=== PATIENT | male | born 1970 | race Caucasian/White ===

== ENCOUNTER 2020-07-07 11:05 | Outpatient (REF) | payer MEDICARE, OTHER, SELFPAY ==
[2020-07-07 11:59] LABS: MANUAL DIFF FLAG NO
[2020-07-07 12:11] LABS: Basophils Absolute Auto 0.1 X10*3/uL (0.0-0.2); Basophils Percent Auto 0.5 % (0-2); Eosinophils Absolute Auto 0.3 X10*3/uL (0.0-0.4); Eosinophils Percent Auto 2.9 % (0-4); Hematocrit 48.7 % (42-52); Hemoglobin 16.4 g/dl (14.0-18.0); Imm Gran Abs Auto 0.05 X10*3/uL (0.00-0.03); Imm Gran Pct Auto 0.5 % (0.0-0.4); Lymphocytes Absolute Auto 2.4 X10*3/uL (1.2-4.9); Lymphocytes Percent Auto 24.2 % (20-40); Mean Corpuscular HGB Conc 33.7 g/dl (31.0-36.0); Mean Corpuscular Hemoglobin 29.4 pg (27.0-33.0); Mean Corpuscular Volume 87.3 fL (80-98); Mean Platelet Volume 10.1 fL (9.4-12.4); Monocytes Absolute Auto 0.8 X10*3/uL (0.1-1.2); Monocytes Percent Auto 7.4 % (2-11); Neutrophils Absolute Auto 6.5 X10*3/uL (2.0-8.3); Neutrophils Percent Auto 64.5 % (45-73); Platelet Count 601 X10*3/uL (160-400); Red Blood Count 5.58 X10*6/uL (4.60-5.80); Red Cell Distribution Width 13.2 % (11.0-16.0); White Blood Count 10.1 X10*3/uL (4.8-10.8)
[2020-07-07 12:36] LABS: Alanine Aminotransferase 19 U/L (0-40); Albumin Level 4.5 g/dL (3.5-5.0); Alkaline Phosphatase 96 U/L (39-117); Anion Gap 12 (12-20); Aspartate Amino Transferase 19 U/L (5-37); Bilirubin Total 1.1 mg/dL (0.0-1.0); Blood Urea Nitrogen 17 mg/dL (9-16); Calcium 9.3 mg/dL (8.4-10.2); Carbon Dioxide 28 mmol/L (22-29); Chloride 101 mmol/L (96-108); Cholesterol 177 mg/dL; Estimated Glomerular Filt Rate > 60; Glucose Random 93 mg/dL (60-115); HDL Cholesterol 47 mg/dL; LDL Cholesterol Calculated 118 mg/dl; Potassium 4.8 mmol/l (3.3-5.1); Sodium 136 mmol/L (135-145); Total Protein 7.2 g/dL (6.5-8.0); Triglycerides 61 mg/dL
[2020-07-07 13:01] LABS: Free T4 (Free Thyroxine) 0.97 ng/dL (0.71-1.85); Thyroid Stimulating Hormone 3.24 uIU/mL (0.32-4.0)
[2020-07-07 13:17] LABS: Folate 11.4 ng/mL (> or = 4.0); Vitamin B12 410 pg/mL (200-900)
[2020-07-07 13:18] LABS: Creatinine Urine 303.16 mg/dL; Microalbum/Creatinine Ratio Ur 8.5 ug/mg cr
== END 2020-07-07 11:06 | disposition home or self-care (01) ==
LOC: HO.LAB 11:05
PROVIDERS: PCP Internal Medicine; Visit Provider Internal Medicine
DX: E10.22 Type 1 diabetes mellitus with diabetic chronic kidney disease (principal); N18.2 Chronic kidney disease, stage 2 (mild); E03.9 Hypothyroidism, unspecified; E11.65 Type 2 diabetes mellitus with hyperglycemia; E78.00 Pure hypercholesterolemia, unspecified; I12.9 Hypertensive chronic kidney disease with stage 1 through stage 4 chronic kidney disease, or unspecified chronic kidney disease
CPT/HCPCS: 36415; 80053; 80061; 82043; 82607; 82746; 84439; 84443; 85025

== ENCOUNTER 2021-04-29 11:20 | Outpatient (REF) | payer MEDICARE, SELFPAY ==
--- NOTE | ~2021-04-29 | XR_ITS ---
EXAMINATION: XR KNEE, RIGHT CLINICAL INFORMATION: Pain. COMPARISON: None. TECHNIQUE: AP, lateral, and sunrise views of the right knee. FINDINGS: Mild medial compartment joint space narrowing. Trace joint effusion. No osseous erosion. No fracture or dislocation. No abnormal soft tissue calcification. XR/XR knee RT 3V IMPRESSION: Mild medial compartment arthrosis. Trace joint effusion.
[2021-04-29 12:35] LABS: Alanine Aminotransferase 22 U/L (0-40); Albumin Level 4.4 g/dL (3.5-5.0); Alkaline Phosphatase 86 U/L (39-117); Anion Gap 13 (12-20); Aspartate Amino Transferase 20 U/L (5-37); Blood Urea Nitrogen 11 mg/dL (9-16); Calcium 9.8 mg/dL (8.4-10.2); Carbon Dioxide 27 mmol/L (22-29); Chloride 103 mmol/L (96-108); Cholesterol 174 mg/dL; Estimated Glomerular Filt Rate > 60; Glucose Random 226 mg/dL (60-115); HDL Cholesterol 46 mg/dL; LDL Cholesterol Calculated 114 mg/dl; Potassium 4.6 mmol/L (3.3-5.1); Sodium 138 mmol/L (135-145); Total Protein 7.1 g/dL (6.5-8.0); Triglycerides 70 mg/dL
[2021-04-29 12:56] LABS: Free T4 (Free Thyroxine) 0.93 ng/dL (0.71-1.85); Prostate Specific Antigen Scr 0.63 ng/mL (<0.05-4.0); Thyroid Stimulating Hormone 4.26 uIU/mL (0.32-4.0)
[2021-04-29 13:08] LABS: Folate 10.5 ng/mL (> or = 4.0); Vitamin B12 386 pg/mL (200-900)
[2021-04-29 13:52] LABS: Microalbum/Creatinine Ratio Ur 6.6 ug/mg cr
[2021-04-29 14:04] LABS: Estimated Average Glucose 200 mg/dL; Hemoglobin A1c % 8.6 %
== END 2021-04-29 11:21 | disposition home or self-care (01) ==
LOC: HO.XRAY 11:20
PROVIDERS: PCP Internal Medicine; Visit Provider Nurse Practitioner Family
DX: M25.561 Pain in right knee (principal); E10.22 Type 1 diabetes mellitus with diabetic chronic kidney disease; N18.2 Chronic kidney disease, stage 2 (mild); E78.00 Pure hypercholesterolemia, unspecified; E10.65 Type 1 diabetes mellitus with hyperglycemia; Z12.5 Encounter for screening for malignant neoplasm of prostate
CPT/HCPCS: 36415; 73562; 80053; 80061; 82043; 82607; 82746; 83036; 84153; 84439; 84443; 85025

== ENCOUNTER 2021-08-24 10:11 | Outpatient (REF) | payer MEDICARE, SELFPAY ==
[2021-08-24 11:04] LABS: Creatinine Urine 184.68 mg/dL
[2021-08-24 11:41] LABS: Alanine Aminotransferase 21 U/L (0-40); Alkaline Phosphatase 82 U/L (39-117); Anion Gap 12 (12-20); Aspartate Amino Transferase 21 U/L (5-37); Bilirubin Total 0.9 mg/dL (0.0-1.0); Blood Urea Nitrogen 15 mg/dL (9-16); Calcium 9.5 mg/dL (8.4-10.2); Carbon Dioxide 27 mmol/L (22-29); Chloride 105 mmol/L (96-108); Cholesterol 139 mg/dL; Estimated Glomerular Filt Rate > 60; Glucose Random 151 mg/dL (60-115); HDL Cholesterol 36 mg/dL; LDL Cholesterol Calculated 90 mg/dl; Potassium 4.7 mmol/L (3.3-5.1); Sodium 139 mmol/L (135-145); Total Protein 6.6 g/dL (6.5-8.0); Triglycerides 65 mg/dL
[2021-08-24 12:08] LABS: Free T4 (Free Thyroxine) 0.96 ng/dL (0.71-1.85); Thyroid Stimulating Hormone 2.29 uIU/mL (0.32-4.0)
== END 2021-08-24 10:12 | disposition home or self-care (01) ==
LOC: HO.LAB 10:11
PROVIDERS: PCP Internal Medicine; Visit Provider Internal Medicine
DX: E11.65 Type 2 diabetes mellitus with hyperglycemia (principal); E78.00 Pure hypercholesterolemia, unspecified; E03.9 Hypothyroidism, unspecified
CPT/HCPCS: 36415; 80053; 80061; 84439; 84443

== ENCOUNTER 2022-09-13 08:33 | Outpatient (REF) | payer MEDICARE, SELFPAY ==
[2022-09-13 08:44] LABS: MANUAL DIFF FLAG NO
[2022-09-13 08:48] LABS: Basophils Absolute Auto 0.1 X10*3/uL (0.0-0.2); Eosinophils Absolute Auto 0.6 X10*3/uL (0.0-0.4); Eosinophils Percent Auto 4.8 % (0-4); Hemoglobin 19.7 g/dl (14.0-18.0); Imm Gran Abs Auto 0.12 X10*3/uL (0.00-0.03); Lymphocytes Absolute Auto 1.8 X10*3/uL (1.2-4.9); Lymphocytes Percent Auto 15.4 % (20-40); Mean Corpuscular HGB Conc 33.3 g/dl (31.0-36.0); Mean Corpuscular Hemoglobin 29.5 pg (27.0-33.0); Mean Corpuscular Volume 88.8 fL (80.0-98.0); Mean Platelet Volume 9.5 fL (9.4-12.4); Monocytes Absolute Auto 0.8 X10*3/uL (0.1-1.2); Monocytes Percent Auto 7.1 % (2-11); Neutrophils Absolute Auto 8.4 x10*3/uL (2.0-8.3); Neutrophils Percent Auto 70.7 % (45-73); Platelet Count 706 X10*3/uL (160-400); Red Blood Count 6.67 X10*6/uL (4.60-5.80); Red Cell Distribution Width 16.7 % (11.0-16.0); White Blood Count 11.9 X10*3/uL (4.8-10.8)
[2022-09-13 08:50] LABS: Hematocrit 59.2 % (42.0-52.0)
[2022-09-13 09:20] LABS: Estimated Average Glucose 203 mg/dL; Hemoglobin A1c % 8.7 %
[2022-09-13 09:26] LABS: Alanine Aminotransferase 24 U/L (0-40); Alkaline Phosphatase 124 U/L (39-117); Anion Gap 14 (12-20); Aspartate Amino Transferase 26 U/L (5-37); Bilirubin Total 1.3 mg/dL (0.0-1.0); Blood Urea Nitrogen 12 mg/dL (9-16); Calcium 9.5 mg/dL (8.4-10.2); Carbon Dioxide 28 mmol/L (22-29); Chloride 104 mmol/L (96-108); Cholesterol 145 mg/dL; Estimated Glomerular Filt Rate > 60; Glucose Random 118 mg/dL (60-115); HDL Cholesterol 44 mg/dL; LDL Cholesterol Calculated 89 mg/dl; Potassium 4.6 mmol/L (3.3-5.1); Sodium 141 mmol/L (135-145); Total Protein 6.6 g/dL (6.5-8.0); Triglycerides 60 mg/dL
[2022-09-13 09:56] LABS: Folate 6.9 ng/mL (> or = 4.0); Free T4 (Free Thyroxine) 1.21 ng/dL (0.71-1.85); Prostate Specific Antigen Scr 0.62 ng/mL (<0.05-4.0); Thyroid Stimulating Hormone 2.29 uIU/mL (0.32-4.0); Vitamin B12 522 pg/mL (200-900)
[2022-09-13 10:38] LABS: Creatinine Urine 152.68 mg/dL; Microalbum/Creatinine Ratio Ur 9.1 ug/mg cr
== END 2022-09-13 08:34 | disposition home or self-care (01) ==
LOC: HO.LAB 08:33
PROVIDERS: PCP Internal Medicine; Visit Provider Internal Medicine
DX: Z12.5 Encounter for screening for malignant neoplasm of prostate (principal); E11.65 Type 2 diabetes mellitus with hyperglycemia; E78.00 Pure hypercholesterolemia, unspecified
CPT/HCPCS: 36415; 80053; 80061; 82043; 82607; 82746; 83036; 84153; 84439; 84443; 85025

== ENCOUNTER 2022-09-19 10:40 | Outpatient (REF) | payer MEDICARE, SELFPAY ==
[2022-09-19 11:46] LABS: Baso%MD 0.9 %; Eos%MD 4.5 %; Hemoglobin 19.5 g/dl (14.0-18.0); IG%MD 1.3 %; Lymph%MD 14.4 %; Mean Corpuscular HGB Conc 33.5 g/dl (31.0-36.0); Mean Corpuscular Hemoglobin 28.9 pg (27.0-33.0); Mean Corpuscular Volume 86.4 fL (80.0-98.0); Mean Platelet Volume 9.6 fL (9.4-12.4); Mono%MD 5.9 %; Platelet Count 758 X10*3/uL (160-400); Red Blood Count 6.74 X10*6/uL (4.60-5.80); Red Cell Distribution Width 15.9 % (11.0-16.0)
[2022-09-19 11:47] LABS: Hematocrit 58.2 % (42.0-52.0)
[2022-09-19 12:38] LABS: Atypical Lymph Absolute Manual 0.1 x10*3/uL; Atypical Lymphs Percent Manual 1 % (0-6); Band Neutrophils Percent 2 % (3-5); Basophils Abs Manual 0.1 X10*3/uL (0.0-0.2); Basophils Percent Manual 1 % (0-2); Eosinophils Absolute Manual 0.5 X10*3/uL (0.0-0.4); Eosinophils Percent Manual 4 % (0-4); Lymphocytes Absolute Manual 1.8 X10*3/uL (1.2-4.9); Lymphocytes Percent Manual 14 % (20-40); Monocytes Absolute Manual 0.7 X10*3/uL (0.1-1.2); Monocytes Percent Manual 5 % (2-11); Neutrophils Absolute Manual 9.8 X10*3/uL (2.0-8.3); Neutrophils Percent Manual 73 % (45-73)
[2022-09-19 12:39] LABS: Creatinine Urine 146.47 mg/dL
[2022-09-19 12:41] LABS: Polychromasia 1+ (0-2) /OIF; RBC Morphology NOTED
[2022-09-19 12:42] LABS: Burr Cells 1+ (0-2) /OIF; Spherocytes 1+ (0-2) /OIF
[2022-09-19 12:43] LABS: Platelet Estimate INCREASED (NORMAL); Platelet Morphology Comment NORMAL; Toxic Vacuolation PRESENT
== END 2022-09-19 10:41 | disposition home or self-care (01) ==
LOC: HO.LAB 10:40
PROVIDERS: PCP Internal Medicine; Visit Provider Internal Medicine
DX: E11.65 Type 2 diabetes mellitus with hyperglycemia (principal); D75.1 Secondary polycythemia
CPT/HCPCS: 36415; 85007; 85027

== ENCOUNTER → 2022-09-22 15:30 | Outpatient (BNV) | payer MEDICARE, SELFPAY | PROVIDERS: PCP Internal Medicine; Visit Provider Internal Medicine | DX: D75.1 Secondary polycythemia (principal); D75.839 Thrombocytosis, unspecified | CPT/HCPCS: 99204; 99213; 99214; G2211 ==

== ENCOUNTER 2022-10-23 09:48 | Outpatient (REF) | payer MEDICARE, SELFPAY | END 2022-10-23 09:49 | disposition home or self-care (01) | LOC: HO.BBR 09:48 | PROVIDERS: Visit Provider Internal Medicine | DX: D75.1 Secondary polycythemia (principal) | CPT/HCPCS: 85018; 99195 ==

== ENCOUNTER 2022-11-20 08:35 | Outpatient (REF) | payer MEDICARE, SELFPAY | END 2022-11-20 08:36 | disposition home or self-care (01) | LOC: HO.BBR 08:35 | PROVIDERS: PCP Internal Medicine; Visit Provider Internal Medicine | DX: D75.1 Secondary polycythemia (principal) | CPT/HCPCS: 85014; 85018; 99195 ==

== ENCOUNTER 2022-12-26 07:59 | Outpatient (REF) | payer MEDICARE, SELFPAY | END 2022-12-26 08:00 | disposition home or self-care (01) | LOC: HO.BBR 07:59 | PROVIDERS: PCP Internal Medicine; Visit Provider Internal Medicine | DX: D75.1 Secondary polycythemia (principal) | CPT/HCPCS: 85014; 85018; 99195 ==

== ENCOUNTER 2023-01-24 07:59 | Outpatient (REF) | payer MEDICARE, SELFPAY | END 2023-01-24 08:00 | disposition home or self-care (01) | LOC: HO.BBR 07:59 | PROVIDERS: PCP Internal Medicine; Visit Provider Internal Medicine | DX: D75.1 Secondary polycythemia (principal) | CPT/HCPCS: 85018; 99195 ==

== ENCOUNTER 2023-02-28 08:38 | Outpatient (REF) | payer MEDICARE, SELFPAY ==
--- NOTE | ~2023-02-28 | US_ITS ---
EXAMINATION: US VENOUS WITH DOPPLER UPPER EXTREMITY, LEFT CLINICAL INFORMATION: Left upper extremity swelling, polycythemia. COMPARISON: None available. TECHNIQUE: Ultrasound of the upper extremity is performed using compression sonography and color and pulse Doppler flow with assessment of augmentation of flow. There is also imaging and Doppler assessment of the jugular and subclavian veins. Spectral analysis with color-flow imaging is performed. FINDINGS: Respiratory variation, normal compression, and augmented flow are noted throughout the upper extremity including the axillary, brachial, cubital, and radial and ulnar veins. There is normal flow in the internal jugular and subclavian veins. There is no visible deep or superficial thrombophlebitis. If the patient's symptoms progress, a followup ultrasound in 5 -7 days might be of value to exclude proximal propagation from a nonvisualized distal arm vein. US/US venous duplex UE LT IMPRESSION: No evidence of deep venous thrombosis in the visualized veins of the left upper extremity.
== END 2023-02-28 08:39 | disposition home or self-care (01) ==
LOC: HO.US 08:38
PROVIDERS: PCP Internal Medicine; Visit Provider Internal Medicine
DX: D75.839 Thrombocytosis, unspecified (principal); M79.89 Other specified soft tissue disorders
CPT/HCPCS: 93971

== ENCOUNTER 2023-02-28 09:48 | Outpatient (AMB) | payer MEDICARE, SELFPAY ==
--- NOTE | 2023-02-28 09:55 | A.OFFPC_ITS ---
Vital Signs 02/28/23 09:57 02/28/23 10:29 Height 5 ft 8 in Weight 214 lb BMI 32.5 BP 152/82 H 130/70 Blood Pressure Location Lt brachial Lt brachial Position Sitting Sitting Pulse 78 Pulse Source Pulse Oximeter Pulse Oximetry (%) 98 Oxygen Delivery Method Room Air Intake Visit Reasons: Heart Attack [facility] Allergies peanut [PEANUT] Allergy (Severe, Verified 02/28/23 09:58) ANAPHYLAXIS lamotrigine [Lamictal] Allergy (Unknown, Verified 02/28/23 09:58) cough lisinopril Allergy (Unknown, Verified 02/28/23 09:58) unknown Penicillins [PENICILLINS] Allergy (Unknown, Verified 02/28/23 09:58) SEVERE HIVES valsartan Allergy (Unknown, Verified 02/28/23 09:58) Unknown Tobacco use date assessed: 09/22/22 Dental Screening Dental Screen Date: 02/28/23 Did you have a dental visit in the last 12 months?: Yes Did you have a dental problem in the last 6 months where you did not have access to dental care?: No Was dental information given to patient?: Patient has dentist HPI Heart Attack - [facility] HPI Details 52-year-old obese male with diabetes mellitus type 1 hypertension hypothyroidism asthma hypercholesterolemia GERD polycythemia and migraine last seen in December 2022. Review of the notes had left upper extremity swelling in which an ultrasound done showing no evidence of DVT. Patient follows up with Hematology Oncology for the myeloproliferative disorder probable polycythemia vera positive for JAK2 mutation receiving therapeutic phlebotomy on hydroxyurea and baby aspirin. Patient was recently in the hospital 02/03/2002/15/2023 presented to the ER with chest pain diagnosis of non ST elevated myocardial infarction noted also rib fractures multiple right side. Cath was suppose to be done but was delayed and so the patient walked out COUNTS INCLUDE 234 BEDS AT THE [facility] Medical History (Updated 02/28/23 @ 10:14 by Tali Dyer MD) Anxiety and depression Asthma Cataract Chronic kidney disease GERD (gastroesophageal reflux disease) History of aspiration pneumonia Hypercholesterolemia Hypertension Hypothyroidism Left bundle branch block Obesity (BMI 30-39.9) Obstructive sleep apnea Peripheral neuropathy Pulmonary nodule Type 1 diabetes mellitus with diabetic chronic kidney disease Vitamin D deficiency Surgical History History of carpal tunnel release History of eye surgery History of lumbar surgery History of penile implant History of surgery History of trigger finger Family History Father Hypertension CVD (cardiovascular disease) Mother Hypertension CVD (cardiovascular disease) Family/Other Rectal cancer Brother Rectal cancer Social History Household Members: Family Housing: House Alcohol intake: never Patient Tobacco Use Status: Former Tobacco user Tobacco use type: Cigarette Years Smoked: teenager e-Cigarette/Vaping Use: Never Used Second Hand Smoke Exposure: Yes service: No Current occupational status: unemployed Cognitive needs: No Hearing needs: No Vision needs: Yes Questionnaire PHQ-9 Over the last 2 weeks, how often have you been bothered by any of the following problems? 1. Little interest or pleasure in doing things: not at all 2. Feeling down, depressed, or hopeless: several days 3. Trouble falling or staying asleep, or sleeping too much: several days 4. Feeling tired or having little energy: several days 5. Poor appetite or overeating: not at all 6. Feeling bad about yourself - or that you are a failure or have let yourself or your family down: several days 7. Trouble concentrating on things, such as reading the newspaper or watching television: not at all 8. Moving or speaking so slowly that other people could have noticed. Or the opposite - being so fidgety or restless that you have been moving around a lot more than usual: not at all 9. Thoughts that you would be better off or of hurting yourself in some way: not at all Total score: 4 Depression Screening Interpretation: Positive Source: Developed by Drs. Kendall Zapata, Navya Torres, Robert Costa and colleagues, with an educational glen from [employer]. Thrive Questionnaire Date Thrive assessed: 09/22/22 AUDIT C Alcohol Use Questionnaire (AUDIT-C) 1. How often do you have a drink containing alcohol?: 2-4 times a month 2. How many drinks containing alcohol do you have on a typical day when you are drinking?: 3 or 4 3. How often do you have six or more drinks on one occasion?: Less than monthly Total Score: 4 Score Reviewed/Action Taken: Yes YEN-7 AMB Questionnaire YEN-7 Date YEN - 7 assessed: 09/22/22 Source: Developed by DrsEnedina Zapata, Navya Torres, Robert Costa and colleagues, with an educational glen from [employer]. Physical exam (Primary Care) Vital Signs: Last Vital Signs Pulse 78 02/28/23 09:57 BP 152/82 H 02/28/23 09:57 Pulse Ox 98 02/28/23 09:57 Oxygen Delivery Method Room Air 02/28/23 09:57 BMI result Body Mass Index 32.5 Tobacco/Smoking Status: Tobacco use Status Tobacco use date assessed 09/22/22 02/28/23 10:02 Patient Tobacco Use Status Former Tobacco user 02/28/23 10:02 Tobacco use type Cigarette 02/28/23 10:02 e-Cigarette/Vaping Use Never Used 02/28/23 10:02 PHQ-9: PHQ-9 Score PHQ-9: Total score 4 02/28/23 10:02 Depression Screening Interpretation: Positive Thrive Assessment: Date of Thrive Assessment Date Thrive assessed 09/22/22 02/28/23 10:02 Const General: alert; No acute distress Eyes Conjunctivae: conjunctivae normal Resp Auscultation: clear to auscultation bilaterally Cardio Rate: regular rate Rhythm: regular rhythm GI Inspection: Yes normal to inspection Extrem General: Yes normal to inspection and No edema Assessment and Plan Assessment & Plan (1) NSTEMI (non-ST elevated myocardial infarction): Comment: January 2023 Code(s): I21.4 - Non-ST elevation (NSTEMI) myocardial infarction Plan: Control the cholesterol, weight, blood pressure, diabetes called cardiology for an urgent referral and they will get in touch with him. (2) Polycythemia: Code(s): D75.1 - Secondary polycythemia Plan: Patient follows up with hematology oncology on hydroxyurea and therapeutic phlebotomy (3) Hypertension: Comment: Cardiac catheterization June 2018 normal Code(s): I10 - Essential (primary) hypertension Qualifiers: Hypertension type: essential hypertension Qualified Code(s): I10 - Essential (primary) hypertension Plan: Continue with blood pressure medication. Decrease salt intake and exercise presently on amlodipine 10 mg once a day metoprolol 50 mg once a day blood pressure is controlled (4) Type 1 diabetes mellitus with diabetic chronic kidney disease: Comment: With retinopathy, neuropathy, nephropathy Code(s): E10.22 - Type 1 diabetes mellitus with diabetic chronic kidney disease Qualifiers: Chronic kidney disease stage: stage 2 (mild) Qualified Code(s): E10.22 - Type 1 diabetes mellitus with diabetic chronic kidney disease; N18.2 - Chronic kidney disease, stage 2 (mild) Plan: Decrease the amount of carbohydrate intake, pasta, bread, rice and potatoes are all sugar and that is aside from all the sweet stuff, remember that fruits are good but they are Sweet also. Patient on insulin pump and has cardiology to help with control of diabetes (5) Asthma: Code(s): J45.909 - Unspecified asthma, uncomplicated Qualifiers: Asthma severity: mild Asthma persistence: intermittent Asthma complication type: uncomplicated Qualified Code(s): J45.20 - Mild intermittent asthma, uncomplicated Plan: Stable (6) Hypothyroidism: Code(s): E03.9 - Hypothyroidism, unspecified Qualifiers: Hypothyroidism type: acquired Qualified Code(s): E03.9 - Hypothyroidism, unspecified Plan: Continue with the thyroid medication (7) Obesity (BMI 30-39.9): Code(s): E66.9 - Obesity, unspecified Plan: Diet and exercise (8) Hypercholesterolemia: Code(s): E78.00 - Pure hypercholesterolemia, unspecified Plan: Avoid fried foods, chicken skin, eggs, butter margarine, pastries and meat. Be it pork or beef they have a lot of cholesterol LDL goal of less than 70 and triglyceride of less than 150 patient is on atorvastatin 40 mg once a day. LDL blood work done in [facility] is 57. (9) GERD (gastroesophageal reflux disease): Code(s): K21.9 - Gastro-esophageal reflux disease without esophagitis Qualifiers: Esophagitis presence: without esophagitis Qualified Code(s): K21.9 - Gastro-esophageal reflux disease without esophagitis Plan: Avoid the foods that causes that usually spicy foods, tomato products, juices, coffee, soda and foods that your sensitive to. After eating do not lie down, allow 3-4 hours before in lie down. And keep the head of bed above 30 degrees to avoid the acid from going up. (10) Chronic kidney disease: Code(s): N18.9 - Chronic kidney disease, unspecified Qualifiers: Chronic kidney disease stage: stage 2 (mild) Qualified Code(s): N18.2 - Chronic kidney disease, stage 2 (mild) Plan: Avoid NSAIDs, keep well hydrated (11) Recurrent major depression: Comment: Patient follows up with counselling and therapy Code(s): F33.9 - Major depressive disorder, recurrent, unspecified Plan: Continue with present medication and counseling Orders: Referrals Cardiology Referral I21.4 - Non-ST elevation (NSTEMI) myocardial infarction Coding Level of Care Code Est Pt Level 4 (42925) Diagnoses NSTEMI (non-ST elevated myocardial infarction) I21.4 Polycythemia D75.1 Hypertension I10 Hypertension type: essential hypertension Type 1 diabetes mellitus with diabetic chronic kidney disease E10.22; N18.2 Chronic kidney disease stage: stage 2 (mild) Asthma J45.20 Asthma severity: mild Asthma persistence: intermittent Asthma complication type: uncomplicated Hypothyroidism E03.9 Hypothyroidism type: acquired Obesity (BMI 30-39.9) E66.9 Hypercholesterolemia E78.00 GERD (gastroesophageal reflux disease) K21.9 Esophagitis presence: without esophagitis Chronic kidney disease N18.2 Chronic kidney disease stage: stage 2 (mild) Recurrent major depression F33.9 Additional Codes PHQ-9 - 51939 - PHQ-9 Billing: Y ([id number])
[2023-02-28 09:57] VITALS: BP 152/82; PULSE 78; O2SAT 98; BMI 32.5
[2023-02-28 10:29] VITALS: BP 130/70
== END 2023-02-28 10:38 | disposition home or self-care (01) ==
PROVIDERS: PCP Internal Medicine; Visit Provider Internal Medicine
DX: I12.9 Hypertensive chronic kidney disease with stage 1 through stage 4 chronic kidney disease, or unspecified chronic kidney disease (principal); N18.2 Chronic kidney disease, stage 2 (mild); E10.22 Type 1 diabetes mellitus with diabetic chronic kidney disease; I21.4 Non-ST elevation (NSTEMI) myocardial infarction; D75.1 Secondary polycythemia; J45.20 Mild intermittent asthma, uncomplicated; E03.9 Hypothyroidism, unspecified; E66.9 Obesity, unspecified; E78.00 Pure hypercholesterolemia, unspecified; K21.9 Gastro-esophageal reflux disease without esophagitis; F33.9 Major depressive disorder, recurrent, unspecified
CPT/HCPCS: 99214

== ENCOUNTER 2023-03-06 09:51 | Outpatient (AMB) | payer MEDICARE, SELFPAY ==
--- NOTE | 2023-03-06 09:55 | MHC.OFFVIS ---
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: No Allergies peanut [PEANUT] Allergy (Severe, Verified 02/28/23 09:58) ANAPHYLAXIS lamotrigine [Lamictal] Allergy (Unknown, Verified 02/28/23 09:58) cough lisinopril Allergy (Unknown, Verified 02/28/23 09:58) unknown Penicillins [PENICILLINS] Allergy (Unknown, Verified 02/28/23 09:58) SEVERE HIVES valsartan Allergy (Unknown, Verified 02/28/23 09:58) Unknown Medication List - Last Reconciled 03/06/23 by Fito Washington MD amlodipine 10 mg PO DAILY aspirin (Adult Aspirin Regimen) 81 mg PO DAILY atorvastatin 40 mg PO DAILY blood sugar diagnostic (Contour Next Test Strips) As directed [id number] 50-325-40 mg 1 cap PO Q4-6H PRN duloxetine 20 mg PO DAILY erenumab-aooe (Aimovig Autoinjector) 140 mg subcut DAILY fluticasone propionate 50 mcg/actuation 2 sprays intranasal DAILY hydroxyurea (Hydrea) 500 mg PO BID insulin aspart U-100 (Novolog FlexPen U-100 Insulin aspart) 100 units subcut DAILY levothyroxine 125 mcg PO QAM metoprolol succinate ER 50 mg PO DAILY 90 days pantoprazole 40 mg PO DAILY 90 days sertraline 50 mg PO DAILY 90 days sumatriptan succinate 50 mg PO Q2-4H PRN HPI HPI Comments History of Present Illness Details Thank you for referring Russell in cardiology consultation today for management of recent NSTEMI. Patient was admitted to [facility] with left-sided chest pressure and subsequent workup had revealed elevated troponins. He was then admitted and started on IV heparin and was scheduled for cardiac catheterization. He had an echocardiogram while he was there which showed normal LV systolic function without any significant regional wall motion abnormality with mild LVH and without any significant valvular abnormality. However he got upset as his cardiac catheterization kept getting postponed and delayed day after day. He therefore signed out against medical advise as he was not getting proper answer any was concerned about getting his blood removed for his polycythemia. Since then he has been not performing a lot of exercise and he has been laying low. He has had no recurrent chest pressure anginal sounding chest discomfort. He is taking all his medications currently. [facility] Medical History Anxiety and depression Asthma Cataract Chronic kidney disease GERD (gastroesophageal reflux disease) History of aspiration pneumonia Hypercholesterolemia Hypertension Hypothyroidism Left bundle branch block Obesity (BMI 30-39.9) Obstructive sleep apnea Peripheral neuropathy Pulmonary nodule Type 1 diabetes mellitus with diabetic chronic kidney disease Vitamin D deficiency Surgical History History of carpal tunnel release History of eye surgery History of lumbar surgery History of penile implant History of surgery History of trigger finger Family History Father Hypertension CVD (cardiovascular disease) Mother Hypertension CVD (cardiovascular disease) Family/Other Rectal cancer Brother Rectal cancer Social History Household Members: Family Housing: House Alcohol intake: never Patient Tobacco Use Status: Former Tobacco user Tobacco use type: Cigarette Years Smoked: teenager e-Cigarette/Vaping Use: Never Used Second Hand Smoke Exposure: Yes service: No Current occupational status: unemployed Cognitive needs: No Hearing needs: No Vision needs: Yes Review of Systems Const Denies chills, Denies daytime sleepiness, Denies fatigue, Denies fever(s), Denies frequent falls, Denies poor appetite, Denies snoring, Denies stops breathing during sleep, Denies weakness, Denies weight gain and Denies weight loss Eyes Denies loss of vision ENT Denies dizziness and Denies hearing loss Card Denies chest pain, Denies claudication, Denies leg edema, Denies lightheadedness, Denies palpitations, Denies dyspnea, Denies dyspnea on exertion and Denies orthopnea Resp Denies cough, Denies excessive phlegm production, Denies dyspnea, Denies dyspnea on exertion, Denies snoring and Denies wheezing GI Denies abdominal pain, Denies hematochezia, Denies change in bowel habits, Denies nausea and Denies vomiting Denies dysuria and Denies urinary frequency Musc Denies arthralgias, Denies muscle weakness, Denies numbness and Denies other (frequent falls) Skin/Breast Denies nail changes and Denies rash Neuro Denies Abnormal speech present, Denies dizziness, Denies frequent falls, Denies loss of vision, Denies memory loss, Denies numbness and Denies weakness Psych Denies depression and Denies memory loss Endo Denies fatigue and Denies palpitations Viral/Lymph Reports easy bruising and Reports other (anemia) Aller/Immun Denies wheezing Physical Exam Vital Signs: Last Vital Signs Pulse 84 03/06/23 10:00 BP 130/72 03/06/23 10:00 BMI result Body Mass Index 32.5 Const General: cooperative, comfortable, no acute distress, alert, awake and Physically active Nutritional Appearance: obese Orientation/consciousness: patient oriented x3 Limitations: no limitations HEENT Head: Yes normocephalic and Yes atraumatic Neck Neck: Yes trachea midline, Yes supple and Yes no JVD Carotids: no bruits Resp Effort & Inspection: normal respiratory effort Auscultation: clear to auscultation bilaterally Cardio Jugular venous distension: no JVD Palpation: normal PMI Rate: regular rate Rhythm: regular rhythm Heart sounds: S1 normal heart sound present, S2 normal heart sound present, no click, no gallops, no murmurs and no rubs GI Auscultation: normal bowel sounds Skin General skin exam: no rashes or lesions noted Neuro General: patient oriented x3 and no focal motor deficits Speech: No Abnormal speech present Extrem General: Yes no clubbing, cyanosis or edema Psych Appearance: grossly normal Assessment & Plan Assessment & Plan (1) NSTEMI (non-ST elevated myocardial infarction): Comment: January 2023 Code(s): I21.4 - Non-ST elevation (NSTEMI) myocardial infarction Plan: Recent admission with symptoms and biomarker evidence suggestive of acute coronary syndrome. Higher detailed discussion with him regarding pathophysiology of acute coronary syndrome related to acute plaque erosion/rupture/disruption and reduction myocardial blood flow. He was advised appropriately cardiac catheterization although he had signed out against medical advise. Currently has had no recurrent symptoms is add reduced were capacity. I discussed with him that he requires further risk stratification form of management of his acute coronary syndrome that happened recently. Given that he has had no recurrent symptoms we can pursue noninvasive workup. Suggested him given his underlying left bundle-branch block that he would require vasodilating myocardial perfusion imaging and/or can consider coronary CTA. Will perform vasodilating myocardial perfusion imaging for further assessment. Further treatment based on the finding. If he does have ischemia based on this will require invasive cardiac catheterization with the goal for interventional revascularization. Continue aspirin. Continue high-intensity statin therapy. Advise lipid panel in 6 weeks time. Continue aggressive blood pressure control goal blood pressure less than 130/84. Continue aggressive diabetes control which is being pursue through office. If myocardial perfusion imaging is within normal limits, will proceed with cardiac rehab Will follow with him in 6 weeks time, sooner p.r.n.. Thank you for allowing me to partake in his care Orders: Orders CA lexiscan stress w jean-claude Today I21.4 - Non-ST elevation (NSTEMI) myocardial infarction Lipid Panel 6 Weeks I21.4 - Non-ST elevation (NSTEMI) myocardial infarction, I25.10 - Atherosclerotic heart disease of [place] coronary artery without angina pectoris Cardiac Rehab 3 Weeks I21.4 - Non-ST elevation (NSTEMI) myocardial infarction, Z95.2 - Presence of prosthetic heart valve Coding Level of Care Code New Pt Level 4 (51189) Diagnoses NSTEMI (non-ST elevated myocardial infarction) I21.4
[2023-03-06 10:00] VITALS: BP 130/72; PULSE 84; BMI 32.5
== END 2023-03-06 10:27 | disposition home or self-care (01) ==
PROVIDERS: PCP Internal Medicine; Referring Provider Internal Medicine; Visit Provider Internal Medicine Cardiovascular Disease
DX: I21.4 Non-ST elevation (NSTEMI) myocardial infarction (principal)
CPT/HCPCS: 99204

== ENCOUNTER → 2023-03-06 09:51 | Outpatient (BNVA) | payer MEDICARE, SELFPAY | PROVIDERS: PCP Internal Medicine; Referring Provider Internal Medicine; Visit Provider Internal Medicine Cardiovascular Disease | DX: I21.4 Non-ST elevation (NSTEMI) myocardial infarction (principal) | CPT/HCPCS: 99202 ==

== ENCOUNTER → 2023-03-22 08:38 | Outpatient (REF) | payer MEDICARE, SELFPAY ==
--- NOTE | ~2023-03-22 | NM_ITS ---
Myocardial perfusion study Indication: NSTEMI To evaluate for myocardial ischemia Technique: The patient was brought in for a Lexiscan perfusion study on 03/22/2023. Patient performed low-level exercise and was injected 0.4 mg of Lexiscan intravenously. Within a minute of injection, 30 mCi of sestamibi was given intravenously. Images were obtained using the SPECT gamma camera interlaced with the gating device. Images were obtained in supine position. Resting perfusion study was performed on 03/26/2023. Patient was administered 30 mCi of sestamibi intravenously at rest. Images were then obtained in supine position. Images obtained with and without CT attenuation. Total DLP 132 mGy-cm. Images were processed with the software and compared side to side in short axis, horizontal long axis and vertical long axis views. Findings: The stress perfusion study showed non attenuated images show very focal area of minimally reduced uptake in the mid anterior wall of the LV myocardium. Remainder of the LV myocardium is normally perfused. Attenuation corrected images show small area of mildly to moderately reduced uptake in the apex and inferoapical wall of the LV myocardium.. The gated study shows reduced LV systolic function with calculated LVEF of 44%. LV cavity is mildly dilated size. The gated study shows diffuse and mildly reduced wall thickening and contraction of segments. Resting study shows nontender images show normal uptake in the anterior wall of the LV myocardium. Minimal thinning of the inferior wall of the LV myocardium. Attenuation corrected images show poor quality images due to subdiaphragmatic uptake interfering with myocardial uptake. Gating at rest reveals normal systolic wall motion with ejection fraction at 52%. The findings are consistent with no clear significant reversible defect suggestive wall ischemia.. NM/NM jean-claude perf SPECT rest & str Impression: 1. Myocardial perfusion imaging study shows likely normal myocardial perfusion 2. Gated LVEF is 44% with stress and 52% with rest 3. Transient ischemic dilatation present EKG nondiagnostic for ischemia
--- NOTE | 2023-03-22 08:41 | CA_ITS ---
Acquisition Time: 2023-03-22 09:19:47 Total Exercise Time: 00:02:00 Test Indications: LBBB Medications: SEE H Protocol: LEXISCAN Max HR: 083 BPM 49% of Pred: 169 BPM Max BP: 150/080 mmHG Max Work Load: 1.0 METS Pharnacolgoical stress test with Lexiscan injection, while sitting, with= mild SOB, without chest discomfort, without arrhytmias, with normotensive response to injection, with nondiagnositic EKGs. Aminophylline 75mg IVP given to reverse Lexiscan. Nuclear images pending. Test reviewed with Dr. Wang. Referred By: Fito Washington Overread By: CLARK WANG
== END ==
LOC: HO.CARD 08:38
PROVIDERS: Visit Provider Internal Medicine Cardiovascular Disease
DX: I21.4 Non-ST elevation (NSTEMI) myocardial infarction (principal)
CPT/HCPCS: 78452; 93017; A9500; J0280; J2785

== ENCOUNTER → 2023-03-22 08:41 | Outpatient (BNV) | payer MEDICARE, SELFPAY | PROVIDERS: Visit Provider Internal Medicine | DX: I21.4 Non-ST elevation (NSTEMI) myocardial infarction (principal) | CPT/HCPCS: 78452; 93016; 93018 ==

== ENCOUNTER 2023-03-27 08:45 | Outpatient (REF) | payer MEDICARE, SELFPAY | END 2023-03-27 08:46 | disposition home or self-care (01) | LOC: HO.BBR 08:45 | PROVIDERS: PCP Internal Medicine; Visit Provider Internal Medicine | DX: D75.1 Secondary polycythemia (principal) | CPT/HCPCS: 85018; 99195 ==

== ENCOUNTER 2023-04-10 09:10 | Outpatient (AMB) | payer MEDICARE, SELFPAY ==
[2023-04-03 07:30] VITALS: BP 134/66; BP 140/58; BMI 32.5
[2023-04-10 09:22] VITALS: BP 130/72; PULSE 65; BMI 32.5
--- NOTE | 2023-04-10 09:22 | A.OFFVIS_ITS ---
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: No Allergies peanut [PEANUT] Allergy (Severe, Verified 04/10/23 09:28) ANAPHYLAXIS lamotrigine [Lamictal] Allergy (Unknown, Verified 04/10/23 09:28) cough lisinopril Allergy (Unknown, Verified 04/10/23 09:28) unknown Penicillins [PENICILLINS] Allergy (Unknown, Verified 04/10/23 09:28) SEVERE HIVES valsartan Allergy (Unknown, Verified 04/10/23 09:28) Unknown Medication List - Last Reconciled 04/10/[address] amlodipine 10 mg PO DAILY aspirin (Adult Aspirin Regimen) 81 mg PO DAILY atorvastatin 40 mg PO DAILY blood sugar diagnostic (Contour Next Test Strips) As directed wtjngageim-shttlaizmsvdh-dohu 50-325-40 mg 1 cap PO Q4-6H PRN duloxetine 20 mg PO DAILY erenumab-aooe (Aimovig Autoinjector) 140 mg subcut DAILY fluticasone propionate 50 mcg/actuation 2 sprays intranasal DAILY hydroxyurea (Hydrea) 500 mg PO BID insulin aspart U-100 (Novolog FlexPen U-100 Insulin aspart) 100 units subcut DAILY levothyroxine 125 mcg PO QAM metoprolol succinate ER 50 mg PO DAILY 90 days pantoprazole 40 mg PO DAILY 90 days sertraline 50 mg PO DAILY 90 days sumatriptan succinate 50 mg PO Q2-4H PRN HPI f/up mibi ns HPI Details Russell is a 53-year-old male with past medical history of hypertension, hyperlipidemia, diabetes, thrombocytopenia, polycythemia, mild obesity, left bundle branch block who was recently admitted to [facility] with chest discomfort and ruled in for NSTEMI. He was managed medically and cardiac catheterization was planned however he waited 3 days and then signed out AMA. He was seen in this office for follow-up visit and a nuclear stress test was ordered. Today he reports that he has been doing generally well since his last visit in February. He has had no recurrent left arm, chest or jaw discomfort. No shortness of breath, palpitations, dizziness, presyncope, syncope, PND, orthopnea or edema. He has been compliant with his medications. He attended 2 sessions of cardiac rehab. On the 3rd session he waited too long than left. He states he will not be going back. He follows with Dr. Fox for his blood issues. She recently increased his hydroxyurea. [facility] Medical History History of aspiration pneumonia Cataract Obstructive sleep apnea Left bundle branch block Chronic kidney disease Anxiety and depression GERD (gastroesophageal reflux disease) Hypercholesterolemia Obesity (BMI 30-39.9) Pulmonary nodule Vitamin D deficiency Peripheral neuropathy Hypothyroidism Asthma Hypertension Type 1 diabetes mellitus with diabetic chronic kidney disease Surgical History History of surgery History of trigger finger History of lumbar surgery History of eye surgery History of penile implant History of carpal tunnel release Family History Father Hypertension CVD (cardiovascular disease) Mother Hypertension CVD (cardiovascular disease) Family/Other Rectal cancer Brother Rectal cancer Social History Household Members: Family Housing: House Alcohol intake: never Patient Tobacco Use Status: Former Tobacco user Tobacco use type: Cigarette Years Smoked: teenager e-Cigarette/Vaping Use: Never Used Second Hand Smoke Exposure: Yes service: No Current occupational status: unemployed Cognitive needs: No Hearing needs: No Vision needs: Yes Review of Systems Const All systems reviewed & are unremarkable except as noted in HPI and below ENT Denies dizziness Card Denies chest pain, Denies chest pain at rest, Denies chest pain with activity, Denies rapid heart rate, Denies pedal edema, Denies edema, Denies leg edema, Denies lightheadedness, Denies palpitations, Denies dyspnea, Denies dyspnea on exertion and Denies orthopnea Resp Denies cough, Denies dyspnea and Denies dyspnea on exertion GI Denies hematochezia and Denies change in stool character Musc Denies abnormal gait, Denies limited range of motion, Denies muscle cramps, Denies muscle weakness, Denies numbness, Denies radiating pain into limb, Denies stiffness and Denies tingling Neuro Denies abnormal gait, Denies dizziness, Denies numbness and Denies tingling Endo Denies palpitations Physical Exam Vital Signs: Last Vital Signs Pulse 65 04/10/23 09:22 BP 130/72 04/10/23 09:22 BMI result Body Mass Index 32.5 Const General: cooperative, healthy appearing, comfortable and no acute distress Orientation/consciousness: patient oriented x3 Neck Neck: Yes normal visual inspection and Yes no JVD Carotids: normal carotid upstroke Chest Chest palpation & inspection: normal inspection of the chest Resp Effort & Inspection: normal respiratory effort Auscultation: clear to auscultation bilaterally, no crackles, no rales, no rhonchi and no wheezes Cardio Jugular venous distension: no JVD Rate: regular rate Rhythm: regular rhythm Heart sounds: S1 normal heart sound present, S2 normal heart sound present, no gallops, no murmurs and no rubs GI Inspection: Yes normal to inspection Neuro General: patient oriented x3 Extrem General: Yes normal to inspection, No no pedal edema and No calf tenderness Psych Appearance: grossly normal Mental Status: mental status grossly normal Speech and movement: Normal speech and movement present Assessment & Plan Assessment & Plan (1) NSTEMI (non-ST elevated myocardial infarction): Comment: January 2023 Code(s): I21.4 - Non-ST elevation (NSTEMI) myocardial infarction Plan: Recent [facility] admission for left arm, jaw then chest discomfort. He ruled in for NSTEMI. He was admitted with plan for cardiac catheterization however he said he waited 3 days and catheterization was not completed so he signed out AMA. An echocardiogram done there on 02/21/2023 showed EF 60-65%, no regional wall motion abnormalities, mild LVH. His EKG did show left bundle branch block. Unknown chronicity of left bundle branch block to me at this time. He was seen here in post hospital follow-up and nuclear stress test was ordered. Stress test done 03/22/2023 showed normal myocardial perfusion imaging, EF 44% at rest and 52% with stress. Again recent echo had shown normal EF. He did attend 2 sessions of cardiac rehab and tells me he will not be going back. He maintains good activity level at home. He denies any recurrent anginal symptoms. He reports compliance with his medications. Will have him continue aspirin indefinitely. Continue moderate dose atorvastatin. [place] LDL goal less than 70. Continue metoprolol XL 50 mg daily. Blood pressure well controlled. He will continue to follow with Dr. Fox for his polycythemia and thrombocytopenia. His platelets around the time of the NSTEMI were as high as 1061. This may have contributed to his NSTEMI event. Labs done on 03/07/2023 shows platelets down to 327. Reviewed. Cardiology follow-up in 3 months, sooner if needed. (2) Hypertension: Comment: Cardiac catheterization June 2018 normal Code(s): I10 - Essential (primary) hypertension Qualifiers: Hypertension type: essential hypertension Qualified Code(s): I10 - Essential (primary) hypertension Plan: Well controlled at present. No med changes made (3) Type 1 diabetes mellitus with diabetic chronic kidney disease: Comment: With retinopathy, neuropathy, nephropathy Code(s): E10.22 - Type 1 diabetes mellitus with diabetic chronic kidney disease Qualifiers: Chronic kidney disease stage: stage 2 (mild) Qualified Code(s): E10.22 - Type 1 diabetes mellitus with diabetic chronic kidney disease; N18.2 - Chronic kidney disease, stage 2 (mild) Plan: Hemoglobin A1c goal less than 7. Followed by PCP (4) Polycythemia: Code(s): D75.1 - Secondary polycythemia Coding Level of Care Code Est Pt Level 4 (20922) Diagnoses NSTEMI (non-ST elevated myocardial infarction) I21.4 Essential hypertension I10 Hypertension type: essential hypertension Type 1 diabetes mellitus with stage 2 chronic kidney disease E10.22; N18.2 Chronic kidney disease stage: stage 2 (mild) Polycythemia D75.1 Time Spent (min) 28
== END 2023-04-10 09:50 | disposition home or self-care (01) ==
PROVIDERS: PCP Internal Medicine; Visit Provider Nurse Practitioner Family
DX: I21.4 Non-ST elevation (NSTEMI) myocardial infarction (principal); I12.9 Hypertensive chronic kidney disease with stage 1 through stage 4 chronic kidney disease, or unspecified chronic kidney disease; E10.22 Type 1 diabetes mellitus with diabetic chronic kidney disease; N18.2 Chronic kidney disease, stage 2 (mild); D75.1 Secondary polycythemia
CPT/HCPCS: 99214

== ENCOUNTER → 2023-04-10 09:10 | Outpatient (BNVA) | payer MEDICARE, SELFPAY ==
[2023-04-03 07:30] VITALS: BP 134/66; BP 140/58; BMI 32.5
== END ==
PROVIDERS: PCP Internal Medicine; Visit Provider Nurse Practitioner Family
DX: I10 Essential (primary) hypertension (principal); E10.22 Type 1 diabetes mellitus with diabetic chronic kidney disease; N18.2 Chronic kidney disease, stage 2 (mild); D75.1 Secondary polycythemia; I25.2 Old myocardial infarction; Z79.82 Long term (current) use of aspirin; Z79.899 Other long term (current) drug therapy
CPT/HCPCS: 99212

== ENCOUNTER 2023-04-17 09:15 | Outpatient (AMB) | payer MEDICARE, SELFPAY ==
[2023-04-03 07:30] VITALS: BP 134/66; BP 140/58; BMI 32.5
[2023-04-17 09:20] VITALS: BP 136/68; PULSE 68; O2SAT 96; BMI 33.0
--- NOTE | 2023-04-17 09:20 | MHC.PC.OV ---
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 Accompanied by: Self / Same As Patient Allergies peanut [PEANUT] Allergy (Severe, Verified 04/17/23 09:21) ANAPHYLAXIS lamotrigine [Lamictal] Allergy (Unknown, Verified 04/17/23 09:21) cough lisinopril Allergy (Unknown, Verified 04/17/23 09:21) unknown Penicillins [PENICILLINS] Allergy (Unknown, Verified 04/17/23 09:21) SEVERE HIVES valsartan Allergy (Unknown, Verified 04/17/23 09:21) Unknown Tobacco use date assessed: 09/22/22 Dental Screening Dental Screen Date: 04/17/23 Did you have a dental visit in the last 12 months?: No Did you have a dental problem in the last 6 months where you did not have access to dental care?: No Was dental information given to patient?: Patient has dentist HPI 3 MONTH F/U HPI Details 53-year-old obese male with type 1 diabetes mellitus with chronic kidney disease hypertension hypothyroidism hypercholesterolemia coronary artery disease (N STEMI January 2023) GERD and recurrent major depression coming in for follow-up. Last seen in February 2023. Patient has followed up with Cardiology April 10 cardiac catheterization was never done as the patient signed AMA nuclear stress test requested echocardiogram January 2023 ejection fraction of 60-65% mild LVH no regional wall motion abnormality. Stress test done 03/22/2023 showed normal myocardial perfusion imaging ejection fraction 44% did attend 2 sessions of cardiac rehab but not going back continue with metoprolol and aspirin. Changed insulin pump from medtronic to omnipod and BS is better [facility] Medical History History of aspiration pneumonia Cataract Obstructive sleep apnea Left bundle branch block Chronic kidney disease Anxiety and depression GERD (gastroesophageal reflux disease) Hypercholesterolemia Obesity (BMI 30-39.9) Pulmonary nodule Vitamin D deficiency Peripheral neuropathy Hypothyroidism Asthma Hypertension Type 1 diabetes mellitus with diabetic chronic kidney disease Surgical History History of surgery History of trigger finger History of lumbar surgery History of eye surgery History of penile implant History of carpal tunnel release Family History Father Hypertension CVD (cardiovascular disease) Mother Hypertension CVD (cardiovascular disease) Family/Other Rectal cancer Brother Rectal cancer Social History Household Members: Family Housing: House Alcohol intake: never Patient Tobacco Use Status: Former Tobacco user Tobacco use type: Cigarette Years Smoked: teenager e-Cigarette/Vaping Use: Never Used Second Hand Smoke Exposure: Yes service: No Current occupational status: unemployed Cognitive needs: No Hearing needs: No Vision needs: Yes Questionnaire Thrive Questionnaire Date Thrive assessed: 09/22/22 YEN-7 AMB Questionnaire YEN-7 Date YEN - 7 assessed: 09/22/22 Source: Developed by Drs. Kendall Zapata, Navya Torres, Robert Costa and colleagues, with an educational glen from [employer]. Physical exam (Primary Care) Vital Signs: Last Vital Signs Pulse 68 04/17/23 09:20 BP 136/68 04/17/23 09:20 Pulse Ox 96 04/17/23 09:20 Oxygen Delivery Method Room Air 04/17/23 09:20 BMI result Body Mass Index 33.0 Tobacco/Smoking Status: Tobacco use Status Tobacco use date assessed 09/22/22 04/17/23 09:24 Patient Tobacco Use Status Former Tobacco user 04/17/23 09:24 Tobacco use type Cigarette 04/17/23 09:24 e-Cigarette/Vaping Use Never Used 04/17/23 09:24 Thrive Assessment: Date of Thrive Assessment Date Thrive assessed 09/22/22 04/17/23 09:24 Const General: alert; No acute distress Eyes Conjunctivae: conjunctivae normal Resp Auscultation: clear to auscultation bilaterally Cardio Rate: regular rate Rhythm: regular rhythm GI Inspection: Yes normal to inspection Extrem General: Yes normal to inspection and No edema Assessment and Plan Assessment & Plan (1) Type 1 diabetes mellitus not at goal: Comment: [place] [facility] Code(s): E10.9 - Type 1 diabetes mellitus without complications Plan: Decrease the amount of carbohydrate intake, pasta, bread, rice and potatoes are all sugar and that is aside from all the sweet stuff, remember that fruits are good but they are Sweet also. Hemoglobin A1c goal of less than 7.0. Patient is on insulin. on the omnipod is better. eye exam up to date (2) Coronary artery disease: Comment: 01/2023 Code(s): I25.10 - Atherosclerotic heart disease of [place] coronary artery without angina pectoris Plan: Control the cholesterol, weight, blood pressure, diabetes (3) Thrombocytosis: Code(s): D75.839 - Thrombocytosis, unspecified Plan: Patient follows up with hematology oncology taking hydroxyurea (4) Obesity (BMI 30-39.9): Code(s): E66.9 - Obesity, unspecified Plan: Diet and exercise (5) Hypercholesterolemia: Code(s): E78.00 - Pure hypercholesterolemia, unspecified Plan: Avoid fried foods, chicken skin, eggs, butter margarine, pastries and meat. Be it pork or beef they have a lot of cholesterol LDL goal of less than 70. The last cholesterol test was done March 2023 57 (6) Hypothyroidism: Code(s): E03.9 - Hypothyroidism, unspecified Qualifiers: Hypothyroidism type: acquired Qualified Code(s): E03.9 - Hypothyroidism, unspecified Plan: Continue with the thyroid medication (7) Hypertension: Comment: Cardiac catheterization June 2018 normal Code(s): I10 - Essential (primary) hypertension Qualifiers: Hypertension type: essential hypertension Qualified Code(s): I10 - Essential (primary) hypertension Plan: Continue with blood pressure medication. Decrease salt intake and exercise continue with metoprolol 50 mg once a day amlodipine 10 mg once a day (8) Asthma: Code(s): J45.909 - Unspecified asthma, uncomplicated Qualifiers: Asthma severity: mild Asthma persistence: intermittent Asthma complication type: uncomplicated Qualified Code(s): J45.20 - Mild intermittent asthma, uncomplicated Plan: Stable not on any inhalers (9) Recurrent major depression: Comment: Patient follows up with counselling and therapy (d/c 03/2023) Code(s): F33.9 - Major depressive disorder, recurrent, unspecified Plan: Continue with counseling therapy Coding Level of Care Code Est Pt Level 4 (40777) Diagnoses Type 1 diabetes mellitus not at goal E10.9 Coronary artery disease I25.10 Thrombocytosis D75.839 Obesity (BMI 30-39.9) E66.9 Hypercholesterolemia E78.00 Acquired hypothyroidism E03.9 Hypothyroidism type: acquired Essential hypertension I10 Hypertension type: essential hypertension Mild intermittent asthma without complication J45.20 Asthma severity: mild Asthma persistence: intermittent Asthma complication type: uncomplicated Recurrent major depression F33.9
== END 2023-04-17 09:40 | disposition home or self-care (01) ==
PROVIDERS: PCP Internal Medicine; Visit Provider Internal Medicine
DX: E10.9 Type 1 diabetes mellitus without complications (principal); E03.9 Hypothyroidism, unspecified; I10 Essential (primary) hypertension; F33.9 Major depressive disorder, recurrent, unspecified; Z68.33 Body mass index [BMI] 33.0-33.9, adult; J45.20 Mild intermittent asthma, uncomplicated; E66.9 Obesity, unspecified; I25.10 Atherosclerotic heart disease of native coronary artery without angina pectoris; D75.839 Thrombocytosis, unspecified; E78.00 Pure hypercholesterolemia, unspecified
CPT/HCPCS: 99214

== ENCOUNTER 2023-04-24 07:57 | Outpatient (REF) | payer MEDICARE, SELFPAY ==
[2023-04-20 15:31] VITALS: BP 134/66; BP 140/58; BMI 32.5
== END 2023-04-24 07:58 | disposition home or self-care (01) ==
LOC: HO.BBR 07:57
PROVIDERS: PCP Internal Medicine; Visit Provider Internal Medicine
DX: D75.1 Secondary polycythemia (principal)
CPT/HCPCS: 85018; 99195

== ENCOUNTER 2023-05-22 07:57 | Outpatient (REF) | payer MEDICARE, SELFPAY ==
[2023-04-20 15:31] VITALS: BP 134/66; BP 140/58; BMI 32.5
== END 2023-05-22 07:58 | disposition home or self-care (01) ==
LOC: HO.BBR 07:57
PROVIDERS: PCP Internal Medicine; Visit Provider Internal Medicine
DX: D75.1 Secondary polycythemia (principal)
CPT/HCPCS: 85014; 85018; 99195

== ENCOUNTER 2023-06-18 10:06 | Outpatient (AMB) | payer MEDICARE, SELFPAY ==
[2023-04-20 15:31] VITALS: BP 134/66; BP 140/58; BMI 32.5
[2023-06-18 10:08] VITALS: BP 124/70; PULSE 73; O2SAT 98; BMI 34.5
--- NOTE | 2023-06-18 10:08 | A.OFFVIS_ITS ---
Intake Vital Signs 06/18/23 10:08 Height 5 ft 8 in Weight 227 lb BMI 34.5 BP 124/70 Blood Pressure Location Rt brachial Position Sitting Pulse 73 Pulse Source Pulse Oximeter Pulse Oximetry (%) 98 Oxygen Delivery Method Room Air Intake Visit Reasons: AWV 06/12/22 International Affairs Vice President Required: No Allergies peanut [PEANUT] Allergy (Severe, Verified 06/18/23 10:08) ANAPHYLAXIS lamotrigine [Lamictal] Allergy (Unknown, Verified 06/18/23 10:08) cough lisinopril Allergy (Unknown, Verified 06/18/23 10:08) unknown Penicillins [PENICILLINS] Allergy (Unknown, Verified 06/18/23 10:08) SEVERE HIVES valsartan Allergy (Unknown, Verified 06/18/23 10:08) Unknown Medication List - Last Reconciled 06/18/23 by Tali Dyer MD amlodipine 10 mg PO DAILY aspirin (Adult Aspirin Regimen) 81 mg PO DAILY atorvastatin 40 mg PO DAILY blood sugar diagnostic (Contour Next Test Strips) As directed mgdvripfeb-koiaduimanqft-zqro 50-325-40 mg 1 cap PO Q4-6H PRN duloxetine 40 mg PO DAILY erenumab-aooe (Aimovig Autoinjector) 140 mg subcut .Q month fluticasone propionate 50 mcg/actuation 2 sprays intranasal DAILY hydroxyurea (Hydrea) 500 mg PO BID insulin aspart U-100 (Novolog FlexPen U-100 Insulin aspart) 100 units subcut DAILY levothyroxine 125 mcg PO QAM metoprolol succinate ER 50 mg PO DAILY 90 days pantoprazole 40 mg PO DAILY 90 days sertraline 50 mg PO DAILY 90 days sumatriptan succinate 50 mg PO Q2-4H PRN HPI AWV 06/12/22 HPI Details 53-year-old obese male with type 1 diabe joseline mellitus seen by endocrinology on the Omnipod coronary artery disease hypercholesterolemia hypothyroidism hypertension asthma and depression coming in for follow-up. Last seen in March 2023. Patient's last colonoscopy was in 2013. Review of the notes has seen Neurology for the diabetic neuropathy, migraines for the migraine done well on Aimovig. For the neuropathy tried duloxetine with no help. Patient also has thrombocytosis and the diagnosis of myeloproliferative disorder JAK2 positive probable polycythemia vera follows up with hematology oncology on phlebotomy. Patient is here for annual well visit. restless leg [facility] Medical History (Updated 06/18/23 @ 11:08 by Tali Dyer MD) Medicare annual wellness visit, subsequent Medicare annual wellness visit, initial (~06/07/21) History of aspiration pneumonia Cataract Obstructive sleep apnea Left bundle branch block Chronic kidney disease Anxiety and depression GERD (gastroesophageal reflux disease) Hypercholesterolemia Obesity (BMI 30-39.9) Pulmonary nodule Vitamin D deficiency Peripheral neuropathy Hypothyroidism Asthma Hypertension Type 1 diabetes mellitus with diabetic chronic kidney disease Surgical History History of surgery History of trigger finger History of lumbar surgery History of eye surgery History of penile implant History of carpal tunnel release Family History Father Hypertension CVD (cardiovascular disease) Mother Hypertension CVD (cardiovascular disease) Family/Other Rectal cancer Brother Rectal cancer Social History Household Members: Family Housing: House Alcohol intake: never Patient Tobacco Use Status: Former Tobacco user Tobacco use type: Cigarette Years Smoked: teenager e-Cigarette/Vaping Use: Never Used Second Hand Smoke Exposure: Yes service: No Current occupational status: unemployed Cognitive needs: No Hearing needs: No Vision needs: Yes Questionnaire Medicare Wellness Checkup What [age] your [age] 65-69 (52) What gender do you identify with?: male During the past 4 weeks, how much have you been bothered by emotional problems such as feeling anxious, depressed, irritable, sad or downhearted, and blue?: not at all During the past 4 weeks, has your physical & emotional health limited your social activities with family, friends, neighbors, or groups?: not at all During the past 4 weeks, how much bodily pain have you generally had?: moderate pain During the past 4 weeks, was someone available to help you if you needed & wanted help?: yes, as much as I wanted During the past 4 weeks, what was the hardest physical activity you could do for at least 2 minutes?: heavy Can you get to places out of walking distance without help? (For eg., can you travel alone on buses, taxis or drive your car?): Yes Can you go shopping for groceries or clothes without someone's help?: Yes Can you prepare your own meals?: Yes Can you do your housework without help?: Yes Because of any health problems, do you need the help of another person with your personal care needs such as eating, bathing, dressing or getting around the house?: No Can you handle your own money without help?: Yes During the past 4 weeks, how would you rate your health in general?: very good During the past 4 weeks how have things been going for you?: pretty well Are you having difficulties driving your car?: no Do you always fasten your seat belt when you are in a car?: yes, usually During past 4 weeks, have you been bothered by the following: never: Falling or dizzy when standing up, Sexual problems?, Trouble eating well?, Teeth or denture problems?, Problems using the telephone? and Tiredness or fatigue? Have you fallen 2 or more times in the past year?: No Are you afraid of falling?: No Are you a smoker?: no During the past 4 weeks, how many drinks of wine, beer, or other alcoholic beverages did you have?: no alcohol at all Do you exercise for about 20 minutes 3 or more times a week?: yes, most of the time Have you been given information to help with the following?: no: Hazards in your house that might hurt you? and no: Keeping track of your medications? How often do you have trouble taking medicines the way you have been told to take them?: I always take medicine as prescribed How confident are you that you can control & manage most of your health problems?: very confident What is your race?: White PHQ-9 Over the last 2 weeks, how often have you been bothered by any of the following problems? 1. Little interest or pleasure in doing things: not at all 2. Feeling down, depressed, or hopeless: not at all 3. Trouble falling or staying asleep, or sleeping too much: not at all 4. Feeling tired or having little energy: not at all 5. Poor appetite or overeating: not at all 6. Feeling bad about yourself - or that you are a failure or have let yourself or your family down: not at all 7. Trouble concentrating on things, such as reading the newspaper or watching television: not at all 8. Moving or speaking so slowly that other people could have noticed. Or the opposite - being so fidgety or restless that you have been moving around a lot more than usual: not at all 9. Thoughts that you would be better off or of hurting yourself in some way: not at all Total score: 0 Depression Screening Interpretation: Negative Depression Screening Done: Yes Source: Developed by Drs. Kendall Zapata, Navya Torres, Robert Costa and colleagues, with an educational glen from [employer]. Review of Systems Const Denies poor appetite and Denies weakness Eyes Denies no additional complaints ENT Reports Normal hearing present, Denies dizziness, Denies nasal congestion, Denies tinnitus and Denies sore throat Card Denies chest pain, Denies syncope, Denies rapid heart rate and Denies dyspnea Resp Denies cough and Denies dyspnea GI Denies change in stool character, Reports constipation, Denies diarrhea, Denies nausea and Denies vomiting Denies dysuria and Denies urinary frequency Neuro Reports Normal hearing present, Denies confusion, Denies dizziness, Denies syncope and Denies weakness Psych Denies confusion Physical Exam Vital Signs: Last Vital Signs Pulse 73 06/18/23 10:08 BP 124/70 06/18/23 10:08 Pulse Ox 98 06/18/23 10:08 Oxygen Delivery Method Room Air 06/18/23 10:08 BMI result Body Mass Index 34.5 Const General: No confusion Orientation/consciousness: No confusion Eyes Conjunctivae: conjunctivae normal Resp Auscultation: clear to auscultation bilaterally Cardio Rate: regular rate Rhythm: regular rhythm GI Other: guiac negative pin prick n, pedcal pulses ok, prostate N Inspection: Yes normal to inspection Male General Exam: Yes normal external exam Neuro General: No confusion Cranial nerves: Yes Normal hearing present Extrem General: Yes normal to inspection and No edema Results AMB Hemoglobin A1c AMB Hemoglobin A1c 7.1 % Last Edit by AISLINN Millard on 06/18/23 10:31 Results Reviewed Results Reviewed: Laboratory Last Values Hgb A1c (Clinic) 7.1 % (4.0-6.0) H 06/18/23 09:49 Assessment & Plan Assessment & Plan (1) Medicare annual wellness visit, subsequent: Code(s): Z00.00 - Encounter for general adult medical examination without abnormal findings Plan: Medicare annual well visit (2) Coronary artery disease: Comment: 01/2023 Code(s): I25.10 - Atherosclerotic heart disease of [place] coronary artery without angina pectoris Plan: Control the cholesterol, weight, blood pressure, diabetes continue with aspirin (3) Polycythemia: Code(s): D75.1 - Secondary polycythemia Plan: Patient follows up with hematology oncology and has therapeutic phlebotomy (4) Type 1 diabetes mellitus not at goal: Comment: [facility] Code(s): E10.9 - Type 1 diabetes mellitus without complications Plan: Decrease the amount of carbohydrate intake, pasta, bread, rice and potatoes are all sugar and that is aside from all the sweet stuff, remember that fruits are good but they are Sweet also. Patient follows up with endocrinology on the Omnipod hemoglobin A1c goal of less than 6.5 (5) Migraine: Code(s): G43.909 - Migraine, unspecified, not intractable, without status migrainosus Plan: Patient follows up with Neurology on Aimovig (6) Recurrent major depression: Comment: Patient follows up with counselling and therapy (d/c 03/2023) Code(s): F33.9 - Major depressive disorder, recurrent, unspecified Plan: Continue with counseling and therapy. decline any counselling and doing good (7) GERD (gastroesophageal reflux disease): Code(s): K21.9 - Gastro-esophageal reflux disease without esophagitis Qualifiers: Esophagitis presence: without esophagitis Qualified Code(s): K21.9 - Gastro-esophageal reflux disease without esophagitis Plan: Avoid the foods that causes that usually spicy foods, tomato products, juices, coffee, soda and foods that your sensitive to. After eating do not lie down, allow 3-4 hours before in lie down. And keep the head of bed above 30 degrees to avoid the acid from going up. (8) Hypercholesterolemia: Code(s): E78.00 - Pure hypercholesterolemia, unspecified Plan: Avoid fried foods, chicken skin, eggs, butter margarine, pastries and meat. Be it pork or beef they have a lot of cholesterol last blood work was August 2022 continue with atorvastatin 40 mg once a day (9) Obesity (BMI 30-39.9): Code(s): E66.9 - Obesity, unspecified Plan: Diet and exercise (10) Hypothyroidism: Code(s): E03.9 - Hypothyroidism, unspecified Qualifiers: Hypothyroidism type: acquired Qualified Code(s): E03.9 - Hypothyroidism, unspecified Plan: Continue with thyroid Medicaid (11) Hypertension: Comment: Cardiac catheterization June 2018 normal Code(s): I10 - Essential (primary) hypertension Qualifiers: Hypertension type: essential hypertension Qualified Code(s): I10 - Essential (primary) hypertension Plan: Continue with blood pressure medication. Decrease salt intake and exercise patient on metoprolol 50 mg once a day amlodipine 10 mg once a day (12) Asthma: Code(s): J45.909 - Unspecified asthma, uncomplicated Qualifiers: Asthma complication type: uncomplicated Asthma persistence: intermittent Asthma severity: mild Qualified Code(s): J45.20 - Mild intermittent asthma, uncomplicated Plan: Stable (13) Peripheral neuropathy: Code(s): G62.9 - Polyneuropathy, unspecified Qualifiers: Peripheral neuropathy type: idiopathic neuropathy, unspecified Qualified Code(s): G60.9 - Hereditary and idiopathic neuropathy, unspecified Plan: Patient continue to take duloxetine (14) Restless leg syndrome: Code(s): G25.81 - Restless legs syndrome Plan: Prescription sent prescription sent for ropinirole Orders: Orders Complete Blood Count Auto Diff 3 Months E10.9 - Type 1 diabetes mellitus without complications Creatinine Urine 3 Months E10.9 - Type 1 diabetes mellitus without complications, E11.65 - Type 2 diabetes mellitus with hyperglycemia Lipid Panel 3 Months E10.9 - Type 1 diabetes mellitus without complications, E78.00 - Pure hypercholesterolemia, unspecified Vitamin B12 and Folate 3 Months E10.9 - Type 1 diabetes mellitus without complications Hemoglobin A1c 3 Months E10.9 - Type 1 diabetes mellitus without complications Prostate Specific Antigen Scr 3 Months E10.9 - Type 1 diabetes mellitus without complications Ferritin Today G25.81 - Restless legs syndrome Magnesium Today G25.81 - Restless legs syndrome AMB Hemoglobin A1c Today E10.9 - Type 1 diabetes mellitus without complications Comprehensive Met. Panel 3 Months E10.9 - Type 1 diabetes mellitus without complications Microalbumin, Random (w Creat) 3 Months E10.9 - Type 1 diabetes mellitus without complications, E11.65 - Type 2 diabetes mellitus with hyperglycemia Thyroid Stimulating Hormone 3 Months E10.9 - Type 1 diabetes mellitus without complications Free T4 (Free Thyroxine) 3 Months E10.9 - Type 1 diabetes mellitus without com plications Medications: New ropinirole administer 1-3 hours before bedtime 0.25 mg PO BEDTIME 30 tabs 2RF G25.81 - Restless legs syndrome Quality Reporting (2019) Depression/Bipolar (159/160/161/177) PHQ-9: Total score: 0 Coding Level of Care Code Medicare Subsequent (G0439) Diagnoses Medicare annual wellness visit, subsequent Z00.00 Coronary artery disease I25.10 Polycythemia D75.1 Type 1 diabetes mellitus not at goal E10.9 Migraine G43.909 Recurrent major depression F33.9 Gastroesophageal reflux disease without esophagitis K21.9 Esophagitis presence: without esophagitis Hypercholesterolemia E78.00 Obesity (BMI 30-39.9) E66.9 Acquired hypothyroidism E03.9 Hypothyroidism type: acquired Essential hypertension I10 Hypertension type: essential hypertension Mild intermittent asthma without complication J45.20 Asthma complication type: uncomplicated Asthma persistence: intermittent Asthma severity: mild Idiopathic peripheral neuropathy G60.9 Peripheral neuropathy type: idiopathic neuropathy, unspecified Restless leg syndrome G25.81 Additional Codes PHQ-9 - 98693 - PHQ-9 Billing: ([id number])
== END 2023-06-18 11:13 | disposition home or self-care (01) ==
PROVIDERS: Visit Provider Internal Medicine
DX: E10.9 Type 1 diabetes mellitus without complications (principal)
CPT/HCPCS: 83036; G0439

== ENCOUNTER 2023-06-26 08:03 | Outpatient (REF) | payer MEDICARE, SELFPAY ==
[2023-04-20 15:31] VITALS: BP 134/66; BP 140/58; BMI 32.5
== END 2023-06-26 08:04 | disposition home or self-care (01) ==
LOC: HO.BBR 08:03
PROVIDERS: PCP Internal Medicine; Visit Provider Internal Medicine
DX: D75.1 Secondary polycythemia (principal)
CPT/HCPCS: 85018

== ENCOUNTER 2023-07-24 07:50 | Outpatient (REF) | payer MEDICARE, SELFPAY ==
[2023-04-20 15:31] VITALS: BP 134/66; BP 140/58; BMI 32.5
== END 2023-07-24 07:51 | disposition home or self-care (01) ==
LOC: HO.BBR 07:50
PROVIDERS: PCP Internal Medicine; Visit Provider Internal Medicine
DX: D75.1 Secondary polycythemia (principal)
CPT/HCPCS: 85018; 99195

== ENCOUNTER 2023-07-31 08:53 | Outpatient (AMB) | payer MEDICARE, SELFPAY ==
[2023-04-20 15:31] VITALS: BP 134/66; BP 140/58; BMI 32.5
[2023-07-31 09:10] VITALS: BP 150/64; PULSE 75; BMI 35.3
--- NOTE | 2023-07-31 09:10 | A.OFFVIS_ITS ---
Intake Vital Signs 07/31/23 09:10 Height 5 ft 8 in Weight 231 lb 14.821 oz BMI 35.3 BP 150/64 H Blood Pressure Location Rt brachial Position Sitting Pulse 75 Pulse Source Pulse Oximeter Intake Visit Reasons: R/S 3 month follow up/Confirmed Intake Note: 3 mnth pt its feeling fine [employer] Inspector Required: No Accompanied by: Self / Same As Patient Allergies peanut [PEANUT] Allergy (Severe, Verified 07/26/23 09:23) ANAPHYLAXIS lamotrigine [Lamictal] Allergy (Unknown, Verified 07/26/23 09:23) cough lisinopril Allergy (Unknown, Verified 07/26/23 09:23) unknown Penicillins [PENICILLINS] Allergy (Unknown, Verified 07/26/23 09:23) SEVERE HIVES valsartan Allergy (Unknown, Verified 07/26/23 09:23) Unknown Medication List - Last Reconciled 07/31/23 by Jackie Mars CREW DISPATCHER-C amlodipine 10 mg PO DAILY aspirin (Adult Aspirin Regimen) 81 mg PO DAILY atorvastatin 40 mg PO DAILY blood sugar diagnostic (Contour Next Test Strips) As directed nxjyrrszfo-ifcyjiuxifros-zrai 50-325-40 mg 1 cap PO Q4-6H PRN duloxetine 40 mg PO DAILY erenumab-aooe (Aimovig Autoinjector) 140 mg subcut .Q month fluticasone propionate 50 mcg/actuation 2 sprays intranasal DAILY hydroxyurea (Hydrea) 500 mg PO BID insulin aspart U-100 (Novolog FlexPen U-100 Insulin aspart) 100 units subcut DAILY levothyroxine 125 mcg PO QAM metoprolol succinate ER 50 mg PO DAILY 90 days pantoprazole 40 mg PO DAILY 90 days ropinirole 0.25 mg PO BEDTIME sertraline 50 mg PO DAILY 90 days sumatriptan succinate 50 mg PO Q2-4H PRN HPI R/S 3 month follow up/Confirmed HPI Details Russell is a 53-year-old male with past medical history of hypertension, hyperlipidemia, diabetes, thrombocytopenia, polycythemia, mild obesity, left bundle branch block who was admitted to [facility] last January with chest discomfort and ruled in for NSTEMI. He was managed medically and cardiac catheterization was planned however he waited 3 days and then signed out AMA. He was seen in this office for follow-up visit and a nuclear stress test was done and was normal. Today he reports he has been doing well since his last visit. He denies any anginal symptoms. No chest discomfort, shortness of breath, palpitations, presyncope, syncope, PND, orthopnea or edema. He admits to being sedentary. He is taking all meds as directed. He has no cardiac concerns today. He tells me he is due for lab work in the near future and has follow-up with his PCP. [facility] Medical History Medicare annual wellness visit, subsequent Medicare annual wellness visit, initial (~06/07/21) History of aspiration pneumonia Cataract Obstructive sleep apnea Left bundle branch block Chronic kidney disease Anxiety and depression GERD (gastroesophageal reflux disease) Hypercholesterolemia Obesity (BMI 30-39.9) Pulmonary nodule Vitamin D deficiency Peripheral neuropathy Hypothyroidism Asthma Hypertension Type 1 diabetes mellitus with diabetic chronic kidney disease Surgical History History of surgery History of trigger finger History of lumbar surgery History of eye surgery History of penile implant History of carpal tunnel release Family History Father Hypertension CVD (cardiovascular disease) Mother Hypertension CVD (cardiovascular disease) Family/Other Rectal cancer Brother Rectal cancer Social History Household Members: Family Housing: House Alcohol intake: never Patient Tobacco Use Status: Former Tobacco user Tobacco use type: Cigarette Years Smoked: teenager e-Cigarette/Vaping Use: Never Used Second Hand Smoke Exposure: Yes service: No Current occupational status: unemployed Cognitive needs: No Hearing needs: No Vision needs: Yes Review of Systems Const All systems reviewed & are unremarkable except as noted in HPI and below Denies chills, Denies fever(s), Denies frequent falls, Denies weakness, Denies weight gain and Denies weight loss ENT Denies dizziness Card Denies chest pain, Denies leg edema, Denies lightheadedness, Denies palpitations, Denies dyspnea and Denies dyspnea on exertion Resp Denies cough, Denies dyspnea and Denies dyspnea on exertion GI Denies hematochezia Musc Denies abnormal gait, Denies muscle weakness, Denies numbness, Denies radiating pain into limb and Denies tingling Neuro Denies abnormal gait, Denies dizziness, Denies frequent falls, Denies numbness, Denies tingling and Denies weakness Endo Denies palpitations Physical Exam Vital Signs: Last Vital Signs Pulse 75 07/31/23 09:10 BP 150/64 H 07/31/23 09:10 BMI result Body Mass Index 35.3 Const General: cooperative, comfortable and no acute distress Orientation/consciousness: patient oriented x3 Neck Neck: Yes normal visual inspection Resp Effort & Inspection: normal respiratory effort Auscultation: clear to auscultation bilaterally, no crackles, no rales, no rhonchi and no wheezes Cardio Jugular venous distension: no JVD Rate: regular rate Rhythm: regular rhythm Heart sounds: S1 normal heart sound present, S2 normal heart sound present, no murmurs and no rubs Skin General skin exam: no rashes or lesions noted Neuro General: patient oriented x3 Extrem General: Yes normal to inspection and No no pedal edema Psych Appearance: grossly normal Mental Status: mental status grossly normal Speech and movement: Normal speech and movement present Assessment & Plan Assessment & Plan (1) NSTEMI (non-ST elevated myocardial infarction): Comment: January 2023 Code(s): I21.4 - Non-ST elevation (NSTEMI) myocardial infarction Plan: [facility] admission for left arm, jaw then chest discomfort, January 2023. He ruled in for NSTEMI. He was admitted with plan for cardiac catheterization however he said he waited 3 days and catheterization was not completed so he signed out AMA. An echocardiogram done there on 02/21/2023 show ed EF 60-65%, no regional wall motion abnormalities, mild LVH. His EKG did show left bundle branch block. Unknown chronicity of left bundle branch block to me at this time. He was seen here in post hospital follow-up and nuclear stress test was ordered. Stress test done 03/22/2023 showed normal myocardial perfusion imaging, EF 44% at rest and 52% with stress. He did attend 2 sessions of cardiac rehab and tells me he will not be going back. He maintains good activity level at home. He denies any recurrent anginal symptoms. He reports compliance with his medications. Will have him continue aspirin indefinitely. Continue atorvastatin with [place] LDL goal less than 70. Labs done on 09/13/2022 showed LDL 89. He tells me he is due for upcoming labs and PCP follow-up. Continue metoprolol XL 50 mg daily. Blood pressure initially elevated however improved on recheck by me, 134/62. He will continue to follow with Dr. Fox for his polycythemia and thrombocytopenia. His platelets around the time of the NSTEMI were as high as 1061. This may have contributed to his NSTEMI event. Labs done on 07/26/2023 showed platelets 343. Cardiology follow-up in 6 months, sooner if needed. (2) Hypertension: Comment: Cardiac catheterization June 2018 normal Code(s): I10 - Essential (primary) hypertension Qualifiers: Hypertension type: essential hypertension Qualified Code(s): I10 - Essential (primary) hypertension Plan: Normal on recheck. Continue current metoprolol and amlodipine. Basilio/Arb are listed in his allergy list. If he has elevated blood pressure going forward then recommend Aldactone use. (3) Type 1 diabetes mellitus with diabetic chronic kidney disease: Comment: With retinopathy, neuropathy, nephropathy Code(s): E10.22 - Type 1 diabetes mellitus with diabetic chronic kidney disease Qualifiers: Chronic kidney disease stage: stage 2 (mild) Qualified Code(s): E10.22 - Type 1 diabetes mellitus with diabetic chronic kidney disease; N18.2 - Chronic kidney disease, stage 2 (mild) Plan: Hemoglobin A1c goal less than 7. Followed by PCP (4) Polycythemia: Code(s): D75.1 - Secondary polycythemia Plan: Follows with Dr. Fox Plan Time spent on chart review, documentation, interview and assessment Coding Level of Care Code Est Pt Level 3 (35783) Diagnoses NSTEMI (non-ST elevated myocardial infarction) I21.4 Essential hypertension I10 Hypertension type: essential hypertension Type 1 diabetes mellitus with stage 2 chronic kidney disease E10.22; N18.2 Chronic kidney disease stage: stage 2 (mild) Polycythemia D75.1 Time Spent (min) 24
== END 2023-07-31 09:42 | disposition home or self-care (01) ==
PROVIDERS: PCP Internal Medicine; Visit Provider Nurse Practitioner Family
DX: I21.4 Non-ST elevation (NSTEMI) myocardial infarction (principal); I12.9 Hypertensive chronic kidney disease with stage 1 through stage 4 chronic kidney disease, or unspecified chronic kidney disease; E10.22 Type 1 diabetes mellitus with diabetic chronic kidney disease; N18.2 Chronic kidney disease, stage 2 (mild); D75.1 Secondary polycythemia
CPT/HCPCS: 99213

== ENCOUNTER → 2023-07-31 08:53 | Outpatient (BNVA) | payer MEDICARE, SELFPAY ==
[2023-04-20 15:31] VITALS: BP 134/66; BP 140/58; BMI 32.5
== END ==
PROVIDERS: PCP Internal Medicine; Visit Provider Nurse Practitioner Family
DX: I12.9 Hypertensive chronic kidney disease with stage 1 through stage 4 chronic kidney disease, or unspecified chronic kidney disease (principal); E10.22 Type 1 diabetes mellitus with diabetic chronic kidney disease; N18.2 Chronic kidney disease, stage 2 (mild); D75.1 Secondary polycythemia; I25.2 Old myocardial infarction; Z79.899 Other long term (current) drug therapy
CPT/HCPCS: 99212

== ENCOUNTER 2023-08-22 07:56 | Outpatient (REF) | payer MEDICARE, SELFPAY ==
[2023-04-20 15:31] VITALS: BP 134/66; BP 140/58; BMI 32.5
== END 2023-08-22 07:57 | disposition home or self-care (01) ==
LOC: HO.BBR 07:56
PROVIDERS: PCP Internal Medicine; Visit Provider Internal Medicine
DX: D75.1 Secondary polycythemia (principal)
CPT/HCPCS: 85014; 85018; 99195

== ENCOUNTER 2023-09-18 07:57 | Outpatient (REF) | payer MEDICARE, SELFPAY ==
[2023-04-20 15:31] VITALS: BP 134/66; BP 140/58; BMI 32.5
[2023-09-18 08:10] LABS: MANUAL DIFF FLAG NO
[2023-09-18 08:37] LABS: Basophils Absolute Auto 0.1 X10*3/uL (0.0-0.2); Basophils Percent Auto 0.7 % (0-2); Eosinophils Absolute Auto 0.2 X10*3/uL (0.0-0.4); Eosinophils Percent Auto 2.2 % (0-4); Hemoglobin 13.8 g/dl (14.0-18.0); Imm Gran Abs Auto 0.07 X10*3/uL (0.00-0.03); Imm Gran Pct Auto 0.8 % (0.0-0.4); Lymphocytes Absolute Auto 1.6 X10*3/uL (1.2-4.9); Lymphocytes Percent Auto 18.4 % (20-40); Mean Corpuscular HGB Conc 33.7 g/dl (31.0-36.0); Mean Corpuscular Hemoglobin 34.9 pg (27.0-33.0); Mean Corpuscular Volume 103.8 fL (80.0-98.0); Mean Platelet Volume 9.3 fL (9.4-12.4); Monocytes Absolute Auto 0.7 X10*3/uL (0.1-1.2); Monocytes Percent Auto 8.1 % (2-11); Neutrophils Absolute Auto 5.9 x10*3/uL (2.0-8.3); Neutrophils Percent Auto 69.8 % (45-73); Platelet Count 455 X10*3/uL (160-400); Red Blood Count 3.95 X10*6/uL (4.60-5.80); Red Cell Distribution Width 14.3 % (11.0-16.0); White Blood Count 8.5 X10*3/uL (4.8-10.8)
[2023-09-18 08:45] LABS: Estimated Average Glucose 123 mg/dL; Hemoglobin A1c % 5.9 % (<6.0)
[2023-09-18 09:04] LABS: Alanine Aminotransferase 27 U/L (0-40); Alkaline Phosphatase 115 U/L (39-117); Anion Gap 12 (12-20); Aspartate Amino Transferase 24 U/L (5-37); Bilirubin Total 0.9 mg/dL (0.0-1.0); Blood Urea Nitrogen 15 mg/dL (9-16); Calcium 9.1 mg/dL (8.4-10.2); Carbon Dioxide 27 mmol/L (22-29); Chloride 107 mmol/L (96-108); Cholesterol 114 mg/dL (<200); Estimated Glomerular Filt Rate > 60; Glucose Random 87 mg/dL (60-115); HDL Cholesterol 36 mg/dL (>40); LDL Cholesterol Calculated 65 mg/dL (<100); Sodium 142 mmol/L (135-145); Total Protein 7.1 g/dL (6.5-8.0); Triglycerides 68 mg/dL (<150)
[2023-09-18 09:25] LABS: Thyroid Stimulating Hormone 0.67 uIU/mL (0.32-4.0)
[2023-09-18 09:31] LABS: Folate 6.8 ng/mL (> or = 4.0); Prostate Specific Antigen Scr 3.75 ng/mL (<0.05-4.0); Vitamin B12 589 pg/mL (200-900)
[2023-09-18 09:40] LABS: Creatinine Urine 121.76 mg/dL; Microalbum/Creatinine Ratio Ur 8.2 ug/mg cr (<30)
== END 2023-09-18 07:58 | disposition home or self-care (01) ==
LOC: HO.LAB 07:57
PROVIDERS: PCP Internal Medicine; Visit Provider Internal Medicine
DX: Z12.5 Encounter for screening for malignant neoplasm of prostate (principal); E78.00 Pure hypercholesterolemia, unspecified; E11.65 Type 2 diabetes mellitus with hyperglycemia
CPT/HCPCS: 36415; 80053; 80061; 82043; 82570; 82607; 82746; 83036; 84153; 84439; 84443; 85025

== ENCOUNTER 2023-09-20 07:53 | Outpatient (REF) | payer MEDICARE, SELFPAY ==
[2023-04-20 15:31] VITALS: BP 134/66; BP 140/58; BMI 32.5
== END 2023-09-20 07:54 | disposition home or self-care (01) ==
LOC: HO.BBR 07:53
PROVIDERS: PCP Internal Medicine; Visit Provider Internal Medicine
DX: D75.1 Secondary polycythemia (principal)
CPT/HCPCS: 85018; 99195

== ENCOUNTER 2023-09-21 08:34 | Outpatient (AMB) | payer MEDICARE, SELFPAY ==
[2023-04-20 15:31] VITALS: BP 134/66; BP 140/58; BMI 32.5
[2023-09-21 08:38] VITALS: BP 138/60; PULSE 75; O2SAT 96; BMI 35.3
--- NOTE | 2023-09-21 08:38 | A.OFFPC_ITS ---
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: No Allergies peanut [PEANUT] Allergy (Severe, Verified 09/21/23 08:39) ANAPHYLAXIS lamotrigine [Lamictal] Allergy (Unknown, Verified 09/21/23 08:39) cough lisinopril Allergy (Unknown, Verified 09/21/23 08:39) unknown Penicillins [PENICILLINS] Allergy (Unknown, Verified 09/21/23 08:39) SEVERE HIVES valsartan Allergy (Unknown, Verified 09/21/23 08:39) Unknown Tobacco use date assessed: 09/21/23 Dental Screening Dental Screen Date: 09/21/23 Did you have a dental visit in the last 12 months?: Yes Did you have a dental problem in the last 6 months where you did not have access to dental care?: No Was dental information given to patient?: Patient has dentist HPI DM HPI Details 53-year-old obese male with coronary art adrianne disease diabetes mellitus type 1 depression GERD hypercholesterolemia hypothyroidism hypertension asthma peripheral neuropathy polycythemia coming in for follow-up. Last seen in May for wellness exam. Patient's colonoscopy was last done in 2013. Review of the notes patient continues to have therapeutic phlebotomy. Patient has also followed up with Cardiology admitted in January for chest pain ruled in for N STEMI cardiac catheterization planned but signed AMA stress test nuclear negative echocardiogram done January 2023 60-65% EKG showed left bundle branch block stress test February 2023 normal EF 44% at rest had cardiac rehab continue aspirin continue atorvastatin ideal LDL of less than 70 continue metoprolol patient did have a cardiac catheterization June 2018 which was normal if the blood pressure would go up since Basilio and ARB are in his allergy list Aldactone can be used. Patient also follows up with Hematology-Oncology diagnosis of myeloproliferative disorder JAK2 mutation positive on hydroxyurea right now blood work is normal now and was reassured [facility] Medical History (Updated 09/21/23 @ 09:00 by Tali Dyer MD) Medicare annual wellness visit, subsequent Medicare annual wellness visit, initial (~06/07/21) History of aspiration pneumonia Cataract Obstructive sleep apnea Left bundle branch block Chronic kidney disease Anxiety and depression GERD (gastroesophageal reflux disease) Hypercholesterolemia Obesity (BMI 30-39.9) Pulmonary nodule Vitamin D deficiency Peripheral neuropathy Hypothyroidism Asthma Hypertension Type 1 diabetes mellitus with diabetic chronic kidney disease Surgical History History of surgery History of trigger finger History of lumbar surgery History of eye surgery History of penile implant History of carpal tunnel release Family History Father Hypertension CVD (cardiovascular disease) Mother Hypertension CVD (cardiovascular disease) Family/Other Rectal cancer Brother Rectal cancer Social History Household Members: Family Housing: House Alcohol intake: never Patient Tobacco Use Status: Former Tobacco user Tobacco use type: Cigarette Years Smoked: teenager e-Cigarette/Vaping Use: Never Used Second Hand Smoke Exposure: Yes service: No Current occupational status: unemployed Cognitive needs: No Hearing needs: No Vision needs: Yes Questionnaire Thrive Questionnaire Date Thrive assessed: 09/21/23 I am a: Patient What is your living situation today?: I have a steady place to live Within the past 12 months, did the food you bought not last and you didn't have the money to get more?: Never true Within the past 12 months, did you worry whether your food would run out before you got money to buy more?: Never true Do you have trouble paying for medicines?: No Do you have trouble getting transportation to medical appointments?: No Do you have trouble paying your heating and electricity bill?: No Do you have trouble taking care of your child, family member or friend?: No Do you have trouble with day-to-day activities such as bathing, preparing meals, shopping, managing finances, etc.?: No Are you currently unemployed and looking for a job?: No Are you interested in more education?: No Please select the resources that you would like help with: None THRIVE Score: 0 AUDIT C Alcohol Use Questionnaire (AUDIT-C) 1. How often do you have a drink containing alcohol?: 2-4 times a month 2. How many drinks containing alcohol do you have on a typical day when you are drinking?: 3 or 4 3. How often do you have six or more drinks on one occasion?: Less than monthly Total Score: 4 Score Reviewed/Action Taken: Yes YEN-7 AMB Questionnaire YEN-7 Date YEN - 7 assessed: 09/21/23 Source: Developed by Drs. Kendall Zapata, Navya Torres, Robert Costa and colleagues, with an educational glen from [employer]. Physical exam (Primary Care) Vital Signs: Last Vital Signs Pulse 75 09/21/23 08:38 BP 138/60 09/21/23 08:38 Pulse Ox 96 09/21/23 08:38 Oxygen Delivery Method Room Air 09/21/23 08:38 BMI result Body Mass Index 35.3 Tobacco/Smoking Status: Tobacco use Status Tobacco use date assessed 09/21/23 09/21/23 08:43 Patient Tobacco Use Status Former Tobacco user 09/21/23 08:43 Tobacco use type Cigarette 09/21/23 08:43 e-Cigarette/Vaping Use Never Used 09/21/23 08:43 Thrive Assessment: Date of Thrive Assessment Date Thrive assessed 09/21/23 09/21/23 08:43 Const General: alert; No acute distress Eyes Conjunctivae: conjunctivae normal Resp Auscultation: clear to auscultation bilaterally Cardio Rate: regular rate Rhythm: regular rhythm GI Inspection: Yes normal to inspection Extrem General: Yes normal to inspection and No edema Assessment and Plan Assessment & Plan (1) Coronary artery disease: Comment: 01/2023 Code(s): I25.10 - Atherosclerotic heart disease of [place] coronary artery without angina pectoris Plan: Control the cholesterol, weight, blood pressure, diabetes continue with aspirin 81 mg once a day (2) Thrombocytosis: Code(s): D75.839 - Thrombocytosis, unspecified Plan: Patient is being followed up by hematology oncology on hydroxyurea (3) Type 1 diabetes mellitus with diabetic chronic kidney disease: Comment: With retinopathy, neuropathy, nephropathy Code(s): E10.22 - Type 1 diabetes mellitus with diabetic chronic kidney disease Qualifiers: Chronic kidney disease stage: stage 2 (mild) Qualified Code(s): E10.22 - Type 1 diabetes mellitus with diabetic chronic kidney disease; N18.2 - Chronic kidney disease, stage 2 (mild) Plan: Decrease the amount of carbohydrate intake, pasta, bread, rice and potatoes are all sugar and that is aside from all the sweet stuff, remember that fruits are good but they are Sweet also. Continue with NovoLog insulin and pump (4) Hypertension: Comment: Cardiac catheterization June 2018 normal Code(s): I10 - Essential (primary) hypertension Qualifiers: Hypertension type: essential hypertension Qualified Code(s): I10 - Essential (primary) hypertension Plan: Continue with blood pressure medication. Decrease salt intake and exercise amlodipine 10 mg once a day metoprolol 50 mg once a day (5) Asthma: Code(s): J45.909 - Unspecified asthma, uncomplicated Qualifiers: Asthma severity: mild Asthma persistence: intermittent Asthma complication type: uncomplicated Qualified Code(s): J45.20 - Mild intermittent asthma, uncomplicated Plan: Stable (6) Hypothyroidism: Code(s): E03.9 - Hypothyroidism, unspecified Qualifiers: Hypothyroidism type: acquired Qualified Code(s): E03.9 - Hypothyroidism , unspecified Plan: Continue with thyroid medication (7) Obesity (BMI 30-39.9): Code(s): E66.9 - Obesity, unspecified Plan: Diet and exercise (8) GERD (gastroesophageal reflux disease): Code(s): K21.9 - Gastro-esophageal reflux disease without esophagitis Qualifiers: Esophagitis presence: without esophagitis Qualified Code(s): K21.9 - Gastro-esophageal reflux disease without esophagitis Plan: Avoid the foods that causes that usually spicy foods, tomato products, juices, coffee, soda and foods that your sensitive to. After eating do not lie down, allow 3-4 hours before in lie down. And keep the head of bed above 30 degrees to avoid the acid from going up. (9) Chronic kidney disease: Code(s): N18.9 - Chronic kidney disease, unspecified Qualifiers: Chronic kidney disease stage: stage 2 (mild) Qualified Code(s): N18.2 - Chronic kidney disease, stage 2 (mild) Plan: Stable avoid NSAIDs keep well hydrated. (10) Recurrent major depression: Comment: Patient follows up with counselling and therapy (d/c 03/2023) Code(s): F33.9 - Major depressive disorder, recurrent, unspecified Plan: Continue with present medication Coding Level of Care Code Est Pt Level 4 (94799) Diagnoses Coronary artery disease I25.10 Thrombocytosis D75.839 Type 1 diabetes mellitus with stage 2 chronic kidney disease E10.22; N18.2 Chronic kidney disease stage: stage 2 (mild) Essential hypertension I10 Hypertension type: essential hypertension Mild intermittent asthma without complication J45.20 Asthma severity: mild Asthma persistence: intermittent Asthma complication type: uncomplicated Acquired hypothyroidism E03.9 Hypothyroidism type: acquired Obesity (BMI 30-39.9) E66.9 Gastroesophageal reflux disease without esophagitis K21.9 Esophagitis presence: without esophagitis Stage 2 chronic kidney disease N18.2 Chronic kidney disease stage: stage 2 (mild) Recurrent major depression F33.9
== END 2023-09-21 09:11 | disposition home or self-care (01) ==
PROVIDERS: PCP Internal Medicine; Visit Provider Internal Medicine
DX: I12.9 Hypertensive chronic kidney disease with stage 1 through stage 4 chronic kidney disease, or unspecified chronic kidney disease (principal); E10.22 Type 1 diabetes mellitus with diabetic chronic kidney disease; F33.9 Major depressive disorder, recurrent, unspecified; N18.2 Chronic kidney disease, stage 2 (mild); E66.9 Obesity, unspecified; I25.10 Atherosclerotic heart disease of native coronary artery without angina pectoris; D75.839 Thrombocytosis, unspecified; J45.20 Mild intermittent asthma, uncomplicated; E03.9 Hypothyroidism, unspecified; K21.9 Gastro-esophageal reflux disease without esophagitis
CPT/HCPCS: 99214

== ENCOUNTER 2023-10-18 07:50 | Outpatient (REF) | payer MEDICARE, SELFPAY ==
[2023-04-20 15:31] VITALS: BP 134/66; BP 140/58; BMI 32.5
== END 2023-10-18 07:51 | disposition home or self-care (01) ==
LOC: HO.BBR 07:50
PROVIDERS: PCP Internal Medicine; Visit Provider Internal Medicine
DX: D75.1 Secondary polycythemia (principal)
CPT/HCPCS: 85014; 85018; 99195

== ENCOUNTER 2023-11-15 08:03 | Outpatient (REF) | payer MEDICARE, SELFPAY ==
[2023-04-20 15:31] VITALS: BP 134/66; BP 140/58; BMI 32.5
== END 2023-11-15 08:04 | disposition home or self-care (01) ==
LOC: HO.BBR 08:03
PROVIDERS: PCP Internal Medicine; Visit Provider Internal Medicine
DX: D75.1 Secondary polycythemia (principal)
CPT/HCPCS: 85014; 85018; 99195

== ENCOUNTER 2023-12-13 08:39 | Outpatient (REF) | payer MEDICARE, SELFPAY ==
[2023-04-20 15:31] VITALS: BP 134/66; BP 140/58; BMI 32.5
== END 2023-12-13 08:40 | disposition home or self-care (01) ==
LOC: HO.BBR 08:39
PROVIDERS: PCP Internal Medicine; Visit Provider Internal Medicine
DX: D75.1 Secondary polycythemia (principal)
CPT/HCPCS: 85014; 85018; 99195

== ENCOUNTER 2024-01-03 08:18 | Outpatient (AMB) | payer MEDICARE, SELFPAY ==
[2023-04-20 15:31] VITALS: BP 134/66; BP 140/58; BMI 32.5
[2024-01-03 08:40] VITALS: BP 140/76; PULSE 68; O2SAT 98; BMI 34.7
--- NOTE | 2024-01-03 08:40 | A.OFFPC_ITS ---
Vital Signs 01/03/24 08:40 Height 5 ft 8 in Weight 228 lb BMI 34.7 BP 140/76 H Blood Pressure Location Lt brachial Position Sitting Pulse 68 Pulse Source Pulse Oximeter Pulse Oximetry (%) 98 Oxygen Delivery Method Room Air Intake Visit Reasons: DM , CAD [employer] Finisher Required: No Complaints Coordinator: Not Required per policy Accompanied by: Self / Same As Patient Allergies peanut [PEANUT] Allergy (Severe, Verified 01/03/24 08:40) ANAPHYLAXIS lamotrigine [Lamictal] Allergy (Unknown, Verified 01/03/24 08:40) cough lisinopril Allergy (Unknown, Verified 01/03/24 08:40) unknown Penicillins [PENICILLINS] Allergy (Unknown, Verified 01/03/24 08:40) SEVERE HIVES valsartan Allergy (Unknown, Verified 01/03/24 08:40) Unknown Tobacco use date assessed: 09/21/23 Dental Screening Dental Screen Date: 09/21/23 HPI DM , CAD HPI Details 53-year-old obese male with diabetes alex litus on insulin CAD hypertension asthma hypothyroidism GERD chronic kidney disease and major depression last seen in 09/18/2023. Patient follows up with Hematology-Oncology diagnosis of myeloproliferative disorder positive for JAK2(polycythemia vera) on hydroxyurea. Patient has neuropathy and migraines and being followed up by Neurology placed on [facility] Medical History (Updated 01/03/24 @ 08:57 by Tali Dyer MD) Finger laceration involving tendon Depression Right knee pain Rheumatoid factor positive Moderate major depression Medicare annual wellness visit, subsequent Medicare annual wellness visit, initial (~06/07/21) History of aspiration pneumonia Cataract Obstructive sleep apnea Left bundle branch block Chronic kidney disease Anxiety and depression GERD (gastroesophageal reflux disease) Hypercholesterolemia Obesity (BMI 30-39.9) Pulmonary nodule Vitamin D deficiency Peripheral neuropathy Hypothyroidism Asthma Hypertension Type 1 diabetes mellitus with diabetic chronic kidney disease Surgical History History of surgery History of trigger finger History of lumbar surgery History of eye surgery History of penile implant History of carpal tunnel release Family History Father Hypertension CVD (cardiovascular disease) Mother Hypertension CVD (cardiovascular disease) Family/Other Rectal cancer Brother Rectal cancer Social History Household Members: Family Housing: House Alcohol intake: never Patient Tobacco Use Status: Former Tobacco user Tobacco use type: Cigarette Years Smoked: teenager e-Cigarette/Vaping Use: Never Used Second Hand Smoke Exposure: Yes service: No Current occupational status: unemployed Cognitive needs: No Hearing needs: No Vision needs: Yes Questionnaire Thrive Questionnaire Date Thrive assessed: 09/21/23 YEN-7 AMB Questionnaire YEN-7 Date YEN - 7 assessed: 09/21/23 Source: Developed by Drs. Kendall Zapata, Navya Torres, Robert Costa and colleagues, with an educational glen from [employer]. Physical exam (Primary Care) Vital Signs: Oxygen Delivery Method Room Air 01/03/24 08:40 Tobacco/Smoking Status: Tobacco use Status Tobacco use date assessed 09/21/23 09/21/23 08:43 Patient Tobacco Use Status Former Tobacco user 09/21/23 08:43 Tobacco use type Cigarette 09/21/23 08:43 e-Cigarette/Vaping Use Never Used 09/21/23 08:43 Thrive Assessment: Date of Thrive Assessment Date Thrive assessed 09/21/23 09/21/23 08:43 Const General: alert; No acute distress Eyes Conjunctivae: conjunctivae normal Resp Auscultation: clear to auscultation bilaterally Cardio Rate: regular rate Rhythm: regular rhythm GI Inspection: Yes normal to inspection Extrem General: Yes normal to inspection and No edema Results AMB Hemoglobin A1c AMB Hemoglobin A1c 6.4 % Last Edit by AISLINN Toledo on 01/03/24 08:53 Assessment and Plan Assessment & Plan (1) Type 1 diabetes mellitus with diabetic chronic kidney disease: Comment: With retinopathy, neuropathy, nephropathy, [facility] Dr. [place] Code(s): E10.22 - Type 1 diabetes mellitus with diabetic chronic kidney disease Qualifiers: Chronic kidney disease stage: stage 2 (mild) Qualified Code(s): E10.22 - Type 1 diabetes mellitus with diabetic chronic kidney disease; N18.2 - Chronic kidney disease, stage 2 (mild) Plan: Decrease the amount of carbohydrate intake, pasta, bread, rice and potatoes are all sugar and that is aside from all the sweet stuff, remember that fruits are good but they are Sweet also. Patient on insulin Omnipod (2) Coronary artery disease: Comment: 01/2023 Code(s): I25.10 - Atherosclerotic heart disease of [place] coronary artery without angina pectoris Plan: Control the cholesterol, weight, blood pressure, diabetes on aspirin 81 mg once a day (3) Polycythemia: Code(s): D75.1 - Secondary polycythemia Plan: Patient continues to follow-up with Hematology-Oncology placed on hydroxyurea continue to monitor (4) Migraine: Code(s): G43.909 - Migraine, unspecified, not intractable, without status migrainosus Plan: Patient has followed up with Neurology has been placed on Aimovig as well as sumatriptan p.r.n. (5) Recurrent major depression: Comment: Patient follows up with counselling and therapy (d/c 03/2023) Code(s): F33.9 - Major depressive disorder, recurrent, unspecified Plan: On duloxetine 40 mg once a day and sertraline 50 mg once a day (6) Colon cancer screening: Comment: 2013 Dr. Meade Code(s): Z12.11 - Encounter for screening for malignant neoplasm of colon Plan: Patient is reminded about colon testing (7) GERD (gastroesophageal reflux disease): Code(s): K21.9 - Gastro-esophageal reflux disease without esophagitis Qualifiers: Esophagitis presence: without esophagitis Qualified Code(s): K21.9 - Gastro-esophageal reflux disease without esophagitis Plan: Avoid the foods that causes that usually spicy foods, tomato products, juices, coffee, soda and foods that your sensitive to. After eating do not lie down, allow 3-4 hours before in lie down. And keep the head of bed above 30 degrees to avoid the acid from going up. (8) Hypercholesterolemia: Code(s): E78.00 - Pure hypercholesterolemia, unspecified Plan: Avoid fried foods, chicken skin, eggs, butter margarine, pastries and meat. Be it pork or beef they have a lot of cholesterol 09/18/2023 last blood work LDL goal of less than 70 and triglyceride of less than 150 (9) Obesity (BMI 30-39.9): Code(s): E66.9 - Obesity, unspecified Plan: Diet and exercise (10) Peripheral neuropathy: Code(s): G62.9 - Polyneuropathy, unspecified Qualifiers: Peripheral neuropathy type: idiopathic neuropathy, unspecified Qualified Code(s): G60.9 - Hereditary and idiopathic neuropathy, unspecified Plan: Patient follows up with Neurology advised to get blood sugars under control keep active keep well hydrated (11) Hypothyroidism: Code(s): E03.9 - Hypothyroidism, unspecified Qualifiers: Hypothyroidism type: acquired Qualified Code(s): E03.9 - Hypothyroidism, unspecified Plan: Continue with thyroid medication 09/18/2023 last test (12) Asthma: Code(s): J45.909 - Unspecified asthma, uncomplicated Qualifiers: Asthma complication type: uncomplicated Asthma persistence: intermittent Asthma severity: mild Qualified Code(s): J45.20 - Mild intermittent asthma, uncomplicated Plan: Stable (13) Hypertension: Comment: Cardiac catheterization June 2018 normal Code(s): I10 - Essential (primary) hypertension Qualifiers: Hypertension type: essential hypertension Qualified Code(s): I10 - Essential (primary) hypertension Plan: Continue with blood pressure medication. Decrease salt intake and exercise patient takes amlodipine 10 mg once a day and metoprolol 50 mg once a day Orders: Orders AMB Hemoglobin A1c Today E10.22 - Type 1 diabetes mellitus with diabetic chronic kidney disease, N18.2 - Chronic kidney disease, stage 2 (mild) Referrals Gastroenterology Referral Z12.11 - Encounter for screening for malignant neoplasm of colon Coding Level of Care Code Est Pt Level 4 (95088) Complex EM visit Add On G2211 Diagnoses Type 1 diabetes mellitus with stage 2 chronic kidney disease E10.22; N18.2 Chronic kidney disease stage: stage 2 (mild) Coronary artery disease I25.10 Polycythemia D75.1 Migraine G43.909 Recurrent major depression F33.9 Colon cancer screening Z12.11 Gastroesophageal reflux disease without esophagitis K21.9 Esophagitis presence: without esophagitis Hypercholesterolemia E78.00 Obesity (BMI 30-39.9) E66.9 Idiopathic peripheral neuropathy G60.9 Peripheral neuropathy type: idiopathic neuropathy, unspecified Acquired hypothyroidism E03.9 Hypothyroidism type: acquired Mild intermittent asthma without complication J45.20 Asthma complication type: uncomplicated Asthma persistence: intermittent Asthma severity: mild Essential hypertension I10 Hypertension type: essential hypertension
== END 2024-01-03 09:00 | disposition home or self-care (01) ==
PROVIDERS: PCP Internal Medicine; Visit Provider Internal Medicine
DX: E10.22 Type 1 diabetes mellitus with diabetic chronic kidney disease (principal); N18.2 Chronic kidney disease, stage 2 (mild); I25.10 Atherosclerotic heart disease of native coronary artery without angina pectoris; D75.1 Secondary polycythemia; G43.909 Migraine, unspecified, not intractable, without status migrainosus; F33.9 Major depressive disorder, recurrent, unspecified; Z12.11 Encounter for screening for malignant neoplasm of colon; K21.9 Gastro-esophageal reflux disease without esophagitis; E78.00 Pure hypercholesterolemia, unspecified; E66.9 Obesity, unspecified; G60.9 Hereditary and idiopathic neuropathy, unspecified; E03.9 Hypothyroidism, unspecified
CPT/HCPCS: 83036; 99214; G2211

== ENCOUNTER 2024-01-11 08:41 | Outpatient (REF) | payer MEDICARE, SELFPAY ==
[2023-04-20 15:31] VITALS: BP 134/66; BP 140/58; BMI 32.5
== END 2024-01-11 08:42 | disposition home or self-care (01) ==
LOC: HO.BBR 08:41
PROVIDERS: PCP Internal Medicine; Visit Provider Internal Medicine
DX: D75.1 Secondary polycythemia (principal)
CPT/HCPCS: 85018; 99195

== ENCOUNTER 2024-02-07 07:58 | Outpatient (REF) | payer MEDICARE, SELFPAY ==
[2023-04-20 15:31] VITALS: BP 134/66; BP 140/58; BMI 32.5
== END 2024-02-07 07:59 | disposition home or self-care (01) ==
LOC: HO.BBR 07:58
PROVIDERS: PCP Internal Medicine; Visit Provider Internal Medicine
DX: D75.1 Secondary polycythemia (principal)
CPT/HCPCS: 85018; 99195

== ENCOUNTER 2024-02-25 07:42 | Outpatient (AMB) | payer MEDICARE, SELFPAY ==
[2023-04-20 15:31] VITALS: BP 134/66; BP 140/58; BMI 32.5
--- NOTE | 2024-02-25 08:14 | A.OFFVIS_ITS ---
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 Required: No Allergies peanut [PEANUT] Allergy (Severe, Verified 02/25/24 08:18) ANAPHYLAXIS lamotrigine [Lamictal] Allergy (Unknown, Verified 02/25/24 08:18) cough lisinopril Allergy (Unknown, Verified 02/25/24 08:18) unknown Penicillins [PENICILLINS] Allergy (Unknown, Verified 02/25/24 08:18) SEVERE HIVES valsartan Allergy (Unknown, Verified 02/25/24 08:18) Unknown [facility] Medical History (Updated 01/03/24 @ 08:57 by Tali Dyer MD) Finger laceration involving tendon Depression Right knee pain Rheumatoid factor positive Moderate major depression Medicare annual wellness visit, subsequent Medicare annual wellness visit, initial (~06/07/21) History of aspiration pneumonia Cataract Obstructive sleep apnea Left bundle branch block Chronic kidney disease Anxiety and depression GERD (gastroesophageal reflux disease) Hypercholesterolemia Obesity (BMI 30-39.9) Pulmonary nodule Vitamin D deficiency Peripheral neuropathy Hypothyroidism Asthma Hypertension Type 1 diabetes mellitus with diabetic chronic kidney disease Surgical History History of surgery History of trigger finger History of lumbar surgery History of eye surgery History of penile implant History of carpal tunnel release Family History Father Hypertension CVD (cardiovascular disease) Mother Hypertension CVD (cardiovascular disease) Family/Other Rectal cancer Brother Rectal cancer Social History Household Members: Family Housing: House Alcohol intake: never Patient Tobacco Use Status: Former Tobacco user Tobacco use type: Cigarette Years Smoked: teenager e-Cigarette/Vaping Use: Never Used Second Hand Smoke Exposure: Yes service: No Current occupational status: unemployed Cognitive needs: No Hearing needs: No Vision needs: Yes Review of Systems ENT Reports dizziness Card Denies chest pain, Denies chest pain at rest, Denies chest pain with activity, Denies rapid heart rate, Denies pedal edema, Denies edema, Denies leg edema, Denies lightheadedness, Denies palpitations, Denies dyspnea, Denies dyspnea on exertion and Denies orthopnea Resp Denies cough, Denies dyspnea and Denies dyspnea on exertion GI Denies hematochezia and Denies change in stool character Musc Denies abnormal gait, Reports limited range of motion, Reports muscle cramps, Denies muscle weakness, Denies numbness, Denies radiating pain into limb, Denies stiffness and Denies tingling Neuro Denies abnormal gait, Reports dizziness, Denies numbness and Denies tingling Endo Denies palpitations Coding
[2024-02-25 08:16] VITALS: BP 124/62; PULSE 63; BMI 34.1
--- NOTE | 2024-02-25 08:19 | A.OFFVIS_ITS ---
Vital Signs 02/25/24 08:16 02/25/24 08:21 Height 5 ft 8 in Weight 224 lb 6.889 oz BMI 34.1 34.1 BP 124/62 Blood Pressure Location Rt brachial Position Sitting Pulse 63 Pulse Source Monitor Intake Visit Reasons: 6 mth f/up Allergies peanut [PEANUT] Allergy (Severe, Verified 02/25/24 08:18) ANAPHYLAXIS lamotrigine [Lamictal] Allergy (Unknown, Verified 02/25/24 08:18) cough lisinopril Allergy (Unknown, Verified 02/25/24 08:18) unknown Penicillins [PENICILLINS] Allergy (Unknown, Verified 02/25/24 08:18) SEVERE HIVES valsartan Allergy (Unknown, Verified 02/25/24 08:18) Unknown Medication List - Last Reconciled 02/25/[address] amlodipine 10 mg PO DAILY aspirin (Adult Aspirin Regimen) 81 mg PO DAILY atorvastatin 40 mg PO DAILY blood sugar diagnostic (Contour Next Test Strips) As directed rligjdxujs-rkgjntwymthrf-kgsi 50-325-40 mg 1 cap PO Q4-6H PRN duloxetine 40 mg PO DAILY erenumab-aooe (Aimovig Autoinjector) 140 mg subcut .Q month fluticasone propionate 50 mcg/actuation 2 sprays intranasal DAILY hydroxyurea (Hydrea) 500 mg PO BID insulin aspart U-100 (Novolog FlexPen U-100 Insulin aspart) 100 units subcut DAILY levothyroxine 125 mcg PO QAM metoprolol succinate ER 50 mg PO DAILY 90 days pantoprazole 40 mg PO DAILY 90 days ropinirole 0.25 mg PO BEDTIME sertraline 50 mg PO DAILY 90 days sumatriptan succinate 50 mg PO Q2-4H PRN HPI HPI 6 mth f/up: Details: Russell is a 53-year-old male with past medical history of hypertension, hyperlipidemia, diabetes, thrombocytopenia, polycythemia, mild obesity, left bundle branch block who was admitted to [facility] January 2023 with chest discomfort and ruled in for NSTEMI. He was managed medically and cardiac catheterization was planned however he waited 3 days and then signed out AMA. He was seen in this office for follow-up and a nuclear stress test was done which was normal. Today he reports he has been doing well since his last visit in July. He denies any anginal symptoms. No chest discomfort, shortness of breath, palpitations, presyncope, syncope, PND, orthopnea or edema. He has been walking more for exercise and watching his dietary intake. His weight is down 7 lb since he was last seen here. He is taking all meds as directed. He has no cardiac concerns today. [facility] Medical History Finger laceration involving tendon Depression Right knee pain Rheumatoid factor positive Moderate major depression Medicare annual wellness visit, subsequent Medicare annual wellness visit, initial (~06/07/21) History of aspiration pneumonia Cataract Obstructive sleep apnea Left bundle branch block Chronic kidney disease Anxiety and depression GERD (gastroesophageal reflux disease) Hypercholesterolemia Obesity (BMI 30-39.9) Pulmonary nodule Vitamin D deficiency Peripheral neuropathy Hypothyroidism Asthma Hypertension Type 1 diabetes mellitus with diabetic chronic kidney disease Surgical History History of surgery History of trigger finger History of lumbar surgery History of eye surgery History of penile implant History of carpal tunnel release Family History Father Hypertension CVD (cardiovascular disease) Mother Hypertension CVD (cardiovascular disease) Family/Other Rectal cancer Brother Rectal cancer Social History Household Members: Family Housing: House Alcohol intake: never Patient Tobacco Use Status: Former Tobacco user Tobacco use type: Cigarette Years Smoked: teenager e-Cigarette/Vaping Use: Never Used Second Hand Smoke Exposure: Yes service: No Current occupational status: unemployed Cognitive needs: No Hearing needs: No Vision needs: Yes Review of Systems Const All systems reviewed & are unremarkable except as noted in HPI and below Card Denies chest pain, Denies chest pain at rest, Denies chest pain with activity, Denies syncope, Denies rapid heart rate, Denies leg edema, Denies dyspnea, Denies dyspnea on exertion and Denies orthopnea Resp Denies dyspnea and Denies dyspnea on exertion Musc Denies no additional complaints Neuro Denies syncope Psych Denies abnormal sleep pattern and Denies anxiety Physical Exam Vital Signs: Last Vital Signs Pulse 63 02/25/24 08:16 BP 124/62 02/25/24 08:16 BMI result Body Mass Index 34.1 Const General: cooperative, comfortable and no acute distress Orientation/consciousness: patient oriented x3 Neck Neck: Yes normal visual inspection Resp Effort & Inspection: normal respiratory effort Auscultation: clear to auscultation bilaterally, no crackles, no rales, no rhonchi and no wheezes Cardio Jugular venous distension: no JVD Rate: regular rate Rhythm: regular rhythm Heart sounds: S1 normal heart sound present, S2 normal heart sound present, no murmurs and no rubs Skin General skin exam: no rashes or lesions noted Neuro General: patient oriented x3 Extrem General: Yes normal to inspection and No no pedal edema Psych Appearance: grossly normal Mental Status: mental status grossly normal Speech and movement: Normal speech and movement present Office Procedures EKG Details: , read by me, normal sinus rhythm, left bundle branch block, T-wave abnormality laterally, rate 63, QTC 454 milliseconds [id number], Complete Assessment & Plan Assessment & Plan (1) NSTEMI (non-ST elevated myocardial infarction): Comment: January 2023 Code(s): I21.4 - Non-ST elevation (NSTEMI) myocardial infarction Category: Medical Plan: [facility] admission for left arm, jaw then chest discomfort, January 2023. He ruled in for NSTEMI. He was admitted with plan for cardiac catheterization however he said he waited 3 days and catheterization was not completed so he signed out AMA. An echocardiogram done there on 02/21/2023 showed EF 60-65%, no regional wall motion abnormalities, mild LVH. His EKG did show left bundle branch block. Unknown chronicity of left bundle branch block to me at this time. He did have a nuclear Stress test done 03/22/2023 which showed normal myocardial perfusion imaging, EF 44% at rest and 52% with stress. EKG done today shows normal sinus rhythm, left bundle branch block, rate 63, unchanged from prior. Today he denies any anginal symptoms. He has been walking for exercise and is down 7 lb. Will have him continue aspirin indefinitely. Continue atorvastatin with Bracey LDL goal less than 70. Labs done on 09/18/23 showed LDL 65. Continue metoprolol XL 50 mg daily. Blood pressure 124/62, well controlled. He will continue to follow with Dr. Fox for his polycythemia and thrombocytopenia. His platelets around the time of the NSTEMI were as high as 1061. This may have contributed to his NSTEMI event. Labs done on 12/31/2023 showed platelets 284. Cardiology follow-up in 1 year, sooner if needed. (2) Hypertension: Comment: Cardiac catheterization June 2018 normal Code(s): I10 - Essential (primary) hypertension Category: Medical Qualifiers: Hypertension type: essential hypertension Qualified Code(s): I10 - Essential (primary) hypertension Plan: Well controlled today. Continue metoprolol and amlodipine. Basilio/Arb are listed in his allergy list. (3) Type 1 diabetes mellitus with diabetic chronic kidney disease: Comment: With retinopathy, neuropathy, nephropathy, [facility]. Dr. Moctezuma Code(s): E10.22 - Type 1 diabetes mellitus with diabetic chronic kidney disease Category: Medical Qualifiers: Chronic kidney disease stage: stage 2 (mild) Qualified Code(s): E10.22 - Type 1 diabetes mellitus with diabetic chronic kidney disease; N18.2 - Chronic kidney disease, stage 2 (mild) Plan: Hemoglobin A1c goal less than 7. Followed by PCP (4) Polycythemia: Code(s): D75.1 - Secondary polycythemia Category: Medical Plan: Follows with Dr. Fox Plan Time spent on chart review, documentation, interview and assessment Coding Level of Care Code Est Pt Level 4 (59891) Diagnoses NSTEMI (non-ST elevated myocardial infarction) I21.4 Essential hypertension I10 Hypertension type: essential hypertension Type 1 diabetes mellitus with stage 2 chronic kidney disease E10.22; N18.2 Chronic kidney disease stage: stage 2 (mild) Polycythemia D75.1 CPT Codes EKG - CPT: 48915-[id number], Complete ([id number]) Time Spent (min) 28
[2024-02-25 08:21] VITALS: BMI 34.1
== END 2024-02-25 08:36 | disposition home or self-care (01) ==
PROVIDERS: PCP Internal Medicine; Visit Provider Nurse Practitioner Family
DX: I21.4 Non-ST elevation (NSTEMI) myocardial infarction (principal); I12.9 Hypertensive chronic kidney disease with stage 1 through stage 4 chronic kidney disease, or unspecified chronic kidney disease; E10.22 Type 1 diabetes mellitus with diabetic chronic kidney disease; N18.2 Chronic kidney disease, stage 2 (mild); D75.1 Secondary polycythemia
CPT/HCPCS: 93010; 99214

== ENCOUNTER → 2024-02-25 07:42 | Outpatient (BNVA) | payer MEDICARE, SELFPAY ==
[2023-04-20 15:31] VITALS: BP 134/66; BP 140/58; BMI 32.5
== END ==
PROVIDERS: PCP Internal Medicine; Visit Provider Nurse Practitioner Family
DX: I25.2 Old myocardial infarction (principal); E10.22 Type 1 diabetes mellitus with diabetic chronic kidney disease; I12.9 Hypertensive chronic kidney disease with stage 1 through stage 4 chronic kidney disease, or unspecified chronic kidney disease; N18.2 Chronic kidney disease, stage 2 (mild); D75.1 Secondary polycythemia
CPT/HCPCS: 93005; 99212

== ENCOUNTER 2024-03-11 07:51 | Outpatient (REF) | payer MEDICARE, SELFPAY ==
[2023-04-20 15:31] VITALS: BP 134/66; BP 140/58; BMI 32.5
== END 2024-03-11 07:52 | disposition home or self-care (01) ==
LOC: HO.BBR 07:51
PROVIDERS: PCP Internal Medicine; Visit Provider Internal Medicine
DX: D75.1 Secondary polycythemia (principal)
CPT/HCPCS: 85018

== ENCOUNTER 2024-04-09 08:10 | Outpatient (REF) | payer MEDICARE, SELFPAY ==
[2023-04-20 15:31] VITALS: BP 134/66; BP 140/58; BMI 32.5
== END 2024-04-09 08:11 | disposition home or self-care (01) ==
LOC: HO.BBR 08:10
PROVIDERS: PCP Internal Medicine; Visit Provider Internal Medicine
DX: D75.1 Secondary polycythemia (principal)
CPT/HCPCS: 85014; 85018; 99195

== ENCOUNTER 2024-05-07 08:03 | Outpatient (REF) | payer MEDICARE, SELFPAY ==
[2023-04-20 15:31] VITALS: BP 134/66; BP 140/58; BMI 32.5
== END 2024-05-07 08:04 | disposition home or self-care (01) ==
LOC: HO.BBR 08:03
PROVIDERS: PCP Internal Medicine; Visit Provider Internal Medicine
DX: D75.1 Secondary polycythemia (principal); E10.9 Type 1 diabetes mellitus without complications; I25.10 Atherosclerotic heart disease of native coronary artery without angina pectoris; F33.9 Major depressive disorder, recurrent, unspecified
CPT/HCPCS: 83036; 99212

== ENCOUNTER 2024-05-07 08:49 | Outpatient (AMB) | payer MEDICARE, SELFPAY ==
[2023-04-20 15:31] VITALS: BP 134/66; BP 140/58; BMI 32.5
--- NOTE | 2024-05-07 09:21 | MHC.PC.OV ---
Vital Signs 05/07/24 09:23 Height 5 ft 8 in Weight 221 lb 6 oz BMI 33.7 BP 130/62 Blood Pressure Location Rt brachial Position Sitting Pulse 71 Pulse Source Pulse Oximeter Pulse Oximetry (%) 96 Oxygen Delivery Method Room Air Intake Visit Reasons: 3mth f/u Intake Note: Patient is here to follow up on DM, CAD, RLS, CKD, HTN. Pt decline flu shot today. Head Inspector And Center Marker Required: No Behavioral Health Care Coordinator: Not Required per policy Accompanied by: Self / Same As Patient Allergies peanut [PEANUT] Allergy (Severe, Verified 05/07/24 09:23) ANAPHYLAXIS Penicillins [PENICILLINS] Allergy (Severe, Verified 05/07/24 09:25) SEVERE HIVES lamotrigine [Lamictal] Allergy (Intermediate, Verified 05/07/24 09:25) cough lisinopril Allergy (Unknown, Verified 05/07/24 09:23) unknown valsartan Allergy (Unknown, Verified 05/07/24 09:23) Unknown Medication List - Last Reconciled 05/07/24 by Tali Dyer MD amlodipine 10 mg PO DAILY aspirin (Adult Aspirin Regimen) 81 mg PO DAILY atorvastatin 40 mg PO DAILY blood sugar diagnostic (Contour Next Test Strips) As directed dnsrwlztsv-lzpnatufusaxp-kmru 50-325-40 mg 1 cap PO Q4-6H PRN duloxetine 40 mg PO DAILY erenumab-aooe (Aimovig Autoinjector) 140 mg subcut .Q month fluticasone propionate 50 mcg/actuation 2 sprays intranasal DAILY hydroxyurea (Hydrea) 500 mg PO BID insulin aspart U-100 (Novolog FlexPen U-100 Insulin aspart) 100 units subcut DAILY levothyroxine 125 mcg PO QAM metoprolol succinate ER 50 mg PO DAILY 90 days pantoprazole 40 mg PO DAILY 90 days ropinirole 0.25 mg PO BEDTIME sertraline 50 mg PO DAILY 90 days sumatriptan succinate 50 mg PO Q2-4H PRN Tobacco use date assessed: 05/07/24 Dental Screening Dental Screen Date: 09/21/23 HPI 3mth f/u HPI Details 54-year-old obese male with type 1 diabetes mellitus with chronic kidney disease coronary artery disease polycythemia migraine recurrent major depression GERD hypercholesterolemia peripheral neuropathy hypothyroidism asthma hypertension and depression coming in for follow-up. Last seen in 01/03/2024. Patient had last colonoscopy in August 2013. Was reminded last time. Noted ER visit in February 25 due to vertigo headache fatigue and diarrhea diagnosis of gastroenteritis. Patient has also seen Cardiology had chest pains in 02/15/2023 ruled in for non ST elevation [place] managed medically. Signed AMA and did not have any cardiac catheterization. Nuclear stress test follow-up negative. Patient does have left bundle branch block stress test 03/18/2023 negative EF 44% aspirin indefinitely atorvastatin ideal LDL is 70 continue with metoprolol 50 mg once a day [facility] Medical History (Updated 05/07/24 @ 09:18 by Margarita Jalloh RN) NSTEMI (non-ST elevated myocardial infarction) Moderate major depression Rheumatoid factor positive Right knee pain Depression History of aspiration pneumonia Cataract Obstructive sleep apnea Left bundle branch block Chronic kidney disease Anxiety and depression GERD (gastroesophageal reflux disease) Hypercholesterolemia Obesity (BMI 30-39.9) Pulmonary nodule Vitamin D deficiency Peripheral neuropathy Hypothyroidism Asthma Hypertension Type 1 diabetes mellitus with diabetic chronic kidney disease Surgical History Hx of hand surgery S/P placement of nerve stimulator H/O colonoscopy History of trigger finger History of eye surgery History of penile implant History of carpal tunnel release Family History Father Hypertension CVD (cardiovascular disease) Mother Hypertension CVD (cardiovascular disease) Family/Other Rectal cancer Brother Rectal cancer Social History Household Members: Family Housing: House Alcohol intake: never Patient Tobacco Use Status: Former Tobacco user Tobacco use type: Cigarette Years Smoked: teenager e-Cigarette/Vaping Use: Never Used Second Hand Smoke Exposure: Yes service: No Current occupational status: unemployed Cognitive needs: No Hearing needs: No Vision needs: Yes Questionnaire PHQ-9 Over the last 2 weeks, how often have you been bothered by any of the following problems? 1. Little interest or pleasure in doing things: not at all 2. Feeling down, depressed, or hopeless: not at all 3. Trouble falling or staying asleep, or sleeping too much: not at all 4. Feeling tired or having little energy: not at all 5. Poor appetite or overeating: not at all 6. Feeling bad about yourself - or that you are a failure or have let yourself or your family down: not at all 7. Trouble concentrating on things, such as reading the newspaper or watching television: not at all 8. Moving or speaking so slowly that other people could have noticed. Or the opposite - being so fidgety or restless that you have been moving around a lot more than usual: not at all 9. Thoughts that you would be better off or of hurting yourself in some way: not at all Total score: 0 Depression Screening Interpretation: Negative Depression Screening Done: Yes Source: Developed by Drs. Kendall Zapata, Navya Torres, Robert Costa and colleagues, with an educational glen from [employer]. Thrive Questionnaire Date Thrive assessed: 09/21/23 Are you currently unemployed and looking for a job?: Yes YEN-7 AMB Questionnaire YEN-7 Date YEN - 7 assessed: 09/21/23 Source: Developed by Drs. Kendall Zapata, Navya Torres, Robert Costa and colleagues, with an educational glen from [employer]. Physical exam (Primary Care) Vital Signs: Last Vital Signs Pulse 71 05/07/24 09:23 BP 130/62 05/07/24 09:23 Pulse Ox 96 05/07/24 09:23 Oxygen Delivery Method Room Air 05/07/24 09:23 BMI result Body Mass Index 33.7 Tobacco/Smoking Status: Tobacco use Status Tobacco use date assessed 05/07/24 05/07/24 09:32 Patient Tobacco Use Status Former Tobacco user 05/07/24 09:21 Tobacco use type Cigarette 05/07/24 09:21 e-Cigarette/Vaping Use Never Used 05/07/24 09:21 PHQ-9: PHQ-9 Score PHQ-9: Total score 0 05/07/24 09:32 Depression Screening Interpretation: Negative Thrive Assessment: Date of Thrive Assessment Date Thrive assessed 09/21/23 05/07/24 09:21 Const General: alert; No acute distress Eyes Conjunctivae: conjunctivae normal Resp Auscultation: clear to auscultation bilaterally Cardio Rate: regular rate Rhythm: regular rhythm GI Inspection: Yes normal to inspection Extrem General: Yes normal to inspection and No edema Results AMB Hemoglobin A1c AMB Hemoglobin A1c 7.1 % Last Edit by AISLINN Mckeon on 05/07/24 09:34 Results Reviewed Results Reviewed: Laboratory Last Values Hgb A1c (Clinic) 7.1 % (4.0-6.0) H 05/07/24 09:21 Coding Level of Care Code Est Pt Level 4 (58402) Diagnoses Diabetes mellitus type 1 E10.9 Coronary artery disease I25.10 Polycythemia D75.1 Recurrent major depression F33.9 Colon cancer screening Z12.11 Gastroesophageal reflux disease without esophagitis K21.9 Esophagitis presence: without esophagitis Hypercholesterolemia E78.00 Obesity (BMI 30-39.9) E66.9 Acquired hypothyroidism E03.9 Hypothyroidism type: acquired Essential hypertension I10 Hypertension type: essential hypertension Assessment & Plan Assessment & Plan (1) Diabetes mellitus type 1: Code(s): E10.9 - Type 1 diabetes mellitus without complications Category: Medical Plan: Decrease the amount of carbohydrate intake, pasta, bread, rice and potatoes are all sugar and that is aside from all the sweet stuff, remember that fruits are good but they are Sweet also. Patient follows up with endocrinology on insulin pump (2) Coronary artery disease: Comment: 01/2023 Code(s): I25.10 - Atherosclerotic heart disease of [place] coronary artery without angina pectoris Category: Medical Plan: Control the cholesterol, weight, blood pressure, diabetes continue with aspirin 81 mg once a day (3) Polycythemia: Code(s): D75.1 - Secondary polycythemia Category: Medical Plan: Continue to follow-up with Hematology-Oncology with therapeutic phlebotomy (4) Recurrent major depression: Comment: Patient follows up with counselling and therapy (d/c 03/2023) Code(s): F33.9 - Major depressive disorder, recurrent, unspecified Category: Medical Plan: Continue with present medication and counseling (5) Colon cancer screening: Comment: 2013 Dr. Meade Code(s): Z12.11 - Encounter for screening for malignant neoplasm of colon Category: Medical Plan: Patient is reminded about colonoscopy (6) GERD (gastroesophageal reflux disease): Code(s): K21.9 - Gastro-esophageal reflux disease without esophagitis Category: Medical Qualifiers: Esophagitis presence: without esophagitis Qualified Code(s): K21.9 - Gastro-esophageal reflux disease without esophagitis Plan: Avoid the foods that causes that usually spicy foods, tomato products, juices, coffee, soda and foods that your sensitive to. After eating do not lie down, allow 3-4 hours before in lie down. And keep the head of bed above 30 degrees to avoid the acid from going up. (7) Hypercholesterolemia: Code(s): E78.00 - Pure hypercholesterolemia, unspecified Category: Medical Plan: Avoid fried foods, chicken skin, eggs, butter margarine, pastries and meat. Be it pork or beef they have a lot of cholesterol LDL goal of less than 70 and triglyceride of less than 150 on atorvastatin 40 mg once a day (8) Obesity (BMI 30-39.9): Code(s): E66.9 - Obesity, unspecified Category: Medical Plan: Diet and exercise (9) Hypothyroidism: Code(s): E03.9 - Hypothyroidism, unspecified Category: Medical Qualifiers: Hypothyroidism type: acquired Qualified Code(s): E03.9 - Hypothyroidism, unspecified Plan: Continue with thyroid medication (10) Hypertension: Comment: Cardiac catheterization June 2018 normal Code(s): I10 - Essential (primary) hypertension Category: Medical Qualifiers: Hypertension type: essential hypertension Qualified Code(s): I10 - Essential (primary) hypertension Plan: Continue with blood pressure medication. Decrease salt intake and exercise on amlodipine 10 mg once a day metoprolol 50 mg once a day Orders: Orders Ferritin Today E10.9 - Type 1 diabetes mellitus without complications Free T4 (Free Thyroxine) Today E10.9 - Type 1 diabetes mellitus without complications Creatinine Urine Today E10.9 - Type 1 diabetes mellitus without complications, E11.65 - Type 2 diabetes mellitus with hyperglycemia Lipid Panel Today E10.9 - Type 1 diabetes mellitus without complications, E78.00 - Pure hypercholesterolemia, unspecified Thyroid Stimulating Hormone Today E10.9 - Type 1 diabetes mellitus without complications Vitamin B12 and Folate Today E10.9 - Type 1 diabetes mellitus without complications Vitamin D 25-OH Total Today E10.9 - Type 1 diabetes mellitus without complications Prostate Specific Antigen Scr Today E10.9 - Type 1 diabetes mellitus without complications Hemoglobin A1c Today E10.9 - Type 1 diabetes mellitus without complications UA w Microscopic Today E10.9 - Type 1 diabetes mellitus without complications IRON PROFILE Today E10.9 - Type 1 diabetes mellitus without complications AMB Hemoglobin A1c Today E10.9 - Type 1 diabetes mellitus without complications Complete Blood Count Auto Diff Today E10.9 - Type 1 diabetes mellitus without complications Comprehensive Met. Panel Today E10.9 - Type 1 diabetes mellitus without complications Microalbumin, Random (w Creat) Today E10.9 - Type 1 diabetes mellitus without complications, E11.65 - Type 2 diabetes mellitus with hyperglycemia Reticulocyte Count Today E10.9 - Type 1 diabetes mellitus without complications Referrals Podiatry Referral E10.22 - Type 1 diabetes mellitus with diabetic chronic kidney disease, N18.2 - Chronic kidney disease, stage 2 (mild) Medications: Refilled pantoprazole 40 mg PO DAILY 90 days 90 tabs 2RF
[2024-05-07 09:23] VITALS: BP 130/62; PULSE 71; O2SAT 96; BMI 33.7
== END 2024-05-07 10:09 | disposition home or self-care (01) ==
PROVIDERS: PCP Internal Medicine; Visit Provider Internal Medicine
DX: E10.9 Type 1 diabetes mellitus without complications (principal); F33.9 Major depressive disorder, recurrent, unspecified; E66.811 Obesity, class 1; Z68.33 Body mass index [BMI] 33.0-33.9, adult; I25.10 Atherosclerotic heart disease of native coronary artery without angina pectoris; D75.1 Secondary polycythemia; Z12.11 Encounter for screening for malignant neoplasm of colon; K21.9 Gastro-esophageal reflux disease without esophagitis; E78.00 Pure hypercholesterolemia, unspecified; E03.9 Hypothyroidism, unspecified; I10 Essential (primary) hypertension

== ENCOUNTER 2024-05-09 09:51 | Day surgery (SDC) | payer MEDICARE, SELFPAY ==
[2023-04-20 15:31] VITALS: BP 134/66; BP 140/58; BMI 32.5
[2024-05-07 09:11] VITALS: BMI 33.8
--- NOTE | ~2024-05-09 | CT_ITS ---
EXAMINATION: CT COLONOGRAPHY (CT ABDOMEN AND PELVIS WITHOUT CONTRAST) CLINICAL INFORMATION: incomplete colonoscopy COMPARISON: No recent pertinent prior films are available for comparison. TECHNIQUE: Bowel preparation: Significant retained colonic fluid limits evaluation. Stool tagging with Gastrografin and barium: Not utilized. Colonic distention: The colon is incompletely distended with segments that are not fully distended for complete evaluation. Acquisition: Low dose imaging targeted to colonic was performed in the supine and prone positions. Procedure: The procedure was well tolerated. Review: The acquired images were reviewed in axial, coronal and sagittal planes. Additional 3-D fly through images were reviewed at an independent workstation. Total exam dose-length product 566 mGy-cm FINDINGS: Colonic findings: Cecum and ascending colon: Not well distended with significant intraluminal fluid. No visible polyp/masses. Transverse colon: Moderately well distended on the supine acquisition and poorly distended on the prone acquisition. No fixed narrowing, polyps or masses identified. Descending colon: Moderately well distended without intraluminal polyps, masses or narrowing. Sigmoid colon: The proximal and mid sigmoid colon are moderately distended on the supine acquisition and poorly distended on the prone acquisition. The distal sigmoid colon is poorly distended on the prone imaging. No intraluminal polyps or masses are seen. Rectum: Nondistended on the supine and partially distended on the prone acquisition. No polyps or masses are seen. Appendix: Normal. Non-colonic findings: Limited evaluation due to noncontrast low dose technique. No abnormality is seen in the liver, gallbladder, spleen, adrenal glands or kidneys. The pancreas is atrophic without abnormality identified. No para-aortic adenopathy. No evidence of abdominal aortic aneurysm. A penile prosthesis with right lower quadrant reservoir identified. Lower thoracic kyphosis with decreased thoracic vertebral body height and multiple Schmorl's nodes consistent with Scheuermann's disease. Additional disc space narrowing and Schmorl's nodes are seen in the lumbar spine with associated spondylosis. CT/CT colonography IMPRESSION: 1. Limited CT colonography (C-Rads C0, inadequate insufflation with one or more colonic segments collapsed. In particular, there is limited evaluation of the cecum/ascending colon. Repeat CT colonography could be attempted versus alternative screening. Correlate with the results of colonoscopy. 2. No polyps or masses are seen on this exam. Electronically signed by: Brody Schaeffer MD 05/09/2024 04:30 PM EDT RP
[2024-05-09 10:40] VITALS: BMI 33.8
[2024-05-09] MEDS: Lactated Ringers 1,000 ML 100 ML IVCONT (11:00)
--- NOTE | 2024-05-09 11:23 | MHC.SHP ---
Pre-Procedural Eval Section A - 24 Hr Update-Section A only Date of Service: 05/09/24 The patient is an INPATIENT: No Changes since office visit: No Cold of Flu in the past 2 weeks, No New Medical Problems, No Changes in Medication and No Patient answered all questions The patient has been examined within 24 hours of the surgical procedure. The History & Physical has been completed within 30 days and I have reviewed it.: Yes Section B - Complete if H&P > 30 days Chief Complaint: Encounter for screening for malignant neoplasm of Allergies: Allergies Allergy/AdvReac Type Severity Reaction Status Date / Time peanut [PEANUT] Allergy Severe ANAPHYLAXIS Verified 05/07/24 09:23 Penicillins [PENICILLINS] Allergy Severe SEVERE Verified 05/07/24 09:25 HIVES lamotrigine [Lamictal] Allergy Intermediate cough Verified 05/07/24 09:25 lisinopril Allergy Unknown unknown Verified 05/07/24 09:23 soy Allergy Unknown Unknown Verified 05/09/24 10:38 valsartan Allergy Unknown Unknown Verified 05/07/24 09:23 Plan I have reviewed the history and physical and performed a pertinent physical examination on my patient. No changes have occurred unless specified. Time Spent With Patient Time: Total time managing care of this patient today ____ minutes.
[2024-05-09 13:20] VITALS: BP 127/72; PULSE 84; RESP 16; TEMP 36.1; O2SAT 99
--- NOTE | 2024-05-09 13:42 | PC.NURSE ---
Patient to CT for ct abd
[2024-05-09 14:03] VITALS: BP 133/77; PULSE 80; RESP 16; TEMP 36.1; O2SAT 100
--- NOTE | 2024-05-09 14:22 | OP_ITS ---
DATE OF SERVICE: 05/09/2024 SURGEON: Gabino Meade MD INDICATIONS: Colon cancer screening. PREOPERATIVE DIAGNOSIS: POSTOPERATIVE DIAGNOSIS: PROCEDURE PERFORMED: Colonoscopy to the right colon. ESTIMATED BLOOD LOSS: COMPLICATIONS: ANESTHESIA: Monitored anesthesia care. ASSISTANTS: SPECIMENS: DESCRIPTION OF PROCEDURE: A history and physical was performed. The risks and benefits of the procedure were explained to the patient and informed consent was obtained. The patient was placed in the left lateral decubitus position. A digital rectal exam was performed and was found to be normal. The Olympus pediatric video colonoscope was introduced into the rectum and advanced to the right colon. The scope could be advanced no further due to looping in the sigmoid. Abdominal wall pressure was applied, but the patient developed significant bradycardia and further attempts to advance the scope were abandoned. Examination was performed and the scope was removed. He tolerated the procedure well and was returned to recovery area in stable condition. FINDINGS: The visualized colonic mucosa was within normal limits without evidence of masses or ulcers. No polyps were identified. Retroflexed examination was normal. Prep was very good. IMPRESSION: 1. Normal colonoscopy to the right colon. 2. Incomplete examination (90%). RECOMMENDATION: Imaging with CT colonography will be obtained. MD TOYA Trammell/MIKAL / [id number] MTDD
--- NOTE | 2024-05-09 14:36 | P.CONAN_ITS ---
Documented by User: Margie Duke NP 05/21/24 13:35 HPI - Anesthesia Eval Consult details Narrative: 54yo M for Colonoscopy Follows [facility] Cardiology. CAD with NSTEMI 01/2023. Stable at 01/2024 office visit for routine yearly f/u [facility] Active Problems Active Problems: All Active Problems Diabetes mellitus type 1 (Acute) Restless leg syndrome (Acute) Coronary artery disease (Acute) NSTEMI (non-ST elevated myocardial infarction) (Acute) Thrombocytosis (Chronic) Polycythemia (Acute) Facial lesion (Acute) Migraine (Acute) Sacral back pain (Acute) Type 1 diabetes mellitus not at goal (Acute) Recurrent major depression (Acute) Colon cancer screening (Acute) Annual physical exam (Acute) Chronic kidney disease (Acute) GERD (gastroesophageal reflux disease) (Acute) Hypercholesterolemia (Acute) Obesity (BMI 30-39.9) (Acute) Peripheral neuropathy (Acute) Hypothyroidism (Acute) Asthma (Acute) Hypertension (Acute) Type 1 diabetes mellitus with diabetic chronic kidney disease (Acute) Past Medical History Medical History (Updated 05/19/24 @ 09:09 by Marita Fox MD) Eye globe prosthesis NSTEMI (non-ST elevated myocardial infarction) Moderate major depression Rheumatoid factor positive Right knee pain Depression History of aspiration pneumonia Cataract Obstructive sleep apnea Left bundle branch block Chronic kidney disease Anxiety and depression GERD (gastroesophageal reflux disease) Hypercholesterolemia Obesity (BMI 30-39.9) Pulmonary nodule Vitamin D deficiency Peripheral neuropathy Hypothyroidism Asthma Hypertension Type 1 diabetes mellitus with diabetic chronic kidney disease Family History Family History Father Hypertension CVD (cardiovascular disease) Mother Hypertension CVD (cardiovascular disease) Family/Other Rectal cancer Brother Rectal cancer Surgical History Surgical History (Updated 05/19/24 @ 09:09 by Marita Fox MD) Hx of hand surgery S/P placement of nerve stimulator H/O colonoscopy History of trigger finger History of eye surgery History of penile implant History of carpal tunnel release Social History Social History Household Members: Family Housing: House Alcohol intake: never Patient Tobacco Use Status: Former Tobacco user Tobacco use type: Cigarette Years Smoked: teenager e-Cigarette/Vaping Use: Never Used Second Hand Smoke Exposure: Yes Use of substances other than those prescribed or required for medical reasons: No Have you been hit, kicked, punched, or otherwise hurt by someone within the past year? If so, by whom?: No Do you feel safe in your current relationship?: Yes Do you have thoughts of harming others: None Do you have a plan to hurt others: No Plan Do you have the means to hurt others: No Recently lost weight without trying: No service: No Current occupational status: unemployed Cognitive needs: No Hearing needs: No Vision needs: Yes Meds Allergies Allergy/AdvReac Type Severity Reaction Status Date / Time peanut [PEANUT] Allergy Severe ANAPHYLAXIS Verified 05/07/24 09:23 Penicillins [PENICILLINS] Allergy Severe SEVERE Verified 05/07/24 09:25 HIVES lamotrigine [Lamictal] Allergy Intermediate cough Verified 05/07/24 09:25 lisinopril Allergy Unknown unknown Verified 05/07/24 09:23 soy Allergy Unknown Unknown Verified 05/09/24 10:38 valsartan Allergy Unknown Unknown Verified 05/07/24 09:23 Home Medications ?Medication ?Instructions ?Recorded ?Confirmed ?Last Taken ?Type insulin aspart U-100 100 unit/mL 100 unit subcut DAILY 05/31/20 05/07/24 Unknown History (3 mL) subcutaneous pen (Novolog FlexPen U-100 Insulin aspart) blood sugar diagnostic (Contour #10 ea 04/29/21 05/07/24 Unknown History Next Test Strips) pnvrlkspdd-rosvgtkyucxzc-jfjqqhyy 1 cap PO Q4-6H PRN Respiratory 09/22/22 05/07/24 Unknown History 50 mg-325 mg-40 mg capsule Distress sumatriptan succinate 50 mg tablet 50 mg PO Q2-4H PRN Abdominal 09/22/22 05/07/24 Unknown History Discomfort aspirin 81 mg tablet,delayed 81 mg PO DAILY 03/06/23 05/07/24 Unknown History release (Adult Aspirin Regimen) duloxetine 20 mg capsule,delayed 40 mg PO DAILY 06/18/23 05/07/24 Unknown History release erenumab-aooe 140 mg/mL 140 mg subcut .Q month 06/18/23 05/07/24 Unknown History subcutaneous auto-injector (Aimovig Autoinjector) Exam Height,Weight and Vital Signs: Height 5 ft 8 in Weight 100.698 kg Pertinent Lab Results Pertinent Lab Results: Laboratory Tests 12/31/23 09:24 WBC 5.3 Hgb 13.2 L Hct 38.1 L Plt Count 284 Sodium 139 Potassium 4.3 Chloride 108 Carbon Dioxide 24 BUN 17 H Creatinine 1.00 Narrative Narrative: EKG 01/2024 normal sinus rhythm, left bundle branch block, T-wave abnormality laterally, rate 63, QTC 454 milliseconds NM jean-claude perf SPECT rest & str 02/2023 Impression: 1. Myocardial perfusion imaging study shows likely normal myocardial perfusion 2. Gated LVEF is 44% with stress and 52% with rest 3. Transient ischemic dilatation present EKG nondiagnostic for ischemia ECHO 01/2023 Summary The left ventricular size is normal. The left ventricular wall thickness is mildly increased. The LV systolic function is normal . The left ventricular ejection fraction is 60-65 %. There are no definite regional wall motion abnormalities. The right ventricular size and function appears grossly normal. Comparison Comparison is made to the study of June 07, 2012. The prior study's images were not available for direct comparison. Assessment and Plan Assessment Anesthesia Assessment: Chart Reviewed Documented by User: Azul Paris DO 05/22/24 09:24 [facility] Past Medical History Medical History (Updated 05/19/24 @ 09:09 by Marita Fox MD) Eye globe prosthesis NSTEMI (non-ST elevated myocardial infarction) Moderate major depression Rheumatoid factor positive Right knee pain Depression History of aspiration pneumonia Cataract Obstructive sleep apnea Left bundle branch block Chronic kidney disease Anxiety and depression GERD (gastroesophageal reflux disease) Hypercholesterolemia Obesity (BMI 30-39.9) Pulmonary nodule Vitamin D deficiency Peripheral neuropathy Hypothyroidism Asthma Hypertension Type 1 diabetes mellitus with diabetic chronic kidney disease Family History Family History Father Hypertension CVD (cardiovascular disease) Mother Hypertension CVD (cardiovascular disease) Family/Other Rectal cancer Brother Rectal cancer Family history of problems with anesthesia: No Surgical History Surgical History (Updated 05/19/24 @ 09:09 by Marita Fox MD) Hx of hand surgery S/P placement of nerve stimulator H/O colonoscopy History of trigger finger History of eye surgery History of penile implant History of carpal tunnel release History of Problems with Anesthesia: No Social History Social History Household Members: Family Housing: House Alcohol intake: never Patient Tobacco Use Status: Former Tobacco user Tobacco use type: Cigarette Years Smoked: teenager e-Cigarette/Vaping Use: Never Used Second Hand Smoke Exposure: Yes Use of substances other than those prescribed or required for medical reasons: No Have you been hit, kicked, punched, or otherwise hurt by someone within the past year? If so, by whom?: No Do you feel safe in your current relationship?: Yes Do you have thoughts of harming others: None Do you have a plan to hurt others: No Plan Do you have the means to hurt others: No Recently lost weight without trying: No service: No Current occupational status: unemployed Cognitive needs: No Hearing needs: No Vision needs: Yes Meds Allergies Allergy/AdvReac Type Severity Reaction Status Date / Time peanut [PEANUT] Allergy Severe ANAPHYLAXIS Verified 05/07/24 09:23 Penicillins [PENICILLINS] Allergy Severe SEVERE Verified 05/07/24 09:25 HIVES lamotrigine [Lamictal] Allergy Intermediate cough Verified 05/07/24 09:25 lisinopril Allergy Unknown unknown Verified 05/07/24 09:23 soy Allergy Unknown Unknown Verified 05/09/24 10:38 valsartan Allergy Unknown Unknown Verified 05/07/24 09:23 Home Medications ?Medication ?Instructions ?Recorded ?Confirmed ?Last Taken ?Type insulin aspart U-100 100 unit/mL 100 unit subcut DAILY 05/31/20 05/07/24 Unknown History (3 mL) subcutaneous pen (Novolog FlexPen U-100 Insulin aspart) blood sugar diagnostic (Contour #10 ea 04/29/21 05/07/24 Unknown History Next Test Strips) [id number]-jgbadentzcehu-hnlvrmog 1 cap PO Q4-6H PRN Respiratory 09/22/22 05/07/24 Unknown History 50 mg-325 mg-40 mg capsule Distress sumatriptan succinate 50 mg tablet 50 mg PO Q2-4H PRN Abdominal 09/22/22 05/07/24 Unknown History Discomfort aspirin 81 mg tablet,delayed 81 mg PO DAILY 03/06/23 05/07/24 Unknown History release (Adult Aspirin Regimen) duloxetine 20 mg capsule,delayed 40 mg PO DAILY 06/18/23 05/07/24 Unknown History release erenumab-aooe 140 mg/mL 140 mg subcut .Q month 06/18/23 05/07/24 Unknown History subcutaneous auto-injector (Aimovig Autoinjector) Exam Exam Date and Time: 05/09/24 Height,Weight and Vital Signs: Height 5 ft 8 in Weight 100.698 kg Vital Signs Temperature 97 F 05/09/24 13:20 Pulse Rate 84 05/09/24 13:20 Respiratory Rate 16 05/09/24 13:20 Blood Pressure 127/72 05/09/24 13:20 Pulse Oximetry 99 05/09/24 13:20 Oxygen Delivery Method Room Air 05/09/24 13:20 Temperature 97 F 05/09/24 14:03 Pulse Rate 80 05/09/24 14:03 Respiratory Rate 16 05/09/24 14:03 Blood Pressure 133/77 05/09/24 14:03 Pulse Oximetry 100 05/09/24 14:03 Oxygen Delivery Method Room Air 05/09/24 14:03 Airway Mallampati Class: II TM Dist: >3cm Neck ROM: Full Heart: S1S2 Lungs: CTAB Assessment and Plan Assessment Anesthesia Assessment: Anesthesia Plan Discussed and Chart Reviewed Final Anesthetic Review Family History of Problems with Anesthesia: No History of Problems with Anesthesia: No NPO: Yes ASA Class: III Final Preanesthetic Review: No Changes in Pt Med Stat, Consent Obtained/Reviewed and Anes Risks/Benef Reviewed Patient Risk: Intermediate Procedure Risk: Low Anesthetic Plan Anesthetic Plan: MAC: and Agree w/ Assess. and Plan Disposition: Standard PACU
== END 2024-05-09 14:27 | disposition home or self-care (01) ==
PROVIDERS: PCP Internal Medicine; Visit Provider Internal Medicine Gastroenterology
PROC: 0DJD8ZZ Inspection of Lower Intestinal Tract, Via Natural or Artificial Opening Endoscopic (ICD-10-PCS; CPT 45378; principal; 2024-05-09 11:50)
DX: Z12.11 Encounter for screening for malignant neoplasm of colon (principal); K56.2 Volvulus; R00.1 Bradycardia, unspecified; Z80.0 Family history of malignant neoplasm of digestive organs; E10.9 Type 1 diabetes mellitus without complications; I10 Essential (primary) hypertension; E78.00 Pure hypercholesterolemia, unspecified; G47.33 Obstructive sleep apnea (adult) (pediatric); J45.909 Unspecified asthma, uncomplicated; E03.9 Hypothyroidism, unspecified; Z79.4 Long term (current) use of insulin; Z79.899 Other long term (current) drug therapy; Z79.82 Long term (current) use of aspirin; Z79.02 Long term (current) use of antithrombotics/antiplatelets
CPT/HCPCS: G0105; 74261; J0461; J2003; J2704

== ENCOUNTER 2024-06-09 08:04 | Outpatient (REF) | payer MEDICARE, SELFPAY ==
[2023-04-20 15:31] VITALS: BP 134/66; BP 140/58; BMI 32.5
== END 2024-06-09 08:05 | disposition home or self-care (01) ==
LOC: HO.BBR 08:04
PROVIDERS: PCP Internal Medicine; Visit Provider Internal Medicine
DX: D75.1 Secondary polycythemia (principal)
CPT/HCPCS: 85014; 85018; 99195

== ENCOUNTER 2024-07-07 08:10 | Outpatient (REF) | payer MEDICARE, SELFPAY ==
[2023-04-20 15:31] VITALS: BP 134/66; BP 140/58; BMI 32.5
--- OUTSIDE RECORDS SUMMARY | 2024-07-09 12:51 | XMS_ITS ---
Author Organization [facility] Address [address] [place] [address] Care Team Providers Care Director Diversity Name Role Phone Tali Dyer Primary Care Provider Loyda Pickens Unavailable [phone] Allergies Allergen (clinical drug ingredient) Drug/Non Drug Allergy documented on EMR Reaction Allergy Type Onset Date Status Penicillin Unknown Drug Allergy Active REASON FOR VISIT Skin Problem, At Risk Footcare Medications Medication SIG (Take, Route, Frequency, Duration) Notes Start Date End Date Status Metoprolol Succinate 50 MG 1 capsule Ora lly Once a day Active Levothyroxine Sodium 125 MCG 1 tablet in the morning on an empty stomach Orally Once a day Active amLODIPine Besylate 10 MG 1 tablet Orall y Once a day Active Ciclopirox Olamine 0.77 % 1 application Externally Twice a day to skin of feet including between the toes for 30 days Active Atorvastatin Calcium 40 MG 1 tablet Oral ly Once a day Active Pantoprazole Sodium 40 MG 1 packet 1/2 t o 1 hour before morning meal mixed with apple juice or applesauce Orally Once a day Active Hydroxyurea 500 MG 1 capsule Orally Onc e a day Active DULoxetine HCl 30 MG 1 capsule Orally On ce a day Active Aspirin 81 81 MG 1 tablet Orally Once a day Active Butalbital-Acetaminophen 50-325 MG 1 tablet as needed Orally every 4 hrs PRN Active Fluticasone Propionate (Inhal) PRN Active rOPINIRole HCl 0.25 MG 1 tablet 1 to 3 h ours before bedtime Orally Once a day Active Social History Tobacco Use: Social History Observation Description Date Details (start date - stop date) Former Smoker NA - NA Tobacco use other than smoking: Question Answer Notes Are you an other tobacco user? No Tobacco Control (Standard) Question Answer Notes Tobacco use: Former smoker Additional Findings: Tobacco non-user Ex-cigaret te smoker AUDIT-C (Standard) Question Answer Notes Did you have a drink containing alcohol in the p ast year? No Points 0 Interpretation Negative Problems Problem Type SNOMED Code ICD Code Onset Dates Problem Status W/U Status Risk Notes Problem Polyneuropathy due to type 2 diabetes mellitus (030385847) Type 2 diabetes mellitus with diabetic polyneuropathy (E11.42) Active confirmed Problem Polyneuropathy due to diabetes mellitus type I (999119763) Type 1 diabetes mellitus with diabetic polyneuropathy (E10.42) Active confirmed Vital Signs Height 5ft 8 inch in 07/03/2024 Weight 220 lbs 07/03/2024 BMI 33.45 kg/m2 07/03/2024 Procedures Procedure Date Ordered Date Performed Result Body Sit e 50928-BMDPQDF NAIL, 6 OR MORE 07/03/2024 N/A 07113-XGIK SKIN LESIONS, 2 TO 4 07/03/2024 N/A Encounters Encounter Location Date Provider Diagnosis [facility] [address] [address] 07/03/2024 Loyda Putnam Tinea pedis of both feet B35.3 ; Type 2 diabetes mellitus with diabetic polyneuropathy E11.42 and Tinea unguium B35.1 Assessments Encounter Date Diagnosis (ICD Code) Assessment Notes Treatment Notes Treatment Clinical Notes Section Notes 07/03/2024 Tinea pedis of both feet (ICD-10 - B35.3) 07/03/2024 Type 2 diabetes mellitus with diabetic polyneuropathy (ICD-10 - E11.42) 07/03/2024 Tinea unguium (ICD-10 - B35.1) Plan Of Treatment Medication Medication Name Sig Start Date Stop Date Notes Ciclopirox Olamine 0.77 % 1 application Externally Twice a day to skin of feet including between the toes for 30 days Pending Test Test Name Order Date 24079-AEWSWGN NAIL, 6 OR MORE 07/03/2024 06966-FEHC SKIN LESIONS, 2 TO 4 07/03/20 24 Next Appt Details Follow Up: 3 Months, Reason: Provider Name:Loyda mackay, 11/12/2024 01:45:00 PM, [address] [place], [address], Procedure Notes * Category Sub-Category Detail Notes Debride Nail 6-10 Nail debridement Due to the cl inical pathology outlined in the exam findings, performance of this nail treatment by a nonprofessional would put this patients foot and overall health at risk. Therefore, debridement to affected nail(s), as described in exam, was performed extensively to reduce/remove overall nail length, girth, thickness, subungual debris, and necrotic tissue, by manual and/or electrical means through the use of a nail nipper and/or dremel-type profile grinder technician, to a more viable healthy nail plate or bed tissue 6-10 nails in total. Silver nitrate was used for any petechial bleeding as necessary. Definitive antifungal treatment options, both pharmaceutical and surgical, have been reviewed and discussed with the patient. The patient solely prefers the use of intermittent/as needed professional debridement services for their nail condition and understands the need for additional periodic treatments to maintain effectiveness in symptomatic relief - 52356 Keratoma Treatment Parring or Cutting o f Benign Hyperkeratotic Lesion(s) (-56) 2-4 Lesions - The Benign hyperkeratotic lesions, ( 4 ) in total, locations as stated and described in exam, were pared, and/or cut utilizing a sterile 15 blade, tissue nippers, and/or power dremel instrumentation - 71451 Progress Notes * Russell BARBER SDOB: [birth year] (54 yo M)Acc No.[id number]:07/03/2024 Progress Notes Patient:?Russell BARBER S Provider:?Loyda Putnam DPM :1970???Age:54 Y???Sex:Male Willie e:07/03/2024 Address:[address] [place] [address] [address], [place], [place] Pcp:Tali Dyer Subjective: * Chief Complaints: * ???Skin ProblemAt Risk Footc are * HPI: ???Skin problems:?Nature:?scaling , redness.?Location:?B/L .?Duration:?several days.?Course:?worse.?At Risk footcare:?Pt States Last PCP Visit:?Date?05/12/2024 * ROS:?General/Constitutional:?Nausea?denies.?Vomiting?denies.?Hunger Thirst?denies.?Loss appetite?denies.?Chills?denies.?Fatigue?denies.?Fever?denies.?Night Sweats?denies.?Unexplained weight loss?denies.?Unexplained weight gain?denies.?HEENTM:?Dentures?denies.?Dizziness?admits.?Glasses/contacts?admits.?Retinopathy?ad mits.?Blurred/double vision?denies.?TMJ?denies.?Discharge/drainage?denies.?Implants?denies.?Sore throat?denies.?Dental implants?denies.?Hard of hearing ?denies.?Difficulty chewing/swallowing/speaking?denies.?Nose bleeds?denies.?Sore mouth?denies.?Respiratory:?On Oxygen?denies.?Pneumonia/pleurisy?denies.?Bronchitis?denies.?Emphysema?denies.?C oughing?denies.?Cough blood?denies.?Shortness of breath?denies.?Wheezing?denies.?Cardiovascular:?Pacemaker?denies.?MVP?denies.?WPW?denies.?CHF?denies.?Heart attack?admits.?Septal defect?denies.?Rapid beat?denies.?Chest pain ?denies.?Atrial Fib.?denies.?Murmur/Palpitations?denies.?Gastrointestinal:?Hemorrhoids?denies.?Stomach/Abdominal pain?denies.?Dark blood stool?denies.?Irritable bowel ?denies.?Constipation?denies.?Diarrhea?denies.?Hematology:?Swelling?denies.?Clots?denies.?Varicose Veins?denies.?Bruising?denies.?Bleeding problem?denies.?Genitourinary:?Blood urine?denies.?Frequent/Painfu/urination/bladder control?denies.?Kidney stones?denies.?Infection (UTI)?denies.?Nephropathy?admits.?sex trans dis (STD)?denies.?Prostate?denies.?Musculoskeletal:?Hammertoes?denies.?Bunions?denies.?Back Pain?denies.?Muscle Cramps/ Resting?denies.?Muscle cramps / walking?denies.?Generalized aches and pains?denies.?Weakness?denies.?Integ.:?Adair?denies.?Scars?denies.?Corns/calluses?denies.?Ingrown nails?denies.?Painful nails?denies.?Open Sores?denies.?Rashes?denies.?Neurologic:?Difficulty sleeping?denies.?Brain disorder?denies.?Numbness?denies.?Balance trouble?denies.?Confusion?denies.?Fainting/blackouts?denies.?Tingling?denies.?Tr emors?denies.? * Medical History:? * Surgical History:?Denies Pas t Surgical History * Hospitalization/Major Diagno stic Procedure:?Denies Past Hospitalization * Family History:?Mother: rodney santacruz, Kidney/Liver disease, foot problems, diagnosed with Unspecified essential hypertension, Unspecified heart disease.?Father: .?Siblings: diagnosed with Other malignant neoplasm of unspecified site, Unspecified essential hypertension.? * Social History:?Tobacco Use:?Tobacco use other than smoking?Are you an other tobacco user??No ?Tobacco Control (Standard)?Tobacco use:?Former smoker ?Additional Findings: Tobacco non-user?Ex-cigarette smoker ???Drugs/Alcohol:?Drugs?Have you used drugs other than those for medical reasons in the past 12 months??No ???Miscellaneous:?Caffeine: yes, frequency:. ?Children: no. ?Exercise: no. ?Marital status: . ?Occupation: Disabled. ???Drug/Alcohol:?AUDIT-C (Standard)?Did you have a drink containing alcohol in the past year??No ?Points?0 ?Interpretation?Negative * Medications:?TakingrOPINIRol e HCl 0.25 MG Tablet 1 tablet 1 to 3 hours before bedtime Orally Once a day Fluticasone Propionate (Inhal) , Notes to Pharmacist: PRNButalbital-Acetaminophen 50-325 MG Tablet 1 tablet as needed Orally every 4 hrs , Notes to Pharmacist: PRNAspirin 81 81 MG Tablet Delayed Release 1 tablet Orally Once a day DULoxetine HCl 30 MG Capsule Delayed Release Particles 1 capsule Orally Once a day Hydroxyurea 500 MG Capsule 1 capsule Orally Once a day Pantoprazole Sodium 40 MG Packet 1 packet 1/2 to 1 hour before morning meal mixed with apple juice or applesauce Orally Once a day Atorvastatin Calcium 40 MG Tablet 1 tablet Orally Once a day amLODIPine Besylate 10 MG Tablet 1 tablet Orally Once a day Levothyroxine Sodium 125 MCG Tablet 1 tablet in the morning on an empty stomach Orally Once a day Metoprolol Succinate 50 MG Capsule ER 24 Hour Sprinkle 1 capsule Orally Once a day Medication List reviewed and reconciled with the patientTaking rOPINIRole HCl 0.25 MG Tablet 1 tablet 1 to 3 hours before bedtime Orally Once a day Taking Fluticasone Propionate (Inhal) , Notes to Pharmacist: PRNTaking Butalbital-Acetaminophen 50- 325 MG Tablet 1 tablet as needed Orally every 4 hrs , Notes to Pharmacist: PRNTaking Aspirin 81 81 MG Tablet Delayed Release 1 tablet Orally Once a day Taking DULoxetine HCl 30 MG Capsule Delayed Release Particles 1 capsule Orally Once a day Taking Hydroxyurea 500 MG Capsule 1 capsule Orally Once a day Taking Pantoprazole Sodium 40 MG Packet 1 packet 1/2 to 1 hour before morning meal mixed with apple juice or applesauce Orally Once a day Taking Atorvastatin Calcium 40 MG Tablet 1 tablet Orally Once a day Taking amLODIPine Besylate 10 MG Tablet 1 tablet Orally Once a day Taking Levothyroxine Sodium 125 MCG Tablet 1 tablet in the morning on an empty stomach Orally Once a day Taking Metoprolol Succinate 50 MG Capsule ER 24 Hour Sprinkle 1 capsule Orally Once a day Medication List reviewed and reconciled with the patient * Allergies:?Penicillin: Marianna arroyo[Allergies Verified] Objective: * Vitals:?Ht: 5ft 8 inch, Wt:2 20, BMI:33.45, Shoe size: 10.5W, BS: 94, Ht-cm: 172.72 cm, Wt-k.79 kg. * Examination: ???General Examination: ?GENERAL APPEARANCE:?Reveals a pleasant, alert, well nourished, well- developed, well hydrated individual, who demonstrates proper attention to hygiene/body habitus, and is in no acute distress, Pt serves as own historian for office visit today.?ORIENTED:?person, place, and time?.?Dermatologic: ?SKIN FINDINGS:?Skin shows sign(s) of, erythema, scaling, in a moccasin fashion, no fissure(s) present, B/L , Skin exam reveals Keratotic lesion(s) located at?medial aspect of first metatarsal head, B/L, Plantar heels B/L.?Neurological: ?SENSORY:?Neurological exam demonstrates, reduced light touch sensation, reduced sharp/dull pin prick discrimination , B/L, 5.07 monofilament test performed at plantar aspects of 5 varied sites per foot shows sensation, reduced , B/L?.?DEEP TENDON REFLEXES:?Achilles, 2/4, B/L.?Nails: ?NAILS are:?Elongated, overgrown, dystrophic, lytic, greater than 3mm thick, discolored and friable with crumbly malodorous subungual debris, with dull to no pain on palpation due to neuropathy, 1-5 B/L.?Vascular: ?DP PULSES(B):?3/4, B/L.?PT PULSES(B):?3/4, B/L.?CAPILLARY FILL TIME:?immediate, all digits, B/L.?TROPHIC CONDITION-TEXTURE/ELASTICITY/TURGOR/HAIR GROWTH(B):?normal, B/L.?TEMPERTURE GRADIENT(C):?warm to cool, proximal to distal, B/L.?PIGMENTATION:?normal, B/L.?EDEMA(C):?absent, B/L.?Orthopedic: ?MUSCLE STRENGTH:?5/5 all groups in a symmetrical fashion, B/L.?Ophthalmology Referral: ?DIABETES EYE EXAM?CQM Exceptions:: ?Hemoglobin A1c not performed? Assessment: * Assessment: 1.?Tinea pedis of both feet - B35.3???Specify :Acute problem, Uncomplicated (3),Rx drug management (4)???2.?Type 2 diabetes mellitus with diabetic polyneuropathy - E11.42 (Primary)???3.?Tinea unguium - B35.1??? Plan: * Treatment: 2.?Tinea pedis of both feet? Start Ciclopirox Olamine Cream, 0.77 %, 1 application, Externally, Twice a day to skin of feet including between the toes, 30 days, 60, Refills 2.?? * Procedures:?Debride Nail 6-10:?Nail debridement?Due to the clinical pathology outlined in the exam findings, performance of this nail treatment by a nonprofessional would put this patients foot and overall health at risk. Therefore, debridement to affected nail(s), as described in exam, was performed extensively to reduce/remove overall nail length, girth, thickness, subungual debris, and necrotic tissue, by manual and/or electrical means through the use of a nail nipper and/or dremel-type profile grinder technician, to a more viable healthy nail plate or bed tissue 6-10 nails in total. Silver nitrate was used for any petechial bleeding as necessary. Definitive antifungal treatment options, both pharmaceutical and surgical, have been reviewed and discussed with the patient. The patient solely prefers the use of intermittent/as needed professional debridement services for their nail condition and understands the need for additional periodic treatments to maintain effectiveness in symptomatic relief - 39742.?Keratoma Treatment:?Parring or Cutting of Benign Hyperkeratotic Lesion(s)?(-56) 2-4 Lesions - The Benign hyperkeratotic lesions, ( 4 ) in total, locations as stated and described in exam, were pared, and/or cut utilizing a sterile 15 blade, tissue nippers, and/or power dremel instrumentation - 89570.? * Procedure Codes:?59814 DEBRI DE NAIL, 6 OR MORE, Modifiers: XS 19524 TRIM SKIN LESIONS, 2 TO 4, Modifiers: XS * Preventive Medicine:? ??Counseling:?Discussion:?-03: Office or other outpatient visit for the evaluation and management of a new patient, which required a medically appropriate history and/or examination and LOW level of DECISION MAKING for: 1 STABLE ACUTE UNCOMPLICATED PROBLEM, 2 OR MORE MINOR PROBLEMS, OR 1 STABLE CHRONIC PROBLEM, THAT POSE(S) A LOW RISK FOR MORBIDITY/MORTALITY. The visit on the day of the encounter encompassed interpreting the data and educating the patient as to the nature of their condition, treatment options available according to their individual PMH, meds, allergies, and overall health/living conditions, as well as any potential risks or complications that may occur from a failure to adhere to, and participate in, the recommended course of therapy. The discussion included a complete verbal, and/or written explanation of the examination results, any x-rays taken, the proposed diagnosis, and outline of the treatment plan. A schedule for future care needs was also explained. The patient verbalized an understanding of the instructions at this time and agreed to be an active participant in their treatment. If the patient should think of any questions or concerns after the visit, I have encouraged the patient to call the office.?Tinea Pedis:?The patient was counseled on the diagnosis, potential etiologies, and treatment options for their skin condition. We discussed the risks and benefits of each option from performing no treatment, to utilizing OTC topical skin creams, prescription topical creams, customized compounded topical medications, and, if necessary, to utilize oral antifungal therapy. We discussed the advantages and disadvantages of each possible treatment and importance for adherence to all the recommended therapies for optimum success and avoid potential complications such as open sore/infection/possible hospitalization. We discussed the potential effectiveness of each topical preparation as well as each ones possible side effects and/or patient medication interactions if oral therapy is selected. Patient questions re: the advantages and disadvantages of each treatment choice, medication use/dosage, successful outcomes, and application consistency were reviewed and the patient verbalized that all answers were clearly understood. The patient was told they can help alleviate symptoms by utilizing moisture absorbant innersoles with activated charcoal and baking soda, applying antifungal sprays daily, aerating toe web spaces at night by putting cotton or lambs wool between the toes, alternating shoe gear daily if possible so they can dry out, changing socks at least once during the day, wearing well-ventilated shoes or sandals. The patient has decided to apply antifungal skin creams to their feet as directed. Rx was sent to their pharmacy at the time of visit.? * Follow Up:?3 Months * Images: * Sign off status: Completed true * Provider:?Loyda Putnam DPM Date:?1 09/03/2023 Generated for Rah hood/Chano/Demetrioitting on:?07/09/2024 12:51 PM EST History and Physical Notes * HPI (History of Present Illness) Category Sub-Category Detail Notes Category Not es Skin problems Nature: scaling , redness Location: B/L Duration: several days Course: worse At Risk footcare Pt States Last PCP Visit: Date: Examination Category Sub-Category Detail Notes Category Not es Neurological SENSORY: Neurological exa m demonstrates, reduced light touch sensation, reduced sharp/dull pin prick discrimination , B/L, 5.07 monofilament test performed at plantar aspects of 5 varied sites per foot shows sensation, reduced , B/L DEEP TENDON REFLEXES: Achilles, 2/4, B/L Dermatologic SKIN FINDINGS: Skin shows sign( s) of, erythema, scaling, in a moccasin fashion, no fissure(s) present, B/L , Skin exam reveals Keratotic lesion(s) located at medial aspect of first metatarsal head, B/L, Plantar heels B/L Orthopedic MUSCLE STRENGTH: 5/5 all groups in a symm etrical fashion, B/L General Examination GENERAL APPEARANCE: Reveals a pleasant, alert, well nourished, well-developed, well hydrated individual, who demonstrates proper attention to hygiene/body habitus, and is in no acute distress, Pt serves as own historian for office visit today ORIENTED: person, place, and t tree Ophthalmology Referral DIABETES EYE EXAM Procedure Perform ed:: No Findings of Diabetic Eye Exam:: no retin opathy Vascular DP PULSES(B): 3/4, B/L PT PULSES(B): 3/4, B/L CAPILLARY FILL TIME: immediate, all digi ts, B/L TEMPERTURE GRADIENT(C): warm to cool, pr oximal to distal, B/L TROPHIC CONDITION-TEXTURE/ELASTICITY/TURGOR/HAIR GROWTH(B): normal, B/L EDEMA(C): absent, B/L PIGMENTATION: normal, B/L Nails NAILS are: Elongated, overg rown, dystrophic, lytic, greater than 3mm thick, discolored and friable with crumbly malodorous subungual debris, with dull to no pain on palpation due to neuropathy, 1-5 B/L CQM Exceptions: Hemoglobin A1c not performed Reason:: No r farhan specified
--- OUTSIDE RECORDS SUMMARY | 2024-07-09 12:52 | XMS_ITS | Patient Health Record ---
Author Organization [facility] Address [address] [place] [address] Care Team Providers Care Javascript Programmer Name Role Phone Tali Dyer Primary Care Provider Loyda Pickens Unavailable [phone] Allergies Allergen (clinical drug ingredient) Drug/Non Drug Allergy documented on EMR Reaction Allergy Type Onset Date Status Penicillin Unknown Drug Allergy Active Reason For Referral No Information Medications Medication SIG (Take, Route, Frequency, Duration) [...] Status Risk Notes Problem Polyneuropathy due to diabetes mellitus type I (456873289) Type 1 diabetes mellitus with diabetic polyneuropathy (E10.42) Active confirmed Problem Polyneuropathy due to type 2 diabetes mellitus (205945091) Type 2 diabetes mellitus with diabetic polyneuropathy (E11.42) Active confirmed Vital Signs Height 5ft 8 inch in 07/03/2024 Weight 220 lbs 07/03/2024 BMI 33.45 kg/m2 07/03/2024 Procedures Procedure Date Ordered Date Performed Result Body Sit e 91126-LVPBSEF NAIL, 6 OR MORE 07/03/2024 N/A 50444-TDKG SKIN LESIONS, 2 TO 4 07/03/2024 N/A Encounters Encounter Location Date Provider Diagnosis [facility] [address] [place] [address] 07/03/2024 Loyda Putnam Tinea pedis of both [...] unguium (ICD-10 - B35.1) Plan Of Treatment Pending Test Test Name Order Date 64502-FFZKWIF NAIL, 6 OR MORE 07/03/2024 05576-ZIAZ SKIN LESIONS, 2 TO 4 07/03/20 24 Next Appt Details Provider Name:Loyda mackay, 11/12/2024 01:45:00 PM, [address] [place] [address], [phone], Insurance Providers Payer Name Payer Address Payer Phone Subscriber Number Group Number Insured Name Patient Relationship to Insured Coverage Start Date Coverage End Date [employer] [address] [place] [address] [id number] Elisabeth Russell Self - patient is the insured [facility] [address] [place] [address] [id number] Russell Barber Self - patient is the insured Medical (General) History Medical History History ICD Code asthma Back,Hip,and Knee pain Cataracts Depression Diabetic Headaches/Migraines High Blood Pressure thyroid Neuropathy Heart attack Carpal tunnel Trigger finger
--- OUTSIDE RECORDS SUMMARY | 2024-07-09 12:52 | XMS_ITS | Patient Health Record ---
Author Organization [facility] Address [address] [place] [address] Care Team Providers Care Head Men'S Tennis Coach Name Role Phone Tali Dyer MD Primary Care Provider Gabino Vera Jr Unavailable ALLERGIES Allergen (clinical drug ingredient) Drug/Non Drug Allergy documented on EMR Reaction Allergy Type Onset Date Status Penicillin Unknown Drug Allergy Active lisinopril Lisinopril Unknown Drug Allergy Activ e lamotrigine Lamotrigine Unknown Drug Allergy Act jalil peanut butter and nu ts (uncoded) Unknown Allergy Active RESULTS Component Value Reference Range Notes CT colonography Reviewed date:05/16/2024 07:39:47 AM Interpretation: Performing Lab: Notes/Report: [address] [address] [address] Scan Report Signed Patient: Vannessa Barber S MR#: [id number] 39 : 1970 Acct:[id number] Age/Sex: 54 / M ADM Date: 05/09/24 Loc: [facility] Attending Dr: Gabino Meade MD Ordering Physician: Gabino Meade MD Date of Service: 05/09/24 Procedure(s): CT colonography Accession Number(s): [id number] cc: Gabino Meade MD; Tali Dyer MD EXAMINATION: CT COLONOGRAPHY (CT ABDOMEN AND PELVIS WITHOUT CONTRAST) CLINICAL INFORMATION: incomplete colonoscopy COMPARISON: No recent pertinent prior films are available for comparison. TECHNIQUE: Bowel preparation: Significant retained colonic fluid limits evaluation. Stool tagging with Gastrografin and barium: Not utilized. Colonic distention: The colon is incompletely distended with segments that are not fully distended for complete evaluation. Acquisition: Low dose imaging targeted to colonic was performed in the supine and prone positions. Procedure: The procedure was well tolerated. Review: The acquired images were reviewed in axial, coronal and sagittal planes. Additional 3-D fly through images were reviewed at an independent workstation. Total exam dose-length product 566 mGy-cm FINDINGS: Colonic findings: Cecum and ascending colon: Not well distended with significant intraluminal fluid. No visible polyp/masses. Transverse colon: Moderately well distended on the supine acquisition and poorly distended on the prone acquisition. No fixed narrowing, polyps or masses identified. Descending colon: Moderately well distended without intraluminal polyps, masses or narrowing. Sigmoid colon: The proximal and mid sigmoid colon are moderately distended on the supine acquisition and poorly distended on the prone acquisition. The distal sigmoid colon is poorly distended on the prone imaging. No intraluminal polyps or masses are seen. Rectum: Nondistended on the supine and partially distended on the prone acquisition. No polyps or masses are seen. Appendix: Normal. Non-colonic findings: Limited evaluation due to noncontrast low dose technique. No abnormality is seen in the liver, gallbladder, spleen, adrenal glands or kidneys. The pancreas is atrophic without abnormality identified. No para-aortic adenopathy. No evidence of abdominal aortic aneurysm. A penile prosthesis with right lower quadrant reservoir identified. Lower thoracic kyphosis with decreased thoracic vertebral body height and multiple Schmorl's nodes consistent with Scheuermann's disease. Additional disc space narrowing and Schmorl's nodes are seen in the lumbar spine with associated spondylosis. CT/CT colonography IMPRESSION: 1. Limited CT colonography (C-Rads C0, inadequate insufflation with one or more colonic segments collapsed. In particular, there is limited evaluation of the cecum/ascending colon. Repeat CT colonography could be attempted versus alternative screening. Correlate with the results of colonoscopy. 2. No polyps or masses are seen on this exam. Electronically signed by: Brody Schaeffer MD 05/09/2024 04:30 PM EDT Dictated By: Brody Schaeffer MD Signed By: <Electronically signed by Brody Schaeffer MD in OV> 05/09/24 1630 DD/ 1342 TD/TT: 05/09/24 1401 Turpentine Farmer: DANIEL REASON FOR REFERRAL No Information MEDICATIONS Medication SIG (Take, Route, Frequency, Duration) Notes Start Date End Date Status Pantoprazole Sodium 40 MG 1 tablet Orall y Once a day for 30 day(s) Active DULoxetine HCl 30 MG 1 capsule Orally On ce a day for 30 day(s) Active HumaLOG 100 UNIT/ML as directed Subcutaneous Active SUMAtriptan 5 MG/ACT 1 spray at onset of headache in one nostril may repeat dose after 2 hours as needed Nasally Once a day for 1 day(s) Active Metoprolol Succinate 50 MG 1 capsule Ora lly Once a day for 30 day(s) Active rOPINIRole HCl 0.25 MG 1 tablet 1 to 3 h ours before bedtime Orally Once a day Active Atorvastatin Calcium 40 MG 1 tablet Oral ly Once a day for 30 day(s) Active Dqdurwjnej-PKMC-Fdiafppt 50-325-40 MG 1 capsule as needed Orally every 4 hrs Active Fluticasone Propionate (Inhal) 50 MCG/ACT 1 puff Inhalation Twice a day Active amLODIPine Besylate 10 MG 1 tablet Orall y Once a day Active Hydroxyurea 500 MG 1 capsule Orally Twi ce a day Active Aspir-81 81mg Active Levothyroxine Sodium 125mg 1 tablet on a n empty stomach in the morning Orally Once a day Active IMMUNIZATIONS Vaccine Route Administration Date Status Comme nts Influenza Unknown 04/23/2024 Refused SOCIAL HISTORY Sex Assigned At : Social History Observation Description Sex Assigned At Unknown PROBLEMS Problem Type ICD Code Onset Dates Problem Status W/U Status Risk SNOMED Code Notes Problem Colon cancer screening (Z12.11) Active confirmed 500876157 Problem Long-term use of aspirin therapy (Z79.82) Active confirmed 651293766 Problem Incontinence of feces, unspecified fecal incontinence type (R15.9) Active confirmed 85107525 VITAL SIGNS Temperature 97.5 degrees Fahrenheit 04/23/2024 Blood pressure diastolic 00 mm Hg 04/23/2024 Height 68 in 04/23/2024 Blood pressure systolic 000 mm Hg 04/23/2024 Weight 222 lb 6 oz lbs 04/23/2024 BMI 33.81 kg/m2 04/23/2024 Encounters Encounter Location Date Provider Diagnosis [facility] Out[facility] [address] [place] [id number] 05/09/2024 Gabino Meade Jr Colon cancer screening Z12.11 [facility] [address] [place] [address] 04/23/2024 Gabino Meade Jr Colon cancer screening Z12.11 ; Incontinence of feces, unspecified fecal incontinence type R15.9 and Long-term use of aspirin therapy Z79.82 [facility] [address] [place] [address] 05/16/2024 Gabino Meade Jr ASSESSMENTS Encounter Date Diagnosis Assessment Notes Treatment Notes Treatment Clinical Notes 05/09/2024 Colon cancer screening (ICD-10 - Z12.11) 04/23/2024 Colon cancer screening (ICD-10 - Z12.11) Colonoscopy material was printed 04/23/2024 Incontinence of feces, unspecified fecal incontinence type (ICD-10 - R15.9) 04/23/2024 Long-term use of aspirin therapy (ICD-10 - Z79.82) PLAN OF TREATMENT Future Test Test Name Order Date COLONOSCOPY 08/01/2013 COLONOSCOPY 04/23/2024 Insurance Providers Payer Name Payer Address Payer Phone Subscriber Number Group Number Insured Name Patient Relationship to Insured Coverage Start Date Coverage End Date MEDICARE OF [place] [address] [place] [address] [id number] VANNESSA BARBER Self - patient is the insured [employer] ATT[employer] CLAIMS [address] [place] [address] [id number] VANNESSA BARBER Self - patient is the insured MEDICAL (GENERAL) HISTORY Medical History History ICD Code diabetes mellitus hypertension retinopathy obstructive sleep apnea hypothyroidism headaches elevated cholesterol asthma erectile dysfunction Family history of colon cancer Gastroesophageal reflux disease Essential thrombocytosis Surgical History Surgery Date(Month/Year) finger surgery carpal tunnel release-left eye surgery penile implant
--- OUTSIDE RECORDS SUMMARY | 2024-07-09 12:52 | XMS_ITS ---
Author Organization [facility] Address [address] [place] [address] Care Team Providers Care Accounts Payable Manager Name Role Phone Tali Dyer MD Primary Care Provider Gabino Vera Jr REASON FOR VISIT CT colonography Encounters Encounter Location Date Provider Diagnosis [facility] [address] [place] [address] 05/16/2024 Gabino Meade Jr PLAN OF TREATMENT No Information
--- OUTSIDE RECORDS SUMMARY | 2024-07-09 12:52 | XMS_ITS ---
Author Organization [facility] Address [address] [place] [address] Care Team Providers Care Pr Intern Name Role Phone Tali Dyer MD Primary Care Provider Gabino Vera Jr [phone] REASON FOR VISIT screening Encounters Encounter Location Date Provider Diagnosis [facility] [address] [place] [id number] 05/09/2024 Gabino Meade Jr Colon cancer screening Z12.11 ASSESSMENTS Encounter Date Diagnosis Assessment Notes Treatment Notes Treatment Clinical Notes 05/09/2024 Colon cancer screening (ICD-10 - Z12.11) PLAN OF TREATMENT No Information
--- OUTSIDE RECORDS SUMMARY | 2024-07-09 12:52 | XMS_ITS ---
Author Organization [facility] Address [address] [place] [address] Care Team Providers Care Svp Business Development Name Role Phone Tali Dyer MD Primary Care Provider Gabino Vera Jr Unavailable [phone] ALLERGIES Allergen (clinical drug ingredient) Drug/Non Drug Allergy documented on EMR Reaction Allergy Type Onset Date Status Penicillin Unknown Drug Allergy Active lisinopril Lisinopril Unknown Drug Allergy Activ e lamotrigine Lamotrigine Unknown Drug Allergy Act jalil peanut butter and nu ts (uncoded) Unknown Allergy Active REASON FOR VISIT Patient presents today for a consultation MEDICATIONS Medication SIG (Take, Route, Frequency, Duration) Notes Start Date End Date Status amLODIPine Besylate 10 MG 1 tablet Orall y Once a day Active Aspir-81 81mg Active Levothyroxine Sodium 125mg 1 tablet on a n empty stomach in the morning Orally Once a day Active Pantoprazole Sodium 40 MG 1 tablet Orall y Once a day for 30 day(s) Active DULoxetine HCl 30 MG 1 capsule Orally On ce a day for 30 day(s) Active Metoprolol Succinate 50 MG 1 capsule Ora lly Once a day for 30 day(s) Active rOPINIRole HCl 0.25 MG 1 tablet 1 to 3 h ours before bedtime Orally Once a day Active Atorvastatin Calcium 40 MG 1 tablet Oral ly Once a day for 30 day(s) Active HumaLOG 100 UNIT/ML as directed Subcutaneous Active SUMAtriptan 5 MG/ACT 1 spray at onset of headache in one nostril may repeat dose after 2 hours as needed Nasally Once a day for 1 day(s) Active Phmfochrxo-OXEL-Ansnyyql 50-325-40 MG 1 capsule as needed Orally every 4 hrs Active Fluticasone Propionate (Inhal) 50 MCG/ACT 1 puff Inhalation Twice a day Active Hydroxyurea 500 MG 1 capsule Orally Twi ce a day Active IMMUNIZATIONS Vaccine Route Administration Date Status Comme nts Influenza Unknown 04/23/2024 Refused PROBLEMS Problem Type ICD Code Onset Dates Problem Status W/U Status Risk SNOMED Code Notes Problem Colon cancer screening (Z12.11) Active confirmed 540673214 Problem Incontinence of feces, unspecified fecal incontinence type (R15.9) Active confirmed 79392698 Problem Long-term use of aspirin therapy (Z79.82) Active confirmed 425676261 VITAL SIGNS BMI 33.81 kg/m2 04/23/2024 Blood pressure systolic 000 mm Hg 04/23/20 24 Blood pressure diastolic 00 mm Hg 024 Height 68 in 04/23/2024 Temperature 97.5 degrees Fahrenheit 04/23/20 24 Weight 222 lb 6 oz lbs 04/23/2024 Encounters Encounter Location Date Provider Diagnosis [facility] [address] [place] [address] 04/23/2024 Gabino Meade Jr Colon cancer screening Z12.11 ; Incontinence of feces, unspecified fecal incontinence type R15.9 and Long-term use of aspirin therapy Z79.82 ASSESSMENTS Encounter Date Diagnosis Assessment Notes Treatment Notes Treatment Clinical Notes 04/23/2024 Colon cancer screening (ICD-10 - Z12.11) Colonoscopy material was printed 04/23/2024 Incontinence of feces, unspecified fecal incontinence type (ICD-10 - R15.9) 04/23/2024 Long-term use of aspirin therapy (ICD-10 - Z79.82) PLAN OF TREATMENT Treatment Notes Assessment Notes Colon cancer screening Colonoscopy mater ial was printed Future Test Test Name Order Date COLONOSCOPY 04/23/2024 Next Appt Details Follow Up: 1 Year, Reason: Progress Notes * Examination Category Sub-Category Detail Notes General Examination GENERAL APPEARANCE: in no ac [place] distress HEAD: normocephalic EYES: sclera non-icteric NECK/THYROID: no lymphadenopathy HEART: S1, S2 normal, no mu rmurs CHEST: normal shape and exp ansion LUNGS: clear to auscultatio n bilaterally ABDOMEN: soft, nontender, non distended, bowel sounds present, no organomegaly SKIN: anicteric EXTREMITIES: no clubbing, cyanosi s, or edema PSYCH: cognitive function i ntact ORAL CAVITY: mucosa moist
== END 2024-07-07 08:11 | disposition home or self-care (01) ==
LOC: HO.BBR 08:10
PROVIDERS: PCP Internal Medicine; Visit Provider Internal Medicine
DX: D75.1 Secondary polycythemia (principal)
CPT/HCPCS: 85018; 99195

== ENCOUNTER 2024-08-05 07:58 | Outpatient (REF) | payer MEDICARE, SELFPAY ==
[2023-04-20 15:31] VITALS: BP 134/66; BP 140/58; BMI 32.5
--- OUTSIDE RECORDS SUMMARY | 2024-08-05 08:04 | XMS_ITS ---
Author Organization [facility] Address [address] [place] [address] Care Team Providers Care Knowledge Analyst Name Role Phone Tali Dyer MD Primary Care Provider Gabino Vera Jr REASON FOR VISIT screening Encounters Encounter Location Date Provider Diagnosis [facility] [place] [address] [place] [id number] 05/09/2024 Gabino Meade Jr Colon cancer screening Z12.11 ASSESSMENTS Encounter Date Diagnosis Assessment Notes Treatment Notes Treatment Clinical Notes 05/09/2024 Colon cancer screening (ICD-10 - Z12.11) PLAN OF TREATMENT No Information
--- OUTSIDE RECORDS SUMMARY | 2024-08-05 08:04 | XMS_ITS ---
Author Organization [facility] Address [address] [place] [address] Care Team Providers Care Foundry Equipment Mechanic Name Role Phone Tali Dyer MD Primary [...] Once a day for 1 day(s) Active Aeanoxsyhc-BEYQ-Doklzpua 50-325-40 MG 1 capsule as needed Orally [...] Problem Colon cancer screening (Z12.11) Active confirmed 636020895 Problem Incontinence of feces, unspecified fecal incontinence type (R15.9) Active confirmed 47613563 Problem Long-term use of aspirin therapy (Z79.82) Active confirmed 545970769 VITAL SIGNS BMI 33.81 kg/m2 04/23/2024 Blood pressure systolic 000 mm Hg 04/23/20 24 Blood pressure diastolic 00 mm Hg 024 Height 68 in 04/23/2024 Temperature 97.5 degrees Fahrenheit 04/23/20 24 Weight 222 lb 6 oz lbs 04/23/2024 Encounters Encounter Location Date Provider Diagnosis [facility] [address] [place] [phone] 04/23/2024 Gabino Meade Jr Colon cancer screening [...] General Examination GENERAL APPEARANCE: in no ac juan a distress HEAD: normocephalic EYES: sclera non-icteric NECK/THYROID: no lymphadenopathy HEART: S1, S2 normal, no mu rmurs CHEST: normal shape and exp ansion LUNGS: clear to auscultatio n bilaterally ABDOMEN: soft, nontender, non distended, bowel sounds present, no organomegaly SKIN: anicteric EXTREMITIES: no clubbing, cyanosi s, or edema PSYCH: cognitive function i ntact ORAL CAVITY: mucosa moist
--- OUTSIDE RECORDS SUMMARY | 2024-08-05 08:04 | XMS_ITS ---
Author Organization [facility] Address [address] [facility] [place] [address] Care Team Providers Care Ribbon Sweatband Operator Name Role Phone Tali Dyer Primary Care Provider Loyda Pickens Unavailable [phone] Allergies Allergen (clinical drug ingredient) Drug/Non Drug [...] Polyneuropathy due to type 2 diabetes mellitus (050609919) Type 2 diabetes mellitus with diabetic polyneuropathy (E11.42) Active confirmed Problem Polyneuropathy due to diabetes mellitus type I (007663839) Type 1 diabetes mellitus with diabetic polyneuropathy (E10.42) Active confirmed Vital Signs Height 5ft 8 inch in 07/03/2024 Weight 220 lbs 07/03/2024 BMI 33.45 kg/m2 07/03/2024 Procedures Procedure Date Ordered Date Performed Result Body Sit e 34969-IDTRTFA NAIL, 6 OR MORE 07/03/2024 N/A 74695-ZAUZ SKIN LESIONS, 2 TO 4 07/03/2024 N/A Encounters Encounter Location Date Provider Diagnosis [facility] [address] [address] 07/03/2024 Loyda Putnam Tinea pedis of both [...] days Pending Test Test Name Order Date 21865-CAJFCCD NAIL, 6 OR MORE 07/03/2024 90266-WVGE SKIN LESIONS, 2 TO 4 07/03/20 24 Next Appt Details Follow Up: 3 Months, Reason: Provider Name:Loyda mackay, 11/12/2024 01:45:00 PM, [address] [place], [address], Procedure Notes * Category Sub-Category Detail Notes [...] use of a nail nipper and/or dremel-type disc pad grinder, to a more viable healthy nail plate [...] to maintain effectiveness in symptomatic relief - 29750 Keratoma Treatment Parring or Cutting o f Benign Hyperkeratotic Lesion(s) (-56) 2-4 Lesions - The Benign hyperkeratotic lesions, ( 4 ) in total, locations as stated and described in exam, were pared, and/or cut utilizing a sterile 15 blade, tissue nippers, and/or power dremel instrumentation - 16272 Progress Notes * Russell BARBER SDOB: [birth year] (54 yo M)Acc No.[id number]:07/03/2024 Progress Notes Patient:?Russell BARBER S Provider:?Loyda Putnam DPM :1970???Age:54 Y???Sex:Male Willie e:07/03/2024 Address:[address] [place] [address] [address], [place], [place] Pcp:Tali Dyer Subjective: * Chief Complaints: * [...] use of a nail nipper and/or dremel-type disc pad grinder, to a more viable healthy nail plate [...] to maintain effectiveness in symptomatic relief - 47390.?Keratoma Treatment:?Parring or Cutting of Benign Hyperkeratotic Lesion(s)?(-56) 2-4 Lesions - The Benign hyperkeratotic lesions, ( 4 ) in total, locations as stated and described in exam, were pared, and/or cut utilizing a sterile 15 blade, tissue nippers, and/or power dremel instrumentation - 95121.? * Procedure Codes:?16064 DEBRI DE NAIL, 6 OR MORE, Modifiers: XS 13406 TRIM SKIN LESIONS, 2 TO 4, Modifiers: [...] DPM Date:?1 09/03/2023 Generated for Rah hood/Chano/Demetrioitting on:?08/05/2024 08:03 AM EST History and Physical Notes * HPI [...] Eye Exam:: no retin opathy Vascular DP PULSES (B): 3/4, B/L PT PULSES (B): 3/4, B/L CAPILLARY FILL TIME: immediate, all digi ts, B/L TEMPERTURE GRADIENT (C): warm to cool, p roximal to distal, B/L TROPHIC CONDITION-TEXTURE/ELASTICITY/TURGOR/HAIR GROWTH (B): normal, B/L EDEMA (C): absent, B/L PIGMENTATION: normal, B/L Nails NAILS are: Elongated, overg rown, dystrophic, lytic, greater than 3mm thick, discolored and friable with crumbly malodorous subungual debris, with dull to no pain on palpation due to neuropathy, 1-5 B/L CQM Exceptions: Hemoglobin A1c not performed Reason:: No r farhan specified
--- OUTSIDE RECORDS SUMMARY | 2024-08-05 08:04 | XMS_ITS | Patient Health Record ---
Author Organization [facility] Address [address] [place] [address] Care Team Providers Care Validation Specialist Name Role Phone Tali Dyer Primary Care Provider Loyda Pickens Unavailable [phone] Allergies Allergen (clinical drug ingredient) Drug/Non Drug [...] Polyneuropathy due to diabetes mellitus type I (003221677) Type 1 diabetes mellitus with diabetic polyneuropathy (E10.42) Active confirmed Problem Polyneuropathy due to type 2 diabetes mellitus (956256998) Type 2 diabetes mellitus with diabetic polyneuropathy (E11.42) Active confirmed Vital Signs Height 5ft 8 inch in 07/03/2024 Weight 220 lbs 07/03/2024 BMI 33.45 kg/m2 07/03/2024 Procedures Procedure Date Ordered Date Performed Result Body Sit e 42778-PSECHCD NAIL, 6 OR MORE 07/03/2024 N/A 88020-AJCD SKIN LESIONS, 2 TO 4 07/03/2024 N/A Encounters Encounter Location Date Provider Diagnosis [facility] [place] [address] [place] [address] 07/03/2024 Loyda Putnam Tinea pedis of both [...] Treatment Pending Test Test Name Order Date 24985-VOZQVVX NAIL, 6 OR MORE 07/03/2024 45162-TEBL SKIN LESIONS, 2 TO 4 07/03/20 24 Next Appt Details Provider Name:Loyda mackay, 11/12/2024 01:45:00 PM, [address] [place] [address], [address], Insurance Providers Payer Name Payer Address Payer Phone Subscriber Number Group Number Insured Name Patient Relationship to Insured Coverage Start Date Coverage End Date Medicare National [employer] [address] [place] [address] [id number] Elisabeth Russell Self - patient is the insured [facility] [address] [place] [address] [phone] [id number] Russell Barber Self - patient is the insured Medical (General) History Medical History History ICD Code asthma Back,Hip,and Knee pain Cataracts Depression Diabetic Headaches/Migraines High Blood Pressure thyroid Neuropathy Heart attack Carpal tunnel Trigger finger
--- OUTSIDE RECORDS SUMMARY | 2024-08-05 08:04 | XMS_ITS | Patient Health Record ---
Author Organization [facility] Address [address] [place] [address] Care Team Providers Care Research Associate Professor Name Role Phone Tali Dyer MD Primary Care Provider Gabino Vera Jr Unavailable [phone] ALLERGIES Allergen (clinical drug ingredient) Drug/Non Drug Allergy documented on EMR Reaction Allergy Type Onset Date Status Penicillin Unknown Drug Allergy Active lisinopril Lisinopril Unknown Drug Allergy Activ e lamotrigine Lamotrigine Unknown Drug Allergy Act jalil peanut butter and nu ts (uncoded) Unknown Allergy Active RESULTS Component Value Reference Range Notes CT colonography Reviewed date:05/16/2024 07:39:47 AM Interpretation: Performing Lab: Notes/Report: [address] [address] [address] Scan Report Signed Patient: Vannessa Barber S MR#: [id number] 39 : 1970 Acct:[id number] Age/Sex: 54 / M ADM Date: 05/09/24 Loc: [facility] Attending Dr: Gabino Meade MD Ordering Physician: Gabino Meade MD Date of Service: 05/09/24 Procedure(s): CT colonography Accession Number(s): [id number] cc: Gabino Meade MD; Tali Dyer MD [...] 05/09/24 1630 DD/ 1342 TD/TT: 05/09/24 1401 Rn Child: DANIEL REASON FOR REFERRAL No Information MEDICATIONS [...] Once a day for 30 day(s) Active Nnorkozvif-EXZY-Jhipoycs 50-325-40 MG 1 capsule as needed Orally [...] Problem Colon cancer screening (Z12.11) Active confirmed 194693271 Problem Long-term use of aspirin therapy (Z79.82) Active confirmed 647048926 Problem Incontinence of feces, unspecified fecal incontinence type (R15.9) Active confirmed 08507123 VITAL SIGNS Temperature 97.5 degrees Fahrenheit 04/23/2024 Blood pressure diastolic 00 mm Hg 04/23/2024 Height 68 in 04/23/2024 Blood pressure systolic 000 mm Hg 04/23/2024 Weight 222 lb 6 oz lbs 04/23/2024 BMI 33.81 kg/m2 04/23/2024 Encounters Encounter Location Date Provider Diagnosis [facility] [address] [place] [id number] 05/09/2024 Gabino Meade Jr Colon cancer screening Z12.11 [facility] [address] [place] [address] 04/23/2024 Gabino Maede Jr Colon cancer screening Z12.11 ; Incontinence of feces, unspecified fecal incontinence type R15.9 and Long-term use of aspirin therapy Z79.82 [facility] [address] [place] [address] 05/16/2024 Gabino Meade Jr ASSESSMENTS Encounter Date [...] Date MEDICARE OF [place] [address] [place] [address] [id number] VANNESSA BARBER Self - patient is the insured [employer] ATTN CLAIMS [address] [place] [address] [id number] VANNESSA BARBER Self - patient is the insured MEDICAL (GENERAL) HISTORY Medical History History ICD Code diabetes mellitus hypertension retinopathy obstructive sleep apnea hypothyroidism headaches elevated cholesterol asthma erectile dysfunction Family history of colon cancer Gastroesophageal reflux disease Essential thrombocytosis Surgical History Surgery Date(Month/Year) finger surgery carpal tunnel release-left eye surgery penile implant
--- OUTSIDE RECORDS SUMMARY | 2024-08-05 08:04 | XMS_ITS ---
Author Organization [facility] Address [address] [place] [id number] Care Team Providers Care Web Machine Tender Name Role Phone Tali Dyer MD Primary Care Provider Gabino Vera Jr REASON FOR VISIT CT colonography Encounters Encounter Location Date Provider Diagnosis [facility] [address] [place] [address] 05/16/2024 Gabino Meade Jr PLAN OF TREATMENT No Information
== END 2024-08-05 07:59 | disposition home or self-care (01) ==
LOC: HO.BBR 07:58
PROVIDERS: PCP Internal Medicine; Visit Provider Internal Medicine
DX: D75.1 Secondary polycythemia (principal)
CPT/HCPCS: 85018; 99195

== ENCOUNTER 2024-09-01 07:25 | Outpatient (REF) | payer MEDICARE, SELFPAY ==
[2023-04-20 15:31] VITALS: BP 134/66; BP 140/58; BMI 32.5
--- OUTSIDE RECORDS SUMMARY | 2024-09-01 07:27 | XMS_ITS | Clinical Summary ---
Author Organization [address] [facility] Address [address] [facility] [address] [place] [address] Phone Care Team Providers Care Restuarant Crew Worker Name Role Phone Physician, No Pcp Primary Care Provider Unavaila ble Allergies Active Allergy Reactions Criticality Noted Date Comments Penicillins 03/06/2022 Medications Medication Sig Dispensed Refills Start Date End Date Status amLODIPine (NORVASC) 10 mg tablet Take 10 mg by mouth daily. 08/28/2016 Active atorvastatin (LIPITOR) 20 mg tablet Take 20 mg by mouth daily. 07/24/2018 Active fluticasone propionate (FLONASE) 50 mcg/actuation nasal spray Administer 2 sprays into each nostril 1 (one) time each day. 02/13/2022 Active levothyroxine (SYNTHROID, LEVOTHROID) 125 mcg tablet Take 125 mcg by mouth 1 (one) time each day in the morning. 02/13/2022 Active metoprolol succinate (TOPROL-XL) 50 mg 24 hr tablet Take 50 mg by mouth 1 (one) time each day. 02/13/2022 Active pantoprazole (PROTONIX) 40 mg EC tablet Take 40 mg by mouth 1 (one) time each day. 02/13/2022 Active sertraline (ZOLOFT) 50 mg tablet Take 50 mg by mouth 1 (one) time each day. 02/13/2022 Active Aimovig Autoinjector 140 mg/mL injection INJECT 140mg SUBCUTANEOUSLY EVERY 28 DAYS DIRECTED 02/13/2022 Active Active Problems Problem Noted Date Diagnosed Date Laceration of flexor muscle, fascia and tendon of right little finger at wrist and hand level, initial encounter 02/08/2021 Decreased range of motion of right wrist 021 Decreased range of motion of finger of right naranjo d 02/08/2021 Decreased activities of daily living (ADL) 02/08 Open wound of finger of right hand 02/08/2021 Localized edema 02/08/2021 Surgical History Surgery Date Site/Laterality Comments EYE SURGERY CARPAL TUNNEL RELEASE PENILE PROSTHESIS IMPLANT Medical History Medical History Date Comments Hypertension Disease of thyroid gland Diabetes mellitus (CMS/HCC) Neuropathy Social History Tobacco Use Types Packs/Day Years Used Date Smoking Tobacco: Never Smokeless Tobacco: Never Alcohol Use Standard Drinks/Week Comments Not Asked 0 (1 standard drink = 0.6 oz pur e alcohol) socially Sex and Gender Information Value Date Recorded Sex Assigned at Not on file Gender Identity Not on file Sexual Orientation Not on file Job Start Date Occupation Industry Not on file Not on file Not on file Obstetrics History Last Filed Vital Signs Vital Sign Reading Time Taken Comments Blood Pressure 138/83 03/06/2022 2:47 PM EDT Pulse 72 03/06/2022 2:47 PM EDT Temperature 36.7 ??C (98 ??F) 03/06/2022 11:35 AM EDT Respiratory Rate 18 03/06/2022 2:47 PM EDT Oxygen Saturation 96% 03/06/2022 2:47 PM EDT Inhaled Oxygen Concentration - - Weight 97.5 kg (215 lb) 03/06/2022 11:35 AM EDT Height 172.7 cm (5' 8 ) 03/06/2022 11:35 AM EDT Body Mass Index 32.69 03/06/2022 11:35 AM EDT Plan of Treatment Health Maintenance Due Date Last Done Comments Diabetes: Annual Foot Exam 1981 Diabetes: Annual Retina Eye Exam 1981 Hepatitis B Vaccines (1 of 3 - 19+ 3-dose series) 1990 Cholesterol Screening (Lipid Panel) 01/28/2021 Colorectal Cancer Screening: Colonoscopy 01/28/2021 Depression Screening 01/28/2021 HIV Screening 01/28/2021 Hepatitis C Screening 01/28/2021 Medicare Annual Wellness Visit 01/28/2021 Social Influencers of Health Screening 01/28/2021 Diabetes: Annual Urine Albumin-Creatinine Ratio (uACR) 02/08/2021 Zoster Vaccines (1 of 2) 2021 Diabetes: Blood Sugar Control Test (HGBA1C) 07/11/2022 01/09/2022, 04/25/2021, 01/28/2021, Additional history exists Diabetes: Annual GFR (Glomerular Filtration Rate) 03/06/2023 03/06/2022, 01/28/2021 Hypertension/CHF/CAD Annual BMP Blood Test 03/06/2023 03/06/2022, 01/28/2021 COVID-19 Vaccine (1 - season) 2024 Influenza Vaccine (#1) 2024 DTaP,Tdap,and Td Vaccines (2 - Td or Tdap) 01/17/2027 01/17/2017 HIB Vaccines Aged Out No longer eligi ble based on patient's age to complete this topic HPV Vaccines Aged Out No longer eligi ble based on patient's age to complete this topic Hepatitis A Vaccines Aged Out No long er eligible based on patient's age to complete this topic IPV Vaccines Aged Out No longer eligi ble based on patient's age to complete this topic MMR Vaccines Aged Out No longer eligi ble based on patient's age to complete this topic Meningococcal ACWY Vaccine Aged Out N o longer eligible based on patient's age to complete this topic Pneumococcal Vaccine: Pediatrics (0 to 5 Years) and At-Risk Patients (6 to 64 Years) Aged Out No longer eligible based on patient's age to complete this topic RSV Immunization Patients Under 20 months Aged Out No longer eligible based on patient's age to complete this topic Varicella Vaccines Aged Out No longer eligible based on patient's age to complete this topic Procedures Procedure Name Priority Date/Time Associated Diagnosis Comments COMPREHENSIVE METABOLIC PANEL STAT 03/06/2022 11:54 AM EDT HEMOGLOBIN A1C Routine 01/28/2021 9:45 PM EDT from Last 3 Months or Most Recently Relevant to Health Maintenance Results * (ABNORMAL) Comprehensive metabolic panel (03/06/2022 11:54 AM EDT) Sodium 140 136 - 145 mmol/L LAB CHEMISTRY METHOD 03/06/2022 12:23 PM EDT [facility] Potassium 3.9 3.5 - 5.1 mmol/L LAB CHEMISTRY METHOD 03/06/2022 12:23 PM EDT [facility] Chloride 104 98 - 107 mmol/L LAB CHEMISTRY METHOD 03/06/2022 12:23 PM [facility] CO2 28 21 - 32 mmol/L LAB CHEMISTRY METHOD 03/06/2022 12:23 PM [facility] Anion Gap 8 3 - 11 LAB CHEMISTRY METHOD 03/06/2022 12:23 PM [facility] Glucose 124(H) 70 - 99 mg/dL LAB CHEMISTRY METHOD 03/06/2022 12:23 PM [facility] BUN 17 7 - 18 mg/dL LAB CHEMISTRY METHOD 03/06/2022 12:23 PM [facility] Creatinine 1.35(H) 0.70 - 1.30 mg/dL LAB CHEMISTRY METHOD 03/06/2022 12:23 PM [facility] eGFR 61 >=60 mL/min/1. 73m2 LAB CHEMISTRY METHOD 03/06/2022 12:23 PM [facility] Comment: The MDRD GFR formula is valid only for adults between ages 18 and 70. BUN/Creatinine Ratio 12.6 12.0 - 20.0 LAB CHEMISTRY METHOD 03/06/2022 12:23 PM [facility] Calcium 7.5(L) 8.5 - 10.1 mg/dL LAB CHEMISTRY METHOD 03/06/2022 12:23 PM [facility] AST (SGOT) 23 15 - 37 unit/L LAB CHEMISTRY METHOD 03/06/2022 12:23 PM [facility] ALT (SGPT) 27 16 - 61 unit/L LAB CHEMISTRY METHOD 03/06/2022 12:23 PM [facility] Alkaline Phosphatase 90 unit/L LAB CHEMISTRY METHOD 03/06/2022 12:23 PM [facility] Total Protein 7.1 6.4 - 8.2 g/dL LAB CHEMISTRY METHOD 03/06/2022 12:23 PM EDT [facility] Albumin 3.5 3.4 - 5.0 g/dL LAB CHEMISTRY METHOD 03/06/2022 12:23 PM EDT [facility] Total Bilirubin 0.6 0.2 - 1.2 mg/dL LAB CHEMISTRY METHOD 03/06/2022 12:23 PM EDT [facility] Blood Venous blood specimen / Unknown Venipuncture / Unknown 03/06/2022 11:54 AM EDT 03/06/2022 12:01 PM EDT Kerry GARCIA LAB BLOOD ORDERABLES [facility] [address] [place] [address] * (ABNORMAL) Hemoglobin A1c (01/28/2021 9:45 PM EDT) Hemoglobin A1C 8.8(H) <5.7 % LAB CHEMISTRY METHOD 01/29/2021 9:36 AM EDT [facility] Mean Bld Glu Estim. 206(H) <126 mg/dL LAB CHEMISTRY METHOD 01/29/2021 9:36 AM EDT [facility] Blood Topography not assigned / Unknown 01/28/2021 9:45 PM EDT 01/28/2021 9:45 PM EDT Narrative [facility] - 01/29/2021 9:36 AM EDT *Clinical Condition Normal ?<5.7% Prediabetes ? 5.7-6.5% Diabetes ?>/=6.5% NGSP: National Glycohemoglobin Standardization Program *2011 [place] [employer] Note: These results were obtained by [employer] Variant II HbA1c Assay. The assay is IFCC standardized and NGSP certified. Zeferino Richard MD LAB BLOOD ORDERABLES [facility] [address] [place], [place] [id number] from Last 3 Months or Most Recently Relevant to Health Maintenance Care Teams Restuarant Crew Worker Relationship Specialty Start Date End Date Physician, No Pcp PCP - General 01/28/21
--- OUTSIDE RECORDS SUMMARY | 2024-09-01 07:27 | XMS_ITS | Encounter Summary ---
Author Organization [facility] Address [address] [place] [address] Care Team Providers Care Sustainable Design Consultant Name Role Phone Physician, No Pcp Primary Care Provider Unavaila ble Encounter Details Date Type Department Care Team (Latest Contact Info) Description 01/28/2021 Lab Requisition [facility] [address] [place] [address] Zeferino Richard MD [address] [facility] [address] [place] [address] Laceration of flexor muscle, fascia and tendon of right little finger at wrist and hand level, initial encounter; Encounter for other preprocedural examination Social History Tobacco Use Types Packs/Day Years Used Date Smoking Tobacco: Never Assessed Sex and Gender Information Value Date Recorded Sex Assigned at Not on file Gender Identity Not on file Sexual Orientation Not on file Job Start Date Occupation Industry Not on file Not on file Not on file documented as of this encounter Plan of Treatment Not on file documented as of this encounter Procedures Procedure Name Priority Date/Time Associated Diagnosis Comments COMPLETE BLOOD COUNT Routine 01/28/2021 9:45 PM EDT HEMOGLOBIN A1C Routine 01/28/2021 9:45 PM EDT COMPREHENSIVE METABOLIC PANEL Routine 01/28/2021 9:45 PM EDT documented in this encounter Results * (ABNORMAL) Hemoglobin A1c (01/28/2021 9:45 PM EDT) Hemoglobin A1C 8.8(H) <5.7 % LAB CHEMISTRY METHOD 01/29/2021 9:36 AM EDT [facility] Mean Bld Glu Estim. 206(H) <126 mg/dL LAB CHEMISTRY METHOD 01/29/2021 9:36 AM EDT [facility] Blood Topography not assigned / Unknown 01/28/2021 9:45 PM EDT 01/28/2021 9:45 PM EDT Narrative [facility] - 01/29/2021 9:36 AM EDT *Clinical Condition Normal ?<5.7% Prediabetes ? 5.7-6.5% Diabetes ?>/=6.5% NGSP: National Glycohemoglobin Standardization Program *2011 [place] Diabetes Association Note: These results were obtained by [employer] Variant II HbA1c Assay. The assay is IFCC standardized and NGSP certified. Zeferino Richard MD LAB BLOOD ORDERABLES [facility] [address] [place] [address] * (ABNORMAL) Comprehensive metabolic panel (01/28/2021 9:45 PM EDT) Sodium 139 136 - 145 mmol/L LAB CHEMISTRY METHOD 01/28/2021 10:16 PM EDT [facility] Potassium 4.6 3.5 - 5.1 mmol/L LAB CHEMISTRY METHOD 01/28/2021 10:16 PM EDT [facility] Chloride 104 98 - 107 mmol/L LAB CHEMISTRY METHOD 01/28/2021 10:16 PM EDT [facility] CO2 29 21 - 32 mmol/L LAB CHEMISTRY METHOD 01/28/2021 10:16 PM EDT [facility] Anion Gap 6 3 - 11 LAB CHEMISTRY METHOD 01/28/2021 10:16 PM EDT [facility] Glucose 203(H) 70 - 99 mg/dL LAB CHEMISTRY METHOD 01/28/2021 10:16 PM [facility] BUN 13 7 - 18 mg/dL LAB CHEMISTRY METHOD 01/28/2021 10:16 PM [facility] Creatinine 0.88 0.70 - 1.30 mg/dL LAB CHEMISTRY METHOD 01/28/2021 10:16 PM [facility] eGFR 101 >=60 mL/min/1. 73m2 LAB CHEMISTRY METHOD 01/28/2021 10:16 PM [facility] Comment: Please note that this estimated GFR value is not recommended for use in individuals under the age of 18, individuals with unstable creatinine concentrations (including and acute renal failure), or individuals with extremes of body mass or diet (including amputees, paraplegics and obese individuals). BUN/Creatinine Ratio 14.77 LAB CHEMISTRY METHOD 01/28/2021 10:16 PM [facility] Calcium 9.2 8.5 - 10.1 mg/dL LAB CHEMISTRY METHOD 01/28/2021 10:16 PM [facility] AST (SGOT) 22 15 - 37 unit/L LAB CHEMISTRY METHOD 01/28/2021 10:16 PM [facility] ALT (SGPT) 36 16 - 61 unit/L LAB CHEMISTRY METHOD 01/28/2021 10:16 PM [facility] Alkaline Phosphatase 112 53 - 128 unit/L LAB CHEMISTRY METHOD 01/28/2021 10:16 PM [facility] Total Protein 7.5 6.4 - 8.2 g/dL LAB CHEMISTRY METHOD 01/28/2021 10:16 PM [facility] Albumin 3.9 3.4 - 5.0 g/dL LAB CHEMISTRY METHOD 01/28/2021 10:16 PM [facility] Total Bilirubin 0.4 0.2 - 1.0 mg/dL LAB CHEMISTRY METHOD 01/28/2021 10:16 PM [facility] Blood Topography not assigned / Unknown 01/28/2021 9:45 PM EDT 01/28/2021 9:45 PM EDT Zeferino Richard MD LAB BLOOD ORDERABLES [facility] [address] [place] [address] * (ABNORMAL) Complete blood count (01/28/2021 9:45 PM EDT) WBC 9.7 4.0 - 10.2 K/mcL LAB HEMETOLOGY METHOD 01/28/2021 10:02 PM EDT [facility] RBC 5.51 4.20 - 5.70 M/mcL LAB HEMETOLOGY METHOD 01/28/2021 10:02 PM EDT [facility] Hemoglobin 16.2 12.7 - 17.1 g/dL LAB HEMETOLOGY METHOD 01/28/2021 10:02 PM EDT [facility] Hematocrit 50.4(H) 35.0 - 50.2 % LAB HEMETOLOGY METHOD 01/28/2021 10:02 PM EDT [facility] MCV 91.5 81.0 - 97.0 FL LAB HEMETOLOGY METHOD 01/28/2021 10:02 PM EDT [facility] MCH 29.4 25.3 - 34.1 pcg LAB HEMETOLOGY METHOD 01/28/2021 10:02 PM EDT [facility] MCHC 32.1 30.2 - 35.3 g/dL LAB HEMETOLOGY METHOD 01/28/2021 10:02 PM EDT [facility] RDW 14.0 11.0 - 14.5 % LAB HEMETOLOGY METHOD 01/28/2021 10:02 PM EDT [facility] RDW-SD 46.7 36.8 - 48.3 FL LAB HEMETOLOGY METHOD 01/28/2021 10:02 PM EDT [facility] Platelets 616(H) 150 - 400 K/mcL LAB HEMETOLOGY METHOD 01/28/2021 10:02 PM EDT [facility] MPV 10.0 9.1 - 12.7 FL LAB HEMETOLOGY METHOD 01/28/2021 10:02 PM EDT [facility] NRBC 0.0 0.0 - 0.0 % LAB HEMETOLOGY METHOD 01/28/2021 10:02 PM EDT [facility] NRBC Absolute 0.00 0.00 - 0.00 K/mcL LAB HEMETOLOGY METHOD 01/28/2021 10:02 PM EDT [facility] Blood Topography not assigned / Unknown 01/28/2021 9:45 PM EDT 01/28/2021 9:45 PM EDT Zeferino Richard MD LAB BLOOD ORDERABLES [facility] [address] [place] [address] documented in this encounter Visit Diagnoses Diagnosis Laceration of flexor muscle, fascia and tendon of right little finger at wrist and hand level, initial encounter Encounter for other preprocedural examination documented in this encounter Care Teams Sustainable Design Consultant Relationship Specialty Start Date End Date Physician, No Pcp PCP - General 01/28/21 documented as of this encounter
--- OUTSIDE RECORDS SUMMARY | 2024-09-01 07:27 | XMS_ITS | Clinical Summary ---
Author Organization [facility] Address [address] [facility] 7 [place] [address] Care Team Providers Care Motor Pool Driver Name Role Phone Unavailable Primary Care Provider Unavailabl e Allergies Active Allergy Reactions Criticality Noted Date Comments Gabapentin 07/11/2022 Hydroxyzine Unknown 07/11/2022 Lamotrigine 10/26/2017 Lisinopril 10/26/2017 Other reaction(s): cough Peanut-Containing Drug Products 09/26/2018 Other reaction(s): throat swells, hives Other reaction(s): N/V, hives Penicillins 10/26/2017 Other reaction(s): ? hives Soy Allergy (Do Not Select) Swelling 07/11/20 22 Soybean-Containing Drug Products 08/08/2023 Other reaction(s): throat swelling [place] Oil 08/08/2023 Other reaction(s): N/V, hives Medications metoprolol succinate XL (Toprol-XL) 50 MG 24 hr tablet Take 50 mg by mouth in the morning. 2 Active rOPINIRole (Requip) 0.25 MG tablet TAKE 1 TABLET BY MOUTH EVERY DAY 1-3 HOURS BEFORE BEDTIME 3 Active levothyroxine (Synthroid, Levoxyl) 125 MCG tablet Take 125 mcg by mouth in the morning. 2 Active amLODIPine (Norvasc) 10 MG tablet Take 10 mg by mouth in the morning. 7 Active atorvastatin (Lipitor) 40 MG tablet Take 40 mg by mouth in the morning. 3 Active pantoprazole (ProtoNix) 40 MG EC tablet Take 40 mg by mouth in the morning. 2 Active hydroxyurea (Hydrea) 500 MG capsule Take 500 mg by mouth 2 times daily. 3 Active DULoxetine (Cymbalta) [address] capsule TAKE 1 CAPSULE BY MOUTH TWICE DAILY. DO NOT BREAK, CRUSH, DISSOLVE OR CHEW. 3 Active aspirin 81 MG EC tablet Active Insulin Lispro 100 UNIT/ML solution 100u per day via insulin pump DX: E10.9 3 Active SUMAtriptan (Imitrex) 50 MG tablet Take 50 mg by mouth if needed each day. 2 Active fluticasone (Flonase) 50 MCG/ACT nasal spray Administer 2 sprays into affected nostril(s) if needed each day. 2 Active butalbital-acet aminophen-caffe ine-codeine (Fioricet w/Codeine) 35-605-94-30 MG capsule Take by mouth daily. 3 Active Social History Tobacco Use Types Packs/Day Years Used Date Smoking Tobacco: Never Assessed Comments Unknown Sex and Gender Information Value Date Recorded Sex Assigned at Choose not to disclose 09/2023 9:20 AM EST Legal Sex Male 5:35 PM EDT Gender Identity Choose not to disclose 4 9:20 AM EST Sexual Orientation Choose not to disclose 2023 9:20 AM EST Plan of Treatment Health Maintenance Due Date Last Done Comments CT Colonography 1971 Colonoscopy 1971 Colorectal Cancer Screening 1971 Depression Screening 1971 FIT DNA/Cologuard 1971 FIT 1971 FOBT 1971 HIV Screening 1971 Lipid Panel 1971 SDOH Screening 1971 Sigmoidoscopy 1971 Alcohol/Substance Use Screening 1983 Tobacco Screening 1983 Hepatitis C Screening 1989 Hepatitis B Vaccines (1 of 3 - 19+ 3-dose series) 1990 Pneumococcal Vaccine: 50+ Years (1 of 1 - PCV) 2021 Zoster Vaccines (1 of 2) 2021 COVID-19 Vaccine ( - 2023-2 5 season) 2024 Influenza Vaccine (#1) 2024 Dental Oral Exam 05/02/2024 10/31/2023, 10/07/2018 Dental Prophylaxis 05/02/2024 10/31/2023 Dental X-Ray: Bitewings 10/31/2024 10/31/19 24, 10/07/2018 Dental X-Ray: Full Mouth 10/31/2026 024, 10/07/2018 DTaP/Tdap/Td Vaccines (2 - T d or Tdap) 01/17/2027 01/17/2017 RSV Patients and Patients Aged 60 years or older (1 - 1-dose 75+ series) 2046 HIB Vaccines Aged Out No longer eligi [...] patient's age to complete this topic Meningococcal Vaccine Aged Out No mell mike eligible based on patient's age to complete this topic Pneumococcal Vaccine: Pediatrics (0 to 5 Years) and At-Risk Patients (6 to 49) Years) Aged Out No longer eligible b ased on patient's age to complete this topic RSV under 20 months Aged Out No longe r eligible based on patient's age to complete this topic Rotavirus Vaccines Aged Out No longer eligible based on patient's age to complete this topic Procedures Procedure Name Priority Date/Time Associated Diagnosis Comments Full PROPHYLAXIS - ADULT Routine 024 9:20 AM EDT DIAGNOSTIC - DIAGNOSTIC IMAGING - INTRAORAL - COMPREHENSIVE SERIES OF RADIOGRAPHIC IMAGES Routine 10/31/2023 9:20 AM EDT PERIODIC ORAL EVALUATION - ESTABLISHED PATIENT Routine 10/31/2023 9:20 AM EDT from Last 3 Months or Most Recently Relevant to Health Maintenance Insurance [facility] MEDICAID STAND ADULT
--- OUTSIDE RECORDS SUMMARY | 2024-09-01 07:27 | XMS_ITS | Encounter Summary ---
Author Organization [employer] Address [address] [facility] 7 [place] [address] Care Team Providers Care Elementary Classroom Teacher Name Role Phone Unavailable Primary Care Provider Unavailabl e Encounter Details Date Type Department Care Team (Latest Contact Info) Description 10/07/2018 Abstract [facility] Dental, Provider, DDS Social History Tobacco Use Types Packs/Day Years Used Date Smoking Tobacco: Never Assessed Comments Unknown Sex and Gender Information Value Date Recorded Sex Assigned at Choose not to disclose 09/2023 9:20 AM EST Legal Sex Male 5:35 PM EDT Gender Identity Choose not to disclose 9:20 AM EST Sexual Orientation Choose not to disclose 2023 9:20 AM EST documented as of this encounter Plan of Treatment Not on file documented as of this encounter Visit Diagnoses Not on filedocumented in this encounter
[2024-09-01 08:08] LABS: Basophils Absolute Auto 0.1 X10*3/uL (0.0-0.2); Basophils Percent Auto 1.2 % (0-2); Eosinophils Absolute Auto 0.5 X10*3/uL (0.0-0.4); Eosinophils Percent Auto 4.4 % (0-4); Hematocrit 39.6 % (42.0-52.0); Hemoglobin 12.1 g/dl (14.0-18.0); Imm Gran Abs Auto 0.13 X10*3/uL (0.00-0.03); Imm Gran Pct Auto 1.1 % (0.0-0.4); Immature Retic Fraction 32.1 % (2.3-13.4); Lymphocytes Absolute Auto 1.8 X10*3/uL (1.2-4.9); Lymphocytes Percent Auto 15.9 % (20-40); MANUAL DIFF FLAG SCAN; Mean Corpuscular HGB Conc 30.6 g/dl (31.0-36.0); Mean Corpuscular Hemoglobin 24.4 pg (27.0-33.0); Mean Platelet Volume 9.8 fL (9.4-12.4); Monocytes Absolute Auto 0.6 X10*3/uL (0.1-1.2); Monocytes Percent Auto 5.5 % (2-11); Neutrophils Absolute Auto 8.3 x10*3/uL (2.0-8.3); Neutrophils Percent Auto 71.9 % (45-73); Platelet Count 555 X10*3/uL (160-400); Red Blood Count 4.95 X10*6/uL (4.60-5.80); Red Cell Distribution Width 16.4 % (11.0-16.0); Retic HGB Equivalent 23.1 pg (30.0-35.0); Reticulocyte Percent 1.5 % (0.5-1.8); Reticulocytes Absolute 0.075 X10*6/uL (0.026-0.095); SCAN SMEAR FLAG 1; White Blood Count 11.5 X10*3/uL (4.8-10.8)
[2024-09-01 08:14] LABS: Appearance Urine Clear; Color Urine Yellow; Glucose Urine UA Negative (Negative); Leukocyte Esterase Urine Negative (Negative); Nitrite Urine Negative (Negative); Urine Blood Negative (Negative); Urine Ketones Negative (Negative); Urine Protein Negative (Neg-Trace)
[2024-09-01 08:19] LABS: Bacteria Urine None Seen (None Seen); RBC Urine 0-2 /HPF (0-2); Squamous Epithelial Cell Urine 0-2 /HPF (0-2); WBC Urine 0-5 /HPF (0-5)
[2024-09-01 08:31] LABS: SLIDE REVIEW VERIFIED
[2024-09-01 08:49] LABS: Alanine Aminotransferase 34 U/L (0-40); Alkaline Phosphatase 109 U/L (39-117); Anion Gap 13 (12-20); Aspartate Amino Transferase 36 U/L (5-37); Bilirubin Total 0.5 mg/dL (0.0-1.0); Blood Urea Nitrogen 16 mg/dL (9-16); Calcium 8.9 mg/dL (8.4-10.2); Carbon Dioxide 22 mmol/L (22-29); Chloride 106 mmol/L (96-108); Cholesterol 119 mg/dL (<200); Estimated Glomerular Filt Rate > 60; Glucose Random 129 mg/dL (60-115); HDL Cholesterol 36 mg/dL (>40); Iron 19 mcg/dL (45-160); LDL Cholesterol Calculated 70 mg/dL (<100); Percent Iron Saturation 6 % (15-50); Potassium 3.7 mmol/L (3.3-5.1); Sodium 137 mmol/L (135-145); Total Iron Binding Capacity 311 mcg/dL (228-428); Total Protein 7.2 g/dL (6.5-8.0); Triglycerides 69 mg/dL (<150); Unsaturated Iron Binding 292 ug/dL
[2024-09-01 08:49] LABS: Creatinine Urine 178.65 mg/dL; Microalbum/Creatinine Ratio Ur 22.3 ug/mg cr (<30)
[2024-09-01 09:01] LABS: Estimated Average Glucose 174 mg/dL; Hemoglobin A1C 198.1158 umol/L; Hemoglobin A1c % 7.7 % (<6.0); Total Hemoglobin (HGBA1C) 3269.9013 umol/L
[2024-09-01 09:06] LABS: Ferritin 11 ng/mL (20-250); Free T4 (Free Thyroxine) 1.13 ng/dL (0.71-1.85); Vitamin D 25-OH Total 14.2 ng/mL (>30)
[2024-09-01 09:20] LABS: Folate 6.7 ng/mL (> or = 4.0); Prostate Specific Antigen Scr 1.27 ng/mL (<0.05-4.0)
[2024-09-01 11:03] LABS: Vitamin B12 583 pg/mL (200-900)
== END 2024-09-01 07:26 | disposition home or self-care (01) ==
LOC: HO.LAB 07:25
PROVIDERS: PCP Internal Medicine; Visit Provider Internal Medicine
DX: E78.00 Pure hypercholesterolemia, unspecified (principal); E11.65 Type 2 diabetes mellitus with hyperglycemia; Z12.5 Encounter for screening for malignant neoplasm of prostate
CPT/HCPCS: 36415; 80053; 80061; 81001; 82043; 82306; 82570; 82607; 82728; 82746; 83036; 83540; 84153; 84439; 84443; 85025; 85045

== ENCOUNTER → 2024-09-08 09:17 | Outpatient (BNVA) | payer MEDICARE, SELFPAY ==
[2023-04-20 15:31] VITALS: BP 134/66; BP 140/58; BMI 32.5
== END ==
PROVIDERS: PCP Internal Medicine; Visit Provider Internal Medicine
DX: E10.9 Type 1 diabetes mellitus without complications (principal); I25.10 Atherosclerotic heart disease of native coronary artery without angina pectoris; D75.1 Secondary polycythemia; F33.9 Major depressive disorder, recurrent, unspecified; K21.9 Gastro-esophageal reflux disease without esophagitis; E78.00 Pure hypercholesterolemia, unspecified; E66.9 Obesity, unspecified; E03.9 Hypothyroidism, unspecified; I10 Essential (primary) hypertension; J45.20 Mild intermittent asthma, uncomplicated
CPT/HCPCS: 90471; 99212

== ENCOUNTER 2024-12-11 08:34 | Outpatient (AMB) | payer MEDICARE, MEDICAID, SELFPAY ==
[2023-04-20 15:31] VITALS: BP 134/66; BP 140/58; BMI 32.5
--- NOTE | 2024-12-11 08:43 | MHC.PC.OV ---
Vital Signs 12/11/24 08:44 Height 5 ft 8 in Weight 219 lb BMI 33.3 BP 138/72 Blood Pressure Location Lt brachial Position Sitting Pulse 68 Pulse Source Pulse Oximeter Pulse Oximetry (%) 95 Oxygen Delivery Method Room Air Intake Visit Reasons: 3mth f/u Allergies peanut [PEANUT] Allergy (Severe, Verified 12/11/24 08:44) ANAPHYLAXIS Penicillins [PENICILLINS] Allergy (Severe, Verified 12/11/24 08:44) SEVERE HIVES lamotrigine [Lamictal] Allergy (Intermediate, Verified 12/11/24 08:44) cough lisinopril Allergy (Unknown, Verified 12/11/24 08:44) unknown soy Allergy (Unknown, Verified 12/11/24 08:44) Unknown valsartan Allergy (Unknown, Verified 12/11/24 08:44) Unknown Medication List - Last Reconciled 12/11/24 by Tali Dyer MD amlodipine 10 mg PO DAILY aspirin (Adult Aspirin Regimen) 81 mg PO DAILY atorvastatin 40 mg PO DAILY blood sugar diagnostic (Contour Next Test Strips) As directed aifkabupts-iikuzhizzruwi-gbfx 50-325-40 mg 1 cap PO Q4-6H PRN duloxetine 40 mg PO DAILY erenumab-aooe (Aimovig Autoinjector) 140 mg subcut .Q month fluticasone propionate 50 mcg/actuation 2 sprays intranasal DAILY hydroxyurea (Hydrea) 500 mg PO BID insulin aspart U-100 (Novolog FlexPen U-100 Insulin aspart) 100 units subcut DAILY levothyroxine 125 mcg PO QAM metoprolol succinate ER 50 mg PO DAILY 90 days pantoprazole 40 mg PO DAILY 90 days ropinirole 0.25 mg PO BEDTIME sertraline 50 mg PO DAILY 90 days sumatriptan succinate 50 mg PO Q2-4H PRN Tobacco use date assessed: 09/08/24 Dental Screening Dental Screen Date: 09/08/24 [facility] Medical History (Updated 12/11/24 @ 08:59 by Tali Dyer MD) Eye globe prosthesis NSTEMI (non-ST elevated myocardial infarction) Moderate major depression Rheumatoid factor positive Right knee pain Depression History of aspiration pneumonia Cataract Obstructive sleep apnea Left bundle branch block Chronic kidney disease Anxiety and depression GERD (gastroesophageal reflux disease) Hypercholesterolemia Obesity (BMI 30-39.9) Pulmonary nodule Vitamin D deficiency Peripheral neuropathy Hypothyroidism Asthma Hypertension Type 1 diabetes mellitus with diabetic chronic kidney disease Surgical History Hx of hand surgery S/P placement of nerve stimulator H/O colonoscopy History of trigger finger History of eye surgery History of penile implant History of carpal tunnel release Family History Father Hypertension CVD (cardiovascular disease) Mother Hypertension CVD (cardiovascular disease) Family/Other Rectal cancer Brother Rectal cancer Social History Household Members: Family Housing: House Alcohol intake: never Patient Tobacco Use Status: Former Tobacco user Tobacco use type: Cigarette Years Smoked: teenager e-Cigarette/Vaping Use: Never Used Second Hand Smoke Exposure: Yes service: No Current occupational status: unemployed Cognitive needs: No Hearing needs: No Vision needs: Yes Questionnaire PHQ-9 Over the last 2 weeks, how often have you been bothered by any of the following problems? 1. Little interest or pleasure in doing things: more than half the days 2. Feeling down, depressed, or hopeless: not at all 3. Trouble falling or staying asleep, or sleeping too much: nearly every day 4. Feeling tired or having little energy: several days 5. Poor appetite or overeating: not at all 6. Feeling bad about yourself - or that you are a failure or have let yourself or your family down: not at all 7. Trouble concentrating on things, such as reading the newspaper or watching television: several days 8. Moving or speaking so slowly that other people could have noticed. Or the opposite - being so fidgety or restless that you have been moving around a lot more than usual: not at all 9. Thoughts that you would be better off or of hurting yourself in some way: not at all Total score: 7 Depression Screening Interpretation: Positive Depression Screening Done: Yes Source: Developed by Drs. Kendall Zapata, Navya Torres, Robert Costa and colleagues, with an educational glen from [employer]. Thrive Questionnaire Date Thrive assessed: 09/08/24 I am a: Patient What is your living situation today?: I have a steady place to live Within the past 12 months, did the food you bought not last and you didn't have the money to get more?: Sometimes True Within the past 12 months, did you worry whether your food would run out before you got money to buy more?: Sometimes True Do you have trouble paying for medicines?: No Do you have trouble getting transportation to medical appointments?: No Do you have trouble paying your heating and electricity bill?: Yes Do you have trouble taking care of your child, family member or friend?: No Do you have trouble with day-to-day activities such as bathing, preparing meals, shopping, managing finances, etc.?: No Are you currently unemployed and looking for a job?: No Are you interested in more education?: No Please select the resources that you would like help with: Utilities Currently or been in a relationship where the following occur: No concerns reported THRIVE Score: 3 AUDIT C Alcohol Use Questionnaire (AUDIT-C) 1. How often do you have a drink containing alcohol?: Never Total Score: 0 YEN-7 AMB Questionnaire YEN-7 Date YEN - 7 assessed: 09/08/24 Feeling nervous, anxious, or on edge: 0 = Not at all Not being able to stop or control worryin = Not at all Worrying too much about different things: 0 = Not at all Trouble relaxin = Not at all Being so restless that it is hard to sit still: 0 = Not at all Becoming easily annoyed or irritable: 0 = Not at all Feeling afraid as if something awful might happen: 0 = Not at all Total YEN-7 score (0-4 normal; 5-9 mild; 10-14 moderate; 15-21 severe): 0 Source: Developed by Drs. Kendall Zapata, Navya Torres, Robert Costa and colleagues, with an educational glen from [employer]. Physical exam (Primary Care) Vital Signs: Last Vital Signs Pulse 68 12/11/24 08:44 BP 138/72 12/11/24 08:44 Pulse Ox 95 12/11/24 08:44 Oxygen Delivery Method Room Air 12/11/24 08:44 BMI result Body Mass Index 33.3 Tobacco/Smoking Status: Tobacco use Status Tobacco use date assessed 09/08/24 12/11/24 08:44 Patient Tobacco Use Status Former Tobacco user 12/11/24 08:44 Tobacco use type Cigarette 12/11/24 08:44 e-Cigarette/Vaping Use Never Used 12/11/24 08:44 PHQ-9: PHQ-9 Score PHQ-9: Total score 7 12/11/24 08:44 Depression Screening Interpretation: Positive Thrive Assessment: Date of Thrive Assessment Date Thrive assessed 09/08/24 12/11/24 08:44 Currently or been in a relationship where the following occur: No concerns reported Const General: alert; No acute distress Eyes Conjunctivae: conjunctivae normal Resp Auscultation: clear to auscultation bilaterally Cardio Rate: regular rate Rhythm: regular rhythm GI Inspection: Yes normal to inspection Extrem General: Yes normal to inspection and No edema Results AMB Hemoglobin A1c AMB Hemoglobin A1c 7.1 % Last Edit by Amanda Garcia CMA on 12/11/24 09:01 Coding Level of Care Code Est Pt Level 4 (96517) Complex EM visit Add On G2211 Diagnoses Type 1 diabetes mellitus not at goal E10.9 Coronary artery disease I25.10 Polycythemia D75.1 Gastroesophageal reflux disease without esophagitis K21.9 Esophagitis presence: without esophagitis Hypercholesterolemia E78.00 Acquired hypothyroidism E03.9 Hypothyroidism type: acquired Essential hypertension I10 Hypertension type: essential hypertension Mild intermittent asthma without complication J45.20 Asthma severity: mild Asthma persistence: intermittent Asthma complication type: uncomplicated LFT elevation R79.89 Recurrent major depression F33.9 Assessment & Plan Assessment & Plan (1) Type 1 diabetes mellitus not at goal: Comment: [facility] Code(s): E10.9 - Type 1 diabetes mellitus without complications Category: Medical Plan: Decrease the amount of carbohydrate intake, pasta, bread, rice and potatoes are all sugar and that is aside from all the sweet stuff, remember that fruits are good but they are Sweet also. Patient on insulin. (2) Coronary artery disease: Comment: 01/2023 Code(s): I25.10 - Atherosclerotic heart disease of [place] coronary artery without angina pectoris Category: Medical Plan: Control the cholesterol, weight, blood pressure, diabetes continue with aspirin (3) Polycythemia: Code(s): D75.1 - Secondary polycythemia Category: Medical Plan: Patient follows up with Pulmonary has had therapeutic phlebotomy before now on hydroxyurea but decrease due to anemia (4) GERD (gastroesophageal reflux disease): Code(s): K21.9 - Gastro-esophageal reflux disease without esophagitis Category: Medical Qualifiers: Esophagitis presence: without esophagitis Qualified Code(s): K21.9 - Gastro-esophageal reflux disease without esophagitis Plan: Avoid the foods that causes that usually spicy foods, tomato products, juices, coffee, soda and foods that your sensitive to. After eating do not lie down, allow 3-4 hours before in lie down. And keep the head of bed above 30 degrees to avoid the acid from going up. (5) Hypercholesterolemia: Code(s): E78.00 - Pure hypercholesterolemia, unspecified Category: Medical Plan: Avoid fried foods, chicken skin, eggs, butter margarine, pastries and meat. Be it pork or beef they have a lot of cholesterol LDL goal of less than 70 and triglyceride of less than 150 patient is on atorvastatin 40 mg once a day (6) Hypothyroidism: Code(s): E03.9 - Hypothyroidism, unspecified Category: Medical Qualifiers: Hypothyroidism type: acquired Qualified Code(s): E03.9 - Hypothyroidism, unspecified Plan: Continue with thyroid medication (7) Hypertension: Comment: Cardiac catheterization June 2018 normal Code(s): I10 - Essential (primary) hypertension Category: Medical Qualifiers: Hypertension type: essential hypertension Qualified Code(s): I10 - Essential (primary) hypertension Plan: Continue with blood pressure medication. Decrease salt intake and exercise takes amlodipine 10 mg once a day metoprolol 50 mg once a day (8) Asthma: Code(s): J45.909 - Unspecified asthma, uncomplicated Category: Medical Qualifiers: Asthma severity: mild Asthma persistence: intermittent Asthma complication type: uncomplicated Qualified Code(s): J45.20 - Mild intermittent asthma, uncomplicated Plan: Stable (9) LFT elevation: Code(s): R79.89 - Other specified abnormal findings of blood chemistry Category: Medical Plan: Discussed with the patient regarding doing on ultrasound of the liver and hepatitis profile (10) Recurrent major depression: Comment: Patient follows up with counselling and therapy (d/c 03/2023) Code(s): F33.9 - Major depressive disorder, recurrent, unspecified Category: Medical Plan: Continue with therapy. declined counselling Plan History of Present Illness The patient is a 54-year-old male presenting for a follow-up visit to manage multiple chronic conditions, including diabetes mellitus type 1, chronic kidney disease, and polycythemia vera. He reports a notable 10-pound weight loss and attributes increased activity levels due to part-time employment as a contributing factor. His myeloproliferative disorder, specifically polycythemia vera, is being treated with hydroxyurea and therapeutic phlebotomies while on baby aspirin. Recent laboratory assessments revealed anemia, prompting a reduction in hydroxyurea dosing. His renal function remains stable, and liver enzyme levels are occasionally elevated, warranting additional assessments. His hemoglobin A1c has shown improvement from 7.7% to 7.1%. He experiences episodes of neuropathy and vertigo yet opts to maintain current medication regimens. He denies needing additional medications or vaccines at this time. Health Maintenance - Follow-up on previous colonoscopy completed April 2024. - Consideration for shingles vaccination as advised. Social History - Recently returned to part-time work, contributing to weight loss. - Engagement in physical activity related to work. - Prior counseling was discontinued, but the patient reports doing well without it. Review of Systems - Constitutional: Reports weight loss of 11 pounds. - Neurological: Reports neuropathy and episodes of vertigo. - Endocrine: Denies any recent changes in diabetes management. - Cardiovascular: Reports stable hypertension. - Gastrointestinal: Denies any bowel movement issues, reports stable GERD symptoms. - Respiratory: Denies any recent asthma exacerbations. - Musculoskeletal: Denies any significant joint pain or stiffness. Physical Exam Results - Labs: Hemoglobin A1c improved to 7.1% from 7.7%; creatinine at 0.85. - Liver function tests: elevated at times (AST 47, ALT 43). - Blood work October 2024: anemia, thrombocytopenia noted. Plan The current plan underscores the continued treatment for polycythemia vera, ensuring appropriate dosing of hydroxyurea in alignment with blood count assessments. Despite anemia, patient remains on baby aspirin for cardiovascular risk management. Further tests for liver function elevation to exclude complications such as fatty liver necessitate follow-up. With diabetes control improving, ongoing monitoring will aid in preventing complications. Discussions on the benefits of vaccinations were conducted, particularly for shingles, if chosen. The patient continues on a stable regimen, with ongoing monitoring and adjustments planned in concert with specialty consultations. Patient was informed and verbally consented to the use of an ambient scribe for clinic note documentation during this visit. Discussion Notes During the visit, we discussed the patient's current treatment plan for managing polycythemia vera with hydroxyurea, considering his recent improvement in anemia symptoms and coordinating with hematology's input. I reviewed the plan to address elevated liver function tests via an ultrasound to rule out conditions like fatty liver, highlighting the importance of regular follow-ups. I also encouraged consideration of vaccination for shingles, emphasizing preventative health. Given the management strategies in place for his chronic conditions, including an improved hemoglobin A1c to 7.1%, it was agreed no immediate medication changes were required. I recommended maintaining activity levels and monitoring his neuropathy to manage symptoms effectively. We concluded with follow-up plans aligning with established monitoring schedules and explicitly discussed return precautions and ongoing follow-up goals. Patient Instructions - Continue current regimen of hydroxyurea as directed. - Monitor blood sugar levels and maintain diabetes management plans. - Undergo scheduled liver ultrasound and laboratory tests for follow-up on liver enzyme levels. - Remain active but monitor activity levels to manage neuropathy symptoms. - Consider getting shingles vaccination at the pharmacy. - Report any significant changes in health or worsening of symptoms. - Follow up with hematology as previously planned and attend scheduled appointments with specialists. Orders: Orders AMB Hemoglobin A1c Today Z13.9 - Encounter for screening, unspecified Hepatitis B,C Profile Today R79.89 - Other specified abnormal findings of blood chemistry Liver Panel Today R79.89 - Other specified abnormal findings of blood chemistry US abdomen complete Today R79.89 - Other specified abnormal findings of blood chemistry
[2024-12-11 08:44] VITALS: BP 138/72; PULSE 68; O2SAT 95; BMI 33.3
--- OUTSIDE RECORDS SUMMARY | 2024-12-11 08:55 | XMS_ITS | Patient Health Record ---
Author Organization [facility] Address [address] [place] [phone] Care Team Providers Care Dado Operator Name Role Phone Tali Dyer MD Primary Care Provider Gabino Vera Jr Unavailable Allergies Allergen (clinical drug ingredient) Drug/Non Drug Allergy documented on EMR Reaction Allergy Type Onset Date Status Penicillin Unknown Drug Allergy Active lisinopril Lisinopril Unknown Drug Allergy Activ e lamotrigine Lamotrigine Unknown Drug Allergy Act jalil peanut butter and nu ts (uncoded) Unknown Allergy Active Results Component Value Reference Range Notes CT colonography Reviewed date:05/16/2024 07:39:47 AM Interpretation: Performing Lab: Notes/Report: [address] [address] [address] Scan Report Signed Patient: Vannessa Barber S MR#: [id number] 39 : 1970 Acct:[id number] Age/Sex: 54 / M ADM Date: 05/09/24 Loc: [facility] Attending Dr: Gabino Meade MD Ordering Physician: Gabino Meade MD Date of Service: 05/09/24 Procedure(s): CT colonography Accession Number(s): [id number] cc: Gabino Meade MD; Tali Dyer MD [...] 05/09/24 1630 DD/ 1342 TD/TT: 05/09/24 1401 Second Worker: DANIEL [address] [address] [address] Scan Report Signed Patient: Cristina Barber MR#: [id number] [birth year] : 1970 Acct:[id number] Age/Sex: 54 / M ADM Date: 05/09/24 Loc: [facility] Attending Dr: Marcel Meade MD Ordering Physician: Gabino Meade MD Date of Service: 05/09/24 Procedure(s): CT colonography Accession Number(s): [id number] cc: Gabino Meade MD; Tali Dyer MD EXAMINATION: CT COLONOGRAPHY (CT ABDOMEN AND PELVIS WITHOUT CONTRAST) CLINICAL INFORMATION: incomplete colonoscopy COMPARISON: No recent pertinent prior films are available for comparison. TECHNIQUE: Bowel preparation: S ignificant retained colonic fluid limits evaluation. Stool tagging with G astrografin and barium: Not utilized. Colonic distention: The colon is incompletely distended with segments that are not fully d istended for complete evaluation. Acquisition: Low dos e imaging targeted to colonic was performed in the supine and prone positions. Procedure: The proce dure was well tolerated. Review: The acquired images were reviewed in axial, coronal and sagittal planes. Add itional 3-D fly through images were reviewed at an independent workstation. Total exam dose-kana th product 566 mGy-cm FINDINGS: Colonic findings: Cecum and ascending colon: Not well distended with significant intraluminal fluid. No visible polyp/masses. Transverse colon: Mo derately well distended on the supine acquisition and poorly distended on the prone acquisition. No fixed narrowing, polyps or masses identified. Descending colon: Mo derately well distended without intraluminal polyps, masses or narrowing. Sigmoid colon: The p roximal and mid sigmoid colon are moderately distended on the sup ine acquisition and poorly distended on the prone acquisition. The dis bonilla sigmoid colon is poorly distended on the prone imaging. No intralum inal polyps or masses are seen. Rectum: Nondistended on the supine and partially distended on the prone acquisition. No poly ps or masses are seen. Appendix: Normal. Non-colonic findings: Limited evaluation d ue to noncontrast low dose technique. No abnormality is se en in the liver, gallbladder, spleen, adrenal glands or kidneys. T he pancreas is atrophic without abnormality identified. No para- aortic adenopathy. No evidence of abdominal aortic aneurysm. A penile prosthesis with right lower quadrant reservoir identified. Lower thoracic kypho sis with decreased thoracic vertebral body height and multiple Schmorl 's nodes consistent with Scheuermann's disease. Additional disc spac e narrowing and Schmorl's nodes are seen in the lumbar spine with as sociated spondylosis. C T/CT colonography IMPRESSION: 1. Limited CT colono graphy (C-Rads C0, inadequate insufflation with one or more colonic segm ents collapsed. In particular, there is limited evaluation of the cecum/ascending colon. Repeat CT colonography could be attempted versus alternative screening. Correlate with the results of colonoscopy. 2. No polyps or mass es are seen on this exam. Electronically vladislav d by: Brody Schaeffer MD 05/09/2024 04:30 PM EDT RP Dictated By: Brody Schaeffer MD Signed By: <Electron ically signed by Brody Schaeffer MD in OV> 05/09/24 1630 DD/ 1342 TD/TT: 05/09/24 1401 Second Worker: DM Reason For Referral No Information Medications Medication [...] Once a day for 30 day(s) Active Cbxtxxecqy-GZNA-Ocuoioip 50-325-40 MG 1 capsule as needed Orally [...] the morning Orally Once a day Active Immunizations Vaccine Route Administration Date Status Comme nts Influenza Unknown 04/23/2024 Refused Problems Problem Type SNOMED Code ICD Code Onset Dates Problem Status W/U Status Risk Notes Problem 113528871 Colon cancer screening (Z12.11) Active confirmed Problem 304749765 Long-term use of aspirin therapy (Z79.82) Active confirmed Problem 84637485 Incontinence of feces, unspecified fecal incontinence type (R15.9) Active confirmed Vital Signs Temperature 97.5 degrees Fahrenheit 04/23/2024 Blood pressure diastolic 00 mm Hg 04/23/2024 Height 68 in 04/23/2024 Blood pressure systolic 000 mm Hg 04/23/2024 Weight 222 lb 6 oz lbs 04/23/2024 BMI 33.81 kg/m2 04/23/2024 Encounters Encounter Location Date Provider Diagnosis [facility] Out[facility] [address] [place] [phone] 05/09/2024 Gabino Meade Jr Colon cancer screening Z12.11 [facility] [address] [facility] [address] [place] [phone] 04/23/2024 Gabino Meade Jr Colon cancer screening Z12.11 ; Incontinence of feces, unspecified fecal incontinence type R15.9 and Long-term use of aspirin therapy Z79.82 [facility] [address] [facility] [address] [place] [phone] 05/16/2024 Gabino Meade Jr Assessments Encounter Date Diagnosis (ICD Code) Assessment Notes Treatment Notes Treatment Clinical Notes Section Notes 05/09/2024 Colon cancer screening (ICD-10 - Z12.11) 04/23/2024 Colon cancer screening (ICD-10 - Z12.11) Colonoscopy material was printed We discussed his symptoms today. Rectal incontinence symptoms have resolved. He was treated with fiber. We discussed the high-fiber diet. He is due for followup colonoscopy. This will be arranged. He understands risks and benefits and agrees to proceed. He is advised stop aspirin one week before the procedure. 04/23/2024 Incontinence of feces, unspecified fecal incontinence type (ICD-10 - R15.9) We discussed his symptoms today. Rectal incontinence symptoms have resolved. He was treated with fiber. We discussed the high-fiber diet. He is due for followup colonoscopy. This will be arranged. He understands risks and benefits and agrees to proceed. He is advised stop aspirin one week before the procedure. 04/23/2024 Long-term use of aspirin therapy (ICD-10 - Z79.82) We discussed his symptoms today. Rectal incontinence symptoms have resolved. He was treated with fiber. We discussed the high-fiber diet. He is due for followup colonoscopy. This will be arranged. He understands risks and benefits and agrees to proceed. He is advised stop aspirin one week before the procedure. Plan Of Treatment Future Test Test Name Order Date COLONOSCOPY 08/01/2013 COLONOSCOPY 04/23/2024 Insurance Providers Payer Name Payer Address Payer Phone Subscriber Number Group Number Insured Name Patient Relationship to Insured Coverage Start Date Coverage End Date MEDICARE OF [place] [address] [facility] [place] [address] [id number] VANNESSA BARBER Self - patient is the insured [employer] CLAIMS [address] [place] [address] [phone] [id number] VANNESSA BARBER Self - patient is the insured Medical (General) History Medical History History ICD Code diabetes mellitus hypertension retinopathy obstructive sleep apnea hypothyroidism headaches elevated cholesterol asthma erectile dysfunction Family history of colon cancer Gastroesophageal reflux disease Essential thrombocytosis Surgical History Surgery Date(Month/Year) finger surgery carpal tunnel release-left eye surgery penile implant
--- OUTSIDE RECORDS SUMMARY | 2024-12-11 08:55 | XMS_ITS | Clinical Summary ---
Author Organization [address] [facility] Address [address] [facility] [address] [place] [address] Phone Care Team Providers Care Classifier Name Role Phone Physician, No Pcp Primary Care Provider Unavaila ble Allergies Active Allergy Reactions Criticality Noted Date Comments Penicillins 03/06/2022 Medications amLODIPine (NORVASC) 10 mg tablet Take 10 mg by mouth daily. 08/28/19 17 Active atorvastatin (LIPITOR) 20 mg tablet Take 20 mg by mouth daily. 07/24/20 18 Active fluticasone propionate (FLONASE) 50 mcg/actuation nasal spray Administer 2 sprays into each nostril 1 (one) time each day. 02/14/20 22 Active levothyroxine (SYNTHROID, LEVOTHROID) 125 mcg tablet Take 125 mcg by mouth 1 (one) time each day in the morning. 02/14/20 22 Active metoprolol succinate (TOPROL-XL) 50 mg 24 hr tablet Take 50 mg by mouth 1 (one) time each day. 02/14/20 22 Active pantoprazole (PROTONIX) 40 mg EC tablet Take 40 mg by mouth 1 (one) time each day. 02/14/20 22 Active sertraline (ZOLOFT) 50 mg tablet Take 50 mg by mouth 1 (one) time each day. 02/14/20 22 Active Aimovig Autoinjector 140 mg/mL injection INJECT 140mg SUBCUTANEOUSLY EVERY 28 DAYS DIRECTED 02/14/20 22 Active Active Problems Problem Noted Date Diagnosed [...] Hypertension Disease of thyroid gland Diabetes mellitus ([facility] V24, [facility] V28) Neuropathy Social History Tobacco Use Types Packs/Day Years Used Date Smoking Tobacco: Never Smokeless Tobacco: Never Alcohol Use Standard Drinks/Week Comments Not Asked 0 (1 standard drink = 0.6 oz pur e alcohol) socially Sex and Gender Information Value Date Recorded Sex Assigned at Not on file Legal Sex Male 1:21 PM EDT Gender Identity Not on file Sexual Orientation Not on file Obstetrics History Last Filed [...] Diabetes: Annual Urine Albumin-Creatinine Ratio (uACR) 02/08/2021 Pneumococcal Vaccine: 50+ Years (1 of 1 - PCV) 2021 Zoster Vaccines (1 of 2) 2021 Diabetes: Blood Sugar Control Test (HGBA1C) 07/11/2022 01/09/2022, 04/25/2021, 01/28/2021, Additional history exists Diabetes: Annual GFR (Glomerular Filtration Rate) 03/06/2023 03/06/2022, 01/28/2021 Hypertension/CHF/CAD Annual BMP Blood Test 03/06/2023 03/06/2022, 01/28/2021 COVID-19 Vaccine (1 - 2023- season) 2024 Influenza Vaccine (Season Ended) 2025 DTaP,Tdap,and Td Vaccines (2 - Td or [...] patient's age to complete this topic Meningococcal B Vaccine Aged Out No l onger eligible based on patient's age to complete [...] LAB CHEMISTRY METHOD 03/06/2022 12:23 PM EDT [facility] Potassium 3.9 3.5 - 5.1 mmol/L LAB CHEMISTRY METHOD 03/06/2022 12:23 PM [facility] Chloride 104 98 - 107 mmol/L LAB CHEMISTRY METHOD 03/06/2022 12:23 PM [facility] CO2 28 21 - 32 mmol/L LAB CHEMISTRY METHOD 03/06/2022 12:23 PM [facility] Anion Gap 8 3 - 11 LAB CHEMISTRY METHOD 03/06/2022 12:23 PM [facility] Glucose 124(H) 70 - 99 mg/dL LAB CHEMISTRY METHOD 03/06/2022 12:23 PM [facility] BUN 17 7 - 18 mg/dL LAB CHEMISTRY METHOD 03/06/2022 12:23 PM [facility] Creatinine 1.35(H) 0.70 - 1.30 mg/dL LAB CHEMISTRY METHOD 03/06/2022 12:23 PM [facility] eGFR 61 >=60 mL/min/1. 73m2 LAB CHEMISTRY METHOD 03/06/2022 12:23 PM [facility] Comment: The MDRD GFR formula is valid only for adults between ages 18 and 70. BUN/Creatinine Ratio 12.6 12.0 - 20.0 LAB CHEMISTRY METHOD 03/06/2022 12:23 PM [facility] Calcium 7.5(L) 8.5 - 10.1 mg/dL LAB CHEMISTRY METHOD 03/06/2022 12:23 PM [facility] AST (SGOT) 23 15 - 37 unit/L LAB CHEMISTRY METHOD 03/06/2022 12:23 PM [facility] ALT (SGPT) 27 16 - 61 unit/L LAB CHEMISTRY METHOD 03/06/2022 12:23 PM [facility] Alkaline Phosphatase 90 unit/L LAB CHEMISTRY METHOD 03/06/2022 12:23 PM EDT [facility] Total Protein 7.1 6.4 - 8.2 g/dL LAB CHEMISTRY METHOD 03/06/2022 12:23 PM EDT [facility] Albumin 3.5 3.4 - 5.0 g/dL LAB CHEMISTRY METHOD 03/06/2022 12:23 PM EDT [facility] Total Bilirubin 0.6 0.2 - 1.2 mg/dL LAB CHEMISTRY METHOD 03/06/2022 12:23 PM EDT [facility] Blood Venous blood specimen / Unknown Venipuncture / Unknown 03/06/2022 11:54 AM EDT 03/06/2022 12:01 PM EDT us Kerry GARCIA LAB BLOOD ORDERABLES Final R esult [facility] [address] [place] [address] * (ABNORMAL) Hemoglobin A1c (01/28/2021 9:45 PM EDT) Hemoglobin A1C 8.8(H) <5.7 % LAB CHEMISTRY METHOD 01/29/2021 9:36 AM EDT [facility] Mean Bld Glu Estim. 206(H) <126 mg/dL LAB CHEMISTRY METHOD 01/29/2021 9:36 AM EDT [facility] Blood Topography not assigned / Unknown 01/28/2021 9:45 PM EDT 01/28/2021 9:45 PM EDT Narrative [facility] - 01/29/2021 9:36 AM EDT *Clinical Condition Normal ?<5.7% Prediabetes ? 5.7-6.5% Diabetes ?>/=6.5% NGSP: National Glycohemoglobin Standardization Program *2011 [place] [employer] Note: These results were obtained by Victoria [employer] Variant II HbA1c Assay. The assay is IFCC standardized and NGSP certified. us Zeferino Richard MD LAB BLOOD ORDERABLES Final Resul t [facility] [address] [place] [address] from Last 3 Months or Most Recently Relevant to Health Maintenance Insurance MEDICARE MEDICA[place] - [place] on file MEDICAID OOS [place] Care Teams Classifier Relationship Specialty Start Date End Date Physician, No Pcp PCP - General 01/28/21
--- OUTSIDE RECORDS SUMMARY | 2024-12-11 08:55 | XMS_ITS ---
Author Organization [facility] Address [address] [facility] [place] [address] Care Team Providers Care Retail Loan Originator Assistant Name Role Phone Tlai Dyer Primary Care Provider Loyda Pickens Unavailable [phone] Allergies Allergen (clinical drug ingredient) Drug/Non Drug [...] Polyneuropathy due to type 2 diabetes mellitus (882503608) Type 2 diabetes mellitus with diabetic polyneuropathy (E11.42) Active confirmed Vital Signs Height 5ft 8 inch in 07/03/2024 Weight 220 lbs 07/03/2024 BMI 33.45 kg/m2 07/03/2024 Procedures Procedure Date Ordered Date Performed Result Body Sit e [id number]-[id number] NAIL, 6 OR MORE 07/03/2024 N/A 88871-BWYB SKIN LESIONS, 2 TO 4 07/03/2024 N/A Encounters Encounter Location Date Provider Diagnosis [facility] [address] [address] 07/03/2024 Loyda Putnam Tinea pedis of both [...] days Pending Test Test Name Order Date [id number] NAIL, 6 OR MORE 07/03/2024 [id number]-[id number] SKIN LESIONS, 2 TO 4 07/03/20 24 Next Appt Details Follow Up: 3 Months, Reason: Provider Name:Loyda mackay, 02/12/2025 10:00:00 AM, [address] [place] [address], [phone], Procedure Notes * Category Sub-Category Detail Notes [...] use of a nail nipper and/or dremel-type hob grinder, to a more viable healthy nail [...] to maintain effectiveness in symptomatic relief - 49075 Keratoma Treatment Parring or Cutting o f Benign Hyperkeratotic Lesion(s) (-56) 2-4 Lesions - The Benign hyperkeratotic lesions, ( 4 ) in total, locations as stated and described in exam, were pared, and/or cut utilizing a sterile 15 blade, tissue nippers, and/or power dremel instrumentation - 58972 Progress Notes * Russell BARBER SDOB: 1 (54 yo M)Acc No.[id number]:07/03/2024 Progress Notes Patient:?Christiano BARBERney Masood Provider:?Loyda Putnam DPM :1970???Age:54 Y???Sex:Male Willie e:07/03/2024 Address:[address] [place] [address].[address], [place] Pcp:Tali Dyer Subjective: * Chief Complaints: * [...] stic Procedure:?Denies Past Hospitalization * Family History:?Mother: aliv e, Kidney/Liver disease, foot problems, diagnosed with Unspecified [...] (Inhal) , Notes to Pharmacist: PRNTaking Butalbital-Acetaminophen 50-325 MG Tablet 1 tablet as needed [...] a symmetrical fashion, B/L.?Ophthalmology Referral: ?DIABETES EYE EXAM?Procedure Performed:?No ?Findings of Diabetic Eye Exam:?no retinopathy?CQM Exceptions:: ?Hemoglobin A1c not performed?Reason:?No reason specified??? Assessment: * Assessment: 1.?Tinea pedis of both [...] use of a nail nipper and/or dremel-type hob grinder, to a more viable healthy nail [...] to maintain effectiveness in symptomatic relief - 41879.?Keratoma Treatment:?Parring or Cutting of Benign Hyperkeratotic Lesion(s)?(-56) 2-4 Lesions - The Benign hyperkeratotic lesions, ( 4 ) in total, locations as stated and described in exam, were pared, and/or cut utilizing a sterile 15 blade, tissue nippers, and/or power dremel instrumentation - 63960.? * Procedure Codes:?67597 DEBRI DE NAIL, 6 OR MORE, Modifiers: XS 36215 TRIM SKIN LESIONS, 2 TO 4, Modifiers: [...] Putnam DPM Date:?1 09/03/2023 Generated for Rah hood/Chano/Won on:?12/11/2024 08:55 AM EDT History and Physical Notes * HPI (History of Present Illness) Category Sub-Category Detail Notes Category Not es Skin problems Nature: scaling , redness Location: B/L Duration: several days Course: worse At Risk footcare Pt States Last PCP Visit: Date: 4 Examination Category Sub-Category Detail Notes Category Not [...]
--- OUTSIDE RECORDS SUMMARY | 2024-12-11 08:55 | XMS_ITS ---
Author Organization [facility] Address [address] [place] [address] Care Team Providers Care Straight Line Press Setter Name Role Phone Tali Dyer MD Primary Care Provider Gabino Vera Jr REASON FOR VISIT screening Encounters Encounter Location Date Provider Diagnosis [facility] [address] [place] [phone] 05/09/2024 Gabino Meade Jr Colon cancer screening Z12.11 Assessments Encounter Date Diagnosis (ICD Code) Assessment Notes Treatment Notes Treatment Clinical Notes Section Notes 05/09/2024 Colon cancer screening (ICD-10 - Z12.11) Plan Of Treatment No Information Progress Notes * VANNESSA MCKEONDOB:1970 (54 yo M)Acc No.[id number]:05/09/2024 COLON WITH MAC Patient:?VANNESSA MCKEON Provider:?Gabino Meade MD :1970???Age:54 Y???Sex:Male Willie e:05/09/2024 Address:[address] [place], [place] [id number] Pcp:Tali Dyer MD Subjective: * Chief Complaints: * ???1. Screening. * Medical History:? Objective: * Vitals:? Assessment: * Assessment: 1.?Colon cancer screening - Z12.11 (Primary)??? Plan: * Treatment: * Procedure Codes:?14879 DIAGN OSTIC COLONOSCOPY, Modifiers: 54 , 0529F INTRVL 3+YRS PTS CLNSCP DOCD, 0528F RCMND FLW-UP 10 YRS DOCD, Modifiers: 1P * * The named appointment provid er may or may not be the originator of this progress note, and it is not deemed complete until electronically signed by the appointment provider. Sign off status: Pending * Provider:?Gabino Meade MD Date:?1 Generated for Rah hood/Chano/Demetrioitting on:?12/11/2024 08:55 AM EDT
--- OUTSIDE RECORDS SUMMARY | 2024-12-11 08:55 | XMS_ITS | Clinical Summary ---
Author Organization [employer] Address [address] [facility] [address] [place] [address] Care Team Providers Care Service Crew Leader Name Role Phone Unavailable Primary Care Provider Unavailabl e Allergies Active Allergy Reactions Criticality Noted Date Comments Gabapentin 07/11/2022 Hydroxyzine Unknown 07/11/2022 Lamotrigine 10/26/2017 Lisinopril 10/26/2017 Other reaction(s): cough Peanut-Containing Drug Products 09/26/2018 Other reaction(s): throat swells, hives Other reaction(s): N/V, hives Penicillins 10/26/2017 Other reaction(s): ? hives Soy Allergy (Obsolete) Swelling 07/11/2022 Soybean-Containing Drug Products 08/08/2023 Other reaction(s): throat swelling Bruce Oil 08/08/2023 Other reaction(s): N/V, hives Medications [...] 2 Active butalbital-acet aminophen-caffe ine-codeine (Fioricet w/Codeine) 70-135-12-30 MG capsule Take by mouth daily. 3 Active Encounters Date Type Department Care Team Description 12/03/2024 7:30 AM EDT Office Visit [facility] DENT[facility] [address] [place] [address] John Hung Jr., DMD from Last 3 Months Social History Tobacco Use Types Packs/Day Years Used Date Smoking Tobacco: Never Assessed Comments Unknown Sex and Gender Information Value Date Recorded Sex Assigned at Choose not to disclose 09/2023 9:20 AM EST Legal Sex Male 5:35 PM EDT Gender Identity Choose not to disclose 4 9:20 AM EST Sexual Orientation Choose not to disclose 2023 9:20 AM EST Plan of Treatment Upcoming Encounters Date Type Department Care Team (Late st Contact Info) Description 12/17/2024 9:40 AM EDT Office Visit [facility] DENTAL [address] [place] [address] Kellie Stokes 12/18/2024 10:30 AM EDT Office Visit [facility] OPTOMETRY [address] [place] [address] Catherine Parisi, CASSANDRA [address] [place] [address] Health Maintenance Due Date Last Done Comments [...] Vaccines (1 of 2) 2021 COVID-19 Vaccine (1 - 2023-2 5 season) 2024 Influenza Vaccine [...] Procedure Name Priority Date/Time Associated Diagnosis Comments CASE PRESENTATION, DETAILED AND EXTENSIVE TREATMENT PLANNING Routine 12/03/2024 7:30 AM EDT 13 MOB RESIN-BASED COMPOSITE - 3 SURF, POSTERIOR Routine 12/03/2024 7:30 AM EDT Full PROPHYLAXIS - ADULT Routine 024 9:20 AM EDT INTRAORAL - COMPLETE SERIES OF RADIOGRAPHIC IMAGES Routine 10/31/2023 9:20 AM EDT PERIODIC ORAL EVALUATION - ESTABLISHED PATIENT Routine 10/31/2023 9:20 AM EDT from Last 3 Months or Most Recently Relevant to Health Maintenance Insurance DENTAL[facility] MEDICAID STAND ADULT DENTAL - [facility] FULL (MEDICAID) [facility] MEDICARE
--- OUTSIDE RECORDS SUMMARY | 2024-12-11 08:56 | XMS_ITS ---
Author Organization [facility] Address [address] [place] [address] Care Team Providers Care Checker/Stocker Name Role Phone Tali Dyer MD Primary [...] VISIT Patient presents today for a consultation Medications Medication SIG (Take, Route, Frequency, Duration) [...] Once a day for 1 day(s) Active Uuxetoyajk-YNLJ-Hmynuycr 50-325-40 MG 1 capsule as needed Orally every 4 hrs Active Fluticasone Propionate (Inhal) 50 MCG/ACT 1 puff Inhalation Twice a day Active Hydroxyurea 500 MG 1 capsule Orally Twi ce a day Active Immunizations Vaccine Route Administration Date Status Comme nts Influenza Unknown 04/23/2024 Refused Problems Problem Type SNOMED Code ICD Code Onset Dates Problem Status W/U Status Risk Notes Problem 031748422 Colon cancer screening (Z12.11) Active confirmed Problem 89297721 Incontinence of feces, unspecified fecal incontinence type (R15.9) Active confirmed Problem 571299814 Long-term use of aspirin therapy (Z79.82) Active confirmed Vital Signs Temperature 97.5 degrees Fahrenheit 04/23/20 24 Blood pressure systolic 000 mm Hg 04/23/20 24 Blood pressure diastolic 00 mm Hg 024 Height 68 in 04/23/2024 Weight 222 lb 6 oz lbs 04/23/2024 BMI 33.81 kg/m2 04/23/2024 Encounters Encounter Location Date Provider Diagnosis [facility] [address] [place] [address] 04/23/2024 Gabino Meade Jr Colon cancer screening Z12.11 ; Incontinence of feces, unspecified fecal incontinence type R15.9 and Long-term use of aspirin therapy Z79.82 Assessments Encounter Date Diagnosis (ICD Code) Assessment Notes Treatment Notes Treatment Clinical Notes Section Notes 04/23/2024 Colon cancer screening (ICD-10 - [...] week before the procedure. Plan Of Treatment Treatment Notes Assessment Notes Colon cancer screening Colonoscopy mater ial was printed Future Test Test Name Order Date COLONOSCOPY 04/23/2024 Next Appt Details Follow Up: 1 Year, Reason: Progress Notes * VANNESSA MCKEONDOB:1970 (54 yo M)Acc No.[id number]:04/23/2024 Progress Notes Patient:?VANNESSA MCKEON Provider:?Gabino Meade MD :1970???Age:54 Y???Sex:Male Willie e:04/23/2024 Address:[address] [place] [address] Pcp:Tali Dyer MD Subjective: * Chief Complaints: * ???1. Patient presents today for a consultation. * HPI: ???New symptom(s):? The patient is a 54-year-old man seen today in consultation. He was previously evaluated in 2014 with a colonoscopy which was normal. Five-year followup was recommended because of his brothers history of rectal cancer. ?He has a history of fecal incontinence which was evaluated at his last visit. Referral was made to colorectal surgery at [facility] and he was seen in consultation. Fiber diet was advised him he has done fine. Rectal incontinence symptoms have resolved. He has no complaints of rectal or abdominal pain. He has no change in his bowel habits. Weight and appetite have been stable. * ROS:?General/Constitutional:?Change in appetite?denies.?Fatigue?denies.?ENT:?Patient denies?difficulty swallowing.?Respiratory:?Patient denies?shortness of breath.?Cardiovascular:?Patient denies?chest pain.?Gastrointestinal:?Comments?See HPI for details.?Genitourinary:?Difficulty urinating?denies.?Incontinence?denies.?Musculoskeletal:?Patient denies?muscle aches.?Skin:?Patient denies?pruritis.?Neurologic:?Patient denies?low back pain.?Psychiatric:?Patient denies?mental or physical abuse.? * Medical History:?Diabetes me llitus, Hypertension, Retinopathy, Obstructive sleep apnea, Hypothyroidism, Headaches, Elevated cholesterol, Asthma, Erectile dysfunction, Family history of colon cancer, Gastroesophageal reflux disease, Essential thrombocytosis. * Surgical History:?finger keyona ryland , carpal tunnel release-left , eye surgery , penile implant . * Family History:?Father: dece ased, diagnosed with HTN (hypertension), Heart disease.?Mother: alive, diagnosed with Heart disease, HTN (hypertension), Diabetes.?Siblings: alive, brother has rectal cancer at age 44.? No family history of liver cancer, brother has colon cancer. * Social History:?Tobacco Use:?Tobacco Use/Smoking?Are you a: former smoker , How long has it been since you last smoked?: > 10 years.?Drugs/Alcohol:?Alcohol Screen?Points: 1, Interpretation: Negative.?Miscellaneous:?Marital status: . Occupation: disabled. * Medications:?Taking Hydroxyu anamika 500 MG Capsule 1 capsule Orally Twice a day, Taking Fluticasone Propionate (Inhal) 50 MCG/ACT Aerosol Powder Breath Activated 1 puff Inhalation Twice a day, Taking Bbrxuvtvrw-LTXM-Zqvbachg 50-325-40 MG Capsule 1 capsule as needed Orally every 4 hrs, Taking SUMAtriptan 5 MG/ACT Solution 1 spray at onset of headache in one nostril may repeat dose after 2 hours as needed Nasally Once a day, Taking HumaLOG 100 UNIT/ML Solution Cartridge as directed Subcutaneous , Taking DULoxetine HCl 30 MG Capsule Delayed Release Particles 1 capsule Orally Once a day, Taking Pantoprazole Sodium 40 MG Tablet Delayed Release 1 tablet Orally Once a day, Taking Atorvastatin Calcium 40 MG Tablet 1 tablet Orally Once a day, Taking rOPINIRole HCl 0.25 MG Tablet 1 tablet 1 to 3 hours before bedtime Orally Once a day, Taking Metoprolol Succinate 50 MG Capsule ER 24 Hour Sprinkle 1 capsule Orally Once a day, Taking Levothyroxine Sodium 125mg 1 tablet on an empty stomach in the morning Orally Once a day, Taking Aspir-81 81mg , Taking amLODIPine Besylate 10 MG Tablet 1 tablet Orally Once a day, Discontinued NovoLOG 100 UNIT/ML Solution as directed Subcutaneous as directed, Discontinued ProAir HFA 108 (90 Base) MCG/ACT Aerosol Solution 2 puffs as needed Inhalation every 4 hrs, Medication List reviewed and reconciled with the patient * Allergies:?Penicillin, peanu t butter and nuts, Lisinopril, Lamotrigine. Objective: * Vitals:?Wt: 222 lb 6 oz, Ht: 68 in, BMI:33.81 Index, BP: 000/00 mm Hg, Temp: 97.5. * Examination: ???General Examination: ?GENERAL APPEARANCE:?in no acute distress.?HEAD:?normocephalic.?EYES:?sclera non-icteric.?ORAL CAVITY:?mucosa moist.?NECK/THYROID:?no lymphadenopathy.?SKIN:?anicteric.?HEART:?S1, S2 normal, no murmurs.?LUNGS:?clear to auscultation bilaterally.?CHEST:?normal shape and expansion.?ABDOMEN:?soft, nontender, nondistended, bowel sounds present, no organomegaly .?EXTREMITIES:?no clubbing, cyanosis, or edema.?PSYCH:?cognitive function intact.? Assessment: * Assessment: 1.?Incontinence of feces, un specified fecal incontinence type - R15.9 (Primary)?2.?Colon cancer screening - Z12.11?3.?Long-term use of aspirin therapy - Z79.82? We discussed his symptoms to day. Rectal incontinence symptoms have resolved. He was treated with fiber. We discussed the high-fiber diet. He is due for followup colonoscopy. This will be arranged. He understands risks and benefits and agrees to proceed. He is advised stop aspirin one week before the procedure. Plan: * Treatment: Notes: Colonoscopy material was printed?? * Immunizations:? Influenza (Not administered - Refused: Patient decision) * Procedure Codes:?3017F COLOR ECTAL CA SCREEN DOC REV, G9903 Pt scrn tbco id as non user, G9744 PATIENT NOT ELIG D/T ACTIVE DX HTN * Preventive Medicine:? ??Counseling:?Care goal follow-up plan:?Above Normal BMI Follow-up?Giving encouragement to exercise,?BMI management provided?Yes.? * Follow Up:?1 Year * * Sign off status: Completed true * Provider:?Gabino Meade MD Date:?0 04/23/2024 Generated for Jodii erwin/Chano/eTransmitting on:?12/11/2024 08:55 AM EDT History and Physical Notes * HPI (History of Present Illness) Category Sub-Category Detail Notes Category Not es New symptom(s) The patient is a 54-year-old man seen today in consultation. He was previously evaluated in 2014 with a colonoscopy which was normal. Five-year followup was recommended because of his brothers history of rectal cancer. He has a history of fecal incontinence which was evaluated at his last visit. Referral was made to colorectal surgery at [facility] and he was seen in consultation. Fiber diet was advised him he has done fine. Rectal incontinence symptoms have resolved. He has no complaints of rectal or abdominal pain. He has no change in his bowel habits. Weight and appetite have been stable. Examination Category Sub-Category Detail Notes Category Not es General Examination GENERAL APPEARANCE: in no acute di stress HEAD: normocephalic EYES: sclera non-icteric NECK/THYROID: no lymphadenopathy HEART: S1, S2 normal, no mu rmurs CHEST: normal shape and exp ansion LUNGS: clear to auscultatio n bilaterally ABDOMEN: soft, nontender, non distended, bowel sounds present, no organomegaly SKIN: anicteric EXTREMITIES: no clubbing, cyanosi s, or edema PSYCH: cognitive function i ntact ORAL CAVITY: mucosa moist
--- OUTSIDE RECORDS SUMMARY | 2024-12-11 08:56 | XMS_ITS | Encounter Summary ---
Author Organization [facility] Address [address] [place] [address] Care Team Providers Care Supervising Appraiser Name Role Phone Physician, No Pcp Primary Care Provider Unavaila ble Encounter Details Date Type Department Care Team (Latest Contact Info) Description 01/28/2021 Lab Requisition [facility] Main Lab [address] [place] [address] Zeferino Richard MD [address] [facility] [address] [place] [address] Laceration of flexor muscle, fascia and tendon [...] on file Sexual Orientation Not on file documented as of this [...] LAB CHEMISTRY METHOD 01/29/2021 9:36 AM EDT [facility] Mean Bld Glu Estim. 206(H) <126 mg/dL LAB CHEMISTRY METHOD 01/29/2021 9:36 AM EDT [facility] Blood Topography not assigned / Unknown 01/28/2021 9:45 PM EDT 01/28/2021 9:45 PM EDT Narrative [facility] - 01/29/2021 9:36 AM EDT *Clinical Condition Normal ?<5.7% Prediabetes ? 5.7-6.5% Diabetes ?>/=6.5% NGSP: National Glycohemoglobin Standardization Program *2011 [place] [employer] Note: These results were obtained by [employer] [employer] Variant II HbA1c Assay. The assay is IFCC standardized and NGSP certified. us Zeferino Richard MD LAB BLOOD ORDERABLES Final Resul t [facility] [address] [place], [place] [id number] * (ABNORMAL) Comprehensive metabolic panel (01/28/2021 9:45 PM EDT) Sodium 139 136 - 145 mmol/L LAB CHEMISTRY METHOD 01/28/2021 10:16 PM EDT [facility] Potassium 4.6 3.5 - 5.1 mmol/L LAB CHEMISTRY METHOD 01/28/2021 10:16 PM EDT [facility] Chloride 104 98 - 107 mmol/L LAB CHEMISTRY METHOD 01/28/2021 10:16 PM EDT [facility] CO2 29 21 - 32 mmol/L LAB CHEMISTRY METHOD 01/28/2021 10:16 PM EDT [facility] Anion Gap 6 3 - 11 LAB CHEMISTRY METHOD 01/28/2021 10:16 PM EDT [facility] Glucose 203(H) 70 - 99 mg/dL LAB CHEMISTRY METHOD 01/28/2021 10:16 PM [facility] BUN 13 7 - 18 mg/dL LAB CHEMISTRY METHOD 01/28/2021 10:16 PM [facility] Creatinine 0.88 0.70 - 1.30 mg/dL LAB CHEMISTRY METHOD 01/28/2021 10:16 PM [facility] eGFR 101 >=60 mL/min/1. 73m2 LAB CHEMISTRY METHOD 01/28/2021 10:16 PM T [facility] Comment: Please note that this estimated GFR value is not recommended for use in individuals under the age of 18, individuals with unstable creatinine concentrations (including and acute renal failure), or individuals with extremes of body mass or diet (including amputees, paraplegics and obese individuals). BUN/Creatinine Ratio 14.77 LAB CHEMISTRY METHOD 01/28/2021 10:16 PM [facility] Calcium 9.2 8.5 - 10.1 mg/dL LAB CHEMISTRY METHOD 01/28/2021 10:16 PM [facility] AST (SGOT) 22 15 - 37 unit/L LAB CHEMISTRY METHOD 01/28/2021 10:16 PM [facility] ALT (SGPT) 36 16 - 61 unit/L LAB CHEMISTRY METHOD 01/28/2021 10:16 PM [facility] Alkaline Phosphatase 112 53 - 128 unit/L LAB CHEMISTRY METHOD 01/28/2021 10:16 PM [facility] Total Protein 7.5 6.4 - 8.2 g/dL LAB CHEMISTRY METHOD 01/28/2021 10:16 PM [facility] Albumin 3.9 3.4 - 5.0 g/dL LAB CHEMISTRY METHOD 01/28/2021 10:16 PM [facility] Total Bilirubin 0.4 0.2 - 1.0 mg/dL LAB CHEMISTRY METHOD 01/28/2021 10:16 PM [facility] Blood Topography not assigned / Unknown 01/28/2021 9:45 PM EDT 01/28/2021 9:45 PM EDT us Zeferino Richard MD LAB BLOOD ORDERABLES Final Resul t [facility] [address] [place] [address] * (ABNORMAL) Complete blood count (01/28/2021 9:45 PM EDT) WBC 9.7 4.0 - 10.2 K/mcL LAB HEMETOLOGY METHOD 01/28/2021 10:02 PM EDT [facility] RBC 5.51 4.20 - 5.70 M/mcL LAB HEMETOLOGY METHOD 01/28/2021 10:02 PM EDT [facility] Hemoglobin 16.2 12.7 - 17.1 g/dL LAB HEMETOLOGY METHOD 01/28/2021 10:02 PM EDT [facility] Hematocrit 50.4(H) 35.0 - 50.2 % LAB HEMETOLOGY METHOD 01/28/2021 10:02 PM EDT [facility] MCV 91.5 81.0 - 97.0 FL LAB HEMETOLOGY METHOD 01/28/2021 10:02 PM EDT [facility] MCH 29.4 25.3 - 34.1 pcg LAB HEMETOLOGY METHOD 01/28/2021 10:02 PM EDT [facility] MCHC 32.1 30.2 - 35.3 g/dL LAB HEMETOLOGY METHOD 01/28/2021 10:02 PM EDT [facility] RDW 14.0 11.0 - 14.5 % LAB HEMETOLOGY METHOD 01/28/2021 10:02 PM EDT [facility] RDW-SD 46.7 36.8 - 48.3 FL LAB HEMETOLOGY METHOD 01/28/2021 10:02 PM EDT [facility] Platelets 616(H) 150 - 400 K/mcL LAB HEMETOLOGY METHOD 01/28/2021 10:02 PM EDT [facility] MPV 10.0 9.1 - 12.7 FL LAB HEMETOLOGY METHOD 01/28/2021 10:02 PM EDT [facility] NRBC 0.0 0.0 - 0.0 % LAB HEMETOLOGY METHOD 01/28/2021 10:02 PM EDT [facility] NRBC Absolute 0.00 0.00 - 0.00 K/mcL LAB HEMETOLOGY METHOD 01/28/2021 10:02 PM EDT [facility] Blood Topography not assigned / Unknown 01/28/2021 9:45 PM EDT 01/28/2021 9:45 PM EDT us Zeferino Richard MD LAB BLOOD ORDERABLES Final Resul t [facility] [address] [place] [address] documented in this encounter Visit Diagnoses Diagnosis Laceration of flexor muscle, fascia and tendon of right little finger at wrist and hand level, initial encounter Encounter for other preprocedural examination documented in this encounter Care Teams Supervising Appraiser Relationship Specialty Start Date End Date Physician, No Pcp PCP - General 01/28/21 documented as of this encounter
--- OUTSIDE RECORDS SUMMARY | 2024-12-11 08:56 | XMS_ITS | Encounter Summary ---
Author Organization [employer] Address [address] [place] [address] Care Team Providers Care Hand Spinner Name Role Phone Unavailable Primary Care Provider [...] as of this encounter Plan of Treatment Upcoming Encounters Date Type Department Care Team (Late st Contact Info) Description 12/17/2024 9:40 AM EDT Office Visit [facility] DENTAL [address] [place] [address] Kellie Stokes 12/18/2024 10:30 AM EDT Office Visit [facility] OPTOMETRY [address] [place] [address] Catherine Parisi, CASSANDRA [address] [place] [address] documented as of this encounter Visit Diagnoses Not on filedocumented in this encounter
--- OUTSIDE RECORDS SUMMARY | 2024-12-11 08:56 | XMS_ITS ---
Author Organization [facility] Address [address] [place] [phone] Care Team Providers Care Behavioral [employer] Counselors Name Role Phone Tali Dyer MD Primary Care Provider Gabino Vera Jr REASON FOR VISIT CT colonography Encounters Encounter Location Date Provider Diagnosis [facility] [address] [place] [phone] 05/16/2024 Gabino Meade Jr Plan Of Treatment No Information Progress Notes * VANNESSA MCKEONDOB:1970 (54 yo M)Acc No.[id number]:05/16/2024 Patient:?VANNESSA MCKEON :1970???Age:54 Y???Sex:Male Address:[address] [place] [address], [address] * true * Date:? Generated for Rah hood/Chano/eTransmitting on:?12/11/2024 08:55 AM EDT
--- OUTSIDE RECORDS SUMMARY | 2024-12-11 08:56 | XMS_ITS ---
Author Organization [facility] Address [address] [place] [address] Care Team Providers Care Employment Specialist/Program Manager Name Role Phone Tali Dyer Primary Care Provider Loyda Pickens Unavailable [phone] Allergies Allergen (clinical drug ingredient) Drug/Non Drug Allergy documented on EMR Reaction Allergy Type Onset Date Status Penicillin Unknown Drug Allergy Active REASON FOR VISIT Toe Irritation, At risk footcare, Skin problems Medications Medication SIG (Take, Route, Frequency, Duration) Notes Start Date End Date Status Atorvastatin Calcium 40 MG 1 tablet Orally Once a day Active Levothyroxine Sodium 125 MCG 1 tablet in the morning on an empty stomach Orally Once a day Active amLODIPine Besylate 10 MG 1 tablet Orally Once a day Active Ciclopirox Olamine 0.77 % 1 application Externally Twice a day to skin of feet including between the toes for 30 days Active Metoprolol Succinate 50 MG 1 capsule Ora lly Once a day Active Pantoprazole Sodium 40 MG 1 packet 1/2 t o 1 hour before morning meal mixed with apple juice or applesauce Orally Once a day Active Hydroxyurea 500 MG 1 capsule Orally Onc e a day Active Butalbital-Acetaminophen 50-325 MG 1 tablet as needed Orally every 4 hrs PRN Active DULoxetine HCl 30 MG 1 capsule Orally On ce a day Active Aspirin 81 81 MG 1 tablet Orally Once a day Active Fluticasone Propionate (Inhal) PRN Active Extra Depth Orthopedic Shoes (1 Pair) with Customized Heat Molded Multidensity Innersoles (3 Pair) as directed Dx: NIDDM/Polyneuropathy (E11.42), Hammertoe Foot Deformity (M20.41,M20.42), Preulcerative Skin Lesion(s) (L85.1 11/12/2024 Active rOPINIRole HCl 0.25 MG 1 tablet [...] Problem Status W/U Status Risk Notes Problem Acquired hammer toe of right foot (7934063265260 105) Other hammer toe(s) (acquired), right foot (M20.41) Active confirmed Problem Acquired hammer toe of left foot (4088001328221 103) Other hammer toe(s) (acquired), left foot (M20.42) Active confirmed Vital Signs Height 5ft 8 inch in 11/12/2024 Weight 220 lbs 11/12/2024 BMI 33.45 kg/m2 11/12/2024 Blood pressure systolic 130 mm Hg 11/13/19 25 Blood pressure diastolic 70 mm Hg 025 Procedures Procedure Date Ordered Date Performed Result Body Sit e 65970-PVIUHDN NAIL, 6 OR MORE 11/12/2024 N/A 28910-ZCYK SKIN LESIONS, 2 TO 4 11/12/2024 N/A Encounters Encounter Location Date Provider Diagnosis [facility] [address] [place] [address] 11/12/2024 Loyda Putnam Other hammer toe(s) (acquired), right foot M20.41 ; Other hammer toe(s) (acquired), left foot M20.42 ; Type 2 diabetes mellitus with diabetic polyneuropathy E11.42 ; Tinea unguium B35.1 and Tinea pedis of both feet B35.3 Assessments Encounter Date Diagnosis (ICD Code) Assessment Notes Treatment Notes Treatment Clinical Notes Section Notes 11/12/2024 Other hammer toe(s) (acquired), right foot (ICD-10 - M20.41) Patient Educated with: DIABETIC FOOT CARE INSTRUCTIONS. pdf (DIABETIC FOOT CARE INSTRUCTIONS. pdf) 11/12/2024 Other hammer toe(s) (acquired), left foot (ICD-10 - M20.42) 11/12/2024 Type 2 diabetes mellitus with diabetic polyneuropathy (ICD-10 - E11.42) 11/12/2024 Tinea unguium (ICD-10 - B35.1) 11/12/2024 Tinea pedis of both feet (ICD-10 - B35.3) Plan Of Treatment Medication Medication Name Sig Start Date Stop Date Notes Extra Depth Orthopedic Shoes (1 Pair) with Customized Heat Molded Multidensity Innersoles (3 Pair) as directed Dx: NIDDM/Polyneuropathy (E11.42), Hammertoe Foot Deformity (M20.41,M20.42), Preulcerative Skin Lesion(s) (L85.1 11/12/2024 Treatment Notes Assessment Notes Other hammer toe(s) (acquired), right fo ot Patient Educated with: DIABETIC FOOT CARE INSTRUCTIONS.pdf (DIABETIC FOOT CARE INSTRUCTIONS.pdf) Pending Test Test Name Order Date [id number]-[id number] NAIL, 6 OR MORE 11/12/2024 00348-RHOK SKIN LESIONS, 2 TO 4 11/13/19 25 Next Appt Details Follow Up: 3 Months, Reason: Provider Name:Loyda mackay, 02/12/2025 10:00:00 AM, [address] [place] [address], [id number], Procedure Notes * Category Sub-Category Detail Notes Debride Nail 6-10 Nail debridement Due to the cl inical pathology outlined in the exam findings, performance of this nail treatment is medically necessary as its management by an unskilled/untrained nonprofessional would put this patients foot and overall health at risk. Therefore, debridement to affected nail(s), as described in exam ( TA, T1, T2, T3, T4, T5, T6, T7, T8, T9, ), was performed exclusively by the physician of record to reduce/remove overall nail length, girth, thickness, subungual debris, and necrotic tissue, by manual and/or electrical means through the use of a nail nipper and/or dremel-type slab grinder, to a more viable healthy nail [...] to maintain effectiveness in symptomatic relief - 09587 Keratoma Treatment Parring or Cutting o f Benign Hyperkeratotic Lesion(s) (-57) More than 4 Lesions - Due to the at risk nature of the patients medical condition as documented in the exam findings, performance of this keratoderma treatment is medically necessary as its management by an unskilled/untrained nonprofessional would put this patients foot and overall health at risk. Therefore, the benign hyperkeratotic lesions, (4) in total, locations as stated and described in the exam ( sub 1st metatarsal head B/L, plantar heels B/L ), were pared, and/or cut utilizing a sterile 15 blade, tissue nippers, and/or power dremel instrumentation by the physician of record - 86259 Progress Notes * Russell BARBER SDOB: [birth year] (54 yo M)Acc No.[id number]:11/12/2024 Progress Note Patient:?Russell BARBER S Provider:?Loyda Putnam DPM :1970???Age:54 Y???Sex:Male Willie e:11/12/2024 Address:[address] [place] [address] [address], [facility] Pcp:Tali Dyer Subjective: * Chief Complaints: * ???Toe IrritationAt risk puja tcareSkin problems * HPI: ???At Risk footcare:?Pt States Last PCP Visit:?Date?09/01/2024 ???Toe pain:?Location:?B/L feet.?Duration:?several years.?Course:?worse.?Aggravated by:?shoes, any pressure.?Treatments:?change in shoes.?Skin problems:?Nature:?scaling , redness.?Course:?improved.?Treatments:?Topical OTC antifungal cream did not relieve condition, Medication (Ciclopirox Olamine 0.77 Cream).? * ROS:?General/Constitutional:?Nausea?denies.?Vomiting?denies.?Hunger Thirst?denies.?Loss appetite?denies.?Chills?denies.?Fatigue?denies.?Fever?denies.?Night Sweats?denies.?Unexplained weight loss?denies.?Unexplained weight gain?denies.?HEENTM:?Dentures?denies.?Dizziness?admits.?Glasses/contacts?admits.?Retinopathy?adm its.?Blurred/double vision?denies.?TMJ?denies.?Discharge/drainage?denies.?Implants?denies.?Sore throat?denies.?Dental implants?denies.?Hard of hearing ?denies.?Difficulty chewing/swallowing/speaking?denies.?Nose bleeds?denies.?Sore mouth?denies.?Respiratory:?On O xygen?denies.?Pneumonia/pleurisy?denies.?Bronchitis?denies.?Emphysema?denies.?Co ughing?denies.?Cough blood?denies.?Shortness of breath?denies.?Wheezing?denies.?Cardiovascular:?Pacemaker?denies.?MVP?denies.?WPW?denies.?CHF?denies.?Heart attack?admits.?Septal defect?denies.?Rapid beat?denies.?Chest pain ?denies.?Atrial Fib.?denies.?Murmur/Palpitations?denies.?Gastrointestinal:?Hemorrhoids?denies.?Stomach/Abdominal pain?denies.?Dark blood stool?denies.?Irritable bowel ?denies.?Constipation?denies.?Diarrhea?denies.?Hematology:?Swelling?denies.?Clots?denies.?Varicose Veins?denies.?Bruising?denies.?Bleeding problem?denies.?Genitourinary:?Blood urine?denies.?Frequent/Painfu/urination/bladder control?denies.?Kidney stones?denies.?Infection (UTI)?denies.?Nephropathy?admits.?sex trans dis (STD)?denies.?Prostate?denies.?Musculoskeletal:?Hammertoes?denies.?Bunions?denies.?Back Pain?denies.?Muscle Cramps/ Resting?denies.?Muscle cramps / walking?denies.?Generalized aches and pains?denies.?Weakness?denies.?Integ.:?Adair?denies.?Scars?denies.?Corns/calluses?denies.?Ingrown nails?denies.?Painful nails?denies.?Open Sores?denies.?Rashes?denies.?Neurologic:?Difficulty sleeping?denies.?Brain disorder?denies.?Numbness?denies.?Balance t rouble?denies.?Confusion?denies.?Fainting/blackouts?denies.?Tingling?denies.?Luis mors?denies.? * Medical History:? * Surgical History:?Denies Pas t Surgical History * Hospitalization/Major Diagno stic Procedure:?Denies Past Hospitalization * Family History:?Mother: aliambrocio e, Kidney/Liver disease, foot problems, diagnosed with [...] Sprinkle 1 capsule Orally Once a day Ciclopirox Olamine 0.77 % Cream 1 application Externally Twice a day to skin of feet including between the toes Medication List reviewed and reconciled with the [...] Sprinkle 1 capsule Orally Once a day Taking Ciclopirox Olamine 0.77 % Cream 1 application Externally Twice a day to skin of feet including between the toes Medication List reviewed and reconciled with the patient * Allergies:?Penicillin: Marianna arroyo[Allergies Verified] Objective: * Vitals:?Ht:5ft 8 inch, Wt:22 0, BMI:33.45, Shoe size:10.5W, BP:130/70mm Hg, BS:102, Ht-cm: 172.72 cm, Wt-k.79 kg. * ???Past Orders: ???Lab:HEMOGLOBIN A1C (GLYCO HEMOGLOBIN) (Order Date - 09/01/2024) (Collection Date & Time - 11/12/2024 01:45 PM) ? Value Reference Range ?HEMOGLOBIN A1C % (HH) 7.5 * Examination: ???Ophthalmology Referral: ?DIABETES EYE EXAM?Procedure Performed:?Yes ?Date of Exam Performed?09/01/2024 ?Diabetic Retinopathy Screening:?Yes ?Findings of Diabetic Eye Exam:?no retinopathy?Orthopedic: ?MUSCLE STRENGTH:?5/5 all groups in a symmetrical fashion, B/L.?DIGITAL DEFORMITIES:?Digital contracture, PIPJ, 2-5 B/L, incompl-reducible to push-up test, no over, nor underlapping,?there is?evidence of shoe producing skin irritation.?FOOTWEAR EVALUATION:?worn, non-supportive, shoe gear properties exacerbate patient's foot/toe deformity.?General Examination: ?GENERAL APPEARANCE:?Reveals a pleasant, alert, well nourished, well- developed, well hydrated individual, who demonstrates proper attention to hygiene/body habitus, and is in no acute distress, Pt serves as own historian for office visit today.?ORIENTED:?person, place, and time?.?FOOT EXAM:?Lower Extremity Neurological Exam performed:?Yes Date 11/12/24 ?Visual exam of foot performed:?Yes ?Date?11/12/2024 ?Sensory testing performed:?sensations diminished ?Sensory and motor testing performed:?strength normal ?Pedal pulse taking performed:?2+ ?Footwear Evaluation?Footwear Evaluation performed:?Yes?Dermatologic: ?SKIN FINDINGS:?Skin no longer shows sign(s) of, erythema, scaling, in a [...] to no pain on palpation due to neuropathy,?, TA, T1, T2, T3, T4, T5, T6, T7, T8, T9.?Vascular: ?DP PULSES (B):?3/4, B/L.?PT PULSES (B):?3/4, B/L.?CAPILLARY FILL TIME:?immediate, all digits, B/L.?TROPHIC CONDITION-TEXTURE/ELASTICITY/TURGOR/HAIR GROWTH (B):?normal, B/L.?TEMPERTURE GRADIENT (C):?warm to cool, proximal to distal, B/L.?PIGMENTATION:?normal, B/L.?EDEMA (C):?absent, B/L.? Assessment: * Assessment: 1.?Other hammer toe(s) (acqu ired), right foot - M20.41 (Primary)???Specify :Chronic problem, Worse (4),Rx Management (4)???2.?Other hammer toe(s) (acquired), left foot - M20.42???Specify :Chronic problem, Worse (4),Rx Management (4)???3.?Type 2 diabetes mellitus with diabetic polyneuropathy - E11.42???4.?Tinea unguium - B35.1???5.?Tinea pedis of both feet - B35.3???Specify :Response to treatment - Improvement??? Plan: * Treatment: 2.?Type 2 diabetes mellitus with diabetic polyneuropathy?Procedure: 20315-TWRAXFO NAIL, 6 OR MORE ?Procedure: 10368-BLCU SKIN LESIONS, 2 TO 4 * Procedures:?Debride Nail 6-10:?Nail debridement?Due to the clinical pathology outlined in the exam findings, performance of this nail treatment is medically necessary as its management by an unskilled/untrained nonprofessional would put this patients foot and overall health at risk. Therefore, debridement to affected nail(s), as described in exam ( TA, T1, T2, T3, T4, T5, T6, T7, T8, T9, ), was performed exclusively by the physician of record to reduce/remove overall nail length, girth, thickness, subungual debris, and necrotic tissue, by manual and/or electrical means through the use of a nail nipper and/or dremel-type slab grinder, to a more viable healthy nail plate or bed tissue 6- 10 nails in total. Silver nitrate was used for any petechial bleeding as necessary. Definitive antifungal treatment options, both pharmaceutical and surgical, have been reviewed and discussed with the patient. The patient solely prefers the use of intermittent/as needed professional debridement services for their nail condition and understands the need for additional periodic treatments to maintain effectiveness in symptomatic relief - 22312.?Keratoma Treatment:?Parring or Cutting of Benign Hyperkeratotic Lesion(s)?(-57) More than 4 Lesions - Due to the at risk nature of the patients medical condition as documented in the exam findings, performance of this keratoderma treatment is medically necessary as its management by an unskilled/untrained nonprofessional would put this patients foot and overall health at risk. Therefore, the benign hyperkeratotic lesions, (4) in total, locations as stated and described in the exam ( sub 1st metatarsal head B/L, plantar heels B/L ), were pared, and/or cut utilizing a sterile 15 blade, tissue nippers, and/or power dremel instrumentation by the physician of record - 65254.? * Procedure Codes:?19940 TRIM SKIN LESIONS, 2 TO 4, Modifiers: XS 38295 DEBRIDE NAIL, 6 OR MORE, Modifiers: XS 3051F HG A1C>EQUAL 7.0%<8.0% * Preventive Medicine:? ??Counseling:?Discussion:?-14: Office or other outpatient visit for the evaluation and management of an established patient, which required a medically appropriate history and/or examination and MODERATE level of DECISION MAKING for: 1 OR MORE CHRONIC PROBLEM(S) THATS WORSENING, 2 STABLE CHRONIC PROBLEMS, A NEWLY DIAGNOSED PROBLEM WITH UNCERTAIN PROGNOSIS, AN ACUTE COMPLICATED INJURY WITH MULTIPLE TREATMENT OPTIONS, OR AN ACUTE PROBLEM WITH ACCOMPANYING SYSTEMIC SYMPTOMS, THAT POSE(S) A MODERATE RISK OF MORBIDITY. THIS CONDITION MAY ALSO INCLUDE RX DRUG MANAGEMENT, OR A DECISON FOR MINOR SURGERY. The visit on the day of the [...] have encouraged the patient to call the office.?Digital Surgery:?Digital surgery was discussed with the patient, We elected to try conservative treatment at the present time, due to the patients medical history and increased asssociated post-operative risks.?Digital Treatment:?HT- I explained to the patient the possible etiologies of Hammertoes, including genetics/foot type/shoegear/activity level/exercise routine and the risks/benefits of all the different treatment options for their pain including: No treatment at all, Rest, Ice, New/supportive/wider/deeper Shoegear, Digital Padding/Strapping/Taping/Bracing/Gel protective sleeves, Foot/Ankle AFO Bracing, Stretching exercises, Deep Tissue Massage, Arch support/shoe inserts with splay metatarsal padding, and Custom orthoses. I insisted that any digital devices be removed daily and not worn overnight for safety. The patient is to carefully examine the toes daily for any skin irritation while using any splinting or padding device. The advantages and disadvantages of each option were discussed and the patients questions re: shoegear, padding, custom vs prefabricated inserts, activity level, and consistency in home treatment regimens for optimal success were answered to their verbally confirmed satisfaction.?Shoe Gear Counseling:?SHOE Rx - The patient was counseled in great detail on their muscoloskeletal foot and toe deformities which coincided with the dermatological presentations visualized on exam. We discussed how their deformities put the integrity of their feet at risk for potential pedal complications which makes the accomidative diabetic shoes and cutomizable inserts medically necessary. We discussed the different shoe and insert treatment types and options, as well as the important advantages for adhering to regularly wearing these accomidative devices daily. The patient was made aware of the fact that a failure to abide by these recommedations may be deleterious to their foot health as they are able to prevent many pedal complications such as skin irritation, skin ulceration, infection, and even loss of toe/foot/leg/or life. Time was also spent with the patient dispensing and discussing proper diabetic footcare techniques including daily skin moisturization, daily foot inspection for any interruption in skin integrity including open lesions, or sign of infection such as redness/malodor/drainage/swelling. Also discussed and recommended were procedures regarding daily shoe inspection for the presence of internal foreign bodies as well as any visualized irregular shoe or insert wear. Patient questions re: shoes, inserts, and self foot inspections were answered to their satisfaction as the patient verbally confirmed a full understanding of the above information. A Rx for Extra Depth Orthopedic Shoes with 3 pair of custom heat-molded inserts was dispensed.?Tinea Pedis:?Given recent successful results to treatment, The patient is to cont the rx cream as directed.? ??Screening/Special Tests:?Fall Risk?Screening:?No falls in the past year ?FALLS: Screening for Future Fall Risk?Have you had any falls with injury in the past year??No * Follow Up:?3 Months * Images: * Sign off status: Completed true * Provider:?Loyda Putnam DPM Date:?0 11/12/2024 Generated for Rah hood/Chano/Demetrioitting on:?12/11/2024 08:56 AM EDT History and Physical Notes * HPI (History of Present Illness) Category Sub-Category Detail Notes Category Not es Toe pain Location: B/L feet Duration: several years Course: worse Aggravated by: shoes, any pressure Treatments: change in shoes Skin problems Nature: scaling , redness Course: improved Treatments: Topical OTC antifung al cream did not relieve condition, Medication (Ciclopirox Olamine 0.77 Cream) At Risk footcare Pt States Last PCP Visit: Date: Examination Category Sub-Category Detail Notes Category Not es Neurological SENSORY: Neurological exa m demonstrates, reduced light touch sensation, reduced sharp/dull pin prick discrimination , B/L, 5.07 monofilament test performed at plantar aspects of 5 varied sites per foot shows sensation, reduced , B/L DEEP TENDON REFLEXES: Achilles, 2/4, B/L Dermatologic SKIN FINDINGS: Skin no longer s hows sign(s) of, erythema, scaling, in a moccasin fashion, no fissure(s) present, B/L , Skin exam reveals Keratotic lesion(s) located at medial aspect of first metatarsal head, B/L, Plantar heels B/L Orthopedic FOOTWEAR EVALUATION: worn, non-s upportive, shoe gear properties exacerbate patient's foot/toe deformity DIGITAL DEFORMITIES: Digital contracture , PIPJ, 2-5 B/L, incompl-reducible to push-up test, no over, nor underlapping, there is evidence of shoe producing skin irritation MUSCLE STRENGTH: 5/5 all groups in a symmetrical fashion, B/L General Examination GENERAL APPEARANCE: Reveals a pleasant, alert, well nourished, well-developed, well hydrated individual, who demonstrates proper attention to hygiene/body habitus, and is in no acute distress, Pt serves as own historian for office visit today FOOT EXAM: Lower Extremity Neurological Exa m performed:: Yes Date 11/12/24 Visual exam of foot performed:: Yes Date: 11/12/2024 Sensory testing performed:: sensations d iminished Sensory and motor testing performed:: st renh normal Pedal pulse taking performed:: 2+ ORIENTED: person, place, and t tree Footwear Evaluation Footwear Evaluation performe d:: Yes Ophthalmology Referral DIABETES EYE EXAM Procedure Perform ed:: Yes ?Date of Exam Performed: 09/01/2024 Diabetic Retinopathy Screening:: Yes Findings of Diabetic Eye Exam:: no retin [...] no pain on palpation due to neuropathy, , TA, T1, T2, T3, T4, T5, T6, T7, T8, T9
--- OUTSIDE RECORDS SUMMARY | 2024-12-11 08:56 | XMS_ITS | Patient Health Record ---
[facility] Organization [facility] Address [address] [facility] [place] [address] Care Team Providers Care Cold Saw Operator Name Role Phone Tali Dyer Primary Care Provider Loyda Pickens Unavailable [phone] Allergies Allergen (clinical drug ingredient) Drug/Non Drug Allergy documented on EMR Reaction Allergy Type Onset Date Status Penicillin Unknown Drug Allergy Active Results Component Value Reference Range Notes HEMOGLOBIN A1C (GLYCOHEMOGLO BIN) Reviewed date:11/12/2024 01:46:35 PM Interpretation: Performing Lab: Notes/Report: HEMOGLOBIN A1C % (HH) 7.5 Reason For Referral No Information Medications Medication SIG (Take, Route, Frequency, Duration) Notes Start Date End Date Status Atorvastatin Calcium 40 MG 1 tablet Orally Once a day Active Pantoprazole Sodium 40 MG 1 packet 1/2 t o 1 hour before morning meal mixed with apple juice or applesauce Orally Once a day Active Hydroxyurea 500 MG 1 capsule Orally Onc e a day Active Butalbital-Acetaminophen 50-325 MG 1 tablet as needed Orally every 4 hrs PRN Active Fluticasone Propionate (Inhal) PRN Active Extra Depth Orthopedic Shoes (1 Pair) with Customized Heat Molded Multidensity Innersoles (3 Pair) as directed Dx: NIDDM/Polyneuropathy (E11.42), Hammertoe Foot Deformity (M20.41,M20.42), Preulcerative Skin Lesion(s) (L85.1 11/12/2024 Active DULoxetine HCl 30 MG 1 capsule Orally On ce a day Active Aspirin 81 81 MG 1 tablet Orally Once a day Active Levothyroxine Sodium 125 MCG 1 tablet in the morning on an empty stomach Orally Once a day Active amLODIPine Besylate 10 MG 1 tablet Orally Once a day Active rOPINIRole HCl 0.25 MG 1 tablet 1 to 3 h ours before bedtime Orally Once a day Active Ciclopirox Olamine 0.77 % 1 application Externally Twice a day to skin of feet including between the toes for 30 days Active Metoprolol Succinate 50 MG 1 capsule Ora lly Once a day Active Social History Tobacco [...] Problem Acquired hammer toe of right foot (4410666175052776 ) Other hammer toe(s) (acquired), right foot (M20.41) Active confirmed Problem Acquired hammer toe of left foot (6587961940943849 ) Other hammer toe(s) (acquired), left foot (M20.42) Active confirmed Problem Polyneuropathy due to type 2 diabetes mellitus (716808886) Type 2 diabetes mellitus with diabetic polyneuropathy (E11.42) Active confirmed Vital Signs Blood pressure diastolic 70 mm Hg 11/12/2024 Height 5ft 8 inch in 11/12/2024 Blood pressure systolic 130 mm Hg 11/12/2024 Weight 220 lbs 11/12/2024 BMI 33.45 kg/m2 11/12/2024 Procedures Procedure Date Ordered Date Performed Result Body Sit e 94279-[id number] NAIL, 6 OR MORE 07/03/2024 N/A 35967-PRFB SKIN LESIONS, 2 TO 4 07/03/2024 N/A 17696-YAVNEMN NAIL, 6 OR MORE 11/12/2024 N/A 64154-AHWI SKIN LESIONS, 2 TO 4 11/12/2024 N/A Encounters Encounter Location Date Provider Diagnosis [facility] [place] [address] [place] [address] 07/03/2024 Loyda Putnam Tinea pedis of both feet B35.3 ; Type 2 diabetes mellitus with diabetic polyneuropathy E11.42 and Tinea unguium B35.1 [facility] [place] [address] [place] [address] 11/12/2024 Loyda Putnam Other hammer toe(s) (acquired), right foot M20.41 ; Other hammer toe(s) (acquired), left foot M20.42 ; Type 2 diabetes mellitus with diabetic polyneuropathy E11.42 ; Tinea unguium B35.1 and Tinea pedis of both feet B35.3 Assessments Encounter Date Diagnosis (ICD Code) Assessment Notes Treatment Notes Treatment Clinical Notes Section Notes 07/03/2024 Tinea pedis of both feet (ICD-10 - B35.3) 11/12/2024 Other hammer toe(s) (acquired), right foot (ICD-10 - M20.41) Patient Educated with: DIABETIC FOOT CARE INSTRUCTIONS. pdf (DIABETIC FOOT CARE INSTRUCTIONS. pdf) 11/12/2024 Other hammer toe(s) (acquired), left foot (ICD-10 - M20.42) 11/12/2024 Type 2 diabetes mellitus with diabetic polyneuropathy (ICD-10 - E11.42) 07/03/2024 Type 2 diabetes mellitus with diabetic polyneuropathy (ICD-10 - E11.42) 07/03/2024 Tinea unguium (ICD-10 - B35.1) 11/12/2024 Tinea unguium (ICD-10 - B35.1) 11/12/2024 Tinea pedis of both feet (ICD-10 - B35.3) Plan Of Treatment Pending Test Test Name Order Date [id number] NAIL, 6 OR MORE 07/03/2024 93029-[id number] NAIL, 6 OR MORE 11/12/2024 93335-VYSS SKIN LESIONS, 2 TO 4 07/03/20 24 27217-ERQX SKIN LESIONS, 2 TO 4 11/13/19 25 Next Appt Details Provider Name:Loyda Albrecht thompson, 02/12/2025 10:00:00 AM, [address] [place], [address], Insurance Providers Payer Name Payer Address Payer Phone Subscriber Number Group Number Insured Name Patient Relationship to Insured Coverage Start Date Coverage End Date Medicare National Govt Svcs Inc [address] [place] [address] [id number] Russell Barber Self - patient is the insured 3 Medical (General) History Medical History History ICD Code asthma Back,Hip,and Knee pain Cataracts Depression Diabetic Headaches/Migraines High Blood Pressure thyroid Neuropathy Heart attack Carpal tunnel Trigger finger
== END 2024-12-11 09:13 | disposition home or self-care (01) ==
LOC: HO.HMCH 08:35
PROVIDERS: PCP Internal Medicine; Visit Provider Internal Medicine
DX: E10.9 Type 1 diabetes mellitus without complications (principal); I25.10 Atherosclerotic heart disease of native coronary artery without angina pectoris; D75.1 Secondary polycythemia; K21.9 Gastro-esophageal reflux disease without esophagitis; E78.00 Pure hypercholesterolemia, unspecified; E03.9 Hypothyroidism, unspecified; I10 Essential (primary) hypertension; J45.20 Mild intermittent asthma, uncomplicated; R79.89 Other specified abnormal findings of blood chemistry; F33.9 Major depressive disorder, recurrent, unspecified; Z13.9 Encounter for screening, unspecified

== ENCOUNTER → 2024-12-11 08:34 | Outpatient (BNVA) | payer MEDICARE, MEDICAID, SELFPAY ==
[2023-04-20 15:31] VITALS: BP 134/66; BP 140/58; BMI 32.5
== END ==
PROVIDERS: PCP Internal Medicine; Visit Provider Internal Medicine
DX: E10.9 Type 1 diabetes mellitus without complications (principal); I25.10 Atherosclerotic heart disease of native coronary artery without angina pectoris; D75.1 Secondary polycythemia; K21.9 Gastro-esophageal reflux disease without esophagitis; E78.00 Pure hypercholesterolemia, unspecified; E03.9 Hypothyroidism, unspecified; I10 Essential (primary) hypertension; J45.20 Mild intermittent asthma, uncomplicated; R79.89 Other specified abnormal findings of blood chemistry; F33.9 Major depressive disorder, recurrent, unspecified
CPT/HCPCS: 83036; 99212

== ENCOUNTER 2025-01-27 09:37 | Outpatient (REF) | payer MEDICARE, MEDICAID, SELFPAY ==
[2023-04-20 15:31] VITALS: BP 134/66; BP 140/58; BMI 32.5
--- OUTSIDE RECORDS SUMMARY | 2024-05-09 07:50 | XMS_ITS ---
Author Organization [facility] Address [address] [place] [id number] Care Team Providers Care Computer Aided Design Operator Name Role Phone Tali Dyer MD Primary Care Provider Gabino Vera Jr REASON FOR VISIT screening Encounters Encounter Location Date Provider Diagnosis [facility] [place] [address] [place] [phone] 05/09/2024 Gabino Meade Jr Colon cancer screening Z12.11 Assessments Encounter Date Diagnosis (ICD Code) Assessment Notes Treatment Notes Treatment Clinical Notes Section Notes 05/09/2024 Colon cancer screening (ICD-10 - Z12.11) Plan Of Treatment No Information Progress Notes * VANNESSA MCKEONDOB:1970 (54 yo M)Acc No.[id number]:05/09/2024 COLON WITH MAC Patient: VANNESSA GUAN Provider: Dionne Meade MD :1970 A ge:54 Y S ex:Male Date:05/09/2024 Address:[address] [place], [place] [phone] Pcp:Tali Dyer MD Subjective: * Chief Complaints: [...] 1 Generated for Rah hood/Chano/Won on: 0 01/27/2025 10:24 AM EDT
--- NOTE | ~2025-01-27 | US_ITS ---
CLINICAL HISTORY: R79.89 - Other specified abnormal findings of blood chemistry US abdomen complete Comparison: None provided Findings: The visualized pancreas is normal. The aorta and inferior vena cava are normal caliber. Hepatic steatosis. There is no intrahepatic bile duct dilatation. The common duct is 5 mm in diameter. The gallbladder is normal. There is no sonographic Duffy sign. The main portal vein is antegrade. The right kidney is 10.3 cm in length. The left kidney is 11.3 cm in length. The spleen is normal. No ascites. IMPRESSION: No acute findings. Hepatic steatosis. This document has been electronically signed by: Katina Louie MD on 01/28/2025 20:21:29
--- OUTSIDE RECORDS SUMMARY | 2025-01-27 10:24 | XMS_ITS | Clinical Summary ---
Author Organization [employer] Address [address] [facility] [address] [place] [address] Care Team Providers Care Signals Intelligence Analyst Name Role Phone Unavailable Primary Care Provider Unavailabl e Allergies Active Allergy Reactions Criticality Noted Date Comments Gabapentin 07/11/2022 Hydroxyzine Unknown 07/11/2022 Lamotrigine 10/26/2017 Lisinopril 10/26/2017 Other reaction(s): cough Peanut-Containing Drug Products 09/26/2018 Other reaction(s): throat swells, hives Other reaction(s): N/V, hives Penicillins 10/26/2017 Other reaction(s): ? hives Soy Allergy (Obsolete) Swelling 07/11/2022 Soybean-Containing Drug Products 08/08/2023 Other reaction(s): throat swelling [place] Oil 08/08/2023 Other reaction(s): N/V, hives Medications [...] 2 Active butalbital-acet aminophen-caffe ine-codeine (Fioricet w/Codeine) 75-526-20-30 MG capsule Take by mouth daily. 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 Treatment history - Started on insulin pump 2005, CGM October 2018 Diabetes mellitus type 1 06/06/2017 Overview (12/18/2024): DIABETES HISTORY Diagnosis - type 1 diabetes, dx age 13. 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 (CMS/HCC) (Primary Dx); Pseudophakia of left eye; History of enucleation of eye; Presbyopia of both eyes 12/18/2024 9:20 AM EDT Office Visit [facility] D[facility] [address] [place] [address] JuliusKellie roberson Stage 2 grade B generalized periodontitis per AAP/EFP 2017 classification (Primary Dx); Dental calculus; Encounter for dental examination 12/03/2024 7:30 AM EDT Office Visit [facility] [address] [place] [address] John Hung Jr., DMD from Last 3 Months Family History Medical History Relation Name Comments Glaucoma Maternal Grandmother Macular degeneration Maternal Grandmother Relation Name Status Comments Maternal Grandmother Social History Tobacco Use Types Packs/Day Years Used Date Smoking Tobacco: Former Cigarettes Smokeless Tobacco: Never Tobacco Cessation:Counseling Given: Not Answered Alcohol Use Standard Drinks/Week Comments Never 0 (1 standard drink = 0.6 oz pur e alcohol) Comments Unknown Sex and Gender Information Value Date Recorded Sex Assigned at Choose not to disclose 09/2023 9:20 AM EST Legal Sex Male 5:35 PM EDT Gender Identity Choose not to disclose 9:20 AM EST Sexual Orientation Choose not to disclose 2023 9:20 AM EST Last Filed Vital Signs Vital Sign Reading Time Taken Comments Blood Pressure 140/72 12/18/2024 10:43 AM EDT Pulse - - Temperature 36.1 C (97 F) 12/18/2024 10:43 AM EDT Respiratory Rate - - Oxygen Saturation - - Inhaled Oxygen Concentration - - Weight - - Height - - Body Mass Index - - Plan of Treatment Upcoming Encounters Date Type Department Care Team (Late st Contact Info) Description 12/23/2025 8:30 AM EDT Office Visit [facility] [address] [place] [address] Catherine Parisi, OD [address] [place] [address] Health Maintenance Due Date Last Done Comments CT Colonography 1971 Colonoscopy 1971 Colorectal Cancer Screening 1971 Depression Screening 1971 FIT DNA/Cologuard 1971 FIT 1971 FOBT 1971 HIV Screening 1971 Lipid Panel 1971 SDOH Screening 1971 Sigmoidoscopy 1971 Disability Screening 1971 Diabetes: Foot Exam 1981 Alcohol/Substance Use Screening 1983 Hepatitis C Screening 1989 Diabetes: Urine Protein Screening 1990 Hepatitis B Vaccines (1 of 3 - 19+ 3-dose series) 1990 Pneumococcal Vaccine: 50+ Years (1 of 2 - PCV) 1990 Zoster Vaccines (1 of 2) 2021 Diabetes: Hemoglobin A1C 04/30/2021 01/28/2021, 09/28 COVID-19 Vaccine ( - season) 2024 Influenza Vaccine (Season Ended) 2025 Dental Oral Exam 06/21/2025 12/18/2024, 09/2023, 10/07/2018 Dental Prophylaxis 06/21/2025 12/18/2024, 10/31/2023 Eye Exam 12/18/2025 12/18/2024, 11/28, 12/18/2024, Additional history exists Tobacco Screening 12/18/2025 12/18/2024 Dental X-Ray: Bitewings 12/19/2025 12/19/19, 10/31/2023, 10/07/2018 Dental X-Ray: Full Mouth 10/31/2026 10/31/2023, 09/27 DTaP/Tdap/Td Vaccines (2 - Td or Tdap) 01/17/2027 01/17/2017 RSV Patients and [...] PRESENTATION, DETAILED AND EXTENSIVE TREATMENT PLANNING Routine 12/18/2024 9:20 AM EDT ORAL HYGIENE INSTRUCTIONS Routine 12/18/2024 9:20 AM EDT BITEWINGS - 4 RADIOGRAPHIC IMAGES Routine 12/18/2024 9:20 AM EDT Full PROPHYLAXIS - ADULT Routine 12/18/2024 9:20 AM EDT PERIODIC ORAL EVALUATION - ESTABLISHED PATIENT Routine 12/18/2024 9:20 AM EDT FUNDUS PHOTOS - OS - LEFT EYE Routine 12/18/2024 Type 1 diabetes mellitus with stable proliferative retinopathy of left eye ([facility]) CASE PRESENTATION, DETAILED AND EXTENSIVE TREATMENT PLANNING Routine 12/03/2024 7:30 AM EDT 13 MOB RESIN-BASED COMPOSITE - 3 SURF, POSTERIOR Routine 12/03/2024 7:30 AM EDT INTRAORAL - COMPLETE SERIES OF RADIOGRAPHIC IMAGES Routine 10/31/2023 9:20 AM EDT from Last 3 Months or Most Recently Relevant to Health Maintenance Results * Fundus Photos - OS - Left Eye (12/18/2024) Impressions Catherine Parisi, OD - 12/18/2024 Left eye (OS): Involutional retinopathy Catherine Parisi OD OPHTH PHOTOGRAPHY Final Result from Last 3 Months Insurance DENTAL-[facility] MEDICAID STAND ADULT DENTAL - [facility] FULL (MEDICAID) [facility] MEDICARE
--- OUTSIDE RECORDS SUMMARY | 2025-01-27 10:24 | XMS_ITS | Clinical Summary ---
Author Organization [address] [facility] Address [address] [facility] [address] [place] [address] Phone Care Team Providers Care Complementary Health Therapists Name Role Phone Physician, No Pcp Primary [...] Hypertension Disease of thyroid gland Diabetes mellitus ([facility] V24, [facility] V28) Neuropathy Social History Tobacco Use [...] 72 03/06/2022 2:47 PM EDT Temperature 36.7 C (98 F) 03/06/2022 11:35 AM EDT Respiratory Rate 18 [...] Blood Test 03/06/2023 03/06/2022, 01/28/2021 COVID-19 Vaccine ( - season) 2024 Influenza Vaccine (#1) 2025 DTaP,Tdap,and Td Vaccines (2 - Td [...] LAB CHEMISTRY METHOD 03/06/2022 12:23 PM EDT [facility] Potassium 3.9 3.5 - 5.1 mmol/L LAB CHEMISTRY METHOD 03/06/2022 12:23 PM [facility] Chloride 104 98 - 107 mmol/L LAB CHEMISTRY METHOD 03/06/2022 12:23 PM [facility] CO2 28 21 - 32 mmol/L LAB CHEMISTRY METHOD 03/06/2022 12:23 PM [facility] Anion Gap 8 3 - 11 LAB CHEMISTRY METHOD 03/06/2022 12:23 PM [facility] Glucose 124(H) 70 - 99 mg/dL LAB CHEMISTRY METHOD 03/06/2022 12:23 PM [facility] BUN 17 7 - 18 mg/dL LAB CHEMISTRY METHOD 03/06/2022 12:23 PM [facility] Creatinine 1.35(H) 0.70 - 1.30 mg/dL LAB CHEMISTRY METHOD 03/06/2022 12:23 PM [facility] eGFR 61 >=60 mL/min/1. 73m2 LAB CHEMISTRY METHOD 03/06/2022 12:23 PM [facility] Comment: The MDRD GFR formula is valid only for adults between ages 18 and 70. BUN/Creatinine Ratio 12.6 12.0 - 20.0 LAB CHEMISTRY METHOD 03/06/2022 12:23 PM [facility] Calcium 7.5(L) 8.5 - 10.1 mg/dL LAB CHEMISTRY METHOD 03/06/2022 12:23 PM [facility] AST (SGOT) 23 15 - 37 unit/L LAB CHEMISTRY METHOD 03/06/2022 12:23 PM [facility] ALT (SGPT) 27 16 - 61 unit/L LAB CHEMISTRY METHOD 03/06/2022 12:23 PM [facility] Alkaline Phosphatase 90 unit/L LAB CHEMISTRY METHOD 03/06/2022 12:23 PM EDT [facility] Total Protein 7.1 6.4 - 8.2 g/dL LAB CHEMISTRY METHOD 03/06/2022 12:23 PM EDT [facility] Albumin 3.5 3.4 - 5.0 g/dL LAB CHEMISTRY METHOD 03/06/2022 12:23 PM EDT [facility] Total Bilirubin 0.6 0.2 - 1.2 mg/dL LAB CHEMISTRY METHOD 03/06/2022 12:23 PM EDT [facility] Blood Venous blood specimen / Unknown Venipuncture / Unknown 03/06/2022 11:54 AM EDT 03/06/2022 12:01 PM EDT us Kerry GARCIA LAB BLOOD ORDERABLES Final R esult [facility] [address] [place] [address] * (ABNORMAL) Hemoglobin A1c (01/28/2021 9:45 PM EDT) Hemoglobin A1C 8.8(H) <5.7 % LAB CHEMISTRY METHOD 01/29/2021 9:36 AM EDT [facility] Mean Bld Glu Estim. 206(H) <126 mg/dL LAB CHEMISTRY METHOD 01/29/2021 9:36 AM EDT [facility] Blood Topography not assigned / Unknown 01/28/2021 9:45 PM EDT 01/28/2021 9:45 PM EDT Narrative [facility] - 01/29/2021 9:36 AM EDT *Clinical Condition Normal <5.7% Prediabetes 5.7-6.5% Diabetes >/=6.5% NGSP: National Glycohemoglobin Standardization Program *2011 [place] Diabetes Association Note: These results were obtained by [employer] Variant II HbA1c Assay. The assay is IFCC standardized and NGSP certified. us Zeferino Richard MD LAB BLOOD ORDERABLES Final Resul t [facility] [address] [place] [address] from Last 3 Months or Most Recently Relevant to Health Maintenance Insurance MEDICARE [place]ICAID - [place] on file MEDICAID [facility] Care Teams Complementary Health Therapists Relationship Specialty Start Date End Date Physician, No Pcp PCP - General 01/28/21
--- OUTSIDE RECORDS SUMMARY | 2025-01-27 10:24 | XMS_ITS | Patient Health Record ---
Author [facility] Address [address] [place] [address] Care Team Providers Care Pastor Name Role Phone Tali Dyer Primary Care Provider Loyda Pickens Unavailable [phone] Allergies Allergen (clinical drug ingredient) Drug/Non Drug [...] to skin of feet including between the toes; Duration: 30 days Active Metoprolol Succinate 50 MG [...] Problem Acquired hammer toe of right foot (7863037634295114 ) Other hammer toe(s) (acquired), right foot (M20.41) Active confirmed Problem Acquired hammer toe of left foot (8869706889804193 ) Other hammer toe(s) (acquired), left foot (M20.42) Active confirmed Problem Polyneuropathy due to type 2 diabetes mellitus (529698090) Type 2 diabetes mellitus with diabetic polyneuropathy (E11.42) Active confirmed Vital Signs Blood pressure diastolic 70 mm Hg 11/12/2024 Height 5ft 8 inch in 11/12/2024 Blood pressure systolic 130 mm Hg 11/12/2024 Weight 220 lbs 11/12/2024 BMI 33.45 kg/m2 11/12/2024 Procedures Procedure Date Ordered Date Performed Result Body Sit e 41446-[id number] NAIL, 6 OR MORE 07/03/2024 N/A 56442-QBGU SKIN LESIONS, 2 TO 4 07/03/2024 N/A 70314-PMVVAPV NAIL, 6 OR MORE 11/12/2024 N/A 56964-PJQC SKIN LESIONS, 2 TO 4 11/12/2024 N/A Encounters Encounter Location Date Provider Diagnosis [facility] [address] [place] [address] 07/03/2024 Loyda Putnam Tinea pedis of both feet B35.3 ; Type 2 diabetes mellitus with diabetic polyneuropathy E11.42 and Tinea unguium B35.1 [facility] [address] [place] [address] 11/12/2024 Loyda Putnam Other hammer toe(s) (acquired), [...] Treatment Pending Test Test Name Order Date [id number] NAIL, 6 OR MORE 07/03/2024 58211-[id number] NAIL, 6 OR MORE 11/12/2024 06574-GJYP SKIN LESIONS, 2 TO 4 07/03/20 24 49464-DNKI SKIN LESIONS, 2 TO 4 11/13/19 25 Next Appt Details Provider Name:Loyda Albrecht thompson, 02/12/2025 10:00:00 AM, [address] [place] [address], [id number], Insurance Providers Payer Name Payer Address Payer Phone Subscriber Number Group Number Insured Name Patient Relationship to Insured Coverage Start Date Coverage End Date Medicare National Govt Svcs Inc [address] [place] [address] [id number] Russell Barber Self - patient is the insured 3 Medical (General) History Medical History History ICD Code asthma Back,Hip,and Knee pain Cataracts Depression Diabetic Headaches/Migraines High Blood Pressure thyroid Neuropathy Heart attack Carpal tunnel Trigger finger
[2025-01-27 11:20] LABS: Alanine Aminotransferase 49 U/L (0-40); Albumin Level 4.1 g/dL (3.5-5.0); Alkaline Phosphatase 107 U/L (39-117); Aspartate Amino Transferase 50 U/L (5-37); Total Protein 7.0 g/dL (6.5-8.0)
[2025-01-27 11:33] LABS: HBS Num1 0.00 mIU/mL (0-7.99); HBc Num1 0.07 S/CO (0.00-0.79); HBsAGNum1 0.71 S/CO (0.00-0.99); Hepatitis B Surface Antigen Negative (Negative); ~HepC Num1 0.12 S/CO (0.00-0.79); ~Hepatitis B Surface Antibody NONREACTIVE (Nonreactive); ~Hepatitis C Antibody Nonreactive (Nonreactive)
== END 2025-01-27 09:38 | disposition home or self-care (01) ==
LOC: HO.US 09:37
PROVIDERS: PCP Internal Medicine; Visit Provider Internal Medicine
DX: R79.89 Other specified abnormal findings of blood chemistry (principal)
CPT/HCPCS: 36415; 76700; 80076; 86704; 86706; 86803; 87340

== ENCOUNTER → 2025-01-27 09:49 | Outpatient (BNV) | payer MEDICARE, MEDICAID, SELFPAY ==
[2023-04-20 15:31] VITALS: BP 134/66; BP 140/58; BMI 32.5
== END ==
PROVIDERS: PCP Internal Medicine; Visit Provider Radiology Diagnostic Radiology
DX: K76.0 Fatty (change of) liver, not elsewhere classified (principal)
CPT/HCPCS: 76700

== ENCOUNTER 2025-02-19 08:00 | Outpatient (AMB) | payer MEDICARE, MEDICAID, SELFPAY ==
[2023-04-20 15:31] VITALS: BP 134/66; BP 140/58; BMI 32.5
--- OUTSIDE RECORDS SUMMARY | 2024-05-09 07:50 | XMS_ITS ---
Author Organization [facility] Address [address] [place] [id number] Care Team Providers Care Robotype Operator Name Role Phone Tali Dyer MD Primary Care Provider Gabino Vera Jr REASON FOR VISIT screening Encounters Encounter Location Date Provider Diagnosis [facility] Outpatient [address] [place] [id number] 05/09/2024 Gabino Meade Jr Colon cancer screening Z12.11 Assessments Encounter Date Diagnosis (ICD Code) Assessment Notes Treatment Notes Treatment Clinical Notes Section Notes 05/09/2024 Colon cancer screening (ICD-10 - Z12.11) Plan Of Treatment No Information Progress Notes * VANNESSA MCKEONDOB:1970 (54 yo M)Acc No.[id number]:05/09/2024 COLON WITH MAC Patient: VANNESSA GUAN Provider: Dionne Meaed MD :1970 A ge:54 Y S ex:Male Date:05/09/2024 Address:[address] [place], [place] [phone] Pcp:Tali Dyer MD Subjective: * Chief Complaints: [...] 1 Generated for Rah hood/Chano/Won on: 0 02/19/2025 08:03 AM EDT
--- OUTSIDE RECORDS SUMMARY | 2025-02-19 08:03 | XMS_ITS | Encounter Summary ---
Author Organization [employer] Address [address] [place] [address] Care Team Providers Care Circulating Process Inspector Name Role Phone Unavailable Primary Care Provider [...] Description 12/23/2025 8:30 AM EDT Office Visit [facility] [address] [place] [address] Catherine Parisi OD [address] [place] [address] documented as of this encounter Visit Diagnoses Not on filedocumented in this encounter
--- OUTSIDE RECORDS SUMMARY | 2025-02-19 08:03 | XMS_ITS | Clinical Summary ---
Author Organization [address] [facility] Address [address] [facility] [address] [place] [address] Phone Care Team Providers Care Critical Care Physician Assistant Name Role Phone Physician, No Pcp Primary [...] Hypertension Disease of thyroid gland Diabetes mellitus ([facility] V24, [facility] V28) Neuropathy Social History Tobacco Use Types [...] Panel) 01/28/2021 Colorectal Cancer Screening: Colonoscopy 01/28/2021 HIV Screening 01/28/2021 Hepatitis C Screening [...] 01/28/2021 COVID-19 Vaccine ( - season) 2024 Depression Screening 07/30/2024 Influenza Vaccine (#1) 2025 DTaP,Tdap,and Td Vaccines [...] LAB CHEMISTRY METHOD 03/06/2022 12:23 PM EDT [facility] Potassium 3.9 3.5 - 5.1 mmol/L LAB CHEMISTRY METHOD 03/06/2022 12:23 PM EDT [facility] Chloride 104 98 - 107 mmol/L LAB CHEMISTRY METHOD 03/06/2022 12:23 PM [facility] CO2 28 21 - 32 mmol/L LAB CHEMISTRY METHOD 03/06/2022 12:23 PM [facility] Anion Gap 8 3 - 11 LAB CHEMISTRY METHOD 03/06/2022 12:23 PM [facility] Glucose 124(H) 70 - 99 mg/dL LAB CHEMISTRY METHOD 03/06/2022 12:23 PM [facility] BUN 17 7 - 18 mg/dL LAB CHEMISTRY METHOD 03/06/2022 12:23 PM [facility] Creatinine 1.35(H) 0.70 - 1.30 mg/dL LAB CHEMISTRY METHOD 03/06/2022 12:23 PM [facility] eGFR 61 >=60 mL/min/1. 73m2 LAB CHEMISTRY METHOD 03/06/2022 12:23 PM [facility] Comment: The MDRD GFR formula is valid only for adults between ages 18 and 70. BUN/Creatinine Ratio 12.6 12.0 - 20.0 LAB CHEMISTRY METHOD 03/06/2022 12:23 PM [facility] Calcium 7.5(L) 8.5 - 10.1 mg/dL LAB CHEMISTRY METHOD 03/06/2022 12:23 PM [facility] AST (SGOT) 23 15 - 37 unit/L LAB CHEMISTRY METHOD 03/06/2022 12:23 PM [facility] ALT (SGPT) 27 16 - 61 unit/L LAB CHEMISTRY METHOD 03/06/2022 12:23 PM [facility] Alkaline Phosphatase 90 unit/L LAB CHEMISTRY METHOD 03/06/2022 12:23 PM [facility] Total Protein 7.1 6.4 - 8.2 g/dL LAB CHEMISTRY METHOD 03/06/2022 12:23 PM EDT [facility] Albumin 3.5 3.4 - 5.0 g/dL LAB CHEMISTRY METHOD 03/06/2022 12:23 PM EDT [facility] Total Bilirubin 0.6 0.2 - 1.2 mg/dL LAB CHEMISTRY METHOD 03/06/2022 12:23 PM EDT [facility] Blood Venous blood specimen / Unknown Venipuncture / Unknown 03/06/2022 11:54 AM EDT 03/06/2022 12:01 PM EDT us Kerry GARCIA LAB BLOOD ORDERABLES Final R esult Performing Organization Address City/State/[facility] Co de Phone Number [facility] [address] [place] [address] * (ABNORMAL) Hemoglobin A1c (01/28/2021 9:45 PM EDT) Hemoglobin A1C 8.8(H) <5.7 % LAB CHEMISTRY METHOD 01/29/2021 9:[address] [facility] Mean Bld Glu Estim. 206(H) <126 mg/dL LAB CHEMISTRY METHOD 01/29/2021 9:[address] [facility] Blood Topography not assigned / Unknown 01/28/2021 9:45 PM EDT 01/28/2021 9:[address] [facility] - 01/29/2021 9:36 AM EDT *Clinical Condition Normal <5.7% Prediabetes 5.7-6.5% Diabetes >/=6.5% NGSP: National Glycohemoglobin Standardization Program *2011 [place] Diabetes Association Note: These results were obtained by [employer] Variant II HbA1c Assay. The assay is IFCC standardized and NGSP certified. us Zeferino Richard MD LAB BLOOD ORDERABLES Final Resul t [facility] [address] [place], [place] [id number] from Last 3 Months or Most Recently Relevant to Health Maintenance Insurance MEDICARE [place]ID - [place] on file MEDICAID [facility] Care Teams Critical Care Physician Assistant Relationship Specialty Start Date End Date Physician, No Pcp PCP - General 01/28/21
--- OUTSIDE RECORDS SUMMARY | 2025-02-19 08:03 | XMS_ITS | Patient Health Record ---
[facility] Organization [facility] Address [address] [place] [address] Care Team Providers Care House Servant Name Role Phone Tali Dyer Primary Care Provider Loyda Pickens Unavailable [phone] Allergies Allergen (clinical drug ingredient) Drug/Non Drug Allergy documented on EMR Reaction Allergy Type Onset Date Status Penicillin Unknown Drug Allergy Active Results Component Value Reference Range Notes HEMOGLOBIN A1C (GLYCOHEMOGLO BIN) Reviewed date:11/12/2024 01:46:35 PM Interpretation: Performing Lab: Notes/Report: HEMOGLOBIN A1C % (HH) 7.5 Reason For Referral No Information Medications Medication SIG (Take, Route, Frequency, Duration) Notes Start Date End Date Status Hydroxyurea 500 MG 1 capsule Orally Onc e a day Active Pantoprazole Sodium 40 MG 1 packet 1/2 t o 1 hour before morning meal mixed with apple juice or applesauce Orally Once a day Active Aspirin 81 81 MG 1 tablet Orally Once a day Active DULoxetine HCl 30 MG 1 capsule Orally On ce a day Active Extra Depth Orthopedic Shoes (1 Pair) with Customized Heat Molded Multidensity Innersoles (3 Pair) as directed Dx: NIDDM/Polyneuropathy (E11.42), Hammertoe Foot Deformity (M20.41,M20.42), Preulcerative Skin Lesion(s) (L85.1 11/12/2024 Active Butalbital-Acetaminophen 50-325 MG 1 tablet as needed Orally every 4 hrs PRN Active rOPINIRole HCl 0.25 MG 1 tablet 1 to 3 h ours before bedtime Orally Once a day Active Ciclopirox Olamine 0.77 % 1 application Externally Twice a day to skin of feet including between the toes; Duration: 30 days Active Fluticasone Propionate (Inhal) PRN Active Levothyroxine Sodium 125 MCG 1 tablet in the morning on an empty stomach Orally Once a day Active Metoprolol Succinate 50 MG 1 capsule Ora lly Once a day Active Atorvastatin Calcium 40 MG 1 tablet Orally Once a day Active amLODIPine Besylate 10 MG 1 tablet Orally Once a day Active Immunizations Vaccine Route Administration Date Status Comme nts Influenza Unknown 04/29/2024 Administered Social History Tobacco Use: Social History Observation [...] Problem Acquired hammer toe of right foot (184860875065864 5) Other hammer toe(s) (acquired), right foot (M20.41) Active confirmed Response to treatment, Improvement Problem Acquired hammer toe of left foot (468334940352591 3) Other hammer toe(s) (acquired), left foot (M20.42) Active confirmed Response to treatment, Improvement Problem Polyneuropathy due to type 2 diabetes mellitus (834952741) Type 2 diabetes mellitus with diabetic polyneuropathy (E11.42) Active confirmed Vital Signs Blood pressure diastolic 65 mm Hg 02/12/2025 Height 5ft 8 inch in 02/12/2025 Blood pressure systolic 128 mm Hg 02/12/2025 Weight 220 lbs 02/12/2025 BMI 33.45 kg/m2 02/12/2025 Procedures Procedure Date Ordered Date Performed Result Body Sit e 60010-VGWDTXH NAIL, 6 OR MORE 07/03/2024 N/A 61862-MFSY SKIN LESIONS, 2 TO 4 07/03/2024 N/A 07371-HFADTNJ NAIL, 6 OR MORE 11/12/2024 N/A 10919-PRVV SKIN LESIONS, 2 TO 4 11/12/2024 N/A Encounters Encounter Location Date Provider Diagnosis [facility] [address] [address] 07/03/2024 Loyda Putnam Tinea pedis of both feet B35.3 ; Type 2 diabetes mellitus with diabetic polyneuropathy E11.42 and Tinea unguium B35.[address] [address] 11/12/2024 Loyda Putnam Other hammer toe(s) (acquired), right foot M20.41 ; Other hammer toe(s) (acquired), left foot M20.42 ; Type 2 diabetes mellitus with diabetic polyneuropathy E11.42 ; Tinea unguium B35.1 and Tinea pedis of both feet B35.[address] [address] 02/12/2025 Loyda Putnam Type 2 diabetes mellitus with diabetic polyneuropathy E11.42 ; Tinea unguium B35.1 ; Other hammer toe(s) (acquired), right foot M20.41 and Other hammer toe(s) (acquired), left foot M20.42 Assessments Encounter Date Diagnosis (ICD Code) Assessment Notes Treatment Notes Treatment Clinical Notes Section Notes 07/03/2024 Tinea pedis of both feet (ICD-10 - B35.3) 11/12/2024 Other hammer toe(s) (acquired), right foot (ICD-10 - M20.41) Patient Educated with: DIABETIC FOOT CARE INSTRUCTIONS. pdf (DIABETIC FOOT CARE INSTRUCTIONS. pdf) 11/12/2024 Other hammer toe(s) (acquired), left foot (ICD-10 - M20.42) 02/12/2025 Type 2 diabetes mellitus with diabetic polyneuropathy (ICD-10 - E11.42) 02/12/2025 Tinea unguium (ICD-10 - B35.1) 11/12/2024 Type 2 diabetes mellitus with diabetic polyneuropathy (ICD-10 - E11.42) 07/03/2024 Type 2 diabetes mellitus with diabetic polyneuropathy (ICD-10 - E11.42) 07/03/2024 Tinea unguium (ICD-10 - B35.1) 02/12/2025 Other hammer toe(s) (acquired), right foot (ICD-10 - M20.41) Response to treatment, Improvement 02/12/2025 Other hammer toe(s) (acquired), left foot (ICD-10 - M20.42) Response to treatment, Improvement 11/12/2024 Tinea unguium (ICD-10 - B35.1) 11/12/2024 Tinea pedis of both feet (ICD-10 - B35.3) Plan Of Treatment Pending Test Test Name Order Date 27846-ZRIZVLO NAIL, 6 OR MORE 07/03/2024 92783-AYKDECO NAIL, 6 OR MORE 11/12/2024 14705-SJOX SKIN LESIONS, 2 TO 4 07/03/20 24 98960-PLBL SKIN LESIONS, 2 TO 4 11/13/19 Next Appt Details Provider Name:Loyda Albrecht thompson, 05/18/2025 02:45:00 PM, [address] [place], [address], Insurance Providers Payer Name Payer Address Payer Phone Subscriber Number Group Number Insured Name Patient Relationship to Insured Coverage Start Date Coverage End Date [employer] [address] [place] [address] [id number] Russell Barber Self - patient is the insured 3 Medical (General) History Medical History History ICD Code asthma Back,Hip,and Knee pain Cataracts Depression Diabetic Headaches/Migraines High Blood Pressure thyroid Neuropathy Heart attack Carpal tunnel Trigger finger
--- OUTSIDE RECORDS SUMMARY | 2025-02-19 08:04 | XMS_ITS | Clinical Summary ---
Author Organization [facility] Address [address] [facility] [address] [place] [id number] Phone Care Team Providers Care Gypsum Block Setter Name Role Phone Tali Dyer MD Unavailable [phone] Emily Moctezuma MD Unavailable Tali Dyer MD Primary Care Provider [phone] Allergies Active Allergy Reactions Criticality Noted Date Comments Gabapentin 07/11/2022 Hydroxyzine Unknown 07/11/2022 Lamotrigine 10/26/2017 Lisinopril 10/26/2017 Peanut 09/26/2018 Other reaction(s): N/V, hives Penicillins 10/26/2017 Soy Swelling 07/11/2022 Medications aspirin 81 MG EC tablet Active butalbital-aceta minophen-caffein e (FIORICET, ESGIC) 50-325-40 mg per tablet 1 tablet as needed Active albuterol 90 mcg/actuation inhaler 2 puffs as needed Ac tive amLODIPine (NORVASC) 10 MG tablet Take 10 mg by mouth daily. Active levothyroxine (SYNTHROID, LEVOTHROID) 125 MCG tablet Take 125 mcg by mouth every morning. Active pantoprazole (PROTONIX) 40 MG tablet Take 40 mg by mouth daily. 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 02/14/20 Active metoprolol succinate (TOPROL-XL) 50 MG 24 hr tablet Take 50 mg by mouth every morning. 02/14/20 Active SUMAtriptan (IMITREX) 50 MG tablet Take 50 mg by mouth daily as needed. For migraines 05/19/20 Active hydroxyurea (HYDREA) 500 mg capsule Take 500 mg by mouth 2 (two) times a day. 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 DX:E10.9 2 each 1 11/07/19 24 Active DULoxetine (CYMBALTA) 30 MG capsule Take 30 mg by mouth 2 (two) times a day. Active rOPINIRole (REQUIP) 0.25 MG tablet Take 0.25 mg by mouth daily. 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 E10.40 45 each 3 01/21/20 24 025 Discontin ued(No longer taking) insulin pump cart,auto,BT,G6/ 7 (OMNIPOD 5 G6-G7 PODS, GEN 5,) Crtg Inject 1 each under the skin every other day. 45 each 3 07/01/20 24 025 Discontin ued(Reord er) Active Problems Problem Noted Date Diagnosed Date Acquired hypothyroidism 01/09/2022 Assessment & Plan (01/29/2025 10:28 AM EDT): Continues on LT4 Most recent labs are from August 2023, TSH was in desired range at that time Follows with PCP Assessment & Plan (07/21/2024 11:55 AM EST): Continues on LT4 Most recent labs from August, TSH was in desired range Follows with PCP Assessment & Plan (01/21/2024 1:22 PM EDT): Continues on LT4 No recent labs available for review Follows with PCP Assessment & Plan (07/16/2023 10:11 AM EST): Continues on LT4 No recent labs available for review Follows with PCP Assessment & Plan (01/12/2023 11:41 AM EDT): Continues on LT4 No recent labs available for review Follows with PCP Assessment & Plan (07/11/2022 1:48 PM EST): Continues on LT4 No recent labs available for review Assessment & Plan (01/09/2022 11:50 AM EDT): Continues on LT4 No recent labs available for review Essential hypertension 01/09/2022 Assessment & Plan (01/29/2025 10:27 AM EDT): Blood pressure is again borderline today Given h/o diabetic retinal disease, goal bp is <130/80 Intolerance of ACEi in the past Continues on CCB and Bblocker Assessment & Plan (07/21/2024 11:42 AM EST): Blood pressure is borderline today Given h/o diabetic retinal disease, goal bp is <130/80 Intolerance of ACEI in the past Continues on CCB and Bblocker Assessment & Plan (01/21/2024 1:16 PM EDT): Blood pressure is in desired range today Given h/o diabetic retinal disease, goal bp is <130/80 Intolerance of ACEI in the past Continues on CCB, recently added Bblocker Assessment & Plan (07/16/2023 10:00 AM EST): Blood pressure is in desired range today Russell has been following blood pressure and heart rate metrics since his DC earlier this year Given h/o diabetic retinal disease, goal bp is <130/80 Intolerance of ACEI in the past Continues on CCB, recently added Bblocker Assessment & Plan (03/08/2023 1:51 PM EDT): Blood pressure is elevated today Given h/o diabetic retinal disease and recent DC, goal bp is <130/80 Intolerance of ACEI in the past Continues on CCB, recently added Bblocker Assessment & Plan (01/12/2023 11:25 AM EDT): Blood pressure is in desired range today Russell follows blood pressure metrics on his smart watch Given h/o diabetic retinal disease, goal bp is <130/80 Intolerance of ACEI in the past Continues on CCB, recently added Bblocker Assessment & Plan (07/11/2022 1:41 PM EST): Elevated blood pressure today Russell reports that his home blood pressure readings are lower, reports generally 130s systolic Given h/o diabetic retinal disease, goal bp is <130/80 Intolerance of ACEI in the past Continues on CCB Assessment & Plan (01/09/2022 11:48 AM EDT): Blood pressure is elevated today Given h/o diabetic retinal disease, goal bp is <130/80 Intolerance of ACEI in the past Continues on CCB Class 1 obesity with serious comorbidity and body mass index (BMI) of 33.0 to 33.9 in adult 01/09/2022 Assessment & Plan (01/29/2025 11:03 AM EDT): Weight has been stable since last visit, BMI is ~34 Russell is encouraged to do his best with healthy eating He has been able to be more active now that he is working regularly Assessment & Plan (07/21/2024 11:51 AM EST): Weight has been stable since last visit, BMI is ~34 Russell is encouraged to do his best with healthy eating and to stay active as consistently as he has been Assessment & Plan (01/21/2024 1:16 PM EDT): Weight has been stable since last visit, BMI is just under 35 Russell is encouraged to do his best with healthy eating and to stay active as consistently as he has been Assessment & Plan (07/16/2023 10:13 AM EST): Weight has increased since last visit, BMI is nearly 35 today Improvement in glucose control may be playing a role in weight gain Russell is encouraged to do his best with healthy eating this holiday season and to stay active as consistently as he has been Assessment & Plan (01/09/2022 11:52 AM EDT): Weight has been relatively stable over the past year, BMI 32-33 Has lost 5lb since our last visit in June Type 1 diabetes mellitus with diabetic neuropath y 01/09/2022 Assessment & Plan (01/29/2025 12:23 PM EDT): Up to date with recent foot exam Remains active Glucose control is good per A1c, however CGM patterns continue to indicate wide variability particularly related to meals/snacks and TIR remains below goal Assessment & Plan (07/21/2024 11:52 AM EST): Up to date with recent foot exam Remains active Glucose control is good per A1c, however recent CGM patterns indicate worsening control Assessment & Plan (01/21/2024 1:22 PM EDT): Up to date with recent foot exam Remains active consistently Assessment & Plan (07/16/2023 10:23 AM EST): Up to date with recent foot exam, reports that he has not had any issues with sensation changes Remains active consistently Type 1 diabetes mellitus wit h stable proliferative retinopathy of right eye 10/26/2017 Overview (07/11/2022): DIABETES HISTORY Diagnosis - type 1 diabetes, dx age 13. Treatment history - Started on insulin pump 2005, CGM October 2018 Assessment & Plan (01/29/2025 12:28 PM EDT): Russell reports he is up to date with routine eye exam, things have been stable per his history, borderline today and at our last visit Blood pressure is reasonably well controlled Overall control is improved since last visit, CGM data indicates stability in metrics compared to our last visit, time spent in target range remains below target Russell is now more active and tends to be less consistent with meal bolusing due to fear of hypoglycemia, he is aware of the importance of dosing mealtime insulin prior to eating and entering carb counts for most appropriate dosage We discussed considerations regarding Dexcom G7 use and best practices and use with iOS ken as noted Most recent routine labs from August 2023 were reviewed Russell will return to meet with our family life educator staff in 3 months and we will meet again in 6 months, he is advised to contact me with any questions or concerns This patient has diabetes This patient has been using a blood glucose meter and performing 4 or more blood glucose readings daily or is now using CGM This patient is insulin-treated with 3 or more daily injections OR a continuous subcutaneous insulin infusion pump This patient's insulin treatment regimen requires frequent adjustment by the patient on the basis of blood glucose meter readings or continuous glucose monitoring results This patient has had an in-person visit with the treating provider to evaluate diabetes control and determine criteria for CGM use This patient will return for follow up visits at least every 6 months to assess adherence to CGM regimen, the effect of the current diabetes treatment regimen and to have insulin and medication therapy adjusted as needed for optimal outcome Assessment & Plan (07/21/2024 11:57 AM EST): Russell reports he is up to date with routine eye exam, he usually has these done in August Blood pressure is reasonably well controlled Overall control is worsened since last visit but improved in general since starting on Omnipod 5, time spent in target range remains below target and is lower than at last two visits We revisited the importance of dosing mealtime insulin prior to eating and entering carb counts for most appropriate dosage We discussed considerations regarding Dexcom G7 use and best practices, may return to Dexcom G6 if prefers this but is aware that he may need to change DME supplier if his current refuses to honor this request; provided sample of Dexcom G7 as he awaits replacement of his last failed sensor Most recent routine labs from August were reviewed Russell will return to meet with our family life educator staff in 3 months and we will meet again in 6 months, he is advised to contact me with any questions or concerns This patient has diabetes This patient has been using a blood glucose meter and performing 4 or more blood glucose readings daily or is now using CGM This patient is insulin-treated with 3 or more daily injections OR a continuous subcutaneous insulin infusion pump This patient's insulin treatment regimen requires frequent adjustment by the patient on the basis of blood glucose meter readings or continuous glucose monitoring results This patient has had an in-person visit with the treating provider to evaluate diabetes control and determine criteria for CGM use This patient will return for follow up visits at least every 6 months to assess adherence to CGM regimen, the effect of the current diabetes treatment regimen and to have insulin and medication therapy adjusted as needed for optimal outcome Assessment & Plan (01/21/2024 1:22 PM EDT): Russell reports he is up to date with routine eye exam Blood pressure is well controlled Improved overall control since on Omnipod 5, time spent in target range remains below target but is much improved, variability is much improved, and GMI is 7.5% based on glucose data from last two weeks, however A1c is much improved We revisited the importance of dosing mealtime insulin prior to eating and entering carb counts for most appropriate dosage Russell will return to meet with our family life educator staff in 3 months and we will meet again in 6 months, he is advised to contact me with any questions or concerns This patient has diabetes This patient has been using a blood glucose meter and performing 4 or more blood glucose readings daily or is now using CGM This patient is insulin-treated with 3 or more daily injections OR a continuous subcutaneous insulin infusion pump This patient's insulin treatment regimen requires frequent adjustment by the patient on the basis of blood glucose meter readings or continuous glucose monitoring results This patient has had an in-person visit with the treating provider to evaluate diabetes control and determine criteria for CGM use This patient will return for follow up visits at least every 6 months to assess adherence to CGM regimen, the effect of the current diabetes treatment regimen and to have insulin and medication therapy adjusted as needed for optimal outcome Assessment & Plan (07/16/2023 10:11 AM EST): Russell reports improvement in his routine eye exam Blood pressure is well controlled Improved overall control since on Omnipod 5 per CGM data, time spent in target range remains below target but is much improved, variability is much improved, and GMI is 7.8% based on glucose data from last two weeks We revisited the importance of dosing mealtime insulin prior to eating and entering carb counts for most appropriate dosage, Russell still boluses for carbs more regularly than in the past but still late, usually when glucose is already climbing, historically he was mostly relying on correction doses after blood sugar is already elevated now he is benefiting from autobasal adjustments Russell will return to meet with our family life educator staff in 3 months and we will meet again in 6 months, he is advised to contact me with any questions or concerns This patient has diabetes This patient has been using a blood glucose meter and performing 4 or more blood glucose readings daily or is now using CGM This patient is insulin-treated with 3 or more daily injections OR a continuous subcutaneous insulin infusion pump This patient's insulin treatment regimen requires frequent adjustment by the patient on the basis of blood glucose meter readings or continuous glucose monitoring results This patient has had an in-person visit with the treating provider to evaluate diabetes control and determine criteria for CGM use This patient will return for follow up visits at least every 6 months to assess adherence to CGM regimen, the effect of the current diabetes treatment regimen and to have insulin and medication therapy adjusted as needed for optimal outcome Assessment & Plan (03/08/2023 1:54 PM EDT): One month follow up after training on Omnipod 5 with Dexcom G6 Reviewed insulin pump therapy specifics, things have been going well with transition to Omnipod 5 from [employer], Russell is very happy with this change Russell continues to use CGM consistently Discussed recent DC, encouraged close follow up with PCP and cardiology, advised keeping blood sugars as tightly controlled as possible, without increasing hypoglycemia frequency is important to reduce risk of future CV events related to diabetes and snf complications overall Continues with improving control per CGM data, time spent in target range remains below target but has increased since last visit, variability has improved, though continues with consistent elevated prandial readings, GMI is 7.6% based on glucose data from last two weeks Prandial elevations seem to be related to bolus timing, Russell admits to bolusing after meals mostly. Russell reports the main concern around pre-bolusing is not being sure that all the food will be eaten We revisited the importance of dosing mealtime insulin prior to eating and entering carb counts for most appropriate dosage, discussed entering in half the carbs prior to eating and then entering in the remainder once finishing Russell will return next month to meet with Jeannie Paul and will follow up with Dr. Moctezuma in June his patient has diabetes This patient has been using a blood glucose meter and performing 4 or more blood glucose readings daily or is now using CGM This patient is insulin-treated with 3 or more daily injections OR a continuous subcutaneous insulin infusion pump This patient's insulin treatment regimen requires frequent adjustment by the patient on the basis of blood glucose meter readings or continuous glucose monitoring results This patient has had an in-person visit with the treating provider to evaluate diabetes control and determine criteria for CGM use This patient will return for follow up visits at least every 6 months to assess adherence to CGM regimen, the effect of the current diabetes treatment regimen and to have insulin and medication therapy adjusted as needed for optimal outcome Assessment & Plan (01/29/2023 4:30 PM EDT): Training provided today on Omnipod 5 with Dexcom G6 Reviewed insulin pump therapy specifics Russell continues to use CGM consistently Continues with poor overall control per CGM data, time spent in target range remains below target, variability continues to be high with consistently elevated prandial readings, GMI is 8.8% based on glucose data from last two weeks We revisited the importance of dosing mealtime insulin prior to eating and entering carb counts for most appropriate dosage, Russell still boluses for carbs inconsistently but more regularly than in the past, mostly relying on correction doses after blood sugar is already elevated, we reviewed issues with stacking insulin if he follows a correction with carb only entry without a blood sugar entry which ignores IOB Russell's inconsistencies make contemplating insulin delivery setting changes very difficult, he is advised that starting on Omnipod's automated insulin pump systems still require consistent mealtime dosing for optimal effect We will follow up in the office in 4 weeks for an insulin pump start follow up T his patient has diabetes This patient has been using a blood glucose meter and performing 4 or more blood glucose readings daily or is now using CGM This patient is insulin-treated with 3 or more daily injections OR a continuous subcutaneous insulin infusion pump This patient's insulin treatment regimen requires frequent adjustment by the patient on the basis of blood glucose meter readings or continuous glucose monitoring results This patient has had an in-person visit with the treating provider to evaluate diabetes control and determine criteria for CGM use This patient will return for follow up visits at least every 6 months to assess adherence to CGM regimen, the effect of the current diabetes treatment regimen and to have insulin and medication therapy adjusted as needed for optimal outcome Assessment & Plan (01/12/2023 11:47 AM EDT): Continues with poor overall control per CGM data, time spent in target range remains below target, variability continues to be high with consistently elevated prandial readings, GMI is 8.8% based on glucose data from last two weeks We revisited the importance of dosing mealtime insulin prior to eating and entering carb counts for most appropriate dosage, Russell still boluses for carbs inconsistently but more regularly than in the past, mostly relying on correction doses after blood sugar is already elevated, we reviewed issues with stacking insulin if he follows a correction with carb only entry without a blood sugar entry which ignores IOB Russell's inconsistencies make contemplating insulin delivery setting changes very difficult, he is advised that automated insulin pump systems still require consistent mealtime dosing for optimal effect Russell will return to meet with our family life educator staff in 3 months and we will meet again in 6 months, he is advised to contact me with any questions or concerns T his patient has diabetes This patient has been using a blood glucose meter and performing 4 or more blood glucose readings daily or is now using CGM This patient is insulin-treated with 3 or more daily injections OR a continuous subcutaneous insulin infusion pump This patient's insulin treatment regimen requires frequent adjustment by the patient on the basis of blood glucose meter readings or continuous glucose monitoring results This patient has had an in-person visit with the treating provider to evaluate diabetes control and determine criteria for CGM use This patient will return for follow up visits at least every 6 months to assess adherence to CGM regimen, the effect of the current diabetes treatment regimen and to have insulin and medication therapy adjusted as needed for optimal outcome Assessment & Plan (07/11/2022 1:47 PM EST): Continues with poor overall control per CGM data, much less time spent in target range than in the recent past however variability is more modest, prandial control remains poor, will be due for A1c later this month, GMI is 9.1% based on glucose data from last two weeks We revisited the importance of dosing mealtime insulin prior to eating and entering carb counts for most appropriate dosage, Russell still boluses for carbs inconsistently, mostly relying on correction doses after blood sugar is already elevated We discussed possible need for adjustments in basal rates or utilizing temp basal programs when more active to reduce risk for lows rather than relying on permissive hyperglycemia, he remains quite fearful of hypoglycemia Russell's inconsistencies make contemplating insulin delivery setting changes very difficult Russell will return to meet with our family life educator staff in 3 months and we will meet again in 6 months, he is advised to contact me with any questions or concerns T his patient has diabetes This patient has been using a blood glucose meter and performing 4 or more blood glucose readings daily or is now using CGM This patient is insulin-treated with 3 or more daily injections OR a continuous subcutaneous insulin infusion pump This patient's insulin treatment regimen requires frequent adjustment by the patient on the basis of blood glucose meter readings or continuous glucose monitoring results This patient has had an in-person visit with the treating provider to evaluate diabetes control and determine criteria for CGM use This patient will return for follow up visits at least every 6 months to assess adherence to CGM regimen, the effect of the current diabetes treatment regimen and to have insulin and medication therapy adjusted as needed for optimal outcome Assessment & Plan (01/09/2022 11:55 AM EDT): Continues with poor overall control per CGM data, more time spent in target range than in the past however variability is wide and prandial control is poor, A1c is worsened since last visit in September We revisited the importance of dosing mealtime insulin prior to eating and entering carb counts for most appropriate dosage, Russell still boluses for carbs inconsistently, occasionally just taking a correction dose after eating once blood sugar is already elevated We discussed possible need for adjustments in basal rates or utilizing temp basal programs when more active to reduce risk for lows rather than relying on permissive hyperglycemia Russell will return to meet with our family life educator staff in 3 months and we will meet again in 6 months, he is advised to contact me with any questions or concerns T his patient has diabetes This patient has been using a blood glucose meter and performing 4 or more blood glucose readings daily or is now using CGM This patient is insulin-treated with 3 or more daily injections OR a continuous subcutaneous insulin infusion pump This patient's insulin treatment regimen requires frequent adjustment by the patient on the basis of blood glucose meter readings or continuous glucose monitoring results This patient has had an in-person visit with the treating provider to evaluate diabetes control and determine criteria for CGM use This patient will return for follow up visits at least every 6 months to assess adherence to CGM regimen, the effect of the current diabetes treatment regimen and to have insulin and medication therapy adjusted as needed for optimal outcome Assessment & Plan (07/11/2021 11:25 PM EST): Continues with poor overall control per CGM data, very little time spent in target range in recent past We revisited the importance of dosing mealtime insulin prior to eating, Russell still boluses for carbs inconsistently, occasionally just taking a correction dose after eating once blood sugar is already elevated We discussed adjustments to ISF based on Russell's history of having to correct repeatedly and also I:C ratios during the day to optimize prandial control when he does bolus for meals We did not adjust basal rates higher since Russell reports that his blood sugars drift down during longer fasting periods Diet remains poor, this along with increased stressors and in past several months less activity, has led to higher overall glucose readings; encouraged to continue to work on improving lifestyle Encouraged to strongly consider getting vaccinated against COVID and flu Russell will return to meet with our family life educator staff in 3 months and we will meet again in 6 months, he is advised to contact me with any questions or concerns Assessment & Plan (01/22/2021 11:29 AM EDT): Continues with poor overall control though A1c is improved compared to three months ago We revisited the importance of dosing mealtime insulin prior to eating, we reviewed insulin duration of action and peak and how this affects risk for hypoglycemia if dosing is offset from mealtime Taking insulin prior to morning meal rather than after AND lowering mid morning basal rate should protect Russell from hypoglycemia while active We may need to adjust ISF based on Russell's history of having to correct repeatedly but more appropriate mealtime dosing will need to be evaluated first, Russell is provided written suggestions for ISF changes should this prove to be needed Russell is trying to eat better in terms of watching portions but diet remains poor Routine eye care is up to date, blood pressure is at upper end of normal range on current therapy Russell will return to meet with our family life educator staff in 3 months and we will meet again in 6 months, he is advised to contact me with any questions or concerns Assessment & Plan (10/19/2020 12:16 PM EDT): Suboptimal blood sugar control, we adjusted insulin pump settings today to help improve this Russell is encouraged to take the recommended dose of insulin for his morning meal as this will help reduce postprandial blood sugars, we adjusted his morning basal rates to reduce the risk for lows related to activity which should allow him to feel more comfortable taking recommended dosage; he will also receive more insulin for his evening meal since we adjusted the I:C ratio modestly at this time of day, this should improve his overnight patterns Diet is poor per Russell's history, this is unlikely to change and will certainly continue to impact his glucose control Encouraged to stay active Up to date on routine eye care Blood pressure is suboptimal today, continues on CCB Encouraged to call with any questions or concerns, needs follow up every 3 months due to Medicare insulin pump eligibility criteria Assessment & Plan (04/20/2020 9:30 PM EDT): Fair overall control, elevated blood sugars are clearly due to underbolusing during the day to reduce risk for hypoglycemia, we discussed other considerations for this to help avoid hyperglycemia as well as hypoglycemia such as temp basal rates Encouraged to assess current insulin pump settings on days when he is not as busy and able to evaluate patterns, this will help him make more educated adjustments on more active days Using CGM consistently which should help Russell assess patterns fairly easily H/o DPR, 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 care exam soon Blood pressure is reasonably well controlled Encouraged to call with any questions or concerns, we will follow up in 3 months, will return for visit with CDE in 6 months Assessment & Plan (04/04/2019 9:57 AM EDT): Most recent A1c indicates overall reasonable control however there is large portion of time with blood sugar above goal and this appears to be related to inconsistent insulin management at meals, evening meal in particular We discussed more consistent dosing which is likely to improve overall control and stability of blood sugar patterns Would prefer change to Omnipod insulin pump system however he will not be due for pump upgrade until summer 2021, may opt to buy PDM out of pocket and change infusion sets to pods May benefit from change of infusion sets to angled sets due to some peripheral tissue differences in insulin delivery and limited area of infusion set wear Encouraged to call with any questions or concerns and when uploads CGM Assessment & Plan (01/23/2019 1:21 PM EDT): Eye care is up to date Blood pressure is reasonably controlled on CCB, not managed on ACEi which he has a reported intolerance to Assessment & Plan (09/27/2018 10:17 PM EST): Feels insulin dosing via insulin pump is ineffective but also often only bolusing according to carb ratio since not monitoring blood sugars prior to meals and therefore potentially missing correction dose opportunities Corrections that are made appear ineffective on insulin pump download and as reported by Russell, we made some adjustments in ISF Russell would prefer a tubeless insulin pump to have more options for pump site wear however he will not be due for a pump upgrade for another 4+ years according to Medicare in warranty phase of 5 years for insulin pumps, he did have better control on Omnipod per his report Eye care is up to date Blood pressure is borderline and should be optimized to 130/80 or less ideally due to diabetic eye disease Assessment & Plan (03/22/2018 12:37 PM EDT): Doing well on new insulin pump Corrections in evening seem ineffective, changes made as noted below Not using advanced features including temp rates or bolus wizard for meals, tried dual wave bolus once but this did not work well, estimates insulin for carbs Blood sugars have improved, advised to focus on healthy eating which is challenging 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 Dyer, should have vit D level repeated due to deficiency in the past, LDL goal is 100 or less, will be due for A1c next month Encouraged to stay active Assessment & Plan (10/26/2017 11:51 AM EDT): Due for pump upgrade Insulin pump possibly exposed to xray during recent hospitalization which may cause it to malfunction Blood sugars are variable on pump download, we did not make any insulin pump adjustments today Advised to stay consistently active as this will help with blood sugar control, insulin requirement may be higher on less active days and can consider small increase to recommended boluses on these days to help with blood sugar control DPN symptoms likely to improve with consistent activity as this improves circulation Advised to continue healthy eating Encouraged to call with any questions or concerns Vitamin D deficiency 10/26/2017 Assessment & Plan (10/26/2017 11:53 AM EDT): Low vit D noted on labs from Jun 2017, advised consistent supplementation to optimize this Diabetes mellitus type 1 06/06/2017 Overview (01/23/2019): DIABETES HISTORY Diagnosis - type 1 diabetes, dx age 13. Treatment history - Started on insulin pump 2005, CGM October 2018 Assessment & Plan (07/15/2020 2:08 PM EST): Generally poor overall control per CGM, elevated blood sugars are evident throughout the day, most variability is after morning meal, we discussed changes to I:C ratios as noted and also consideration for changes to basal rates Encouraged to continue to evaluate CGM patterns We will request copies of recent labs Up to date on routine eye care Does not get flu vaccines Encouraged to call with any questions or concerns, we will follow up in 3 months, will return for visit with CDE in 6 months Assessment & Plan (10/21/2019 2:48 PM EDT): Most recent A1c indicates overall reasonable control however CGM data indicates a large portion of time with blood sugar above goal particularly around meals and overnight We discussed adjustment of insulin pump settings as noted, Russell and Sherie talked through the changes by phone and his insulin pump had the new settings in place prior to the end of our call Encouraged to continue attention to healthy eating, staying active and monitoring glucose patterns We discussed considerations to keep in mind when comparing fingerstick blood sugar readings and CGM readings Strongly advised to practice personal safety with respect to social distancing and limiting outings to reduce risk of infection during current pandemic Encouraged to call with any questions or concerns and when uploads CGM Assessment & Plan (01/23/2019 1:25 PM EDT): Blood sugars are somewhat variable with elevation overnight and several hours after eating per history We discussed some adjustment to meal insulin dosing but did not adjust insulin pump settings at this time Encouraged to monitor for overnight hypoglycemia since the above change in dosing may improve evening blood sugar and increase his risk for this, we will adjust insulin pump settings if there is evidence of this Managing hypoglycemia appropriately Staying active however having more DPN symptoms, he is advised to discuss his upper leg weakness/pain with PCP since this may be related to a process in his back, nerve compression or stenosis Encouraged to call with any questions or concerns, advised to let us know if he'd like us to look at a Dexcom download so we can advise changes in pump settings as needed Insulin pump in place 06/06/2017 Overview (01/21/2024): Omnipod 5 since December 2022 Assessment & Plan (01/29/2025 12:29 PM EDT): Images from the original note were not included. IOB IOB 3 hours Russell continues to do well on the Omnipod 5 system, his control has been stable per CGM data but A1c is improved today, we did not adjust settings today Continues using Dexcom G7, we discussed compatibility with iPhone ken now and process for changing this over, may need to update his ken, aware that he will be in limited automated mode for first pod wear period, then at full functionality Encouraged to take insulin prior to eating as consistently as he can and to try to be accurate with carb counting, with active work schedule and concern for hypoglycemia, Russell tends to snack without bolusing during the day Encouraged to reach out to me with any questions or concerns Assessment & Plan (07/21/2024 11:50 AM EST): Images from the original note were not included. IOB IOB 3 hours Russell continues to do well on the Omnipod 5 system, his control has worsened though he reports no change in his lifestyle Has had some issues with Dexcom G7 and connectivity, reliability, we discussed this today Encouraged to take insulin prior to eating as consistently as he can and to try to be accurate with carb counting Insulin pump settings were not changed today Encouraged to reach out to me with any questions or concerns Assessment & Plan (01/21/2024 1:20 PM EDT): Current insulin pump setting Time Basal Rates? Time ICR Time ISF Time Target IOB 12am 0.65u/hr 12am 10 12am 25 12am 110mg/dl 3hrs 2am 1.40 5am 5.5 5am 20 5am 1.15 12pm 5.5 8pm 25 1030am 1.15 4pm 5 12pm 1.35 4pm 1.20 9pm 1.20 TOTAL 28.75 u/day Russell is doing very well on the Omnipod 5 system, his control has improved and he is spending more time in target range though this remains below optimal goal We revisited the benefits of taking insulin prior to meals and snacks, it appears that most of Russell's elevations continue to be due to prandial highs Insulin pump settings were not changed today Encouraged to reach out to me with any questions or concerns Assessment & Plan (07/16/2023 10:06 AM EST): Current insulin pump setting Time Basal Rates? Time ICR Time ISF Time Target IOB 12am 0.55u/hr 12am 10 12am 25 12am 110mg/dl 3hrs 2am 1.40 5am 5.5 5am 20 1030am 1.15 11am 5.5 8pm 25 12pm 1.35 4pm 5.0 4pm 1.20 9pm 1.20 TOTAL 29.925 u/day Russell is doing very well on the Omnipod 5 system, his control has improved and he is spending more time in target range though this remains below goal Encouraged again to try to be consistent with taking insulin prior to meals and snacks, it appears that most of Russell's elevations are due to prandial highs, we discussed that his autobasal delivery is helping to keep this under better control however he would improve his TIR simply by taking insulin for meals prior to eating Insulin pump settings were not changed today, we revisited optimizing IC ratio for midday/afternoon meals however Encouraged to reach out to me with any questions or concerns Assessment & Plan (03/08/2023 1:49 PM EDT): Current insulin pump setting Time Basal Rates? Time ICR Time ISF Time Target IOB 12am 0.55u/hr 12am 10 12am 25 12am 100mg/dl 3hrs 2am 1.40 5am 5.5 5am 20 1030am 1.15 11am 5.5 8pm 25 12pm 1.35 4pm 5.0 4pm 1.20 9pm 1.20 We made no adjustments today, glycemic patterns have improved, elevations seem to be largely due to delayed boluses Encouraged Russell to bolus for food before the meal. Encouraged again to try to be consistent with taking insulin prior to meals and snacks, entering in the partial amount of carbs before eating that will be eaten and entering in the remainder once finishing eating Encouraged to reach out to me with any questions or concerns Assessment & Plan (01/29/2023 1:36 PM EDT): Current insulin pump setting Time Basal Rates? Time ICR Time ISF Time Target IOB 12am 0.55u/hr 12am 10 12am 25 12am 100mg/dl 3hrs 2am 1.40 5am 5.5 5am 20 1030am 1.15 11am 5.5 8pm 25 12pm 1.35 4pm 5.0 4pm 1.20 9pm 1.20 Reviewed modifications for improved diabetes management. Russell agrees to the treatment plan outlined below. Please see scanned training checklist for more in depth topics covered during out training today Pump settings were transferred from Medtronic Russell will continue with previous glucose alerts as set on [employer] G6 ken Automated Mode started today, though we reviewed that automated mode will only start after the first pod change and first 48 hours of wear Reviewed differences between automated vs limited vs manual modes Encouraged Russell to bolus for food before the meal. Encouraged again to try to be consistent with taking insulin prior to meals and snacks, we also discussed that entering a glucose value will lead to pump calculating out IOB Reviewed insulin pump troubleshooting and back up plan I will check in with Russell later this week to follow up on first 48-72 hours of using the pump We will follow up in 4 weeks for review use of Auto basal, pump/CGM, advanced features and glucose control Encouraged to reach out to me with any questions or concerns Assessment & Plan (01/12/2023 11:40 AM EDT): Current insulin pump setting Time Basal Rates? Time ICR Time ISF Time Target IOB 12am 0.55u/hr 12am 10 12am 25 12am 100mg/dl 3hrs 2am 1.40 5am 5.5 5am 20 1030am 1.15 11am 5.5 8pm 25 12pm 1.35 4pm 5.0 4pm 1.20 9pm 1.20 Encouraged again to try to be consistent with taking insulin prior to meals and snacks, we also discussed that entering a glucose value will lead to pump calculating out IOB Insulin pump settings were not changed today, we revisited optimizing IC ratio for midday/afternoon meals however Russell is not using his carb ratios consistently and is encouraged to do so more consistently, all settings were left unchanged and Russell is encouraged to be more consistent with dosing Russell is due for pump upgrade, he would like to consider an automated system and we discussed these today, he is very interested in Omnipod however he is advised the Medicare may not cover the automated Omnipod 5 since it is a pharmacy only product; Russell is advised that if he opts for Medtronic 780G he will need to use the [employer] Guardian 4 sensor with the system to take advantage of the automated features Encouraged to reach out to me with any questions or concerns Assessment & Plan (07/11/2022 1:44 PM EST): Current insulin pump setting Time Basal Rates? Time ICR Time ISF Time Target IOB 12am 0.55u/hr 12am 10 12am 25 12am 100mg/dl 3hrs 2am 1.40 5am 5.5 5am 20 1030am 1.15 11am 5.5 8pm 25 12pm 1.35 4pm 5.0 4pm 1.20 9pm 1.20 Encouraged again to try to be consistent with taking insulin prior to meals and snacks, and to take insulin for at least some carbs to be consumed at all times, most of Shirleys highest spikes are due to eating without taking insulin due to planned activity, Russell is fearful of lows Insulin pump settings were not changed today, we had discussed optimizing IC ratio and/or ISF however Russell is not using his carb ratios very often and is encouraged to do so more consistently, if his ISF is more aggressive it may cause Russell to be more fearful of hypoglycemia if he uses this according to recommendations, all settings were left unchanged and Russell is encouraged to be more consistent with dosing Encouraged to reach out to me with any questions or concerns Assessment & Plan (01/09/2022 11:50 AM EDT): Current insulin pump setting Time Basal Rates? Time ICR Time ISF Time Target IOB 12am 0.55u/hr 12am 10 12am 25 12am 100mg/dl 3hrs 2am 1.40 5am 5.5 5am 20 1030am 1.15 11am 5.5 8pm 25 12pm 1.35 4pm 5.0 4pm 1.20 9pm 1.20 Encouraged to try to be consistent with taking insulin prior to meals and to take insulin for at least some carbs to be consumed Insulin pump settings were not changed today, we had discussed optimizing IC ratio however Russell is not using his carb ratios very often and is encouraged to do so Encouraged to reach out to me with any questions or concerns Assessment & Plan (07/11/2021 11:15 PM EST): New insulin pump setting Time Basal Rates? Time ICR Time ISF Time Target IOB 12am 0.5u/hr 12am 10 12am 25 12am 100mg/dl 3hrs 2am 1.35 5am 5.5 5am 20 1030am 1.10 11am 5.5 8pm 25 12pm 1.30 4pm 5.5 4pm 1.20 9pm 1.20 Encouraged to try to be consistent with taking insulin prior to meals Insulin pump setting changes were made so that boluses for food and corrections will be more effective Encouraged to reach out to me with any questions or concerns Assessment & Plan (01/22/2021 11:32 AM EDT): New insulin pump setting Time Basal Rates? Time ICR Time ISF Time Target IOB 12am 0.5u/hr 12am 10 12am 35 12am 100mg/dl 3hrs 2am 1.35 5am 6 5am 25 1030am 1.10 11am 6 8pm 35 12pm 1.30 4pm 5.5 4pm 1.20 9pm 1.20 Strongly advised to try to be consistent with taking insulin PRIOR to eating in the morning Midmorning to midday basal rate has been lowered with hope of reducing hypoglycemia risk Consideration for insulin pump setting changes Time Basal Rates? Time ICR Time ISF Time Target IOB 12am 0.5u/hr 12am 10 12am 35 12am 100mg/dl 3hrs 2am 1.35 5am 6 5am 20 1030am 1.10 11am 6 8pm 30 12pm 1.30 4pm 5.5 4pm 1.20 9pm 1.20 If sensor glucose readings are found to be running high and in need of repeat corrections then Russell is advised to make the changes in ISF Assessment & Plan (10/19/2020 12:15 PM EDT): New insulin pump setting Time Basal Rates? Time ICR Time ISF Time Target IOB 12am 0.5u/hr 12am 10 12am 35 12am 100mg/dl 3hrs 2am 1.35 5am 6 5am 25 1030am 1.30 11am 6 8pm 35 12pm 1.30 4pm 5.5 4pm 1.20 9pm 1.20 We adjusted basal rates in the morning to help reduce lows due to activity We also optimized I:C ratio for evening meal to help reduce elevated readings overnight Encouraged to contact me with any questions or concerns Assessment & Plan (07/15/2020 2:03 PM EST): New insulin pump setting Time Basal Rates? Time ICR Time ISF Time Target IOB 12am 0.5u/hr 12am 10 12am 35 12am 100 mg/dl 3 hrs 2a 1.5 5am 6 5am 25 1030a 1.45 11am 6 8pm 35 12p 1.3 4pm 6 4p 1.2 9p 1.2 We changed to I:C ratio at midday in order for Russell to get more insulin for meals/snacks in late morning to mid afternoon, he states he is less active at that time of the day We adjusted the morning I:C ratio to start at 5am since the variability in glucose after breakfast may be related to Russell bolusing prior to 6am at a 1:10 ratio rather than his intended 1:6 ratio which starts at 6am, he states that he never eats breakfast prior to 5am Encouraged to evaluate patterns, he may require some adjustment in basal rates as well Assessment & Plan (04/20/2020 9:31 PM EDT): Current insulin pump setting Time Basal Rates? Time ICR Time ISF Time Target IOB 12am 0.5u/hr 12am 10 12am 35 12am 100 mg/dl 3 hrs 2a 1.5 6am 6 5am 25 1030a 1.45 11am 7 8pm 35 12p 1.3 4pm 6 4p 1.2 9p 1.2 We did not adjust insulin pump settings Encouraged to utilize temp basal rates during increased activity May require late evening basal rate increase and/or optimized I:C ratio if needed to improve glucose patterns late evening and overnight Assessment & Plan (10/21/2019 2:44 PM EDT): insulin pump setting Time Basal Rates? Time ICR Time ISF Time Target IOB 12am 0.5u/hr 12am 10 12 am 35 12 am 100 mg/dl 3 hrs 2a 1.5 6a 6 5a 25 1030a 1.45 11a 7 8p 35 12p 1.3 4p 6 4p 1.2 9p 1.2 We discussed adjusting the evening basal rate (from 1.0u/hr to 1.2u/hr) and optimizing I:C ratio at 11a and 4p (from 8 to 7 and 7 to 6 respectively) to provide more insulin for carbs eaten at this time of day Encouraged to continue to evaluate CGM data to evaluate the effect of his settings Assessment & Plan (04/04/2019 9:50 AM EDT): Current insulin pump setting Time Basal Rates Time ICR Time ISF Time Target IOB 12am 0.5u/hr 12am 10 12am 35 12 am 100mg/dl 3hrs 2am 1.5u/hr 6am 6 5am 25 1030a 1.45u/hr 11am 8 8pm 35 12pm 1.3u/hr 4pm 7 4pm 1.2u/hr 9pm 1.0u/hr We did not adjust above settings Variability in overnight readings is likely more related to inconsistent bolusing for meals later in the day, we discussed the importance of this Encouraged to bolus consistently and let us know when he uploads CGM so that we can evaluate this remotely Assessment & Plan (01/23/2019 1:19 PM EDT): We did not adjust insulin pump settings today We discussed adjusting timing of mealtime doses, advised to take mealtime insulin for carbs AFTER eating but encouraged to correct any elevated blood sugar BEFORE eating; he could also use a dual wave bolus which we discussed this would prevent forgetting to bolus after eating Assessment & Plan (09/27/2018 10:19 PM EST): New insulin pump setting Time Basal Rates Time ISF Time ICR Time Target IOB 12am 0.5u/hr 12am 1:35 12am 1:10 12 am 100mg/dl 3hrs 2am 1.5u/hr 5am 1:25 6am 1:6 1030a 1.45u/hr 11am 1:35 11am 1:8 12pm 1.3u/hr 4pm 1.2u/hr 9pm 1.0u/hr Changes made as noted in bold Earlier start time for more aggressive ISF will help 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 Time ICR Time ISF Time Target IOB 12am 0.500u/hr 12am 1:10 12 am 1:40 12 am 100 mg/dl 3 hrs 2 am 1.50u/hr 6 am 1:6 6 am 1:25 10:30 am 1.45u/hr 11 am 1:8 8 pm 1:40 12 pm 1.30u/hr 4 pm 1.20u/hr 9 pm 1.00u/hr We adjusted the evening ISF to 40, this should help with evening corrections of elevated blood sugars, corrections done between 8p and 12a do not seem to effectively bring down blood sugars by morning Assessment & Plan (10/26/2017 11:52 AM EDT): Recommendation/orders for pump upgrade submitted Will return to meet with Masha Cm for pump start Resolved Problems Problem Noted Date Diagnosed Date Resolved Date Fitting and adjustment of insulin pump 01/28/2018 07/11/2021 Encounters Date Type Department Care Team Description 01/29/2025 9:00 AM EDT Office Visit [facility] [address] [place] [address] [place] [address] Emily Moctezuma MD 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 (Primary Dx); Type 1 diabetes mellitus with diabetic neuropathy; Insulin pump in place; Essential hypertension; Acquired hypothyroidism; Class 1 obesity with serious comorbidity and body mass index (BMI) of 33.0 to 33.9 in adult, unspecified obesity type 01/12/2025 Telephone [facility] [address] [place] [address] [place] [address] Niurka Moon MA Medication Management 01/05/2025 Telephone [facility] [address] [place] [address] [place] [address] Niurka Moon MA CLINICAL NOTES from Last 3 Months Immunizations Immunization Administration Dates Next Due Tdap 01/17/2017 Family History Medical History Relation Comments CV disease Father 2 Hypertension Father 2 CV disease Mother 2 Hypertension Mother 2 Cancer Sibling 3 Hypertension Sibling 3 Relation Status Comments Father 1 Father 2 Mother 1 Mother 2 Sibling 1 Sibling 2 Sibling 3 Social History Tobacco Use Types Packs/Day Years Used Date Smoking Tobacco: Former Passive Smoke Exposure: Never Smokeless Tobacco: Never Comments:in his 20's Education Answer Date Recorded Are you interested in more education? Not on afshan e 12/02/2022 Are you concerned about learning? Not on file 12/02/2022 No 12/02/2022 No 12/02/2022 Digital Access Answer Date Recorded No 12/24/2022 No 12/24/2022 Reliable internet access at home? Not on file 12/24/2022 Device with a working camera? Not on file Sex and Gender Information Value Date Recorded Sex Assigned at Not on file Legal Sex Male 5:50 PM EST Gender Identity Not on file Sexual Orientation Not on file Last Filed Vital Signs Vital Sign Reading Time Taken Comments Blood Pressure 130/78 01/29/2025 8:52 AM EDT Pulse 63 01/29/2025 8:52 AM EDT Temperature 36.2 C (97.1 F) 01/21/2024 10:18 AM EDT Respiratory Rate - - Oxygen Saturation 94% 01/21/2024 10:18 AM EDT Inhaled Oxygen Concentration - - Weight 101.2 kg (223 lb) 01/29/2025 8:52 AM EDT Height 172.7 cm (5' 7.99 ) 01/29/2025 8:52 AM ED T Body Mass Index 33.92 01/29/2025 8:52 AM EDT Plan of Treatment Upcoming Encounters Date Type Department Care Team (Late st Contact Info) Description 05/04/2025 10:00 AM EDT Nutrition [facility] [address] [place] [address] Emily Moctezuma MD [address] [address] Birdie Land LDN [address] [place] [address] 08/10/2025 9:00 AM EST Office Visit [facility] [address] [place] [address] Emily Moctezuma MD 22 [facility], 1st [place] [address] Health Maintenance Due Date Last Done Comments TSH LEVEL 1971 DEPRESSION SCREENING 1983 SMOKING Hx and SMOKELESS TOBACCO SCREENING 1984 HEPATITIS C SCREENING 1989 HIV ONE-TIME SCREENING (18-65 YEARS) 1989 PNEUMOCOCCAL VACCINES (50+ years) (1 of 2 - PCV) 1990 COLOGUARD 2016 COLONOSCOPY 2016 COLORECTAL CANCER SCREENING 2016 FIT TEST 2016 FOBT 2016 SIGMOIDOSCOPY 2016 VIRTUAL COLONOSCOPY 2016 URINE MICROALBUMIN/CREATININE RATIO 06/06/2017 ZOSTER VACCINES (1 of 2) 2021 COVID-19 VACCINE ( season) 2024 BLOOD PRESSURE 08/01/2025 01/29/2025 HEMOGLOBIN A1C 08/01/2025 01/29/2025, 09/28, 07/21/2024, Additional history exists DIABETIC EYE EXAM 12/18/2025 12/18/2024, 12/18/2024 Adult Td,Tdap Booster 01/17/2027 01/17/2017 HEPATITIS A VACCINES Aged Out No long er eligible based on patient's age to complete this topic HIB VACCINES Aged Out No longer eligi ble based on patient's age to complete this topic MENINGOCOCCAL VACCINES (ACWY) Aged Out No longer eligible based on patient's age to complete this topic MENINGOCOCCAL VACCINES (B) Aged Out N o longer eligible based on patient's age to complete this topic Medical Devices Not on file Procedures Procedure Name Priority Date/Time Associated Diagnosis Comments POCT HEMOGLOBIN A1C Routine 01/29/2025 9 :07 AM EDT 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 Insulin pump in place Type 1 diabetes mellitus with diabetic neuropathy from Last 3 Months Results * (ABNORMAL) POCT Hemoglobin A1c (01/29/2025 9:07 AM EDT) Hemoglobin A1c 7.5(A) 4.2 - 5.6 % [facility] Other 01/29/2025 9:07 AM EDT us Emily Moctezuma MD POINT OF CARE TEST ORDERABLES F inal Result [facility] [address] [place] [address], [facility] from Last 3 Months Insurance MEDICARE PART A & B [facility] [place] [place] [address] MEDICARE PART A & B [facility] [place]ULL [place] [id number] MEDICARE PART A & B HEALTH SAFETY NET FULL Member Subscriber Plan / Payer (Ef fective 2018-Present) Name:Russell Barber Relation to Subscriber:Self Name:Russell Barber Payer ID:Not on file Group ID:Not on file Type:Med[address] [employer] SAFETY [place] [address] MEDICARE PART A & B [facility] FULL Member Subscriber Plan / Payer (Ef fective 2018-Present) Name:Russell Barber Relation to Subscriber:Self Name:Russell Barber Payer ID:Not on file Group ID:Not on file Type:Medicaid Address: [address] [place] [address] MEDICARE PART A & B HEALTH SAFETY NET FULL Member Subscriber Plan / Payer (Ef fective 2018-Present) Name:Russell Barber Relation to Subscriber:Self Name:Russell Barber Payer ID:Not on file Group ID:Not on file Type:Medicaid Address: [address] MEDICARE PART A & B HEALTH SAFETY NET [facility] [place] [id number] [facility] FULL Care Teams Gypsum Block Setter Relationship Specialty Start Date End Date Tali Dyer MD [address] [place] [phone] PCP - General Internal Medicine 06/04/17 Tali Dyer MD [address] [place] [phone] Historical LMR Provider 05/14/17 Emily Moctezuma MD [address] [place] [address], [address] [place] [id number] [email or web address] Historical LMR Provider 05/14/17 Additional Source Comments The information contained in this document represents components of the legal health record. It is not the complete legal health record.[facility]
[2025-02-19 08:35] VITALS: BP 120/74; PULSE 69; BMI 33.5
--- NOTE | 2025-02-19 08:35 | MHC.OFFVIS ---
Vital Signs 02/19/25 08:35 Height 5 ft 8 in Weight 220 lb 7.396 oz BMI 33.5 BP 120/74 Blood Pressure Location Lt brachial Position Sitting Pulse 69 Intake Visit Reasons: 1 yr f/up Intake Note: 1 year follow-up with ekg feeling good Cigar Packer Required: No Allergies peanut (PEANUT) Allergy (Severe, Verified 12/11/24 08:44) ANAPHYLAXIS Penicillins (PENICILLINS) Allergy (Severe, Verified 12/11/24 08:44) SEVERE HIVES lamotrigine (Lamictal) Allergy (Intermediate, Verified 12/11/24 08:44) cough lisinopril Allergy (Unknown, Verified 12/11/24 08:44) unknown soy Allergy (Unknown, Verified 12/11/24 08:44) Unknown valsartan Allergy (Unknown, Verified 12/11/24 08:44) Unknown Medication List - Last Reconciled 02/19/25 by Fito Washington MD amlodipine 10 mg PO DAILY aspirin (Adult Aspirin Regimen) 81 mg PO DAILY atorvastatin 40 mg PO DAILY blood sugar diagnostic (Contour Next Test Strips) As directed lbdejyzbzx-xdnhrjzzoqogf-czxx 50-325-40 mg 1 cap PO Q4-6H PRN duloxetine 40 mg PO DAILY erenumab-aooe (Aimovig Autoinjector) 140 mg subcut .Q month fluticasone propionate 50 mcg/actuation 2 sprays intranasal DAILY hydroxyurea (Hydrea) 500 mg PO BID insulin aspart U-100 (Novolog FlexPen U-100 Insulin aspart) 100 units subcut DAILY levothyroxine 125 mcg PO QAM metoprolol succinate ER 50 mg PO DAILY 90 days pantoprazole 40 mg PO DAILY 90 days ropinirole 0.25 mg PO BEDTIME sertraline 50 mg PO DAILY 90 days sumatriptan succinate 50 mg PO Q2-4H PRN HPI Comments Details: Russell comes for a year follow-up. Overall he has been doing well. He said he can walk 2 miles without having any symptoms of chest pain or shortness of breath. His diabetes is borderline controlled. His LDL went up slightly to 70 mg/dL. Taking all his medications religiously. Denies any orthopnea, PND, leg edema. No lightheadedness, syncope. No prolonged palpitations or irregular heartbeat. [facility] Medical History (Updated 02/19/25 @ 08:58 by Fito Washington MD) Eye globe prosthesis NSTEMI (non-ST elevated myocardial infarction) Moderate major depression Rheumatoid factor positive Right knee pain Depression History of aspiration pneumonia Cataract Obstructive sleep apnea Left bundle branch block Chronic kidney disease Anxiety and depression GERD (gastroesophageal reflux disease) Hypercholesterolemia Obesity (BMI 30-39.9) Pulmonary nodule Vitamin D deficiency Peripheral neuropathy Hypothyroidism Asthma Hypertension Type 1 diabetes mellitus with diabetic chronic kidney disease Surgical History Hx of hand surgery S/P placement of nerve stimulator H/O colonoscopy History of trigger finger History of eye surgery History of penile implant History of carpal tunnel release Family History Father Hypertension CVD (cardiovascular disease) Mother Hypertension CVD (cardiovascular disease) Family/Other Rectal cancer Brother Rectal cancer Social History Household Members: Family Housing: House Alcohol intake: never Patient Tobacco Use Status: Former Tobacco user Tobacco use type: Cigarette Years Smoked: teenager e-Cigarette/Vaping Use: Never Used Second Hand Smoke Exposure: Yes service: No Current occupational status: unemployed Cognitive needs: No Hearing needs: No Vision needs: Yes Review of Systems Const Denies chills, Denies fatigue, Denies fever(s), Denies frequent falls, Denies weakness, Denies weight gain and Denies weight loss ENT Denies dizziness Card Denies chest pain, Denies leg edema, Denies lightheadedness, Denies palpitations, Denies dyspnea, Denies dyspnea on exertion, Denies orthopnea and Denies other (loss of consciousness) Resp Denies cough, Denies dyspnea and Denies dyspnea on exertion GI Denies hematochezia and Denies change in stool character Musc Denies abnormal gait, Denies muscle weakness, Denies numbness, Denies radiating pain into limb and Denies tingling Neuro Denies abnormal gait, Denies dizziness, Denies frequent falls, Denies numbness, Denies tingling and Denies weakness Endo Denies fatigue and Denies palpitations Physical Exam Vital Signs: Last Vital Signs Pulse 69 02/19/25 08:35 BP 120/74 02/19/25 08:35 BMI result Body Mass Index 33.5 Const General: cooperative, comfortable and no acute distress Orientation/consciousness: patient oriented x3 Neck Neck: Yes normal visual inspection Resp Effort & Inspection: normal respiratory effort Auscultation: clear to auscultation bilaterally, no crackles, no rales, no rhonchi and no wheezes Cardio Jugular venous distension: no JVD Rate: regular rate Rhythm: regular rhythm Heart sounds: S1 normal heart sound present, S2 normal heart sound present, no murmurs and no rubs Skin General skin exam: no rashes or lesions noted Neuro General: patient oriented x3 Extrem General: Yes normal to inspection and No no pedal edema Psych Appearance: grossly normal Mental Status: mental status grossly normal Speech and movement: Normal speech and movement present Office Procedures EKG Details: EKG shows normal sinus rhythm with left bundle-branch block, unchanged from before [id number], Complete Assessment & Plan Assessment & Plan (1) Coronary artery disease: Comment: 01/2023 Code(s): I25.10 - Atherosclerotic heart disease of [place] coronary artery without angina pectoris Category: Medical Plan: CAD with prior NSTEMI with significant risk factors including diabetes which is slightly uncontrolled hyperlipidemia as well as hypertension. Currently asymptomatic but with persistent left bundle-branch block, see below. He had no anatomic evaluation with coronary artery disease as he had signed out against medical advice. His myocardial perfusion imaging subsequently was showing normal perfusion although can not ruled out balanced ischemia. Would suggest a coronary CTA to evaluate coronary anatomy and further guide treatment. He is recommend to continue aspirin therapy for life. Continue aggressive vascular risk factor modification. Aggressive management diabetes goal hemoglobin A1c less than 7% and goal LDL less than 60 mg/dL. Will further optimize and intensive for treatment based on the coronary CTA finding. Continue aggressive blood pressure control. (2) Hypertension: Comment: Cardiac catheterization June 2018 normal Code(s): I10 - Essential (primary) hypertension Category: Medical Qualifiers: Hypertension type: essential hypertension Qualified Code(s): I10 - Essential (primary) hypertension Plan: Hypertension which is currently within normal limits. Importance of good blood pressure control was discussed. Target goal blood pressure less than 130/84. Low-salt diet was discussed. Advised to monitor blood pressure at home. (3) Left bundle branch block: Comment: follows w/[facility] Code(s): I44.7 - Left bundle-branch block, unspecified Category: Medical Plan: Left bundle-branch block asymptomatic. Rule out significant CAD as above. Discussed that no specific interventions required for left bundle-branch block. Potential symptoms with complete heart block were discussed. One in 6 patient develops cardiomyopathy will need echocardiogram every 2-3 years. Will follow up in the clinic in 1 year's time, sooner p.r.n.. Thank you for allowing me to partake in his care Coding Level of Care Code Est Pt Level 4 (63711) Complex EM visit Add On G2211 Diagnoses Coronary artery disease I25.10 Essential hypertension I10 Hypertension type: essential hypertension Left bundle branch block I44.7 CPT Codes EKG - CPT: 09904-Xqwxpweozyqucyzey, Complete ([id number])
== END 2025-02-19 08:57 | disposition home or self-care (01) ==
LOC: HO.HCS 08:01
PROVIDERS: PCP Internal Medicine; Visit Provider Internal Medicine Cardiovascular Disease
DX: I25.10 Atherosclerotic heart disease of native coronary artery without angina pectoris (principal); I10 Essential (primary) hypertension; I44.7 Left bundle-branch block, unspecified
CPT/HCPCS: 93010; 99214; G2211

== ENCOUNTER → 2025-02-19 08:00 | Outpatient (BNVA) | payer MEDICARE, MEDICAID, SELFPAY ==
[2023-04-20 15:31] VITALS: BP 134/66; BP 140/58; BMI 32.5
== END ==
PROVIDERS: PCP Internal Medicine; Visit Provider Internal Medicine Cardiovascular Disease
DX: I25.10 Atherosclerotic heart disease of native coronary artery without angina pectoris (principal); I44.7 Left bundle-branch block, unspecified; I10 Essential (primary) hypertension; Z79.82 Long term (current) use of aspirin; Z79.4 Long term (current) use of insulin; Z79.899 Other long term (current) drug therapy
CPT/HCPCS: 93005; 99212

== ENCOUNTER 2025-03-25 09:28 | Outpatient (REF) | payer MEDICARE, MEDICAID, SELFPAY ==
[2023-04-20 15:31] VITALS: BP 134/66; BP 140/58; BMI 32.5
--- OUTSIDE RECORDS SUMMARY | 2024-05-09 07:50 | XMS_ITS ---
Author Organization [facility] Address [address] [place] [id number] Care Team Providers Care Insulation Engineman Name Role Phone Tali Dyer MD Primary Care Provider Gabino Vera Jr REASON FOR VISIT screening Encounters Encounter Location Date Provider Diagnosis [facility] Outpatient [address] [place] [id number] 05/09/2024 Gabino Meade Jr Colon cancer screening Z12.11 Assessments Encounter Date Diagnosis (ICD Code) Assessment Notes Treatment Notes Treatment Clinical Notes Section Notes 05/09/2024 Colon cancer screening (ICD-10 - Z12.11) Plan Of Treatment No Information Progress Notes * VANNESSA MCKEONDOB:1970 (54 yo M)Acc No.[id number]:05/09/2024 COLON WITH MAC Patient: VANNESSA GUAN Provider: Dionne Meade MD :1970 A ge:54 Y S ex:Male Date:05/09/2024 Address:[address] [place], [place] [id number] Pcp:Tali Dyer MD Subjective: * Chief Complaints: [...] Meade MD Date: 1 Generated for Rah hood/Chano/Demetrioitting on: 0 03/25/2025 10:04 AM EDT
[2025-03-25 09:53] LABS: MANUAL DIFF FLAG NO
[2025-03-25 09:57] LABS: Hematocrit 41.6 % (42.0-52.0); Hemoglobin 14.0 g/dl (14.0-18.0); Imm Gran Abs Auto 0.07 X10*3/uL (0.00-0.03); Imm Gran Pct Auto 0.9 % (0.0-0.4); Lymphocytes Absolute Auto 1.3 X10*3/uL (1.2-4.9); Mean Corpuscular HGB Conc 33.7 g/dl (31.0-36.0); Mean Corpuscular Hemoglobin 31.5 pg (27.0-33.0); Mean Corpuscular Volume 93.5 fL (80.0-98.0); NRBC Abs Auto 0.000 X10*3/uL (0.0-0.012); NRBC Pct Auto 0.0 /100WBC (0.0-0.2); Platelet Count 449 X10*3/uL (160-400); Red Blood Count 4.45 X10*6/uL (4.60-5.80); White Blood Count 7.4 X10*3/uL (4.8-10.8)
--- OUTSIDE RECORDS SUMMARY | 2025-03-25 10:04 | XMS_ITS | Encounter Summary ---
Author Organization [facility] Address [address] [facility] [address] [place] [phone] Phone Care Team Providers Care Gastroenterology Professor Name Role Phone Tali Dyer MD Unavailable [phone] Emily Moctezuma MD Unavailable [phone] Tali Dyer MD Primary Care Provider [phone] Reason for Visit * Reason Onset Date Comments Dexcom/supplies 03/24/2025 Encounter Details Date Type Department Care Team (Late st Contact Info) Description 03/24/2025 Telephone [employer] [facility] [address] [place] [address] Masha Arredondo, SUE [address] [place] [address] [email or web address] Social History Tobacco Use Types Packs/Day Years [...] on file documented as of this encounter Progress Notes * Masha Arredondo RN - 03/24/2025 3:31 PM EDT Pt left a voicemail, stating that needs a prescription for Dexcom and supplies to go through his secondary [employer] insurance. He is looking for a call back on this. documented in this encounter Plan of Treatment Upcoming Encounters Date Type Department Care Team (Late st Contact Info) Description 05/04/2025 10:00 AM EDT Nutrition [facility] [address] [place] [address] [place] [address] Emily Moctezuma MD [address] [place] [address] Birdie Land LDN [address] [place] [phone] 08/10/2025 9:00 AM EST Office Visit [facility] [address] [place] [address] [place] [address] Emily Moctezuma MD [address] [place] [phone] documented as of this encounter Visit Diagnoses Not on filedocumented in this encounter Care Teams Gastroenterology Professor Relationship Specialty Start Date End Date PoTali MD [address] [place] [phone] PCP - General Internal Medicine 06/04/17 PoTali MD [address] [place] [phone] Historical LMR Provider 05/14/17 Emily Moctezuma MD [address] [place] [address], [address] [place] [address] [email or web address] Historical LMR Provider 05/14/17 documented as of this encounter Additional Source Comments The information contained in this document represents components of the legal health record. It is not the complete legal health record.[facility]
--- OUTSIDE RECORDS SUMMARY | 2025-03-25 10:04 | XMS_ITS | Encounter Summary ---
Author Organization [facility] Address [address] [place] [address] Care Team Providers Care Concrete Mixer Name Role Phone Physician, No Pcp Primary Care Provider Unavaila ble Encounter Details Date Type Department Care Team (Latest Contact Info) Description 01/28/[address] [facility] [address] [place] [address] Zeferino Richard MD [address] [facility] [address] [place] [address] Laceration of flexor muscle, fascia and tendon [...] LAB CHEMISTRY METHOD 01/29/2021 9:36 AM EDT [facility] Mean Bld Glu Estim. 206(H) <126 mg/dL LAB CHEMISTRY METHOD 01/29/2021 9:36 AM EDT [facility] Blood Topography not assigned / Unknown 01/28/2021 9:45 PM EDT 01/28/2021 9:45 PM EDT Narrative [facility] - 01/29/2021 9:36 AM EDT *Clinical Condition Normal <5.7% Prediabetes 5.7-6.5% Diabetes >/=6.5% NGSP: National Glycohemoglobin Standardization Program *2011 [place] [employer] Association Note: These results were obtained by [employer]Tracker-BOLD Guidance Variant II HbA1c Assay. The assay is IFCC standardized and NGSP certified. us Zeferino Richard MD LAB BLOOD ORDERABLES Final Resul t [facility] [address] [place] [address] * (ABNORMAL) Comprehensive metabolic panel (01/28/2021 9:45 PM EDT) Sodium 139 136 - 145 mmol/L LAB CHEMISTRY METHOD 01/28/2021 10:16 PM EDT [facility] Potassium 4.6 3.5 - 5.1 mmol/L LAB CHEMISTRY METHOD 01/28/2021 10:16 PM EDT [facility] Chloride 104 98 - 107 mmol/L LAB CHEMISTRY METHOD 01/28/2021 10:16 PM EDT [facility] CO2 29 21 - 32 mmol/L LAB CHEMISTRY METHOD 01/28/2021 10:16 PM EDT [facility] Anion Gap 6 3 - 11 LAB CHEMISTRY METHOD 01/28/2021 10:16 PM EDT [facility] Glucose 203(H) 70 - 99 mg/dL LAB CHEMISTRY METHOD 01/28/2021 10:16 PM EDT [facility] BUN 13 7 - 18 mg/dL LAB CHEMISTRY METHOD 01/28/2021 10:16 PM EDT [facility] Creatinine 0.88 0.70 - 1.30 mg/dL LAB CHEMISTRY METHOD 01/28/2021 10:16 PM EDT [facility] eGFR 101 >=60 mL/min/1. 73m2 LAB CHEMISTRY METHOD 01/28/2021 10:16 PM EDT [facility] Comment: Please note that this estimated GFR value is not recommended for use in individuals under the age of 18, individuals with unstable creatinine concentrations (including and acute renal failure), or individuals with extremes of body mass or diet (including amputees, paraplegics and obese individuals). BUN/Creatinine Ratio 14.77 LAB CHEMISTRY METHOD 01/28/2021 10:16 PM EDT [facility] Calcium 9.2 8.5 - 10.1 mg/dL LAB CHEMISTRY METHOD 01/28/2021 10:16 PM [facility] AST (SGOT) 22 15 - 37 unit/L LAB CHEMISTRY METHOD 01/28/2021 10:16 PM [facility] ALT (SGPT) 36 16 - 61 unit/L LAB CHEMISTRY METHOD 01/28/2021 10:16 PM EDT [facility] Alkaline Phosphatase 112 53 - 128 unit/L LAB CHEMISTRY METHOD 01/28/2021 10:16 PM T [facility] Total Protein 7.5 6.4 - 8.2 g/dL LAB CHEMISTRY METHOD 01/28/2021 10:16 PM EDT [facility] Albumin 3.9 3.4 - 5.0 g/dL LAB CHEMISTRY METHOD 01/28/2021 10:16 PM T [facility] Total Bilirubin 0.4 0.2 - 1.0 mg/dL LAB CHEMISTRY METHOD 01/28/2021 10:16 PM T [facility] Blood Topography not assigned / Unknown 01/28/2021 9:45 PM EDT 01/28/2021 9:45 PM EDT Zeferino Richard MD LAB BLOOD ORDERABLES Final Resul t [facility] [address] [place] [address] * (ABNORMAL) Complete blood count (01/28/2021 9:45 PM EDT) WBC 9.7 4.0 - 10.2 K/mcL LAB HEMETOLOGY METHOD 01/28/2021 10:02 PM EDT [facility] RBC 5.51 4.20 - 5.70 M/mcL LAB HEMETOLOGY METHOD 01/28/2021 10:02 PM EDT [facility] Hemoglobin 16.2 12.7 - 17.1 g/dL LAB HEMETOLOGY METHOD 01/28/2021 10:02 PM EDT [facility] Hematocrit 50.4(H) 35.0 - 50.2 % LAB HEMETOLOGY METHOD 01/28/2021 10:02 PM EDT [facility] MCV 91.5 81.0 - 97.0 FL LAB HEMETOLOGY METHOD 01/28/2021 10:02 PM EDT [facility] MCH 29.4 25.3 - 34.1 pcg LAB HEMETOLOGY METHOD 01/28/2021 10:02 PM EDT [facility] MCHC 32.1 30.2 - 35.3 g/dL LAB HEMETOLOGY METHOD 01/28/2021 10:02 PM EDT [facility] RDW 14.0 11.0 - 14.5 % LAB HEMETOLOGY METHOD 01/28/2021 10:02 PM EDT [facility] RDW-SD 46.7 36.8 - 48.3 FL LAB HEMETOLOGY METHOD 01/28/2021 10:02 PM EDT [facility] Platelets 616(H) 150 - 400 K/mcL LAB HEMETOLOGY METHOD 01/28/2021 10:02 PM EDT [facility] MPV 10.0 9.1 - 12.7 FL LAB HEMETOLOGY METHOD 01/28/2021 10:02 PM EDT [facility] NRBC 0.0 0.0 - 0.0 % LAB HEMETOLOGY METHOD 01/28/2021 10:02 PM EDT [facility] NRBC Absolute 0.00 0.00 - 0.00 K/mcL LAB HEMETOLOGY METHOD 01/28/2021 10:02 PM EDT [facility] Blood Topography not assigned / Unknown 01/28/2021 9:45 PM EDT 01/28/2021 9:45 PM EDT us Zeferino Richard MD LAB BLOOD ORDERABLES Final Resul t [facility] [address] [place] [address] documented in this encounter Visit Diagnoses Diagnosis Laceration of flexor muscle, fascia and tendon of right little finger at wrist and hand level, initial encounter Encounter for other preprocedural examination documented in this encounter Care Teams Concrete Mixer Relationship Specialty Start Date End Date Physician, No Pcp PCP - General 01/28/21 documented as of this encounter
--- OUTSIDE RECORDS SUMMARY | 2025-03-25 10:04 | XMS_ITS | Clinical Summary ---
Author Organization [address] [facility] Address [address] [facility] [address] [place] [address] Phone Care Team Providers Care Transformation Architect Name Role Phone Physician, No Pcp Primary [...] Hypertension Disease of thyroid gland Diabetes mellitus ([facility] V24, [facility] V28) Neuropathy Social History Tobacco [...] LAB CHEMISTRY METHOD 03/06/2022 12:23 PM EDT [facility] Potassium 3.9 3.5 - 5.1 mmol/L LAB CHEMISTRY METHOD 03/06/2022 12:23 PM EDT [facility] Chloride 104 98 - 107 mmol/L LAB CHEMISTRY METHOD 03/06/2022 12:[address] [facility] CO2 28 21 - 32 mmol/L LAB CHEMISTRY METHOD 03/06/2022 12:[address] [facility] Anion Gap 8 3 - 11 LAB CHEMISTRY METHOD 03/06/2022 12:[address] [facility] Glucose 124(H) 70 - 99 mg/dL LAB CHEMISTRY METHOD 03/06/2022 12:[address] [facility] BUN 17 7 - 18 mg/dL LAB CHEMISTRY METHOD 03/06/2022 12:[address] [facility] Creatinine 1.35(H) 0.70 - 1.30 mg/dL LAB CHEMISTRY METHOD 03/06/2022 12:[address] [facility] eGFR 61 >=60 mL/min/1. 73m2 LAB CHEMISTRY METHOD 03/06/2022 12:[address] [facility] Comment: The MDRD GFR formula is valid only for adults between ages 18 and 70. BUN/Creatinine Ratio 12.6 12.0 - 20.0 LAB CHEMISTRY METHOD 03/06/2022 12:[address] [facility] Calcium 7.5(L) 8.5 - 10.1 mg/dL LAB CHEMISTRY METHOD 03/06/2022 12:[address] [facility] AST (SGOT) 23 15 - 37 unit/L LAB CHEMISTRY METHOD 03/06/2022 12:[address] [facility] ALT (SGPT) 27 16 - 61 unit/L LAB CHEMISTRY METHOD 03/06/2022 12:[address] [facility] Alkaline Phosphatase 90 unit/L LAB CHEMISTRY METHOD 03/06/2022 12:[address] [facility] Total Protein 7.1 6.4 - 8.2 g/dL LAB CHEMISTRY METHOD 03/06/2022 12:23 PM EDT [facility] Albumin 3.5 3.4 - 5.0 g/dL LAB CHEMISTRY METHOD 03/06/2022 12:23 PM EDT [facility] Total Bilirubin 0.6 0.2 - 1.2 mg/dL LAB CHEMISTRY METHOD 03/06/2022 12:23 PM EDT [facility] Blood Venous blood specimen / Unknown Venipuncture / Unknown 03/06/2022 11:54 AM EDT 03/06/2022 12:01 PM EDT us Kerry GARCIA LAB BLOOD ORDERABLES Final R esult Performing Organization Address City/State/[facility] Co de Phone Number [facility] [address] [place] [address] * (ABNORMAL) Hemoglobin A1c (01/28/2021 9:45 PM EDT) Hemoglobin A1C 8.8(H) <5.7 % LAB CHEMISTRY METHOD 01/29/2021 9:36 AM EDT [facility] Mean Bld Glu Estim. 206(H) <126 mg/dL LAB CHEMISTRY METHOD 01/29/2021 9:36 AM EDT [facility] Blood Topography not assigned / Unknown 01/28/2021 9:45 PM EDT 01/28/2021 9:45 PM EDT Narrative [facility] - 01/29/2021 9:36 AM EDT *Clinical Condition Normal <5.7% Prediabetes 5.7-6.5% Diabetes >/=6.5% NGSP: National Glycohemoglobin Standardization Program *2011 [place] Diabetes Association Note: These results were obtained by [employer] Variant II HbA1c Assay. The assay is IFCC standardized and NGSP certified. us Zeferino Richard MD LAB BLOOD ORDERABLES Final Resul t [facility] [address] [place], [place] [id number] from Last 3 Months or Most Recently Relevant to Health Maintenance Insurance MEDICARE MEDICAID - [place] on file MEDICAID [facility] Care Teams Transformation Architect Relationship Specialty Start Date End Date Physician, No Pcp PCP - General 01/28/21
--- OUTSIDE RECORDS SUMMARY | 2025-03-25 10:05 | XMS_ITS | Encounter Summary ---
Author Organization [employer] Address [address] [place] [address] Care Team Providers Care Door Captain Name Role Phone Unavailable Primary Care Provider [...] 12/23/2025 8:30 AM EDT Office Visit Cathy [facility] [address] [place] [address] Catherine Parisi OD [address] [place] [address] documented as of this encounter Visit Diagnoses Not on filedocumented in this encounter
--- OUTSIDE RECORDS SUMMARY | 2025-03-25 10:05 | XMS_ITS | Clinical Summary ---
Author Organization [employer] Address [address] [facility] 7t [place] [address] Care Team Providers Care Acetylene Burner Name Role Phone Unavailable Primary Care Provider Unavailabl e Allergies Active Allergy Reactions Criticality Noted Date Comments Gabapentin 07/11/2022 Hydroxyzine Unknown 07/11/2022 Lamotrigine 10/26/2017 Lisinopril 10/26/2017 Other reaction(s): cough Peanut-Containing Drug Products 09/26/2018 Other reaction(s): throat swells, hives Other reaction(s): N/V, hives Penicillins 10/26/2017 Other reaction(s): ? hives Soy Allergy (Obsolete) Swelling 07/11/2022 Soybean-Containing Drug Products 08/08/2023 Other reaction(s): throat swelling Phoenix Oil 08/08/2023 Other reaction(s): N/V, hives Medications [...] 2 Active butalbital-acet aminophen-caffe ine-codeine (Fioricet w/Codeine) 34-680-00-30 MG capsule Take by mouth daily. 3 [...] since December 2022 Central sleep apnea 04/29/2012 Family History Medical History Relation Name Comments [...] 12/23/2025 8:30 AM EDT Office Visit Cathy [facility] [address] [place], [place] [phone] Catherine Parisi, OD [address] [place] [address] Health Maintenance Due Date Last Done Comments [...] 2) 2021 Diabetes: Hemoglobin A1C 04/30/2021 01/28/2021, 03/2 09/2020 COVID-19 Vaccine ( - season) 2024 Influenza Vaccine (#1) 2025 Dental Oral Exam 06/21/2025 12/18/2024, 09/2023, 10/07/2018 Dental Prophylaxis 06/21/2025 12/18/2024, 10/31/2023 Eye Exam 12/18/2025 12/18/2024, 11/28, 12/18/2024, Additional history exists Tobacco Screening 12/18/2025 12/18/2024 Dental X-Ray: Bitewings 12/19/2025 12/19/19 25, 10/31/2023, 10/07/2018 Dental X-Ray: Full Mouth 10/31/2026 [...] Diagnosis Comments Full PROPHYLAXIS - ADULT Routine 025 9:20 AM EDT BITEWINGS - 4 RADIOGRAPHIC IMAGES Routine 12/18/2024 9:20 AM EDT PERIODIC ORAL EVALUATION - ESTABLISHED PATIENT Routine 12/18/2024 9:20 AM EDT INTRAORAL - COMPLETE SERIES OF RADIOGRAPHIC IMAGES Routine 10/31/2023 9:20 AM EDT from Last 3 Months or Most Recently Relevant to Health Maintenance Insurance MEDICARE [facility] MEDICAID STAND ADULT DENTAL - HSN FULL (MEDICAID) [facility] MEDICARE
--- OUTSIDE RECORDS SUMMARY | 2025-03-25 10:05 | XMS_ITS | Clinical Summary ---
Author Organization [facility] Address [address] [facility] [address] [place] [address] Phone Care Team Providers Care Requisition Approver Name Role Phone Tali Dyer MD Unavailable [phone] Emily Moctezuma MD Unavailable Tali Dyer MD Primary Care Provider [phone] Allergies Active Allergy Reactions Criticality Noted Date Comments Gabapentin 07/11/2022 Hydroxyzine Unknown 07/11/2022 Lamotrigine 10/26/2017 Lisinopril 10/26/2017 Peanut 09/26/2018 Other reaction(s): N/V, hives Penicillins 10/26/2017 Soy Swelling 07/11/2022 Medications aspirin 81 MG EC tablet Active butalbital-acetam inophen-caffeine (FIORICET, ESGIC) 50-325-40 mg per tablet 1 tablet as needed A ctive albuterol 90 mcg/actuation inhaler 2 puffs as needed Ac tive amLODIPine (NORVASC) 10 MG tablet Take 10 mg by mouth daily. Active levothyroxine (SYNTHROID, LEVOTHROID) 125 MCG tablet Take 125 mcg by mouth every morning. Active pantoprazole (PROTONIX) 40 MG tablet Take 40 mg by mouth daily. Active BD INSULIN SYRINGE ULTRA-FINE 0.3 mL 31 gauge x 5/16 SyrgIndications:T ype 1 diabetes mellitus with stable proliferative retinopathy of right eye For insulin administration sc in case of insulin pump failure E10.3551 100 each 3 01/22/20 21 Active AIMOVIG AUTOINJECTOR 140 mg/mL subcutaneous injection [...] mouth 2 (two) times a day. 02/22/20 23 Active glucagon (BAQSIMI) 3 mg/actuation SpryIndications:T ype 1 diabetes mellitus with stable proliferative retinopathy of right eye 1 spray by Nasal route as needed. DX:E10.9 2 each 1 11/07/19 24 Active DULoxetine (CYMBALTA) 30 MG capsule Take 30 mg by mouth 2 (two) times a day. Active rOPINIRole (REQUIP) 0.25 MG tablet Take 0.25 mg by mouth daily. 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 E10.3551 45 each 3 01/30/20 25 Active Active Problems Problem Noted Date Diagnosed [...] pressure and heart rate metrics since his TN earlier this year Given h/o diabetic retinal disease, goal bp is <130/80 Intolerance of ACEI in the past Continues on CCB, recently added Bblocker Assessment & Plan (03/08/2023 1:51 PM EDT): Blood pressure is elevated today Given h/o diabetic retinal disease and recent TN, goal bp is <130/80 Intolerance of ACEI [...] do his best with healthy eating this season and to stay active as consistently [...] Russell will return to meet with our early childhood educator aide staff in 3 months and we will [...] Russell will return to meet with our early childhood educator aide staff in 3 months and we will [...] Russell will return to meet with our early childhood educator aide staff in 3 months and we will [...] Russell will return to meet with our early childhood educator aide staff in 3 months and we will [...] up after training on Omnipod 5 with Altacor G6 Reviewed insulin pump therapy specifics, things have been going well with transition to Omnipod 5 from [employer], Russell is very happy with this change Russell continues to use CGM consistently Discussed recent TN, encouraged close follow up with PCP and cardiology, advised keeping blood sugars as tightly controlled as possible, without increasing hypoglycemia frequency is important to reduce risk of future CV events related to diabetes and jail complications overall Continues with improving control per [...] Russell will return to meet with our early childhood educator aide staff in 3 months and we will [...] Russell will return to meet with our early childhood educator aide staff in 3 months and we will [...] Russell will return to meet with our early childhood educator aide staff in 3 months and we will [...] Russell will return to meet with our early childhood educator aide staff in 3 months and we will [...] Russell will return to meet with our early childhood educator aide staff in 3 months and we will [...] adjustment of insulin pump settings as noted, Jonathan talked through the changes by phone and [...] training today Pump settings were transferred from [employer] Russell will continue with previous glucose alerts as set on Dexcom G6 ken Automated Mode started today, though [...] 780G he will need to use the MedThe App3 Guardian 4 sensor with the system to [...] aggressive ISF will help Russell correct elevated undercoat sprayer blood sugars more effectively Change in ISF [...] Encounters Date Type Department Care Team Description 03/24/2025 Telephone [facility] [address] [place] [address] Masha Arredondo RN Dexcom/supplies 01/29/2025 9:00 AM EDT Office Visit [facility] [address] [place] [address] Emily Moctezuma MD 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 (Primary Dx); Type 1 diabetes mellitus with diabetic neuropathy; Insulin pump in place; Essential hypertension; Acquired hypothyroidism; Class 1 obesity with serious comorbidity and body mass index (BMI) of 33.0 to 33.9 in adult, unspecified obesity type 01/12/2025 Telephone [facility] [address] [place] [address] Niurka Moon MA Medication Management 01/05/2025 Telephone [facility] [address] [place] [address] Niurka Moon MA CLINICAL NOTES from Last [...] Info) Description 05/04/2025 10:00 AM EDT Nutrition [facility] [address] [place] [address] [place] [address] Emily Moctezuma MD [address] [place] [address] Birdie Land LDN [address] [place] [address] 08/10/2025 9:00 AM EST Office Visit [facility] [address] [place] [address] [place] [address] Emily Moctezuma MD [address] [place] [address] [email or web address] Health Maintenance Due Date Last Done Comments [...] VACCINES (1 of 2) 2021 COVID-19 VACCINE (1 - season) 2024 INFLUENZA VACCINE (#1) 2025 BLOOD PRESSURE 08/01/2025 01/29/2025 HEMOGLOBIN A1C 08/01/2025 [...] Hemoglobin A1c 7.5(A) 4.2 - 5.6 % [facility] Other 01/29/2025 9:07 AM EDT us Emily Moctezuma MD POINT OF CARE TEST ORDERABLES F inal Result [facility] [address] [place] [address], [facility] from Last 3 Months Insurance MEDICARE PART A & B Member Subscriber Plan / Payer (Ef fective 2012-Present) Name:Russell Barber Member ID:[id number] Relation to Subscriber:Self Name:Russell Barber Subscriber ID:[id number] Payer ID:[id number] Group ID:Not on file Type:Medicare Address: [facility] Milk [facility] [address] [address] [facility] NET FULL MEDICARE PART A & B [employer] SAFETY NET FULL Member Subscriber Plan / Payer (Ef fective 2018-Present) Name:Russell Barber Relation to Subscriber:Self Name:Russell Barber Payer ID:Not on file Group ID:Not on file Type:Medicaid Address: [address] MEDICARE PART A & B [employer] SAFETY NET FULL [place] MED[place] PART A & B [facility] NET FULL [place] MED[place] PART A & [facility] FULL [place] [address] MEDICARE PART A & B HEALTH SAFETY NET FULL Member Subscriber Plan / Payer (Ef fective 2018-Present) Name:Russell Barber Relation to Subscriber:Self Name:Russell Barber Payer ID:Not on file Group ID:Not on file Type:Medicaid [address] B [employer] [place] [address] MEDICARE PART A & B [facility] F[facility] Member Subscriber Plan / Payer (Ef fective 2018-Present) Name:Russell Barber Relation to Subscriber:Self Name:Russell Barber Payer ID:Not on file Group ID:Not on file Type:Medicaid Address: [address] [place] [address] MEDICARE PART A & B HEALTH SAFETY NET FULL Member Subscriber Plan / Payer (Ef fective 2018-Present) Name:Russell Barber Relation to Subscriber:Self Name:Russell Barber Payer ID:Not on file Group ID:Not on file Type:Medicaid Address: [address] Care Teams Requisition Approver Relationship Specialty Start Date End Date Tali Dyer MD [address] [place] [address] [place] [phone] PCP - General Internal Medicine 06/04/17 Tali Dyer MD [address] [place] [address] [place] [phone] Historical LMR Provider 05/14/17 Emily Moctezuma MD [address] [place] [address], [address] [place] [address] Historical LMR Provider 05/14/17 Additional Source Comments The information contained in this document represents components of the legal health record. It is not the complete legal health record.[facility]
--- OUTSIDE RECORDS SUMMARY | 2025-03-25 10:05 | XMS_ITS | Patient Health Record ---
Author [facility] Address [address] [facility] [place] [address] Care Team Providers Care Utility Appraiser Name Role Phone Tali Dyer Primary Care Provider Loyda Pickens Unavailable [phone] Allergies Allergen (clinical drug ingredient) Drug/Non Drug [...] Problem Acquired hammer toe of right foot (536837564577155 5) Other hammer toe(s) (acquired), right foot (M20.41) Active confirmed Response to treatment, Improvement Problem Acquired hammer toe of left foot (944040590891392 3) Other hammer toe(s) (acquired), left foot (M20.42) Active confirmed Response to treatment, Improvement Problem Polyneuropathy due to type 2 diabetes mellitus (330090995) Type 2 diabetes mellitus with diabetic polyneuropathy (E11.42) Active confirmed Vital Signs Blood pressure diastolic 65 mm Hg 02/12/2025 Height 5ft 8 inch in 02/12/2025 Blood pressure systolic 128 mm Hg 02/12/2025 Weight 220 lbs 02/12/2025 BMI 33.45 kg/m2 02/12/2025 Procedures Procedure Date Ordered Date Performed Result Body Sit e 99953-YJVLATX NAIL, 6 OR MORE 07/03/2024 N/A 85683-OQXG SKIN LESIONS, 2 TO 4 07/03/2024 N/A 87437-CRSQCTV NAIL, 6 OR MORE 11/12/2024 N/A 73769-WDAX SKIN LESIONS, 2 TO 4 11/12/2024 N/A Encounters Encounter Location Date Provider Diagnosis [facility] [address] [address] 07/03/2024 Loyda Putnam Tinea pedis of both feet B35.3 ; Type 2 diabetes mellitus with diabetic polyneuropathy E11.42 and Tinea unguium B35.[address] [address] 11/12/2024 Loyda Putnam Other hammer toe(s) (acquired), right foot M20.41 ; Other hammer toe(s) (acquired), left foot M20.42 ; Type 2 diabetes mellitus with diabetic polyneuropathy E11.42 ; Tinea unguium B35.1 and Tinea pedis of both feet B35.[address] [address] 02/12/2025 Loyda Putnam Type 2 diabetes mellitus [...] Treatment Pending Test Test Name Order Date [id number]-OXQOJPK NAIL, 6 OR MORE 07/03/2024 74435-FJOSKKM NAIL, 6 OR MORE 11/12/2024 88868-YJLJ SKIN LESIONS, 2 TO 4 07/03/20 24 74914-TRIX SKIN LESIONS, 2 TO 4 11/13/19 Next Appt Details Provider Name:Loyda Albrecht thompson, 05/18/2025 02:45:00 PM, [address] [place], [address], Insurance Providers Payer Name Payer Address Payer Phone Subscriber Number Group Number Insured Name Patient Relationship to Insured Coverage Start Date Coverage End Date Medicare National Govt [employer] [address] [place] [address] [id number] Russell Barber Self - patient is the insured 3 Medical (General) History Medical History History ICD Code asthma Back,Hip,and Knee pain Cataracts Depression Diabetic Headaches/Migraines High Blood Pressure thyroid Neuropathy Heart attack Carpal tunnel Trigger finger
--- OUTSIDE RECORDS SUMMARY | 2025-03-25 10:05 | XMS_ITS | Patient Health Record ---
Author Organization [facility] Address [address] [place] [address] Care Team Providers Care Correctional Facility Nurse Name Role Phone Tali Dyer MD Primary [...] date:05/16/2024 07:39:47 AM Interpretation: Performing Lab: Notes/Report: [address] [address] [address] Scan Report Signed Patient: Vannessa Barber S MR#: [id number] 40 : 1970 Acct:[id number] Age/Sex: 54 / M ADM Date: 05/09/24 Loc: [facility] Attending Dr: Gabino Meade MD Ordering Physician: Gabino Meade MD Date of Service: 05/09/24 Procedure(s): CT colonography Accession Number(s): [id number] cc: Gabino Meade MD; Tali Dyer MD [...] 05/09/24 1630 DD/ 1342 TD/TT: 05/09/24 1401 University Relations Director: DANIEL Reason For Referral No Information Medications Medication [...] Once a day for 30 day(s) Active Vysymncejh-NZWY-Oibiyecg 50-325-40 MG 1 capsule as needed Orally [...] Problem Status W/U Status Risk Notes Problem 109975003 Colon cancer screening (Z12.11) Active confirmed Problem 273115751 Long-term use of aspirin therapy (Z79.82) Active confirmed Problem 02618408 Incontinence of feces, unspecified fecal incontinence type (R15.9) Active confirmed Vital Signs Temperature 97.5 degrees Fahrenheit 04/23/2024 Blood pressure diastolic 00 mm Hg 04/23/2024 Height 68 in 04/23/2024 Blood pressure systolic 000 mm Hg 04/23/2024 Weight 222 lb 6 oz lbs 04/23/2024 BMI 33.81 kg/m2 04/23/2024 Encounters Encounter Location Date Provider Diagnosis [facility] [address] [place] [phone] 05/09/2024 Gabino Meade Jr Colon cancer screening Z12.11 [facility] [address] [place] [address] 04/23/2024 Gabino Meade Jr Colon cancer screening Z12.11 ; Incontinence of feces, unspecified fecal incontinence type R15.9 and Long-term use of aspirin therapy Z79.82 [facility] [address] [place] [address] 05/16/2024 Gabino Meade Jr Assessments Encounter Date [...] Date MEDICARE OF [place] [address] L[place]IE N[place]ANTTREV [address] [id number] LINDA VANNESSA Self - patient is the insured [employer] CLAIMS [address] [place] [address] [id number] LINDA VANNESSA Self - patient is the insured Medical (General) History Medical History History ICD Code diabetes mellitus hypertension retinopathy obstructive sleep apnea hypothyroidism headaches elevated cholesterol asthma erectile dysfunction Family history of colon cancer Gastroesophageal reflux disease Essential thrombocytosis Surgical History Surgery Date(Month/Year) finger surgery carpal tunnel release-left eye surgery penile implant
--- OUTSIDE RECORDS SUMMARY | 2025-03-25 10:05 | XMS_ITS | Encounter Summary ---
Author Organization [facility] Address [address] [facility] [address] [place] [phone] Phone Care Team Providers Care Vault Clerk Name Role Phone Birdie Quintero ROD POINTER Unavailable Unavailable Tali Dyer MD Unavailable [phone] Diane Whitaker ROD POINTER Unavailable Emily Moctezuma MD Unavailable [phone] PoTali MD Primary Care Provider [phone] Encounter Details Date Type Department Care Team (Latest Contact Info) Description 06/08/2018 Transcribe Orders [facility] [address] [place] [address] Emily Moctezuma MD [address] [place] [phone] 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 documented in this encounter Results * (ABNORMAL) C-peptide (06/08/2018 9:23 AM EST) C-PEPTIDE <0.1(L) 1.1 - 4.4 ng/mL [facility] Blood 06/08/2018 9:23 AM EST 06/08/2018 9:29 AM EST us Emily Moctezuma MD LAB BLOOD ORDERABLES Final Resu lt [facility] [place] [address] * Glucose, fasting (06/08/2018 9:23 AM EST) FASTING GLUCOSE 110 70 - 110 mg/dL [facility] Blood 06/08/2018 9:23 AM EST 06/08/2018 9:29 AM EST us Emily Moctezuma MD LAB BLOOD ORDERABLES Final Resu lt Performing Organization Address City/[facility]/ZIP Co de Phone Number [address] [address] * (ABNORMAL) Hemoglobin A1c (06/08/2018 9:23 AM EST) HEMOGLOBIN A1C 8.7(H) 4.3 - 5.8 % [facility] Blood 06/08/2018 9:23 AM EST 06/08/2018 9:29 AM EST us Emily Moctezuma MD LAB BLOOD ORDERABLES Final Resu lt Performing Organization Address City/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 Type 1 diabetes mellitus without complication Type I (juvenile type) diabetes mellitus without mention of complication, not stated as uncontrolled documented in this encounter Care Teams Vault Clerk Relationship Specialty Start Date End Date Tali Dyer MD [address] [place] [phone] PCP - General Internal Medicine 06/04/17 Birdie Quintero NP [address] [place] [address] Historical LMR Provider 05/14/1708/06 Tali Dyer MD [address] [place] [phone] Historical LMR Provider 05/14/17 Diane Whitaker NP [address] [place] [address] Historical LMR Provider 05/14/17 Emily Moctezuma MD [address] [facility], [address] [place] [phone] [email or web address] Historical LMR Provider 05/14/17 documented as of this encounter Additional Source Comments The information contained in this document represents components of the legal health record. It is not the complete legal health record.[facility]
[2025-03-25 10:09] LABS: Alanine Aminotransferase 60 U/L (0-40); Albumin Level 4.0 g/dL (3.5-5.0); Alkaline Phosphatase 115 U/L (39-117); Anion Gap 10 (12-20); Aspartate Amino Transferase 58 U/L (5-37); Blood Urea Nitrogen 14 mg/dL (9-16); Calcium 9.0 mg/dL (8.4-10.2); Carbon Dioxide 25 mmol/L (22-29); Chloride 102 mmol/L (96-108); Estimated Glomerular Filt Rate > 60; Potassium 4.2 mmol/L (3.3-5.1); Sodium 133 mmol/L (135-145); Total Protein 6.7 g/dL (6.5-8.0)
== END 2025-03-25 09:29 | disposition home or self-care (01) ==
LOC: HO.LAB 09:28
PROVIDERS: Absent Provider Internal Medicine Cardiovascular Disease; PCP Internal Medicine; Visit Provider Internal Medicine
DX: D75.839 Thrombocytosis, unspecified (principal); D75.1 Secondary polycythemia
CPT/HCPCS: 36415; 80053; 83615; 85025

== ENCOUNTER → 2025-03-25 11:52 | Outpatient (REF) | payer MEDICARE, MEDICAID, SELFPAY ==
[2023-04-20 15:31] VITALS: BP 134/66; BP 140/58; BMI 32.5
--- NOTE | 2025-03-25 11:58 | CA_ITS ---
Transthoracic Echocardiogram Patient (Last, First, Middle): Russell Barber S Gender: M Date of : 1970 Age: 54 Procedure Date: 03/25/2025 Procedure Type: Transthoracic Echocardiogram Location: OP Height: 172.72 cm Weight: 99.79 kg BSA: 2.13 m2 Heart Rate: 71 bpm BP: 120 / 74 mmHg Document Design Specialist: SB Referring MD: Fito Washington MD Symptoms: I44.7 - Left bundle-branch block, unspecified Study Quality: Adequate ECG Rhythm: Sinus Conclusions: - The left ventricular systolic function is low normal. The calculated ejection fraction is 54% by biplane method. - No obvious valvular pathology seen on this study. Findings Left Ventricle Normal left ventricular cavity size. The left ventricular systolic function is low normal. The calculated ejection fraction is 54% by biplane method. There is paradoxical septal motion consistent with a left bundle branch block. Diastolic function is normal for age. There is mild septal asymmetric hypertrophy. Right Ventricle Mildly increased right ventricular cavity size. There is normal right ventricular systolic function. Atria Both atria are normal in size. Aortic Valve There is a normal trileaflet aortic valve. There is no aortic valve stenosis. There is no aortic valve regurgitation. Mitral Valve The mitral valve appears normal. There is no mitral valve regurgitation. There is no mitral valve stenosis. Pulmonic Valve The pulmonic valve is likely normal. Tricuspid Valve There is trace tricuspid valve regurgitation. There is no evidence of pulmonary hypertension. Great Vessels The asc aorta and aortic arch are normal in size. Venous The inferior vena cava is normal in size and collapses greater than 50% with inspiration. Pericardium/Pleural There is no evidence of pericardial effusion. Prior Study Comparison No significant change compared to prior study dated: 09/06/2010. Recommendations, Care & Conclusions No obvious valvular pathology seen on this study. Measurements 2D Linear Measurements IVSd: 1.27 0.6-0.9/0.6-1.0 cm LVIDd: 5.43 3.9-5.3/4.2-5.9 cm LVIDd Index: 2.55 2.4-3.2/2.2-3.1 cm/m2 LVIDs: 3.93 2.0-3.6 cm LVPWd: 0.89 0.7-1.1 cm LA Diam: 4.40 2.7-3.8/3.0-4.0 cm LAIDs Index: 2.07 1.5-2.3 cm/m2 LV Mass: 287.69 67-162/88-224 g LV Mass Index: 135.07 43-95/49-115 g/m2 LVOT Diam: 2.10 3.0+(-)1.3 cm 2D Systolic Function EF 4C: 53.30 >55% EF 2C: 54.90 >55% EF BiP: 54.00 >55% Mitral Valve MV Pk E: 0.78 MV PK A: 0.99 MV Decel Time: 215.00 E/A: 0.80 E'Lateral: 6.85 E'Medial: 5.55 E/E' Med: 14.10 E/E' Lat: 11.40 PHT: 63.00 MVA PHT: 3.49 Decel Camas: 3.63 Aortic Valve AoV Pk Wilner: 1.27 AoV Pk Grad: 6.00 CHARLETTE: 3.37 LVOT LVOT Pk Wilner: 1.15 LVOT Mn Wilner: 0.83 LVOT VTI: 0.21 LVOT Pk Grad: 5.00 LVOT Mn Grad: 3.00 LVOT Diam: 2.10 LVOT Area: 3.46 Diastolic Function MV Pk E: 0.78 MV Pk A: 0.99 E/A: 0.80 E'Medial: 5.55 E/E' Med: 14.10 E' Laterial: 6.85 E/E' Lat: 11.40 Right Ventricle TAPSE (mm): 28.70 TVS' Wilner: 15.90 Tricuspid Valve TR Pk Wilner: 2.23 TR Pk Grad: 20.00 RA Press: 3.00 RVSP: 23.00 Great Vessels Aorta Sinus of Valsalva: 3.20 2.0-3.5 cm Ao Asc: 3.70 2.1-3.4 cm Ao Arch: 3.10 Pulmonary Veins Pulm Vein S/D 1.80 Pulmonary Valve PV Pk Wilner: 1.17 Peak PV Grad: 5.00 Updated in Other Vendor System with Status of Final Jovan Newton MD electronically signed on 03/27/2025 8:50:37 AM with status of Final
== END ==
LOC: HO.CARD 11:52
PROVIDERS: PCP Internal Medicine; Visit Provider Internal Medicine Cardiovascular Disease
DX: I44.7 Left bundle-branch block, unspecified (principal)
CPT/HCPCS: 93306

== ENCOUNTER → 2025-03-25 11:58 | Outpatient (BNV) | payer MEDICARE, MEDICAID, SELFPAY ==
[2023-04-20 15:31] VITALS: BP 134/66; BP 140/58; BMI 32.5
== END ==
PROVIDERS: PCP Internal Medicine; Visit Provider Internal Medicine
DX: I44.7 Left bundle-branch block, unspecified (principal)
CPT/HCPCS: 93306

== ENCOUNTER 2025-04-02 13:01 | Outpatient (AMB) | payer MEDICARE, MEDICAID, SELFPAY ==
[2023-04-20 15:31] VITALS: BP 134/66; BP 140/58; BMI 32.5
--- OUTSIDE RECORDS SUMMARY | 2024-05-09 07:50 | XMS_ITS ---
Author Organization [facility] Address [address] [place] [id number] Care Team Providers Care Percussion Welding Machine Operator Name Role Phone Tali Dyer MD Primary Care Provider Gabino Vera Jr [phone] REASON FOR VISIT screening Encounters Encounter Location Date Provider Diagnosis [facility] Outpatient [address] [place] [id number] 05/09/2024 Gabino Meade Jr Colon cancer screening Z12.11 Assessments Encounter Date Diagnosis (ICD Code) Assessment Notes Treatment Notes Treatment Clinical Notes Section Notes 05/09/2024 Colon cancer screening (ICD-10 - Z12.11) Plan Of Treatment No Information Progress Notes * VANNESSA MCKEONDOB:1970 (55 yo M)Acc No.[id number]:05/09/2024 COLON WITH MAC Patient: VANNESSA GUAN Provider: Dionne Meade MD :1970 A ge:54 Y S ex:Male Date:05/09/2024 Address:[address] [place], [place] [phone] Pcp:Tali Dyer MD Subjective: * Chief Complaints: * 1 . Screening. * Medical History: Objective: * Vitals: Assessment: * Assessment: 1. C olon cancer screening - Z12.11 (Primary) Plan: * Treatment: * Procedure Codes: 4 5378 DIAGNOSTIC COLONOSCOPY, Modifiers: 54 , 0529F INTRVL 3+YRS PTS CLNSCP DOCD, 0528F RCMND FLW-UP 10 YRS DOCD, Modifiers: 1P * * The named appointment provid er may or may not be the originator of this progress note, and it is not deemed complete until electronically signed by the appointment provider. Sign off status: Pending * Provider: Dionne Meade MD Date: 1 Generated for Rah hood/Chano/Won on: 0 04/02/2025 02:17 PM EDT
[2025-04-02 13:05] VITALS: BP 136/72; PULSE 81; O2SAT 98; BMI 34.1
--- NOTE | 2025-04-02 13:05 | MHC.PC.OV ---
Vital Signs 04/02/25 13:05 Height 5 ft 8 in Weight 224 lb BMI 34.1 BP 136/72 Blood Pressure Location Lt brachial Position Sitting Pulse 81 Pulse Source Pulse Oximeter Pulse Oximetry (%) 98 Oxygen Delivery Method Room Air Intake Visit Reasons: 3 month Allergies peanut (PEANUT) Allergy (Severe, Verified 04/02/25 13:05) ANAPHYLAXIS Penicillins (PENICILLINS) Allergy (Severe, Verified 04/02/25 13:05) SEVERE HIVES lamotrigine (Lamictal) Allergy (Intermediate, Verified 04/02/25 13:05) cough lisinopril Allergy (Unknown, Verified 04/02/25 13:05) unknown soy Allergy (Unknown, Verified 04/02/25 13:05) Unknown valsartan Allergy (Unknown, Verified 04/02/25 13:05) Unknown Tobacco use date assessed: 09/08/24 Dental Screening Dental Screen Date: 09/08/24 [facility] Medical History (Updated 03/25/25 @ 10:07 by Marita Fox MD) Eye globe prosthesis NSTEMI (non-ST elevated myocardial infarction) Moderate major depression Rheumatoid factor positive Right knee pain Depression History of aspiration pneumonia Cataract Obstructive sleep apnea Left bundle branch block Chronic kidney disease Anxiety and depression GERD (gastroesophageal reflux disease) Hypercholesterolemia Obesity (BMI 30-39.9) Pulmonary nodule Vitamin D deficiency Peripheral neuropathy Hypothyroidism Asthma Hypertension Type 1 diabetes mellitus with diabetic chronic kidney disease Surgical History Hx of hand surgery S/P placement of nerve stimulator H/O colonoscopy History of trigger finger History of eye surgery History of penile implant History of carpal tunnel release Family History Father Hypertension CVD (cardiovascular disease) Mother Hypertension CVD (cardiovascular disease) Family/Other Rectal cancer Brother Rectal cancer Social History Household Members: Family Housing: House Alcohol intake: never Patient Tobacco Use Status: Former Tobacco user Tobacco use type: Cigarette Years Smoked: teenager e-Cigarette/Vaping Use: Never Used Second Hand Smoke Exposure: Yes service: No Current occupational status: unemployed Cognitive needs: No Hearing needs: No Vision needs: Yes Questionnaire PHQ-9 Over the last 2 weeks, how often have you been bothered by any of the following problems? 1. Little interest or pleasure in doing things: more than half the days 2. Feeling down, depressed, or hopeless: not at all 3. Trouble falling or staying asleep, or sleeping too much: nearly every day 4. Feeling tired or having little energy: several days 5. Poor appetite or overeating: not at all 6. Feeling bad about yourself - or that you are a failure or have let yourself or your family down: not at all 7. Trouble concentrating on things, such as reading the newspaper or watching television: several days 8. Moving or speaking so slowly that other people could have noticed. Or the opposite - being so fidgety or restless that you have been moving around a lot more than usual: not at all 9. Thoughts that you would be better off or of hurting yourself in some way: not at all Total score: 7 Depression Screening Interpretation: Positive Depression Screening Done: Yes Source: Developed by Drs. Kendall Zapata, Navya Torres, Robert Costa and colleagues, with an educational glen from [employer]. Thrive Questionnaire Date Thrive assessed: 12/11/24 I am a: Patient What is your living situation today?: I have a steady place to live Within the past 12 months, did the food you bought not last and you didn't have the money to get more?: Sometimes True Within the past 12 months, did you worry whether your food would run out before you got money to buy more?: Sometimes True Do you have trouble paying for medicines?: No Do you have trouble getting transportation to medical appointments?: No Do you have trouble paying your heating and electricity bill?: Yes Do you have trouble taking care of your child, family member or friend?: No Do you have trouble with day-to-day activities such as bathing, preparing meals, shopping, managing finances, etc.?: No Are you currently unemployed and looking for a job?: No Are you interested in more education?: No Please select the resources that you would like help with: Utilities Currently or been in a relationship where the following occur: No concerns reported THRIVE Score: 3 AUDIT C Alcohol Use Questionnaire (AUDIT-C) 1. How often do you have a drink containing alcohol?: Never Total Score: 0 YEN-7 AMB Questionnaire YEN-7 Date YEN - 7 assessed: 09/08/24 Source: Developed by DrsEnedina Zapata, Navya Torres, Robert Costa and colleagues, with an educational glen from [employer]. Physical exam (Primary Care) Vital Signs: Last Vital Signs Pulse 81 04/02/25 13:05 BP 136/72 04/02/25 13:05 Pulse Ox 98 04/02/25 13:05 Oxygen Delivery Method Room Air 04/02/25 13:05 BMI result Body Mass Index 34.1 Tobacco/Smoking Status: Tobacco use Status Tobacco use date assessed 09/08/24 04/02/25 13:06 Patient Tobacco Use Status Former Tobacco user 04/02/25 13:06 Tobacco use type Cigarette 04/02/25 13:06 e-Cigarette/Vaping Use Never Used 04/02/25 13:06 PHQ-9: PHQ-9 Score PHQ-9: Total score 7 04/02/25 13:39 Depression Screening Interpretation: Positive Thrive Assessment: Date of Thrive Assessment Date Thrive assessed 12/11/24 04/02/25 13:06 Currently or been in a relationship where the following occur: No concerns reported Const General: alert; No acute distress Eyes Conjunctivae: conjunctivae normal Resp Auscultation: clear to auscultation bilaterally Cardio Rate: regular rate Rhythm: regular rhythm GI Inspection: Yes normal to inspection Extrem General: Yes normal to inspection and No edema Results AMB Hemoglobin A1c AMB Hemoglobin A1c 6.9 % Last Edit by Amanda Garcia CMA on 04/02/25 13:22 Results Reviewed Results Reviewed: Laboratory Last Values Hgb A1c (Clinic) 6.9 % (4.0-6.0) H 04/02/25 13:06 Coding Level of Care Code Est Pt Level 4 (13255) Complex EM visit Add On G2211 Diagnoses Coronary artery disease I25.10 Essential hypertension I10 Hypertension type: essential hypertension Hypercholesterolemia E78.00 Type 1 diabetes mellitus with stage 2 chronic kidney disease E10.22; N18.2 Chronic kidney disease stage: stage 2 (mild) Acquired hypothyroidism E03.9 Hypothyroidism type: acquired Obesity (BMI 30-39.9) E66.9 Gastroesophageal reflux disease without esophagitis K21.9 Esophagitis presence: without esophagitis Hepatic steatosis K76.0 Polycythemia D75.1 Assessment & Plan Assessment & Plan (1) Coronary artery disease: Comment: 01/2023 Code(s): I25.10 - Atherosclerotic heart disease of [place] coronary artery without angina pectoris Category: Medical Plan: Control the cholesterol, weight, blood pressure, diabetes lifelong a aspirin (2) Hypertension: Comment: Cardiac catheterization June 2018 normal Code(s): I10 - Essential (primary) hypertension Category: Medical Qualifiers: Hypertension type: essential hypertension Qualified Code(s): I10 - Essential (primary) hypertension Plan: Continue with blood pressure medication. Decrease salt intake and exercise patient on amlodipine 10 mg once a day metoprolol 50 mg once a day (3) Hypercholesterolemia: Code(s): E78.00 - Pure hypercholesterolemia, unspecified Category: Medical Plan: Avoid fried foods, chicken skin, eggs, butter margarine, pastries and meat. Be it pork or beef they have a lot of cholesterol LDL goal of less than 70 and triglyceride of less than 150 patient last blood work was in August 2024 atorvastatin 40 mg once a day (4) Type 1 diabetes mellitus with diabetic chronic kidney disease: Comment: With retinopathy, neuropathy, nephropathy, rougon Eye doctor. Dr. Moctezuma Code(s): E10.22 - Type 1 diabetes mellitus with diabetic chronic kidney disease Category: Medical Qualifiers: Chronic kidney disease stage: stage 2 (mild) Qualified Code(s): E10.22 - Type 1 diabetes mellitus with diabetic chronic kidney disease; N18.2 - Chronic kidney disease, stage 2 (mild) Plan: Decrease the amount of carbohydrate intake, pasta, bread, rice and potatoes are all sugar and that is aside from all the sweet stuff, remember that fruits are good but they are Sweet also. Patient on insulin pump hemoglobin A1c goal of less than 7 preferably 6.5 below. (5) Hypothyroidism: Code(s): E03.9 - Hypothyroidism, unspecified Category: Medical Qualifiers: Hypothyroidism type: acquired Qualified Code(s): E03.9 - Hypothyroidism, unspecified Plan: Continue with thyroid medication (6) Obesity (BMI 30-39.9): Code(s): E66.9 - Obesity, unspecified Category: Medical Plan: Diet and exercise (7) GERD (gastroesophageal reflux disease): Code(s): K21.9 - Gastro-esophageal reflux disease without esophagitis Category: Medical Qualifiers: Esophagitis presence: without esophagitis Qualified Code(s): K21.9 - Gastro-esophageal reflux disease without esophagitis Plan: Avoid the foods that causes that usually spicy foods, tomato products, juices, coffee, soda and foods that your sensitive to. After eating do not lie down, allow 3-4 hours before in lie down. And keep the head of bed above 30 degrees to avoid the acid from going up. (8) Hepatic steatosis: Comment: January 2025 Code(s): K76.0 - Fatty (change of) liver, not elsewhere classified Category: Medical Plan: Low-fat diet and exercise (9) Polycythemia: Code(s): D75.1 - Secondary polycythemia Category: Medical Plan: Patient follows up with Hematology-Oncology on hydroxyurea 500 mg twice a day Plan History of Present Illness The patient is a 55-year-old male presenting for a follow-up visit. The patient has a history of obesity, with a noted weight gain of about 5 pounds since the last visit. He has been diagnosed with Diabetes Mellitus Type 1 and is currently managing his condition with an insulin pump. The patient has chronic kidney disease, hypothyroidism, and hypertension, which are being managed with appropriate medications. He also has a history of asthma, hypercholesterolemia, and gastroesophageal reflux disease (GERD). The patient has been diagnosed with polycythemia and thrombocytosis, with a JAK2 mutation positive result. He is currently on hydroxyurea 500 mg twice a day to manage these conditions. The patient has coronary artery disease and was advised to undergo a coronary CTA and to take aspirin for life. He had an echocardiogram showing left ventricular systolic function at the low normal range of 54%, with no valvular pathology. An abdominal ultrasound in January showed hepatic steatosis, and the patient was advised to manage this with diet and exercise. Liver function tests showed elevated liver enzymes, and the patient was counseled on the importance of lifestyle modifications to prevent progression to cirrhosis. Health Maintenance - Coronary CTA scheduled for April 25, 2025 - Lifelong aspirin therapy for coronary artery disease - Diet and exercise recommended for hepatic steatosis management - Insulin pump management for Diabetes Mellitus Type 1 with a hemoglobin A1c goal of less than 7 - Atorvastatin 40 mg once a day for hypercholesterolemia with LDL goal of less than 70 - Thyroid medication continuation for hypothyroidism - Hydroxyurea 500 mg twice a day for polycythemia and thrombocytosis Social History Review of Systems - Respiratory: Denies breathing problems - Gastrointestinal: Reports good bowel movements Physical Exam Results - Echocardiogram: Left ventricular systolic function low normal at 54%, no valvular pathology - Abdominal ultrasound: Hepatic steatosis - Blood work: Normal blood count at 14 and 41, platelet count 449, sodium 133, normal renal function - Hemoglobin A1c: 6.9 - Liver function tests: Elevated liver enzymes - Cholesterol test: LDL 70 in August 2024 Plan Patient was informed and verbally consented to the use of an ambient scribe for clinic note documentation during this visit. 1. Obesity The patient is advised to manage obesity through lifestyle modifications, including a balanced diet and regular physical activity. 2. Diabetes Mellitus Type 1 The patient is managing Diabetes Mellitus Type 1 with an insulin pump, aiming for a hemoglobin A1c goal of less than 7, preferably below 6.5. 3. Chronic Kidney Disease Chronic kidney disease is being managed with regular monitoring of renal function and appropriate medication. 4. Hypothyroidism The patient is advised to continue thyroid medication for hypothyroidism management. 5. Hypertension Hypertension is managed with amlodipine 10 mg once a day and metoprolol 50 mg once a day. 6. Asthma The patient reports no current breathing problems and is not on any inhaler therapy. 7. Hypercholesterolemia Hypercholesterolemia is managed with atorvastatin 40 mg once a day, with an LDL goal of less than 70. 8. Gastroesophageal Reflux Disease (Gerd) GERD management includes dietary modifications and exercise. 9. Polycythemia Polycythemia is managed with hydroxyurea 500 mg twice a day, with regular follow-up with hematology oncology. 10. Coronary Artery Disease Coronary artery disease management includes lifelong aspirin therapy and a scheduled coronary CTA for further evaluation. 11. Hepatic Steatosis Hepatic steatosis is managed with lifestyle modifications, including diet and exercise, to prevent progression to cirrhosis. 12. Thrombocytosis Thrombocytosis is managed with hydroxyurea 500 mg twice a day, with regular monitoring of platelet counts. Discussion Notes During the visit, we discussed the management of the patient's multiple chronic conditions, including the importance of lifestyle modifications for obesity and hepatic steatosis. We reviewed the need for lifelong aspirin therapy for coronary artery disease and the upcoming coronary CTA. The patient was advised to continue current medications for diabetes, hypertension, and hypercholesterolemia, with specific goals for hemoglobin A1c and LDL levels. Patient Instructions - Follow a balanced diet and engage in regular physical activity to manage weight and liver health. - Continue taking all prescribed medications as directed. - Schedule and attend the coronary CTA on April 25, 2025. - Monitor blood sugar levels and aim for a hemoglobin A1c below 7. - Take aspirin daily as prescribed for coronary artery disease. Orders: Orders AMB Hemoglobin A1c Today Z13.9 - Encounter for screening, unspecified
--- OUTSIDE RECORDS SUMMARY | 2025-04-02 14:17 | XMS_ITS | Encounter Summary ---
Author Organization [facility] Address [address] [place] [address] Care Team Providers Care Agricultural Economics Teacher Name Role Phone Physician, No Pcp Primary Care Provider Unavaila ble Encounter Details Date Type Department Care Team (Latest Contact Info) Description 01/28/2021 Lab Requisition [facility] Main Lab [address] [place] [address] Zeferino Richard MD [address] [facility] [address] [place] [address] Laceration of flexor muscle, fascia and tendon [...] LAB CHEMISTRY METHOD 01/29/2021 9:36 AM EDT [facility] ([facility] LAB Mean Bld Glu Estim. 206(H) <126 mg/dL LAB CHEMISTRY METHOD 01/29/2021 9:[address] [facility] Blood Topography not assigned / Unknown 01/28/2021 9:45 PM EDT 01/28/2021 9:[address] [facility] - 01/29/2021 9:36 AM EDT *Clinical Condition Normal <5.7% Prediabetes 5.7-6.5% Diabetes >/=6.5% NGSP: National Glycohemoglobin Standardization Program *2011 [place] Diabetes Association Note: These results were obtained by [employer] Variant II HbA1c Assay. The assay is IFCC standardized and NGSP certified. us Zeferino Richard MD LAB BLOOD ORDERABLES Final Resul t [facility] [address] [place] [address] * (ABNORMAL) Comprehensive metabolic panel (01/28/2021 9:45 PM EDT) Sodium 139 136 - 145 mmol/L LAB CHEMISTRY METHOD 01/28/2021 10:[address] [facility] Potassium 4.6 3.5 - 5.1 mmol/L LAB CHEMISTRY METHOD 01/28/2021 10:[address] [facility] Chloride 104 98 - 107 mmol/L LAB CHEMISTRY METHOD 01/28/2021 10:[address] [facility] CO2 29 21 - 32 mmol/L LAB CHEMISTRY METHOD 01/28/2021 10:[address] [facility] Anion Gap 6 3 - 11 LAB CHEMISTRY METHOD 01/28/2021 10:[address] [facility] Glucose 203(H) 70 - 99 mg/dL LAB CHEMISTRY METHOD 01/28/2021 10:[address] [facility] BUN 13 7 - 18 mg/dL LAB CHEMISTRY METHOD 01/28/2021 10:[address] [facility] Creatinine 0.88 0.70 - 1.30 mg/dL LAB CHEMISTRY METHOD 01/28/2021 10:[address] [facility] eGFR 101 >=60 mL/min/1. 73m2 LAB CHEMISTRY METHOD 01/28/2021 10:[address] [facility] Comment: Please note that this estimated GFR value is not recommended for use in individuals under the age of 18, individuals with unstable creatinine concentrations (including and acute renal failure), or individuals with extremes of body mass or diet (including amputees, paraplegics and obese individuals). BUN/Creatinine Ratio 14.77 LAB CHEMISTRY METHOD 01/28/2021 10:[address] [facility] Calcium 9.2 8.5 - 10.1 mg/dL LAB CHEMISTRY METHOD 01/28/2021 10:[address] [facility] AST (SGOT) 22 15 - 37 unit/L LAB CHEMISTRY METHOD 01/28/2021 10:[address] [facility] ALT (SGPT) 36 16 - 61 unit/L LAB CHEMISTRY METHOD 01/28/2021 10:[address] [facility] Alkaline Phosphatase 112 53 - 128 unit/L LAB CHEMISTRY METHOD 01/28/2021 10:[address] [facility] Total Protein 7.5 6.4 - 8.2 g/dL LAB CHEMISTRY METHOD 01/28/2021 10:[address] [facility] Albumin 3.9 3.4 - 5.0 g/dL LAB CHEMISTRY METHOD 01/28/2021 10:[address] [facility] Total Bilirubin 0.4 0.2 - 1.0 mg/dL LAB CHEMISTRY METHOD 01/28/2021 10:[address] [facility] Blood Topography not assigned / Unknown 01/28/2021 9:45 PM EDT 01/28/2021 9:45 PM EDT Zeferino Richard MD LAB BLOOD ORDERABLES Final Resul t [facility] [address] [place] [address] * (ABNORMAL) Complete blood count (01/28/2021 9:45 PM EDT) WBC 9.7 4.0 - 10.2 K/mcL LAB HEMETOLOGY METHOD 01/28/2021 10:[address] [facility] RBC 5.51 4.20 - 5.70 M/mcL LAB HEMETOLOGY METHOD 01/28/2021 10:[address] [facility] Hemoglobin 16.2 12.7 - 17.1 g/dL LAB HEMETOLOGY METHOD 01/28/2021 10:[address] [facility] Hematocrit 50.4(H) 35.0 - 50.2 % LAB HEMETOLOGY METHOD 01/28/2021 10:[address] [facility] MCV 91.5 81.0 - 97.0 FL LAB HEMETOLOGY METHOD 01/28/2021 10:[address] [facility] MCH 29.4 25.3 - 34.1 pcg LAB HEMETOLOGY METHOD 01/28/2021 10:[address] [facility] MCHC 32.1 30.2 - 35.3 g/dL LAB HEMETOLOGY METHOD 01/28/2021 10:[address] [facility] RDW 14.0 11.0 - 14.5 % LAB HEMETOLOGY METHOD 01/28/2021 10:[address] [facility] RDW-SD 46.7 36.8 - 48.3 FL LAB HEMETOLOGY METHOD 01/28/2021 10:[address] [facility] Platelets 616(H) 150 - 400 K/mcL LAB HEMETOLOGY METHOD 01/28/2021 10:[address] [facility] MPV 10.0 9.1 - 12.7 FL LAB HEMETOLOGY METHOD 01/28/2021 10:[address] [facility] NRBC 0.0 0.0 - 0.0 % LAB HEMETOLOGY METHOD 01/28/2021 10:[address] [facility] NRBC Absolute 0.00 0.00 - 0.00 K/mcL LAB HEMETOLOGY METHOD 01/28/2021 10:[address] [facility] Blood Topography not assigned / Unknown 01/28/2021 9:45 PM EDT 01/28/2021 9:45 PM EDT us Zeferino Richard MD LAB BLOOD ORDERABLES Final Resul t [facility] [address] [place] [address] documented in this encounter Visit Diagnoses Diagnosis Laceration of flexor muscle, fascia and tendon of right little finger at wrist and hand level, initial encounter Encounter for other preprocedural examination documented in this encounter Care Teams Agricultural Economics Teacher Relationship Specialty Start Date End Date Physician, No Pcp PCP - General 01/28/21 documented as of this encounter
--- OUTSIDE RECORDS SUMMARY | 2025-04-02 14:17 | XMS_ITS | Clinical Summary ---
Author Organization [facility] Address [address] [facility] [address] [place] [address] Phone Care Team Providers Care Rubber Boots And Shoes Repairer Name Role Phone Tali Dyer MD Unavailable [phone] Emily Moctezuma MD Unavailable [phone] Tali Dyer MD Primary Care Provider [phone] Allergies Active Allergy Reactions Criticality Noted Date [...] pressure and heart rate metrics since his UT earlier this year Given h/o diabetic retinal disease, goal bp is <130/80 Intolerance of ACEI in the past Continues on CCB, recently added Bblocker Assessment & Plan (03/08/2023 1:51 PM EDT): Blood pressure is elevated today Given h/o diabetic retinal disease and recent UT, goal bp is <130/80 Intolerance of ACEI [...] Russell will return to meet with our councilperson staff in 3 months and we will [...] Russell will return to meet with our councilperson staff in 3 months and we will [...] Russell will return to meet with our councilperson staff in 3 months and we will [...] Russell will return to meet with our councilperson staff in 3 months and we will [...] up after training on Omnipod 5 with [employer] G6 Reviewed insulin pump therapy specifics, things have been going well with transition to Omnipod 5 from [facility], Russell is very happy with this change Russell continues to use CGM consistently Discussed recent UT, encouraged close follow up with PCP and cardiology, advised keeping blood sugars as tightly controlled as possible, without increasing hypoglycemia frequency is important to reduce risk of future CV events related to diabetes and detention complications overall Continues with improving control per [...] Russell will return to meet with our councilperson staff in 3 months and we will [...] Russell will return to meet with our councilperson staff in 3 months and we will [...] Russell will return to meet with our councilperson staff in 3 months and we will [...] Russell will return to meet with our councilperson staff in 3 months and we will [...] Russell will return to meet with our councilperson staff in 3 months and we will [...] training today Pump settings were transferred from [facility] Russell will continue with previous glucose alerts [...] 780G he will need to use the Med7digital Guardian 4 sensor with the system to [...] aggressive ISF will help Russell correct elevated art director 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 sugars more effectively Change in ISF [...] Type Department Care Team Description 03/24/2025 Telephone [facility] [address] [place] [address] Masha Arredondo RN Dexcom/supplies 01/29/2025 9:00 AM EDT Office Visit [facility] [address] [place] [address] Emily Moctezuma MD 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 (Primary Dx); Type 1 diabetes mellitus with diabetic neuropathy; Insulin pump in place; Essential hypertension; Acquired hypothyroidism; Class 1 obesity with serious comorbidity and body mass index (BMI) of 33.0 to 33.9 in adult, unspecified obesity type 01/12/2025 Telephone [facility] [address] [place] [address] Niurka Moon MA Medication Management 01/05/2025 Telephone [facility] [address] [place] [address] Niurka Moon MA CLINICAL NOTES from Last [...] Info) Description 05/04/2025 10:00 AM EDT Nutrition [facility] [address] [place] [address] [place] [address] Emily Moctezuma MD [address] [place] [address] Birdie Land LDN [address] [place] [address] 08/10/2025 9:00 AM EST Office Visit [facility] [address] [place] [address] [place] [address] Emily Moctezuma MD [address] [place] [address] [email or web address] Due Date Last Done Comments [...] 06/06/2017 ZOSTER VACCINES (1 of 2) 2021 INFLUENZA VACCINE (#1) 2025 COVID-19 VACCINE ( season) 2025 BLOOD PRESSURE 08/01/2025 01/29/2025 HEMOGLOBIN A1C [...] inal Result [facility] [address] [place] [address], [facility] from Last 3 Months Insurance MEDICARE PART A & B Member Subscriber Plan / Payer (Ef fective 2012-Present) Name:Russell Barber Member ID:[id number] Relation to Subscriber:Self Name:Russell Barber Subscriber ID:[id number] Payer ID:[id number] Group ID:Not on file Type:Medicare Address: [facility] Sophia Search [facility] [address] [address] [facility] NET FULL MEDICARE PART A & B [email or web address] SAFETY NET FULL Member Subscriber Plan / Payer (Ef fective 2018-Present) Name:Russell Barber Relation to Subscriber:Self Name:Russell Barber Payer ID:Not on file Group ID:Not on file Type:Medicaid Address: [address] MEDICARE PART A & B [email or web address] SAFETY [place]ULL [place] MED[place] PART A & B [facility] NET FULL [place] MED[place] PART A & B [facility] FULL [place] [phone] MEDICARE PART A & B HEALTH SAFETY NET FULL Member Subscriber Plan / Payer (Ef fective 2018-Present) Name:Russell Barber Relation to Subscriber:Self Name:Russell Barber Payer ID:Not on file Group ID:Not on file Type:Medicaid Address[address] & B [email or web address] [place] [address] MEDICARE PART A & B [facility] FULL Member Subscriber Plan / Payer (Ef fective 2018-Present) Name:Russell Barber Relation to Subscriber:Self Name:Russell Barber Payer ID:Not on file Group ID:Not on file Type:Medicaid Address: [address] [place] [address] MEDICARE PART A & B HEALTH SAFETY NET FULL Member Subscriber Plan / Payer (Ef fective 2018-Present) Name:Russell Barber Relation to Subscriber:Self Name:Russell Barber Payer ID:Not on file Group ID:Not on file Type:Medicaid Address: [address] Care Teams Rubber Boots And Shoes Repairer Relationship Specialty Start Date End Date Tali Dyer MD [address] [place] [address] [place] [phone] PCP - General Internal Medicine 06/04/17 Tali Dyer MD [address] [place] [address] [place] [phone] Historical LMR Provider 05/14/17 Emily Moctezuma MD [address] [place] [address], [address] [place] [address] Historical LMR Provider 05/14/17 Additional Source Comments The information contained in this document represents components of the legal health record. It is not the complete legal health record.[facility]
--- OUTSIDE RECORDS SUMMARY | 2025-04-02 14:17 | XMS_ITS | Encounter Summary ---
Author Organization [facility] Address [address] [place] [address] Care Team Providers Care Blending Machine Operator Name Role Phone Unavailable Primary Care Provider [...] 12/23/2025 8:30 AM EDT Office Visit Cathy [facility] [address] [place] [address] Catherine Parisi OD [address] [place] [address] documented as of this encounter Visit Diagnoses Not on filedocumented in this encounter
--- OUTSIDE RECORDS SUMMARY | 2025-04-02 14:17 | XMS_ITS | Patient Health Record ---
Author Organization [facility] Address [address] [place] [address] Care Team Providers Care Plant Clerk Name Role Phone Tali Dyer MD Primary [...] date:05/16/2024 07:39:47 AM Interpretation: Performing Lab: Notes/Report: [address] [address] [address] Scan Report Signed Patient: Vannessa Barber S MR#: [id number] 39 : 1970 Acct:[id number] Age/Sex: 54 / M ADM Date: 05/09/24 Loc: [facility] Attending Dr: Gabino Meade MD Ordering Physician: Gabino Meade MD Date of Service: 05/09/24 Procedure(s): CT colonography Accession Number(s): [id number] cc: Gabino Meade MD; Tali Dyer MD [...] 05/09/24 1630 DD/ 1342 TD/TT: 05/09/24 1401 Needlemaker: DANIEL Reason For Referral No Information Medications [...] Once a day for 30 day(s) Active Sdatuqwnev-DKRJ-Ekqbohic 50-325-40 MG 1 capsule as needed Orally [...] Problem Status W/U Status Risk Notes Problem 491269390 Colon cancer screening (Z12.11) Active confirmed Problem 529359418 Long-term use of aspirin therapy (Z79.82) Active confirmed Problem 27975832 Incontinence of feces, unspecified fecal incontinence type (R15.9) Active confirmed Vital Signs Temperature 97.5 degrees Fahrenheit 04/23/2024 Blood pressure diastolic 00 mm Hg 04/23/2024 Height 68 in 04/23/2024 Blood pressure systolic 000 mm Hg 04/23/2024 Weight 222 lb 6 oz lbs 04/23/2024 BMI 33.81 kg/m2 04/23/2024 Encounters Encounter Location Date Provider Diagnosis [facility] Outpatient [address] [place] [phone] 05/09/2024 Gabino Meade Jr Colon cancer screening Z12.11 [facility] [address] [place] [address] 04/23/2024 Gabino Meade Jr Colon cancer screening Z12.11 ; Incontinence of feces, unspecified fecal incontinence type R15.9 and Long-term use of aspirin therapy Z79.82 [facility] [address] [place] [address] 05/16/2024 Gabino Meade Jr Assessments Encounter Date [...] OF [place] [address] [place] [address] [id number] LINDA VANNESSA Self - patient is the insured [employer] CLAIMS [address] [place] [address] [id number] LINDA VANNESSA Self - patient is the insured Medical (General) History Medical History History ICD Code diabetes mellitus hypertension retinopathy obstructive sleep apnea hypothyroidism headaches elevated cholesterol asthma erectile dysfunction Family history of colon cancer Gastroesophageal reflux disease Essential thrombocytosis Surgical History Surgery Date(Month/Year) finger surgery carpal tunnel release-left eye surgery penile implant
--- OUTSIDE RECORDS SUMMARY | 2025-04-02 14:17 | XMS_ITS | Clinical Summary ---
Author Organization [employer] Address [address] [facility] 7 [place] [address] Care Team Providers Care Superannuation Clerk Name Role Phone Unavailable Primary Care Provider Unavailabl e Allergies Active Allergy Reactions Criticality Noted Date Comments Gabapentin 07/11/2022 Hydroxyzine Unknown 07/11/2022 Lamotrigine 10/26/2017 Lisinopril 10/26/2017 Other reaction(s): cough Peanut-Containing Drug Products 09/26/2018 Other reaction(s): throat swells, hives Other reaction(s): N/V, hives Penicillins 10/26/2017 Other reaction(s): ? hives Soy Allergy (Obsolete) Swelling 07/11/2022 Soybean-Containing Drug Products 08/08/2023 Other reaction(s): throat swelling [place] Oil 08/08/2023 Other reaction(s): N/V, hives Medications [...] 2 Active butalbital-acet aminophen-caffe ine-codeine (Fioricet w/Codeine) 06-767-90-30 MG capsule Take by mouth daily. 3 [...] 12/23/2025 8:30 AM EDT Office Visit Cathy [facility] [address] [place], [place] [phone] Catherine Parisi, OD [address] [place] [address] Health Maintenance Due Date Last Done Comments [...] 03/2 09/2020 COVID-19 Vaccine ( - season) 2025 Influenza Vaccine (#1) 2025 Dental Oral Exam [...] Recently Relevant to Health Maintenance Insurance MEDICARE [facility] MEDICAID STAND ADULT DENTAL - HSN FULL (MEDICAID) [facility] MEDICARE
--- OUTSIDE RECORDS SUMMARY | 2025-04-02 14:17 | XMS_ITS | Clinical Summary ---
Author Organization [address] [facility] Address [address] [facility] [address] [place] [address] Phone Care Team Providers Care Certified Orthotist/Pedorthist Name Role Phone Physician, No Pcp Primary [...] Hypertension Disease of thyroid gland Diabetes mellitus ([facility] V24, [facility] V28) Neuropathy Social History Tobacco Use [...] Annual BMP Blood Test 03/06/2023 03/06/2022, 01/28/2021 Depression Screening 07/30/2024 COVID-19 Vaccine ( - season) 2025 Influenza Vaccine (#1) 2025 DTaP,Tdap,and Td Vaccines [...] 03/06/2022 12:23 PM EDT [facility] Potassium 3.9 3.5 - 5.1 mmol/L LAB CHEMISTRY METHOD 03/06/2022 12:23 PM EDT [facility] Chloride 104 98 - 107 mmol/L LAB CHEMISTRY METHOD 03/06/2022 12:23 PM [facility] CO2 28 21 - 32 mmol/L LAB CHEMISTRY METHOD 03/06/2022 12:23 PM [facility] Anion Gap 8 3 - 11 LAB CHEMISTRY METHOD 03/06/2022 12:23 PM [facility] Glucose 124(H) 70 - 99 mg/dL LAB CHEMISTRY METHOD 03/06/2022 12:23 PM [facility] BUN 17 7 - 18 mg/dL LAB CHEMISTRY METHOD 03/06/2022 12:23 PM [facility] Creatinine 1.35(H) 0.70 - 1.30 mg/dL LAB CHEMISTRY METHOD 03/06/2022 12:23 PM [facility] eGFR 61 >=60 mL/min/1. 73m2 LAB CHEMISTRY METHOD 03/06/2022 12:23 PM [facility] Comment: The MDRD GFR formula is valid only for adults between ages 18 and 70. BUN/Creatinine Ratio 12.6 12.0 - 20.0 LAB CHEMISTRY METHOD 03/06/2022 12:23 PM [facility] Calcium 7.5(L) 8.5 - 10.1 mg/dL LAB CHEMISTRY METHOD 03/06/2022 12:23 PM [facility] AST (SGOT) 23 15 - 37 unit/L LAB CHEMISTRY METHOD 03/06/2022 12:23 PM [facility] ALT (SGPT) 27 16 - 61 unit/L LAB CHEMISTRY METHOD 03/06/2022 12:23 PM [facility] Alkaline Phosphatase 90 unit/L LAB CHEMISTRY METHOD 03/06/2022 12:23 PM [facility] Total Protein 7.1 6.4 - 8.2 g/dL LAB CHEMISTRY METHOD 03/06/2022 12:23 PM EDT [facility] Albumin 3.5 3.4 - 5.0 g/dL LAB CHEMISTRY METHOD 03/06/2022 12:23 PM EDT [facility] Total Bilirubin 0.6 0.2 - 1.2 mg/dL LAB CHEMISTRY METHOD 03/06/2022 12:23 PM EDT [facility] Blood Venous blood specimen / Unknown Venipuncture / Unknown 03/06/2022 11:54 AM EDT 03/06/2022 12:01 PM EDT us Kerry GARCIA LAB BLOOD ORDERABLES Final R esult Performing Organization Address City/State/[facility] Co de Phone Number [facility] [address] [place] [address] * (ABNORMAL) Hemoglobin A1c (01/28/2021 9:45 PM EDT) Hemoglobin A1C 8.8(H) <5.7 % LAB CHEMISTRY METHOD 01/29/2021 9:36 AM EDT [facility] Mean Bld Glu Estim. 206(H) <126 mg/dL LAB CHEMISTRY METHOD 01/29/2021 9:36 AM EDT [facility] Blood Topography not assigned / Unknown 01/28/2021 9:45 PM EDT 01/28/2021 9:45 PM EDT Narrative [facility] - 01/29/2021 9:36 AM EDT *Clinical Condition Normal <5.7% Prediabetes 5.7-6.5% Diabetes >/=6.5% NGSP: National Glycohemoglobin Standardization Program *2011 [place] Diabetes Association Note: These results were obtained by [employer] Variant II HbA1c Assay. The assay is IFCC standardized and NGSP certified. us Zeferino Richard MD LAB BLOOD ORDERABLES Final Resul t [facility] [address] [place], [place] [phone] from Last 3 Months or Most Recently Relevant to Health Maintenance Insurance MEDICARE MEDICAID - [place] on file MEDICAID [facility] Care Teams Certified Orthotist/Pedorthist Relationship Specialty Start Date End Date Physician, No Pcp PCP - General 01/28/21
--- OUTSIDE RECORDS SUMMARY | 2025-04-02 14:17 | XMS_ITS | Patient Health Record ---
Author Organization [facility] Address [address] [facility] [place] [address] Care Team Providers Care Hall Porter Name Role Phone Tali Dyer Primary Care Provider Loyda Pickens Unavailable [phone] Allergies Allergen (clinical drug ingredient) Drug/Non Drug [...] Problem Acquired hammer toe of right foot (950509905071227 5) Other hammer toe(s) (acquired), right foot (M20.41) Active confirmed Response to treatment, Improvement Problem Acquired hammer toe of left foot (932058797337613 3) Other hammer toe(s) (acquired), left foot (M20.42) Active confirmed Response to treatment, Improvement Problem Polyneuropathy due to type 2 diabetes mellitus (448919814) Type 2 diabetes mellitus with diabetic polyneuropathy (E11.42) Active confirmed Vital Signs Blood pressure diastolic 65 mm Hg 02/12/2025 Height 5ft 8 inch in 02/12/2025 Blood pressure systolic 128 mm Hg 02/12/2025 Weight 220 lbs 02/12/2025 BMI 33.45 kg/m2 02/12/2025 Procedures Procedure Date Ordered Date Performed Result Body Sit e 52939-VTTDKTL NAIL, 6 OR MORE 07/03/2024 N/A 94228-UIYI SKIN LESIONS, 2 TO 4 07/03/2024 N/A 42598-DYRMOWQ NAIL, 6 OR MORE 11/12/2024 N/A 28538-DKWK SKIN LESIONS, 2 TO 4 11/12/2024 N/A Encounters Encounter Location Date Provider Diagnosis [facility] [address] [address] 07/03/2024 Loyda Putnam Tinea pedis of both feet B35.3 ; Type 2 diabetes mellitus with diabetic polyneuropathy E11.42 and Tinea unguium B35.[address] [address] 11/12/2024 Loyda Putnam Other hammer toe(s) (acquired), right foot M20.41 ; Other hammer toe(s) (acquired), left foot M20.42 ; Type 2 diabetes mellitus with diabetic polyneuropathy E11.42 ; Tinea unguium B35.1 and Tinea pedis of both feet B35.[address] [address] 02/12/2025 Loyda Putnam Type 2 diabetes mellitus [...] Treatment Pending Test Test Name Order Date 85862-GVTPCSN NAIL, 6 OR MORE 07/03/2024 52845-TOXWVVI NAIL, 6 OR MORE 11/12/2024 48289-GZBD SKIN LESIONS, 2 TO 4 07/03/20 24 06206-TWKM SKIN LESIONS, 2 TO 4 11/13/19 Next Appt Details Provider Name:Loyda Albrecht thompson, 05/18/2025 02:45:00 PM, [address] [place], [address], Insurance Providers Payer Name Payer Address Payer Phone Subscriber Number Group Number Insured Name Patient Relationship to Insured Coverage Start Date Coverage End Date Medicare National [employer] [address] [place] [address] [id number] Russell Barber Self - patient is the insured 3 Medical (General) History Medical History History ICD Code asthma Back,Hip,and Knee pain Cataracts Depression Diabetic Headaches/Migraines High Blood Pressure thyroid Neuropathy Heart attack Carpal tunnel Trigger finger
--- OUTSIDE RECORDS SUMMARY | 2025-04-02 14:18 | XMS_ITS | Encounter Summary ---
Author Organization [facility] Address [address] [facility] [address] [place] [address] Phone Care Team Providers Care Press Tender Smoke Signal Name Role Phone Birdie Quintero DIRECTOR OF FIELD SALES Unavailable Unavailable Tali Dyer MD Unavailable Diane Whitaker DIRECTOR OF FIELD SALES Unavailable Emily Moctezuma MD Unavailable [phone] PoTali MD Primary Care Provider Encounter Details Date Type Department Care Team (Latest Contact Info) Description 06/08/2018 Transcribe Orders [facility] Laboratory [address] [place] [address] Emily Moctezuma MD [address] [place] [address] [email or web address] Type 1 diabetes mellitus with stable proliferative [...] Info) Description 05/04/2025 10:00 AM EDT Nutrition [facility] Medical [facility] [address] [place] [address] Emily Moctezuma MD [address] [facility], [address] [place] [address] Birdie Land LDN 22 [facility], [address] [place] [address] 08/10/2025 9:00 AM EST Office Visit [facility] [address] [place] [address] Emily Moctezuma MD 22 [facility], [address] [place] [address] [email or web address] documented as of this encounter Procedures Procedure [...] Resu lt [facility] [address] [place] [address] * Glucose, fasting (06/08/2018 9:23 AM EST) FASTING GLUCOSE 110 70 - 110 mg/dL [facility] Blood 06/08/2018 9:23 AM EST 06/08/2018 9:29 AM EST us Emily Moctezuma MD LAB BLOOD ORDERABLES Final Resu lt Performing Organization Address City/[facility]/ZIP Co de Phone Number [address] [address] * (ABNORMAL) Hemoglobin A1c (06/08/2018 9:23 AM EST) HEMOGLOBIN A1C 8.7(H) 4.3 - 5.8 % [facility] Blood 06/08/2018 9:23 AM EST 06/08/2018 9:29 AM EST us Emily Moctezuma MD LAB BLOOD ORDERABLES Final Resu lt Performing Organization Address City/[facility] Co de Phone Number [address] [address] documented in this encounter Visit Diagnoses Diagnosis 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 Type 1 diabetes mellitus without complication Type I (juvenile type) diabetes mellitus without mention of complication, not stated as uncontrolled documented in this encounter Care Teams Press Tender Smoke Signal Relationship Specialty Start Date End Date Tali Dyer MD [address] [place] [phone] PCP - General Internal Medicine 06/04/17 Birdie Quintero NP [address] [place] [address] Historical LMR Provider 05/14/1708/06 Tali Dyer MD [address] [place] [phone] Historical LMR Provider 05/14/17 Diane Whitaker NP [address] [place] [address] Historical LMR Provider 05/14/17 Emily Moctezuma MD 22 [facility], [address] [place] [address] [email or web address] Historical LMR Provider 05/14/17 documented as of this encounter Additional Source Comments The information contained in this document represents components of the legal health record. It is not the complete legal health record.[facility]
== END 2025-04-02 13:51 | disposition home or self-care (01) ==
LOC: HO.HMCH 13:02
PROVIDERS: PCP Internal Medicine; Visit Provider Internal Medicine
DX: I12.9 Hypertensive chronic kidney disease with stage 1 through stage 4 chronic kidney disease, or unspecified chronic kidney disease (principal); E10.22 Type 1 diabetes mellitus with diabetic chronic kidney disease; N18.2 Chronic kidney disease, stage 2 (mild); I25.10 Atherosclerotic heart disease of native coronary artery without angina pectoris; E78.00 Pure hypercholesterolemia, unspecified; E03.9 Hypothyroidism, unspecified; E66.9 Obesity, unspecified; K21.9 Gastro-esophageal reflux disease without esophagitis; K76.0 Fatty (change of) liver, not elsewhere classified; D75.1 Secondary polycythemia

== ENCOUNTER → 2025-04-02 13:01 | Outpatient (BNVA) | payer MEDICARE, MEDICAID, SELFPAY ==
[2023-04-20 15:31] VITALS: BP 134/66; BP 140/58; BMI 32.5
== END ==
PROVIDERS: PCP Internal Medicine; Visit Provider Internal Medicine
DX: I25.10 Atherosclerotic heart disease of native coronary artery without angina pectoris (principal); E78.00 Pure hypercholesterolemia, unspecified; I12.9 Hypertensive chronic kidney disease with stage 1 through stage 4 chronic kidney disease, or unspecified chronic kidney disease; E10.22 Type 1 diabetes mellitus with diabetic chronic kidney disease; N18.2 Chronic kidney disease, stage 2 (mild); E03.9 Hypothyroidism, unspecified; E66.9 Obesity, unspecified; Z68.34 Body mass index [BMI] 34.0-34.9, adult; K21.9 Gastro-esophageal reflux disease without esophagitis; K76.0 Fatty (change of) liver, not elsewhere classified; D75.1 Secondary polycythemia; Z71.3 Dietary counseling and surveillance
CPT/HCPCS: 83036; 99212

== ENCOUNTER 2025-04-23 15:35 | Outpatient (AMB) | payer MEDICARE, MEDICAID, SELFPAY ==
[2023-04-20 15:31] VITALS: BP 134/66; BP 140/58; BMI 32.5
--- OUTSIDE RECORDS SUMMARY | 2024-05-09 07:50 | XMS_ITS ---
Author Organization [facility] Address [address] [place] [id number] Care Team Providers Care International Marketing Specialist Name Role Phone Tali Dyer MD Primary Care Provider Gabino Vera Jr [phone] REASON FOR VISIT screening Encounters Encounter Location Date Provider Diagnosis [facility] Outpatient [address] [place] [id number] 05/09/2024 Gabino Meade Jr Colon cancer screening Z12.11 Assessments Encounter Date Diagnosis (ICD Code) Assessment Notes Treatment Notes Treatment Clinical Notes Section Notes 05/09/2024 Colon cancer screening (ICD-10 - Z12.11) Plan Of Treatment No Information Progress Notes * VANNESSA MCKEONDOB:1970 (55 yo M)Acc No.[id number]:05/09/2024 COLON WITH MAC Patient: VANNESSA GUAN Provider: Dionne Meade MD :1970 A ge:54 Y S ex:Male Date:05/09/2024 Address:[address] [place], [place] [phone] Pcp:Tali Dyer MD Subjective: * Chief Complaints: [...] 1 Generated for Rah hood/Chano/Won on: 0 04/23/2025 07:38 PM EDT
[2025-04-23 15:39] VITALS: BP 142/88; PULSE 85; TEMP 36.3; O2SAT 95; BMI 33.4
--- NOTE | 2025-04-23 15:39 | A.OFFPC_ITS ---
Vital Signs 04/23/25 15:39 Height 5 ft 8 in Weight 220 lb BMI 33.4 BP 142/88 H Blood Pressure Location Lt brachial Position Sitting Pulse 85 Pulse Source Pulse Oximeter Temp 97.3 F Temp Source Temporal Artery Scan Pulse Oximetry (%) 95 Oxygen Delivery Method Room Air Intake Visit Reasons: uri Accompanied by: Spouse Allergies peanut (PEANUT) Allergy (Severe, Verified 04/23/25 15:43) ANAPHYLAXIS Penicillins (PENICILLINS) Allergy (Severe, Verified 04/23/25 15:43) SEVERE HIVES lamotrigine (Lamictal) Allergy (Intermediate, Verified 04/23/25 15:43) cough lisinopril Allergy (Unknown, Verified 04/23/25 15:43) unknown soy Allergy (Unknown, Verified 04/23/25 15:43) Unknown valsartan Allergy (Unknown, Verified 04/23/25 15:43) Unknown Medication List - Last Reconciled 04/23/25 by Renato Bella MD amlodipine 10 mg PO DAILY aspirin (Adult Aspirin Regimen) 81 mg PO DAILY atorvastatin 40 mg PO DAILY blood sugar diagnostic (Contour Next Test Strips) As directed zrooflmtul-hoxoaxfrrnqsx-ralu 50-325-40 mg 1 cap PO Q4-6H PRN duloxetine 40 mg PO DAILY erenumab-aooe (Aimovig Autoinjector) 140 mg subcut .Q month fluticasone propionate 50 mcg/actuation 2 sprays intranasal DAILY hydroxyurea (Hydrea) 500 mg PO BID insulin aspart U-100 (Novolog FlexPen U-100 Insulin aspart) 100 units subcut DAILY levothyroxine 125 mcg PO QAM metoprolol succinate ER 50 mg PO DAILY 90 days pantoprazole 40 mg PO DAILY 90 days ropinirole 0.25 mg PO BEDTIME sertraline 50 mg PO DAILY 90 days sumatriptan succinate 50 mg PO Q2-4H PRN Tobacco use date assessed: 04/23/25 Dental Screening Dental Screen Date: 04/23/25 Did you have a dental visit in the last 12 months?: Yes Did you have a dental problem in the last 6 months where you did not have access to dental care?: No Was dental information given to patient?: Patient has dentist HPI HPI Comments History of Present Illness Details The patient is a 55-year-old male presenting with symptoms of a chest and head cold persisting for a week and a half. He reports that the symptoms seem to improve at night but return by morning. The patient experienced severe jaw pain two nights ago, prompting a visit to the emergency room, although he left due to [facility] wait time. The patient reports intermittent jaw pain, which he suspects may be related to persistent coughing and phlegm production. He denies smoking and reports white secretions without fever but experiences sweats and chills. The patient has been using ncgv-vmk-rizyrmx medications such as Mucinex, which has helped alleviate some symptoms, although congestion and sinus pressure persist. He has a history of asthma but rarely experiences symptoms and does not use inhalers regularly. [facility] Medical History Eye globe prosthesis NSTEMI (non-ST elevated myocardial infarction) Moderate major depression Rheumatoid factor positive Right knee pain Depression History of aspiration pneumonia Cataract Obstructive sleep apnea Left bundle branch block Chronic kidney disease Anxiety and depression GERD (gastroesophageal reflux disease) Hypercholesterolemia Obesity (BMI 30-39.9) Pulmonary nodule Vitamin D deficiency Peripheral neuropathy Hypothyroidism Asthma Hypertension Type 1 diabetes mellitus with diabetic chronic kidney disease Surgical History Hx of hand surgery S/P placement of nerve stimulator H/O colonoscopy History of trigger finger History of eye surgery History of penile implant History of carpal tunnel release Family History Father Hypertension CVD (cardiovascular disease) Mother Hypertension CVD (cardiovascular disease) Family/Other Rectal cancer Brother Rectal cancer Social History Household Members: Family Housing: House Alcohol intake: never Patient Tobacco Use Status: Former Tobacco user Tobacco use type: Cigarette Years Smoked: teenager e-Cigarette/Vaping Use: Never Used Second Hand Smoke Exposure: Yes service: No Current occupational status: unemployed Cognitive needs: No Hearing needs: No Vision needs: Yes Questionnaire PHQ-9 Over the last 2 weeks, how often have you been bothered by any of the following problems? 1. Little interest or pleasure in doing things: more than half the days 2. Feeling down, depressed, or hopeless: not at all 3. Trouble falling or staying asleep, or sleeping too much: nearly every day 4. Feeling tired or having little energy: several days 5. Poor appetite or overeating: not at all 6. Feeling bad about yourself - or that you are a failure or have let yourself or your family down: not at all 7. Trouble concentrating on things, such as reading the newspaper or watching television: several days 8. Moving or speaking so slowly that other people could have noticed. Or the opposite - being so fidgety or restless that you have been moving around a lot more than usual: not at all 9. Thoughts that you would be better off or of hurting yourself in some way: not at all Total score: 7 Depression Screening Interpretation: Positive Depression Screening Done: Yes Source: Developed by Drs. Kendall Zapata, Navya Torres, Robert Costa and colleagues, with an educational glen from [employer]. Thrive Questionnaire Date Thrive assessed: 12/11/24 I am a: Patient What is your living situation today?: I have a steady place to live Within the past 12 months, did the food you bought not last and you didn't have the money to get more?: Sometimes True Within the past 12 months, did you worry whether your food would run out before you got money to buy more?: Sometimes True Do you have trouble paying for medicines?: No Do you have trouble getting transportation to medical appointments?: No Do you have trouble paying your heating and electricity bill?: Yes Do you have trouble taking care of your child, family member or friend?: No Do you have trouble with day-to-day activities such as bathing, preparing meals, shopping, managing finances, etc.?: No Are you currently unemployed and looking for a job?: No Are you interested in more education?: No Please select the resources that you would like help with: Utilities Currently or been in a relationship where the following occur: No concerns reported THRIVE Score: 3 AUDIT C Alcohol Use Questionnaire (AUDIT-C) 1. How often do you have a drink containing alcohol?: Never 3. How often do you have six or more drinks on one occasion?: Never Total Score: 0 YEN-7 AMB Questionnaire YEN-7 Date YEN - 7 assessed: 09/08/24 Feeling nervous, anxious, or on edge: 0 = Not at all Not being able to stop or control worryin = Not at all Worrying too much about different things: 0 = Not at all Trouble relaxin = Not at all Being so restless that it is hard to sit still: 0 = Not at all Becoming easily annoyed or irritable: 0 = Not at all Feeling afraid as if something awful might happen: 0 = Not at all Total YEN-7 score (0-4 normal; 5-9 mild; 10-14 moderate; 15-21 severe): 0 Source: Developed by Drs. Kendall Zapata, Nayva Torres, Robert Costa and colleagues, with an educational glen from [employer]. Review of Systems Const Details: Positives besides what was mentioned in HPI are in BOLD Constitutional: No Weight Change, No Fever, No Chills, No Night Sweats, No Fat igue, No Malaise ENT/Mouth: No Hearing Changes, No Ear Pain, No Nasal Congestion, No Sinus Pain, No Hoarseness, No sore throat, No Rhinorrhea, No Swallowing Difficulty Eyes: No Eye Pain, No Swelling, No Redness, No Foreign Body, No Discharge, No Vision Changes Cardiovascular: No Chest Pain, No SOB, No PND, No Dyspnea on Exertion, No Orthopnea, No Claudication, No Edema, No Palpitations Respiratory: No Cough, No Sputum, No Wheezing, No Smoke Exposure, No Dyspnea Gastrointestinal: No Nausea, No Vomiting, No Diarrhea, No Constipation, No Pain, No Heartburn, No Anorexia, No Dysphagia, No Hematochezia, No Melena, No Flatulence, No Jaundice Genitourinary: No Dysmenorrhea, No DUB, No Dyspareunia, No Dysuria, No Urinary Frequency, No Hematuria, No Urinary Incontinence, No Urgency, No Flank Pain, No Urinary Flow Changes, No Hesitancy Musculoskeletal: No Arthralgias, No Myalgias, No Joint Swelling, No Joint Stiffness, No Back Pain, No Neck Pain, No Injury History Skin: No Skin Lesions, No Pruritis, No Hair Changes, No Breast/Skin Changes, No Nipple Discharge Neuro: No Weakness, No Numbness, No Paresthesias, No Loss of Consciousness, No Syncope, No Dizziness, No Headache, No Coordination Changes, No Recent Falls Psych: No Anxiety/Panic, No Depression, No Insomnia, No Personality Changes, No Delusions, No Rumination, No SI/HI/AH/VH, No Social Issues, No Memory Changes, No Violence/Abuse Hx., No Eating Concerns Heme/Lymph: No Bruising, No Bleeding, No Transfusions History, No Lymphadenopathy Endocrine: No Polyuria, No Polydipsia, No Temperature Intolerance Physical exam (Primary Care) Vital Signs: Last Vital Signs Temp 97.3 F 04/23/25 15:39 Pulse 85 04/23/25 15:39 BP 142/88 H 04/23/25 15:39 Pulse Ox 95 04/23/25 15:39 Oxygen Delivery Method Room Air 04/23/25 15:39 BMI result Body Mass Index 33.4 Tobacco/Smoking Status: Tobacco use Status Tobacco use date assessed 04/23/25 04/23/25 15:45 Patient Tobacco Use Status Former Tobacco user 04/23/25 15:40 Tobacco use type Cigarette 04/23/25 15:40 e-Cigarette/Vaping Use Never Used 04/23/25 15:40 PHQ-9: PHQ-9 Score PHQ-9: Total score 7 04/23/25 16:05 Depression Screening Interpretation: Positive Thrive Assessment: Date of Thrive Assessment Date Thrive assessed 12/11/24 04/23/25 15:40 Currently or been in a relationship where the following occur: No concerns reported Const Other: Pertinent findings are in BOLD GENERAL APPEARANCE NAD, activity normal for age, well developed/ well nourished, no cyanosis, pallor, or diaphoresis. EYES lids/conjunctiva normal. EARS/NOSE/THROAT Mucous membranes moist, nares normal, lips/teeth normal uvula midline without oral pharyngeal erythema, exudate or swelling TMs normal bilaterally. No lymphangitis/lymphedema. HEAD/NECK normocephalic atraumatic, no facial trauma, neck is supple. RESPIRATORY respiratory effort normal, speaks in full sentences, no tripod position, no accessory muscle use. Lungs clear to auscultation without rhonchi, wheezes, rales CARDIAC Regular rate and rhythm, no edema. ABDOMINAL Soft, ND/NT. No evidence of fluid wave. No pulsatile masses on exam, rebound tenderness, Duffy sign or pain over Mcburney's point. MUSCLES/EXTREMITIES No abnormal range of motion, no swelling. SKIN Warm, pink and dry. No rashes, dermatoses, petechiae or lesions. NEUROLOGICAL Speech is clear and appropriate. Normal level of consciousness. Gait and coordination are normal. 5/5 strength in all extremities. PSYCH Normal mood and affect. Judgement/competence is appropriate Coding Level of Care Code Est Pt Level 3 (42932) Diagnoses Flu-like symptoms R68.89 Assessment & Plan Assessment & Plan (1) Flu-like symptoms: Code(s): R68.89 - Other general symptoms and signs Category: Medical Plan: - Prescribed doxycycline for five days to address potential bacterial infection. - Advised to avoid sun exposure while on doxycycline due to photosensitivity risk. - Prescribed Zyrtec for allergy management to be taken daily for two weeks. Plan I discussed with the patient the plan to manage his upper respiratory symptoms with doxycycline and Zyrtec. I advised him to avoid sun exposure while taking doxycycline due to the risk of photosensitivity. We agreed on a follow-up if symptoms persist or worsen. Medications: New cetirizine (Zyrtec) 10 mg PO DAILY PRN 14 caps 0RF allergy symptoms doxycycline hyclate 100 mg PO BID 10 caps 0RF
--- OUTSIDE RECORDS SUMMARY | 2025-04-23 19:39 | XMS_ITS | Clinical Summary ---
Author Organization [address] [facility] [place] Address [address] [facility] [address] [place] [address] Phone Care Team Providers Care Hydraulics Engineer Name Role Phone Physician, No Pcp Primary [...] Hypertension Disease of thyroid gland Diabetes mellitus ([facility] V24, [facility] V28) Neuropathy Social History Tobacco Use [...] - Td or Tdap) 01/17/2027 01/17/2017 RSV Immunization Adult Patients (1 - 1-dose 75+ series) 2046 HIB [...] LAB CHEMISTRY METHOD 03/06/2022 12:23 PM EDT [facility] Potassium 3.9 3.5 - 5.1 mmol/L LAB CHEMISTRY METHOD 03/06/2022 12:23 PM [facility] Chloride 104 98 - 107 mmol/L LAB CHEMISTRY METHOD 03/06/2022 12:23 PM [facility] CO2 28 21 - 32 mmol/L LAB CHEMISTRY METHOD 03/06/2022 12:23 PM [facility] Anion Gap 8 3 - 11 LAB CHEMISTRY METHOD 03/06/2022 12:23 PM [facility] Glucose 124(H) 70 - 99 mg/dL LAB CHEMISTRY METHOD 03/06/2022 12:23 PM [facility] BUN 17 7 - 18 mg/dL LAB CHEMISTRY METHOD 03/06/2022 12:23 PM [facility] Creatinine 1.35(H) 0.70 - 1.30 mg/dL LAB CHEMISTRY METHOD 03/06/2022 12:23 PM [facility] eGFR 61 >=60 mL/min/1. 73m2 LAB CHEMISTRY METHOD 03/06/2022 12:23 PM [facility] Comment: The MDRD GFR formula is valid only for adults between ages 18 and 70. BUN/Creatinine Ratio 12.6 12.0 - 20.0 LAB CHEMISTRY METHOD 03/06/2022 12:23 PM [facility] Calcium 7.5(L) 8.5 - 10.1 mg/dL LAB CHEMISTRY METHOD 03/06/2022 12:23 PM [facility] AST (SGOT) 23 15 - 37 unit/L LAB CHEMISTRY METHOD 03/06/2022 12:23 PM [facility] ALT (SGPT) 27 16 - 61 unit/L LAB CHEMISTRY METHOD 03/06/2022 12:23 PM [facility] Alkaline Phosphatase 90 unit/L LAB CHEMISTRY METHOD 03/06/2022 12:23 PM [facility] Total Protein 7.1 6.4 - [...] esult [facility] [address] [place] [address] * (ABNORMAL) Hemoglobin A1c (01/28/2021 9:45 PM [...] >/=6.5% NGSP: National Glycohemoglobin Standardization Program *2011 English Diabetes Association Note: These results were obtained by [employer]ech-Guarnic Variant II HbA1c Assay. The assay is IFCC standardized and NGSP certified. us Zeferino Richard MD LAB BLOOD ORDERABLES Final Resul t [facility] [address] [place], [place] [phone] from Last 3 Months or Most Recently Relevant to Health Maintenance Insurance MEDICARE [place]ICA[place] - [place] on file MED[place]ID [place] Care Teams Hydraulics Engineer Relationship Specialty Start Date End Date Physician, No Pcp PCP - General 01/28/21
--- OUTSIDE RECORDS SUMMARY | 2025-04-23 19:39 | XMS_ITS | Patient Health Record ---
Author Organization [facility] Address [address] [place] [address] Care Team Providers Care Curling Machine Operator Name Role Phone Tali Dyer [...] date:05/16/2024 07:39:47 AM Interpretation: Performing Lab: Notes/Report: [address] [address] [address] Scan Report Signed Patient: Vannessa Barber S MR#: [id number] 39 : 1970 Acct:[id number] Age/Sex: 54 / M ADM Date: 05/09/24 Loc: [facility] Attending Dr: Gabino Meade MD Ordering Physician: Gabino Meade MD Date of Service: 05/09/24 Procedure(s): CT colonography Accession Number(s): [id number] cc: Gabino Meade MD; Tali Dyer MD [...] 05/09/24 1630 DD/ 1342 TD/TT: 05/09/24 1401 Subacute Nurse: DANIEL Reason For Referral No Information Medications [...] Once a day for 30 day(s) Active Xsnkurrrln-PBOR-Dcmxeotr 50-325-40 MG 1 capsule as needed Orally [...] Problem Status W/U Status Risk Notes Problem [id number] Colon cancer screening (Z12.11) Active confirmed Problem 969030087 Long-term use of aspirin therapy (Z79.82) Active confirmed Problem 58890595 Incontinence of feces, unspecified fecal incontinence type (R15.9) Active confirmed Vital Signs Temperature 97.5 degrees Fahrenheit 04/23/2024 Blood pressure diastolic 00 mm Hg 04/23/2024 Height 68 in 04/23/2024 Blood pressure systolic 000 mm Hg 04/23/2024 Weight 222 lb 6 oz lbs 04/23/2024 BMI 33.81 kg/m2 04/23/2024 Encounters Encounter Location Date Provider Diagnosis [facility] Outpatient [address] [place] [id number] 05/09/2024 Gabino Meade Jr Colon cancer screening Z12.11 [facility] [address] [place] [address] 04/23/2024 Gabino Meade Jr Colon cancer screening Z12.11 ; Incontinence of feces, unspecified fecal incontinence type R15.9 and Long-term use of aspirin therapy Z79.82 [facility] [address] [place] [address] 05/16/2024 Gabino Meade Jr Assessments Encounter Date [...] OF [place] [address] [place] [address] [id number] LINDA VANNESSA Self - patient is the insured [employer] CLAIMS [address] [place] [address] [id number] LINDA VANNESSA Self - patient is the insured Medical (General) History Medical History History ICD Code diabetes mellitus hypertension retinopathy obstructive sleep apnea hypothyroidism headaches elevated cholesterol asthma erectile dysfunction Family history of colon cancer Gastroesophageal reflux disease Essential thrombocytosis Surgical History Surgery Date(Month/Year) finger surgery carpal tunnel release-left eye surgery penile implant
--- OUTSIDE RECORDS SUMMARY | 2025-04-23 19:39 | XMS_ITS | Encounter Summary ---
Author Organization [employer] Address [address] [facility] 7[address] [place] [address] Care Team Providers Care Steam Tank Operator Name Role Phone Unavailable Primary Care [...] 12/23/2025 8:30 AM EDT Office Visit [facility] [address] [place] [address] Catherine Parisi, CASSANDRA [address] [place] [address] documented as of this encounter Visit Diagnoses Not on filedocumented in this encounter
--- OUTSIDE RECORDS SUMMARY | 2025-04-23 19:39 | XMS_ITS | Patient Health Record ---
Author Organization [facility] Address [address] [facility] [place] [address] Care Team Providers Care Collections Attorney Name Role Phone Tali Dyer Primary Care Provider Loyda Pickens Unavailable [phone] Allergies Allergen (clinical drug ingredient) Drug/Non Drug [...] Problem Acquired hammer toe of right foot (461922193092553 5) Other hammer toe(s) (acquired), right foot (M20.41) Active confirmed Response to treatment, Improvement Problem Acquired hammer toe of left foot (517959434938384 3) Other hammer toe(s) (acquired), left foot (M20.42) Active confirmed Response to treatment, Improvement Problem Polyneuropathy due to type 2 diabetes mellitus (150712014) Type 2 diabetes mellitus with diabetic polyneuropathy (E11.42) Active confirmed Vital Signs Blood pressure diastolic 65 mm Hg 02/12/2025 Height 5ft 8 inch in 02/12/2025 Blood pressure systolic 128 mm Hg 02/12/2025 Weight 220 lbs 02/12/2025 BMI 33.45 kg/m2 02/12/2025 Procedures Procedure Date Ordered Date Performed Result Body Sit e 33579-DXDKTPT NAIL, 6 OR MORE 07/03/2024 N/A 82584-DBHC SKIN LESIONS, 2 TO 4 07/03/2024 N/A 02071-VFOEDMC NAIL, 6 OR MORE 11/12/2024 N/A 77558-DIMA SKIN LESIONS, 2 TO 4 11/12/2024 N/A Encounters Encounter Location Date Provider Diagnosis [facility] [address] [address] 07/03/2024 Loyda Putnam Tinea pedis of both feet B35.3 ; Type 2 diabetes mellitus with diabetic polyneuropathy E11.42 and Tinea unguium B35.[address] [address] 11/12/2024 Loyda Putnam Other hammer toe(s) (acquired), right foot M20.41 ; Other hammer toe(s) (acquired), left foot M20.42 ; Type 2 diabetes mellitus with diabetic polyneuropathy E11.42 ; Tinea unguium B35.1 and Tinea pedis of both feet B35.[address] [address] 02/12/2025 Loyda Putnam Type 2 diabetes mellitus [...] Treatment Pending Test Test Name Order Date 65060-LWBIGAO NAIL, 6 OR MORE 07/03/2024 14688-XBNICRE NAIL, 6 OR MORE 11/12/2024 39418-ZCZM SKIN LESIONS, 2 TO 4 07/03/20 24 07118-LEFG SKIN LESIONS, 2 TO 4 11/13/19 Next Appt Details Provider Name:Loyda Alrbecht thompson, 05/18/2025 02:45:00 PM, [address] [place], [address], Insurance Providers Payer Name Payer Address Payer Phone Subscriber Number Group Number Insured Name Patient Relationship to Insured Coverage Start Date Coverage End Date Medicare National [employer] [address] [facility] [place] [address] [id number] Russell Barber Self - patient is the insured 3 Medical (General) History Medical History History ICD Code asthma Back,Hip,and Knee pain Cataracts Depression Diabetic Headaches/Migraines High Blood Pressure thyroid Neuropathy Heart attack Carpal tunnel Trigger finger
--- OUTSIDE RECORDS SUMMARY | 2025-04-23 19:39 | XMS_ITS | Encounter Summary ---
Author Organization [facility] Address [address] [place] [address] Care Team Providers Care Ballet Master/Mistress Name Role Phone Physician, No Pcp Primary Care Provider Unavaila ble Encounter Details Date Type Department Care Team (Latest Contact Info) Description 01/28/2021 Lab Requisition [facility] Main Lab [address] [place] [address] Zeferino Richard MD [address] [facility] [address] [place] [address] Laceration of flexor muscle, fascia and tendon [...] LAB CHEMISTRY METHOD 01/29/2021 9:36 AM EDT [facility] Mean Bld Glu Estim. 206(H) <126 mg/dL LAB CHEMISTRY METHOD 01/29/2021 9:36 AM EDT [facility] Blood Topography not assigned / Unknown 01/28/2021 9:45 PM EDT 01/28/2021 9:45 PM EDT Narrative [facility] - 01/29/2021 9:36 AM EDT *Clinical Condition Normal <5.7% Prediabetes 5.7-6.5% Diabetes >/=6.5% NGSP: National Glycohemoglobin Standardization Program *2011 [employer] Note: These results were obtained by KOEZY-Wanelo Variant II HbA1c Assay. The assay is IFCC standardized and NGSP certified. us Zeferino Richard MD LAB BLOOD ORDERABLES Final Resul t [facility] [address] [place] [address] * (ABNORMAL) Comprehensive metabolic panel (01/28/2021 9:45 PM EDT) Sodium 139 136 - 145 mmol/L LAB CHEMISTRY METHOD 01/28/2021 10:16 PM EDT [facility] Potassium 4.6 3.5 - 5.1 mmol/L LAB CHEMISTRY METHOD 01/28/2021 10:16 PM EDT [facility] Chloride 104 98 - 107 mmol/L LAB CHEMISTRY METHOD 01/28/2021 10:16 PM EDT [facility] CO2 29 21 - 32 mmol/L LAB CHEMISTRY METHOD 01/28/2021 10:16 PM EDT [facility] Anion Gap 6 3 - 11 LAB CHEMISTRY METHOD 01/28/2021 10:16 PM EDT [facility] Glucose 203(H) 70 - 99 mg/dL LAB CHEMISTRY METHOD 01/28/2021 10:16 PM EDT [facility] BUN 13 7 - 18 mg/dL LAB CHEMISTRY METHOD 01/28/2021 10:16 PM EDT [facility] Creatinine 0.88 0.70 - 1.30 mg/dL LAB CHEMISTRY METHOD 01/28/2021 10:16 PM EDT [facility] eGFR 101 >=60 mL/min/1. 73m2 LAB CHEMISTRY METHOD 01/28/2021 10:16 PM EDT [facility] Comment: Please note that this estimated GFR value is not recommended for use in individuals under the age of 18, individuals with unstable creatinine concentrations (including and acute renal failure), or individuals with extremes of body mass or diet (including amputees, paraplegics and obese individuals). BUN/Creatinine Ratio 14.77 LAB CHEMISTRY METHOD 01/28/2021 10:16 PM EDT [facility] Calcium 9.2 8.5 - 10.1 mg/dL LAB CHEMISTRY METHOD 01/28/2021 10:16 PM [facility] AST (SGOT) 22 15 - 37 unit/L LAB CHEMISTRY METHOD 01/28/2021 10:16 PM [facility] ALT (SGPT) 36 16 - 61 unit/L LAB CHEMISTRY METHOD 01/28/2021 10:16 PM EDT [facility] Alkaline Phosphatase 112 53 - 128 unit/L LAB CHEMISTRY METHOD 01/28/2021 10:16 PM T [facility] Total Protein 7.5 6.4 - 8.2 g/dL LAB CHEMISTRY METHOD 01/28/2021 10:16 PM EDT [facility] Albumin 3.9 3.4 - 5.0 g/dL LAB CHEMISTRY METHOD 01/28/2021 10:16 PM T [facility] Total Bilirubin 0.4 0.2 - 1.0 mg/dL LAB CHEMISTRY METHOD 01/28/2021 10:16 PM T [facility] Blood Topography not assigned / Unknown 01/28/2021 9:45 PM EDT 01/28/2021 9:45 PM EDT Zeferino Richard MD LAB BLOOD ORDERABLES Final Resul t [facility] [address] [place] [address] * (ABNORMAL) Complete blood count (01/28/2021 9:45 PM EDT) WBC 9.7 4.0 - 10.2 K/mcL LAB HEMETOLOGY METHOD 01/28/2021 10:02 PM EDT [facility] RBC 5.51 4.20 - 5.70 M/mcL LAB HEMETOLOGY METHOD 01/28/2021 10:02 PM EDT [facility] Hemoglobin 16.2 12.7 - 17.1 g/dL LAB HEMETOLOGY METHOD 01/28/2021 10:02 PM EDT [facility] Hematocrit 50.4(H) 35.0 - 50.2 % LAB HEMETOLOGY METHOD 01/28/2021 10:02 PM EDT [facility] MCV 91.5 81.0 - 97.0 FL LAB HEMETOLOGY METHOD 01/28/2021 10:02 PM EDT [facility] MCH 29.4 25.3 - 34.1 pcg LAB HEMETOLOGY METHOD 01/28/2021 10:02 PM EDT [facility] MCHC 32.1 30.2 - 35.3 g/dL LAB HEMETOLOGY METHOD 01/28/2021 10:02 PM EDT [facility] RDW 14.0 11.0 - 14.5 % LAB HEMETOLOGY METHOD 01/28/2021 10:02 PM EDT [facility] RDW-SD 46.7 36.8 - 48.3 FL LAB HEMETOLOGY METHOD 01/28/2021 10:02 PM EDT [facility] Platelets 616(H) 150 - 400 K/mcL LAB HEMETOLOGY METHOD 01/28/2021 10:02 PM EDT [facility] MPV 10.0 9.1 - 12.7 FL LAB HEMETOLOGY METHOD 01/28/2021 10:02 PM EDT [facility] NRBC 0.0 0.0 - 0.0 % LAB HEMETOLOGY METHOD 01/28/2021 10:02 PM EDT [facility] NRBC Absolute 0.00 0.00 - 0.00 K/mcL LAB HEMETOLOGY METHOD 01/28/2021 10:02 PM EDT [facility] Blood Topography not assigned / Unknown 01/28/2021 9:45 PM EDT 01/28/2021 9:45 PM EDT us Zeferino Richard MD LAB BLOOD ORDERABLES Final Resul t [facility] [address] [place] [address] documented in this encounter Visit Diagnoses Diagnosis Laceration of flexor muscle, fascia and tendon of right little finger at wrist and hand level, initial encounter Encounter for other preprocedural examination documented in this encounter Care Teams Ballet Master/Mistress Relationship Specialty Start Date End Date Physician, No Pcp PCP - General 01/28/21 documented as of this encounter
--- OUTSIDE RECORDS SUMMARY | 2025-04-23 19:41 | XMS_ITS | Encounter Summary ---
Author Organization [facility] Address [address] [facility] [address] [place] [phone] Phone Care Team Providers Care Crack Off Person Name Role Phone Birdie Quintero COMPUTER SECURITY MANAGER Unavailable Unavailable Tali Dyer MD Unavailable Diane Whitaker COMPUTER SECURITY MANAGER Unavailable Emily Moctezuma MD Unavailable [phone] PoTali MD Primary Care Provider Encounter Details Date Type Department Care Team (Latest Contact Info) Description 06/08/2018 Transcribe Orders [facility] Laboratory [address] [place] [address] Emily Moctezuma MD [address] [place] [phone] [email or web address] Type 1 diabetes mellitus with stable proliferative [...] Info) Description 05/04/2025 10:00 AM EDT [facility] [address] [place] [address] Emily Moctezuma MD [address] [facility], [address] [place] [address] Birdie Land LDN [address] [facility], [address] [place] [address] 08/10/2025 9:00 AM EST Office Visit [facility] [address] [place] [address] Emily Moctezuma MD [address] [facility], [address] [place] [address] [email or web address] documented as of this encounter Procedures Procedure [...] Resu lt [facility] [address] [place] [address] * Glucose, fasting (06/08/2018 9:23 AM EST) FASTING GLUCOSE 110 70 - 110 mg/dL [facility] Blood 06/08/2018 9:23 AM EST 06/08/2018 9:29 AM EST us Emily Moctezuma MD LAB BLOOD ORDERABLES Final Resu lt Performing Organization Address City/[facility]/ZIP Co de Phone Number [address] [phone] * (ABNORMAL) Hemoglobin A1c (06/08/2018 9:23 AM EST) HEMOGLOBIN A1C 8.7(H) 4.3 - 5.8 % [facility] Blood 06/08/2018 9:23 AM EST 06/08/2018 9:29 AM EST us Emily Moctezuma MD LAB BLOOD ORDERABLES Final Resu lt Performing Organization Address City/[facility] Co de Phone Number [address] [address] documented in this encounter Visit Diagnoses Diagnosis 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 Type 1 diabetes mellitus without complication Type I (juvenile type) diabetes mellitus without mention of complication, not stated as uncontrolled documented in this encounter Care Teams Crack Off Person Relationship Specialty Start Date End Date Tali Dyer MD [address] [place] [phone] PCP - General Internal Medicine 06/04/17 Birdie Quintero NP [address] [place] [phone] Historical LMR Provider 05/14/1708/06 Tali Dyer MD [address] [place] [phone] Historical LMR Provider 05/14/17 Diane Whitaker NP [address] [place] [address] Historical LMR Provider 05/14/17 Emily Moctezuma MD [address] [facility], [address] [place] [phone] [email or web address] Historical LMR Provider 05/14/17 documented as of this encounter Additional Source Comments The information contained in this document represents components of the legal health record. It is not the complete legal health record.[facility]
--- OUTSIDE RECORDS SUMMARY | 2025-04-23 19:41 | XMS_ITS | Clinical Summary ---
Author Organization [employer] Address [address] [facility] [address] [place] [address] Care Team Providers Care Channel Specialist Name Role Phone Unavailable Primary Care Provider Unavailabl e Allergies Active Allergy Reactions Criticality Noted Date Comments Gabapentin 07/11/2022 Hydroxyzine Unknown 07/11/2022 Lamotrigine 10/26/2017 Lisinopril 10/26/2017 Other reaction(s): cough Peanut-Containing Drug Products 09/26/2018 Other reaction(s): throat swells, hives Other reaction(s): N/V, hives Penicillins 10/26/2017 Other reaction(s): ? hives Soy Allergy (Obsolete) Swelling 07/11/2022 Soybean-Containing Drug Products 08/08/2023 Other reaction(s): throat swelling [place] Oil 08/08/2023 Other reaction(s): N/V, hives Medications [...] 2 Active butalbital-acet aminophen-caffe ine-codeine (Fioricet w/Codeine) [id number] MG capsule Take by mouth daily. 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 left eye (CMS/HCC); History of enucleation of eye from Last 3 Months Family History Medical [...] Description 12/23/2025 8:30 AM EDT Office Visit [facility]OM[facility] [address] [place] [address] Catherine Parisi, OD [address] [place] [address] Health Maintenance Due Date Last Done Comments [...] A1C 04/30/2021 01/28/2021, 09/28 COVID-19 Vaccine ( season) 2025 Influenza Vaccine (#1) 2025 Dental Oral Exam 06/21/2025 12/18/2024, 09/2023, 10/07/2018 Dental Prophylaxis 06/21/2025 12/18/2024, 10/31/2023 Dental X-Ray: Bitewings 12/19/2025 12/19/19, 10/31/2023, 10/07/2018 Eye Exam 04/13/2026 04/13/2025, 03/30, 04/13/2025, Additional history exists Tobacco Screening 04/13/2026 04/13/2025 Dental X-Ray: Full Mouth 10/31/2026 10/31/2023, 09/27 [...] Procedure Name Priority Date/Time Associated Diagnosis Comments OCT, RETINA - OU - BOTH EYES Routine 04/13/2025 Type 1 diabetes mellitus with stable proliferative retinopathy of left eye (CMS/HCC) Full PROPHYLAXIS - ADULT Routine 12/18/2024 9:20 AM EDT BITEWINGS - 4 RADIOGRAPHIC IMAGES Routine 12/18/2024 9:20 AM EDT PERIODIC ORAL EVALUATION - ESTABLISHED PATIENT Routine 12/18/2024 9:20 AM EDT INTRAORAL - COMPLETE SERIES OF RADIOGRAPHIC IMAGES Routine 10/31/2023 9:20 AM EDT from Last 3 Months or Most Recently Relevant to Health Maintenance Results * OCT, Retina - OU - Both Eyes (04/13/2025) Impressions Catherine Parisi, OD - 04/13/2025 Left eye (OS): Normal foveal contour; 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 No diabetic macular edema. Establishing baseline. Catherine Parisi OD OPHTH TOMOGRAPHY Final Result from Last 3 Months Insurance MEDICARE DENTAL-[facility] MEDICAID STAND ADULT DENTAL - HSN FULL (MEDICAID) [facility] MEDICARE
== END 2025-04-23 16:05 | disposition home or self-care (01) ==
LOC: HO.HMCH 15:35
PROVIDERS: PCP Internal Medicine; Visit Provider Internal Medicine
DX: R68.89 Other general symptoms and signs (principal)

== ENCOUNTER → 2025-04-23 15:35 | Outpatient (BNVA) | payer MEDICARE, MEDICAID, SELFPAY ==
[2023-04-20 15:31] VITALS: BP 134/66; BP 140/58; BMI 32.5
== END ==
PROVIDERS: PCP Internal Medicine; Visit Provider Internal Medicine
DX: R68.84 Jaw pain (principal); R68.89 Other general symptoms and signs
CPT/HCPCS: 96127; 99212